=== PATIENT | female | born 1965 | race Caucasian/White ===

== ENCOUNTER 2023-02-18 20:46 | Inpatient (IN) | payer BC ==
[2023-02-18 21:06] LABS: Glucose,Whole Blood 136 mg/dL (70-110)
[2023-02-18] MEDS ORDERED: ASPIRIN 81 MG PO STA (21:26)
[2023-02-18] MEDS ORDERED: NITROGLYCERIN OINT 1 INCH/GM PACKET TOPICAL STA (21:26)
--- NOTE | 2023-02-18 21:37 | ED ---
General Adult HPI - General Chief complaint: Altered Mental Status Stated complaint: AMS,Refusing Medications Time Seen by Provider: 02/18/23 21:16 Source: patient, EMS Mode of arrival: EMS Limitations: no limitations - History of Present Illness Initial comments: This patient is a 57-year-old woman who presents to have evaluation for weeks of generalized weakness, confusion and multiple falls. History is from both the patient and . The actually gives most of the history, as the patient prefers to make jokes about her condition. The states that the patient generally refuses to see doctors because she does not trust them. She does have long-standing history of hypertension. Over the past few weeks he notes that as the day goes on she gets progressively weaker, she gets confused, and she tends to have multiple falls in the evenings. Patient denies injury or pain. The patient's only complaint at the history and physical is that she needs to urinate. -: week(s) Consistency: intermittent Improves with: none Worsens with: movement Associated Symptoms: confusion, weakness, other (Multiple falls) Treatments Prior to Arrival: none - Related Data Home Medications Medication Instructions Recorded Confirmed No Known Home Medications 02/18/23 02/18/23 Allergies Allergy/AdvReac Type Severity Reaction Status Date / Time shellfish derived [Shrimp] Allergy Rash/Hives Verified 02/18/23 21:49 Review of Systems ROS Statement: Those systems with pertinent positive or pertinent negative responses have been documented in the HPI. ROS Other: All systems not noted in ROS Statement are negative. Constitutional: Reports: weakness. Denies: fever, chills Eyes: Denies: vision change Respiratory: Denies: cough, dyspnea Cardiovascular: Reports: edema. Denies: chest pain, palpitations, syncope Gastrointestinal: Denies: abdominal pain, vomiting, diarrhea, constipation, melena, hematochezia Genitourinary: Denies: dysuria, frequency, hematuria Musculoskeletal: Denies: back pain Skin: Denies: rash Neurological: Reports: confusion. Denies: headache, weakness Past Medical History Past Medical History: Diabetes Mellitus, Myocardial Infarction ([place]), Thyroid Disorder History of Any Multi-Drug Resistant Organisms: None Reported Smoking Status: Current every day smoker Past Alcohol Use History: Occasional Past Drug Use History: Marijuana - Past Family History Son(s) History Unknown: Yes Mother History Unknown: Yes Father History Unknown: Yes General Exam Limitations: no limitations General appearance: alert, in no apparent distress Head exam: Present: atraumatic, normocephalic Eye exam: Present: normal appearance. Absent: scleral icterus, conjunctival injection ENT exam: Present: normal oropharynx Neck exam: Present: normal inspection, full ROM. Absent: meningismus Respiratory exam: Present: respiratory distress (Tachypnea), rales (Bilateral bases). Absent: wheezes, rhonchi, stridor Cardiovascular Exam: Present: normal rhythm, tachycardia, systolic murmur. Absent: diastolic murmur, rubs, gallop GI/Abdominal exam: Present: soft. Absent: distended, tenderness, guarding, rebound, rigid, mass Extremities exam: Present: normal inspection, tenderness (Those 2 through 5), normal capillary refill, pedal edema, other (Patient has dusky toes #2 through 5 on the left foot with delayed capillary refill.). Absent: calf tenderness Back exam: Present: normal inspection. Absent: CVA tenderness (R), CVA tenderness (L), vertebral tenderness Neurological exam: Present: alert, CN II-XII intact. Absent: oriented X3 (The patient is disoriented to date), motor sensory deficit Skin exam: Present: warm, dry, intact, other (See above). Absent: normal color Course Vital Signs 02/18/23 02/18/23 02/18/23 20:48 21:50 22:00 Temperature 97.7 F Pulse Rate 105 H 98 92 Respiratory 22 Rate Blood Pressure 238/178 230/172 230/172 O2 Sat by Pulse 87 L 96 92 L Oximetry 02/18/23 02/18/23 02/18/23 22:10 22:11 22:20 Temperature Pulse Rate 97 104 H 106 H Respiratory 26 H 17 Rate Blood Pressure 224/159 224/159 209/168 O2 Sat by Pulse 96 89 L 98 Oximetry 02/18/23 02/18/23 02/18/23 22:40 22:50 23:10 Temperature Pulse Rate 101 H 103 H Respiratory 18 18 Rate Blood Pressure 225/179 237/169 229/178 O2 Sat by Pulse 96 92 L 94 L Oximetry 02/18/23 02/18/23 02/18/23 23:30 23:40 23:42 Temperature Pulse Rate 98 98 98 Respiratory 23 18 Rate Blood Pressure 214/153 219/163 216/158 O2 Sat by Pulse 90 L 96 96 Oximetry 02/18/23 02/19/23 02/19/23 23:50 00:00 00:10 Temperature Pulse Rate 96 97 98 Respiratory 35 H 15 15 Rate Blood Pressure 220/155 220/155 228/159 O2 Sat by Pulse 91 L 92 L 96 Oximetry 02/19/23 02/19/23 02/19/23 00:20 00:30 00:31 Temperature Pulse Rate 100 103 H 104 H Respiratory 24 11 L 18 Rate Blood Pressure 224/163 224/163 206/149 O2 Sat by Pulse 90 L 90 L 96 Oximetry 02/19/23 02/19/23 02/19/23 00:40 00:50 01:00 Temperature Pulse Rate 92 96 91 Respiratory 10 L 15 20 Rate Blood Pressure 206/149 192/154 192/154 O2 Sat by Pulse 95 91 L 93 L Oximetry 02/19/23 02/19/23 02/19/23 01:10 01:20 01:30 Temperature Pulse Rate 81 84 71 Respiratory 19 Rate Blood Pressure 225/138 233/137 233/137 O2 Sat by Pulse 92 L Oximetry 02/19/23 02/19/23 02/19/23 01:40 01:50 02:00 Temperature Pulse Rate 69 68 65 Respiratory Rate Blood Pressure 231/142 203/125 O2 Sat by Pulse 95 91 L 96 Oximetry 02/19/23 02/19/23 02/19/23 02:10 02:20 02:30 Temperature Pulse Rate 68 64 62 Respiratory 20 23 Rate Blood Pressure 204/141 199/141 199/141 O2 Sat by Pulse 94 L 93 L 97 Oximetry 02/19/23 02/19/23 02/19/23 02:40 02:51 03:00 Temperature Pulse Rate 60 61 63 Respiratory Rate Blood Pressure 211/130 207/131 O2 Sat by Pulse 97 97 94 L Oximetry 02/19/23 02/19/23 02/19/23 03:10 03:20 03:30 Temperature Pulse Rate 61 61 62 Respiratory 12 Rate Blood Pressure 216/125 205/131 205/131 O2 Sat by Pulse 96 95 97 Oximetry 02/19/23 02/19/23 02/19/23 03:40 03:50 04:00 Temperature Pulse Rate 60 61 63 Respiratory 12 Rate Blood Pressure 219/131 212/137 212/137 O2 Sat by Pulse 97 93 L 96 Oximetry 02/19/23 02/19/23 02/19/23 04:10 04:20 04:30 Temperature Pulse Rate 61 60 63 Respiratory 22 21 Rate Blood Pressure 214/128 O2 Sat by Pulse 96 97 96 Oximetry 02/19/23 02/19/23 02/19/23 04:40 04:50 05:00 Temperature Pulse Rate 58 L 60 63 Respiratory 27 H Rate Blood Pressure 219/137 215/127 215/127 O2 Sat by Pulse 98 98 96 Oximetry 02/19/23 02/19/23 02/19/23 05:10 05:20 05:30 Temperature Pulse Rate 56 L 56 L 58 L Respiratory 10 L Rate Blood Pressure 228/127 205/117 O2 Sat by Pulse 97 96 93 L Oximetry 02/19/23 02/19/23 02/19/23 05:32 05:40 05:50 Temperature Pulse Rate 49 L 60 57 L Respiratory 24 Rate Blood Pressure 196/119 196/119 227/120 O2 Sat by Pulse 95 96 Oximetry 02/19/23 02/19/23 02/19/23 06:00 06:10 06:20 Temperature Pulse Rate 60 53 L 52 L Respiratory 17 23 Rate Blood Pressure 207/118 213/110 O2 Sat by Pulse 96 97 96 Oximetry 02/19/23 02/19/23 02/19/23 06:30 06:40 07:35 Temperature Pulse Rate 54 L 51 L 60 Respiratory 23 26 H 18 Rate Blood Pressure 213/110 207/111 208/126 O2 Sat by Pulse 96 96 98 Oximetry 02/19/23 02/19/23 02/19/23 08:05 08:12 08:17 Temperature Pulse Rate 57 L 59 L 55 L Respiratory 18 16 18 Rate Blood Pressure 142/129 212/123 216/118 O2 Sat by Pulse 95 94 L 95 Oximetry 02/19/23 02/19/23 02/19/23 08:22 08:31 08:43 Temperature Pulse Rate 60 52 L 54 L Respiratory 18 18 18 Rate Blood Pressure 193/115 192/119 195/110 O2 Sat by Pulse 98 95 95 Oximetry 02/19/23 09:08 Temperature 98.0 F Pulse Rate 55 L Respiratory 18 Rate Blood Pressure 191/107 O2 Sat by Pulse 95 Oximetry EKG Findings - EKG Results: EKG: interpreted by ERMD, sinus rhythm, normal axis EKG shows: tachycardia (Rate 110) - Blocks, [place], Hypertrophy, ST Abn: Repolarization changes or abnormalities: nonspecific abnormality, ST segment, and/or T wave Medical Decision Making - Medical Decision Making This patient is a 57-year-old woman with long-standing history of medical noncompliance for hypertension, diabetes, suspect COPD given smoking history, possible underlying liver disease though not heavy drinker. The patient will be admitted to deal with multiple medical issues, including uncontrolled hypertension, altered mental status, probably multifactorial in nature, peripheral vascular occlusive disease with left foot ischemia. The studies reveal mild elevation of troponin though suspect this more due to element of congestive heart failure as EKG not definitely ischemic. The patient had chest x-ray which I interpret to show marked cardiomegaly. No infiltrate or pneumothorax. The case is discussed with admitting physician. The case is discussed with vascular surgery on-call they will see the patient will be maintained on heparin. The patient started on antihypertensives with goal to slowly decrease the blood pressure. The executive secretary social welfare is paged but had not yet called back at time of shift change Was pt. sent in by a medical professional or institution (, PA, DEVELOPMENTAL EDUCATION INSTRUCTOR, urgent care, hospital, or [facility]...) When possible be specific @ -[No] Did you speak to anyone other than the patient for history (EMS, parent, family, police, friend...)? What history was obtained from this source @ -[Most of history from the patient's Did you review nursing and triage notes (agree or disagree)? Why? @ -[I reviewed and agree with nursing and triage notes] Were old charts reviewed (outside hosp., previous admission, EMS record, old EKG, old radiological studies, urgent care reports/EKG's, [facility] records)? Report findings @ -[No old charts were reviewed] Differential Diagnosis (chest pain, altered mental status, abdominal pain women, abdominal pain men, vaginal bleeding, weakness, fever, dyspnea, syncope, headac he, dizziness, GI bleed, back pain, seizure, CVA, palpatations, mental health, musculoskeletal)? @ -[Differential Altered Mental Status: Hypoglycemia, DKA, hypercapnia, ETOH, overdose, CO poisoning, trauma, myxedema coma, HTN encephalopathy, infection, encephalitis, psychosis, intercranial hemorrhage, hepatic encephalopathy, meningitis, CVA, this is not meant to be an all-inclusive list EKG interpreted by me (3pts min.). @ -[As above] X-rays interpreted by me (1pt min.). @ -[As above CT interpreted by me (1pt min.). @ -[None done] U/S interpreted by me (1pt. min.). @ -[None done] What testing was considered but not performed or refused? (CT, X-rays, U/S, labs)? Why? @ -[None] What meds were considered but not given or refused? Why? @ -[None] Did you discuss the management of the patient with other professionals (professionals i.e. Dr., PA, DEVELOPMENTAL EDUCATION INSTRUCTOR, lab, RT, psych nurse, social insurance adviser, automotive service manager, teacher, special forces warrant officer, caser in)? Give summary @ -[As above Was smoking cessation discussed for >3mins.? @ -[No] Was critical care preformed (if so, how long)? @ -[Yes, 35 minutes Were there social determinants of health that impacted care today? How? (Homelessness, low income, unemployed, alcoholism, drug addiction, transportation, low edu. Level, literacy, decrease access to med. care, group home, rehab)? @ -[No] Was there de-escalation of care discussed even if they declined (Discuss DNR or withdrawal of care, Hospice)? DNR status @ -[No] What co-morbidities impacted this encounter? (DM, HTN, Smoking, COPD, CAD, Cancer, CVA, ARF, Chemo, Hep., AIDS, mental health diagnosis, sleep apnea, morbid obesity)? @ -[Hypertension, suspect COPD Was patient admitted / discharged? Hospital course, mention meds given and route, prescriptions, significant lab abnormalities, going to OR and other pertinent info. @ -[Patient is admitted, pending transfer to ICU, given the IV nitroglycerin for blood pressure control. Undiagnosed new problem with uncertain prognosis? @ -[No] Drug Therapy requiring intensive monitoring for toxicity (Heparin, Nitro, Insulin, Cardizem)? @ -[No] Were any procedures done? @ -[No] Diagnosis/symptom? @ -[Acute on chronic hypertension Acute encephalopathy, suspect multifactorial Elevated troponin cardiomyopathy, Suspect hypertensive Peripheral vascular occlusive disease with left foot ischemia Acute, or Chronic, or Acute on Chronic? @ -[default] Uncomplicated (without systemic symptoms) or Complicated (systemic symptoms)? @ -[Complicated Side effects of treatment? @ -[No] Exacerbation, Progression, or Severe Exacerbation? @ -[No] Poses a threat to life or bodily function? How? (Chest pain, [place], [place], pneumonia, PE, COPD, DKA, ARF, appy, cholecystitis, CVA, Diverticulitis, Homicidal, Suicidal, threat to staff... and all critical care pts) @ -[Yes, left untreated suspect the patient would have further cardiac decompensation, progressivly worse congestive heart failure and . In addition probable worsening of left foot ischemia - Lab Data Result diagrams: 03/01/23 07:57 03/02/23 06:10 Lab Results 02/18/23 02/18/23 02/18/23 Range/Units 20:57 20:57 20:57 WBC 7.1 (3.8-10.6) k/uL RBC 5.67 H (3.80-5.40) m/uL Hgb 15.6 (11.4-16.0) gm/dL Hct 48.4 H (34.0-46.0) % MCV 85.3 (80.0-100.0) fL MCH 27.6 (25.0-35.0) pg MCHC 32.3 (31.0-37.0) g/dL RDW 15.3 (11.5-15.5) % Plt Count 263 (150-450) k/uL MPV 8.5 Neutrophils % 73 % Lymphocytes % 17 % Monocytes % 7 % Eosinophils % 1 % Basophils % 1 % Neutrophils # 5.1 (1.3-7.7) k/uL Lymphocytes # 1.2 (1.0-4.8) k/uL Monocytes # 0.5 (0-1.0) k/uL Eosinophils # 0.1 (0-0.7) k/uL Basophils # 0.0 (0-0.2) k/uL PT 12.0 (9.0-12.0) sec INR 1.2 H (<1.2) APTT 23.9 (22.0-30.0) sec VBG pH (7.31-7.41) VBG pCO2 (37-51) mmHg VBG HCO3 (24-28) mmol/L Sodium 135 L (137-145) mmol/L Potassium 4.5 (3.5-5.1) mmol/L Chloride 99 (98-107) mmol/L Carbon Dioxide 26 (22-30) mmol/L Anion Gap 10 mmol/L BUN 32 H (7-17) mg/dL Creatinine 1.28 H (0.52-1.04) mg/dL Est GFR (CKD-EPI)AfAm 54 (>60 ml/min/1.73 sqM) Est GFR (CKD-EPI)NonAf 46 (>60 ml/min/1.73 sqM) Glucose 139 H (74-99) mg/dL POC Glucose (mg/dL) (70-110) mg/dL POC Glu Assistant Manager ID Plasma Lactic Acid Asael (0.7-2.0) mmol/L Calcium 9.1 (8.4-10.2) mg/dL Total Bilirubin 1.5 H (0.2-1.3) mg/dL AST 43 H (14-36) U/L ALT 41 H (4-34) U/L Alkaline Phosphatase 103 (38-126) U/L Ammonia (<30) umol/L Troponin I (0.000-0.034) ng/mL NT-Pro-B Natriuret Pep pg/mL Total Protein 6.0 L (6.3-8.2) g/dL Albumin 3.5 (3.5-5.0) g/dL Serum Alcohol <10 mg/dL 02/18/23 02/18/23 02/18/23 Range/Units 20:57 20:57 20:57 WBC (3.8-10.6) k/uL RBC (3.80-5.40) m/uL Hgb (11.4-16.0) gm/dL Hct (34.0-46.0) % MCV (80.0-100.0) fL MCH (25.0-35.0) pg MCHC (31.0-37.0) g/dL RDW (11.5-15.5) % Plt Count (150-450) k/uL MPV Neutrophils % % Lymphocytes % % Monocytes % % Eosinophils % % Basophils % % Neutrophils # (1.3-7.7) k/uL Lymphocytes # (1.0-4.8) k/uL Monocytes # (0-1.0) k/uL Eosinophils # (0-0.7) k/uL Basophils # (0-0.2) k/uL PT (9.0-12.0) sec INR (<1.2) APTT (22.0-30.0) sec VBG pH (7.31-7.41) VBG pCO2 (37-51) mmHg VBG HCO3 (24-28) mmol/L Sodium (137-145) mmol/L Potassium (3.5-5.1) mmol/L Chloride (98-107) mmol/L Carbon Dioxide (22-30) mmol/L Anion Gap mmol/L BUN (7-17) mg/dL Creatinine (0.52-1.04) mg/dL Est GFR (CKD-EPI)AfAm (>60 ml/min/1.73 sqM) Est GFR (CKD-EPI)NonAf (>60 ml/min/1.73 sqM) Glucose (74-99) mg/dL POC Glucose (mg/dL) (70-110) mg/dL POC Glu Assistant Manager ID Plasma Lactic Acid Asael 1.3 (0.7-2.0) mmol/L Calcium (8.4-10.2) mg/dL Total Bilirubin (0.2-1.3) mg/dL AST (14-36) U/L ALT (4-34) U/L Alkaline Phosphatase (38-126) U/L Ammonia 19 (<30) umol/L Troponin I 0.067 H* (0.000-0.034) ng/mL NT-Pro-B Natriuret Pep pg/mL Total Protein (6.3-8.2) g/dL Albumin (3.5-5.0) g/dL Serum Alcohol mg/dL 02/18/23 02/18/23 02/18/23 Range/Units 20:57 21:05 21:51 WBC (3.8-10.6) k/uL RBC (3.80-5.40) m/uL Hgb (11.4-16.0) gm/dL Hct (34.0-46.0) % MCV (80.0-100.0) fL MCH (25.0-35.0) pg MCHC (31.0-37.0) g/dL RDW (11.5-15.5) % Plt Count (150-450) k/uL MPV Neutrophils % % Lymphocytes % % Monocytes % % Eosinophils % % Basophils % % Neutrophils # (1.3-7.7) k/uL Lymphocytes # (1.0-4.8) k/uL Monocytes # (0-1.0) k/uL Eosinophils # (0-0.7) k/uL Basophils # (0-0.2) k/uL PT (9.0-12.0) sec INR (<1.2) APTT (22.0-30.0) sec VBG pH 7.42 H (7.31-7.41) VBG pCO2 44 (37-51) mmHg VBG HCO3 28 (24-28) mmol/L Sodium (137-145) mmol/L Potassium (3.5-5.1) mmol/L Chloride (98-107) mmol/L Carbon Dioxide (22-30) mmol/L Anion Gap mmol/L BUN (7-17) mg/dL Creatinine (0.52-1.04) mg/dL Est GFR (CKD-EPI)AfAm (>60 ml/min/1.73 sqM) Est GFR (CKD-EPI)NonAf (>60 ml/min/1.73 sqM) Glucose (74-99) mg/dL POC Glucose (mg/dL) 136 H (70-110) mg/dL POC Glu Assistant Manager ID Kasandra Shah Plasma Lactic Acid Asael (0.7-2.0) mmol/L Calcium (8.4-10.2) mg/dL Total Bilirubin (0.2-1.3) mg/dL AST (14-36) U/L ALT (4-34) U/L Alkaline Phosphatase (38-126) U/L Ammonia (<30) umol/L Troponin I (0.000-0.034) ng/mL NT-Pro-B Natriuret Pep [id number] pg/mL Total Protein (6.3-8.2) g/dL Albumin (3.5-5.0) g/dL Serum Alcohol mg/dL Disposition Clinical Impression: Hypertension, CHF (congestive heart failure), Peripheral vascular disease Disposition: ADMITTED IP TO THIS HOSP Condition: Poor Is patient prescribed a controlled substance at d/c from ED?: No
[2023-02-18 21:53] LABS: Basophils % (A) 1 %; Eosinophils # (A) 0.1 k/uL (0-0.7); Eosinophils % (A) 1 %; HCT 48.4 % (34.0-46.0); HGB 15.6 gm/dL (11.4-16.0); Lymphocytes # (A) 1.2 k/uL (1.0-4.8); Lymphocytes % (A) 17 %; MCH 27.6 pg (25.0-35.0); MCHC 32.3 g/dL (31.0-37.0); MCV 85.3 fL (80.0-100.0); Mean Platelet Volume 8.5; Monocytes # (A) 0.5 k/uL (0-1.0); Monocytes % (A) 7 %; Neutrophils # (A) 5.1 k/uL (1.3-7.7); Neutrophils % (A) 73 %; Platelet Count 263 k/uL (150-450); RBC 5.67 m/uL (3.80-5.40); RDW 15.3 % (11.5-15.5); WBC 7.1 k/uL (3.8-10.6)
[2023-02-18 22:05] LABS: VBG PH 7.42 (7.31-7.41)
[2023-02-18 22:07] LABS: INR 1.2 (<1.2); Partial Thromboplastin Time 23.9 sec (22.0-30.0)
--- NOTE | 2023-02-18 22:07 | XR ---
EXAMINATION TYPE: XR chest 1V portable DATE OF EXAM: 02/18/2023 9:59 PM COMPARISON: None TECHNIQUE: XR chest 1V portable Portable AP radiograph of the chest. CLINICAL INDICATION:Female, 57 years old with history of altered mental status; FINDINGS: Lungs/Pleura: There is no evidence of pleural effusion or pneumothorax. Linear atelectasis and/or sca rring within the left midlung. Pulmonary vascularity: Unremarkable. Heart/mediastinum: Cardiomediastinal silhouette is enlarged. Musculoskeletal: No acute osseous pathology. IMPRESSION: Cardiomegaly with linear atelectasis and/or scarring in the left midlung.
[2023-02-18 22:08] LABS: ALT 41 U/L (4-34); AST 43 U/L (14-36); African American GFR (CKD) 54 (>60 ml/min/1.73 sqM); Albumin 3.5 g/dL (3.5-5.0); Alcohol <10 mg/dL; Alkaline Phosphatase 103 U/L (38-126); Anion Gap 10 mmol/L; Blood Urea Nitrogen 32 mg/dL (7-17); Calcium 9.1 mg/dL (8.4-10.2); Carbon Dioxide 26 mmol/L (22-30); Chloride 99 mmol/L (98-107); Glucose 139 mg/dL (74-99); Non-African American GFR(CKD) 46 (>60 ml/min/1.73 sqM); Potassium 4.5 mmol/L (3.5-5.1); Sodium 135 mmol/L (137-145); Total Bilirubin 1.5 mg/dL (0.2-1.3)
[2023-02-18] MEDS ORDERED: FUROSEMIDE 10 MG/ML 2 ML VIAL IV STA (23:30)
[2023-02-19] MEDS ORDERED: HEPARIN SODIUM 1,000 UN/ML (10ML VL) IV PRN (00:02)
[2023-02-19] MEDS ORDERED: HEPARIN SODIUM 1,000 UN/ML (10ML VL) IV ONE (00:02)
[2023-02-19] MEDS ORDERED: lisinopriL 10 MG TAB PO STA (00:03)
[2023-02-19] MEDS ORDERED: METOPROLOL TARTRATE 50 MG TAB PO STA ×2 (00:04→03:19)
[2023-02-19] MEDS: HEPARIN SOD,PORK IN 0.45% NACL 25,000 UNIT in 0.45% NACL 1 250ML.BAG IV SCH (00:27)
[2023-02-19] MEDS: FUROSEMIDE 10 MG/ML 4 ML VIAL IV SCH ×2 (00:35→22:05)
[2023-02-19 01:13] LABS: Amorphous Sediment,Urine Occasional /hpf; Appearance,Urine Clear (Clear); Bilirubin,Urine Negative (Negative); Blood,Urine Negative (Negative); Color,Urine Yellow; Glucose,Urine (UA) Negative (Negative); Hyaline Casts,Urine 5 /lpf (0-2); Ketones,Urine Negative (Negative); Leukocyte Esterase,Urine Negative (Negative); Mucus,Urine Rare /hpf; Nitrite,Urine Negative (Negative); Protein,Urine 3+ (Negative); RBC,Urine 2 /hpf (0-5); Specific Gravity,Urine 1.016 (1.001-1.035); Squamous Epithelial Cell,Urine 5 /hpf (0-4); WBC,Urine 2 /hpf (0-5)
[2023-02-19 01:14] LABS: Amphetamine Screen,Urine Not Detected (NotDetected); Barbiturate Screen,Urine Not Detected (NotDetected); Benzodiazepines Screen,Urine Not Detected (NotDetected); Cocaine Screen,Urine Not Detected (NotDetected); Methadone Screen, Urine Not Detected (NotDetected); Opiate Screen,Urine Not Detected (NotDetected); Oxycodone Screen, Urine Not Detected (NotDetected); Phencyclidine Screen,Urine Not Detected (NotDetected); Tricyclic Antidepressant,Urine Not Detected (NotDetected); Urn Cannabinoid Scrn Not Detected (NotDetected)
[2023-02-19] MEDS ORDERED: lisinopriL 20 MG TAB PO STA (03:19)
[2023-02-19] MEDS ORDERED: hydrALAZINE HCL 20 MG/ML 1 ML VIAL IVP STA (04:35)
[2023-02-19 05:55] LABS: T4, Free (Free Thyroxine) 0.84 ng/dL (0.78-2.19)
[2023-02-19] MEDS ORDERED: NITROGLYCERIN OINT 1 INCH/GM PACKET TOPICAL SCH (06:00)
[2023-02-19] MEDS: amLODIPine 10 MG TAB PO STA ×2 (07:29→07:35)
[2023-02-19] MEDS: hydrALAZINE HCL 50 MG TAB PO SCH ×2 (07:29→07:34)
[2023-02-19] MEDS: NITROGLYCERIN-D5W PMX 50 MG in DEXTROSE/WATER 1 250ML.BAG IV SCH (07:55)
[2023-02-19] MEDS ORDERED: LORazepam 2 MG/ML INJ IV STA ×2 (08:00→08:59)
[2023-02-19] MEDS ORDERED: METOPROLOL TARTRATE 25 MG TAB PO SCH (09:00)
[2023-02-19] MEDS ORDERED: lisinopriL 10 MG TAB PO SCH (09:00)
[2023-02-19 09:59] LABS: Glucose,Whole Blood 109 mg/dL (70-110)
--- NOTE | 2023-02-19 10:18 | P.GSCN ---
History of Present Illness Consult date: 02/19/23 Reason for Consult: Left toe ischemia Requesting physician: Yuan Flowers History of present illness: This is a 57-year-old female who was brought into the emergency department yesterday by her for reportedly altered mental status changes, weakness and frequent falls. HPI is obtained from chart and nurse as patient was recently given Ativan and difficult to wake. Nursing reports that stated he had found his on the floor covered in feces. She had been having multiple falls over the last several weeks. She has a past medical history of hypertension, diabetes mellitus and hypothyroid however is noncompliant does not take any medications and does not follow with any positions. She reportedly is a daily smoker and also uses marijuana on a regular basis. Patient was noted to be hypertensive with blood pressures in the 200s over 100s on admission. She had a chest x-ray that showed cardiomegaly. Patient was getting echocardiogram this morning currently pending results. She was noted to have some discoloration/ischemia of her left toes and vascular surgery was consulted. Patient currently on a nitro drip for blood pressure as well as heparin drip. Urine drug screen negative, serum alcohol less than 10. Labs WBC 7.1 hemoglobin 15.6 platelet count 263,019 or 1.2 sodium 135 potassium 4.5 BUN 32 creatinine 1.28 glucose 139 total bilirubin 1.5 AST 43 ALT 41 alkaline phosphatase 103 troponin 0.075 TSH 38.8 Review of Systems ROS unobtainable: due to mental status Past Medical History Past Medical History: Diabetes Mellitus, Myocardial Infarction ([place]), Thyroid Disorder History of Any Multi-Drug Resistant Organisms: None Reported Smoking Status: Current every day smoker Past Alcohol Use History: Occasional Past Drug Use History: Marijuana Medications and Allergies Home Medications Medication Instructions Recorded Confirmed Type No Known Home Medications 02/18/23 02/18/23 History Allergies Allergy/AdvReac Type Severity Reaction Status Date / Time shellfish derived [Shrimp] Allergy Rash/Hives Verified 02/18/23 21:49 Surgical - Exam Vital Signs Temp Pulse Resp BP Pulse Ox 97.7 F 105 H 22 238/178 87 L 02/18/23 20:48 02/18/23 20:48 02/18/23 20:48 02/18/23 20:48 02/18/23 20:48 General appearance: The patient is asleep, appears in no acute distress. HET: Head is normocephalic and atraumatic. Neck: Supple. Heart: Regular. Lungs: Equal expansion, normal respiratory effort. Abdomen: Soft, nontender, nondistended. Extremities: Palpable bilateral radial pulses. Bilateral lower extremity pedal edema. Palpable bilateral femoral pulses. Palpable right DP pulse. Difficult to palpate left DP pulse. Good capillary refill bilaterally. Left great toe and third toe with purple discoloration. Patient does not appear in pain with toe compression. Neurological: Patient recently medicated with Ativan. Very drowsy not easily arousable. Results - Labs 02/18/23 20:57 02/18/23 20:57 Abnormal Lab Results - Last 24 Hours (Table) 02/18/23 02/18/23 02/18/23 Range/Units 20:57 20:57 20:57 RBC 5.67 H (3.80-5.40) m/uL Hct 48.4 H (34.0-46.0) % INR 1.2 H (<1.2) APTT (22.0-30.0) sec VBG pH (7.31-7.41) Sodium 135 L (137-145) mmol/L BUN 32 H (7-17) mg/dL Creatinine 1.28 H (0.52-1.04) mg/dL Glucose 139 H (74-99) mg/dL POC Glucose (mg/dL) (70-110) mg/dL Total Bilirubin 1.5 H (0.2-1.3) mg/dL AST 43 H (14-36) U/L ALT 41 H (4-34) U/L Troponin I (0.000-0.034) ng/mL Total Protein 6.0 L (6.3-8.2) g/dL TSH (0.465-4.680) mIU/L Urine Protein (Negative) Ur Squamous Epith Cells (0-4) /hpf Amorphous Sediment (None) /hpf Hyaline Casts (0-2) /lpf Urine Mucus (None) /hpf 02/18/23 02/18/23 02/18/23 Range/Units 20:57 21:05 21:51 RBC (3.80-5.40) m/uL Hct (34.0-46.0) % INR (<1.2) APTT (22.0-30.0) sec VBG pH 7.42 H (7.31-7.41) Sodium (137-145) mmol/L BUN (7-17) mg/dL Creatinine (0.52-1.04) mg/dL Glucose (74-99) mg/dL POC Glucose (mg/dL) 136 H (70-110) mg/dL Total Bilirubin (0.2-1.3) mg/dL AST (14-36) U/L ALT (4-34) U/L Troponin I 0.067 H* (0.000-0.034) ng/mL Total Protein (6.3-8.2) g/dL TSH (0.465-4.680) mIU/L Urine Protein (Negative) Ur Squamous Epith Cells (0-4) /hpf Amorphous Sediment (None) /hpf Hyaline Casts (0-2) /lpf Urine Mucus (None) /hpf 02/19/23 02/19/23 02/19/23 Range/Units 00:26 00:32 03:40 RBC (3.80-5.40) m/uL Hct (34.0-46.0) % INR (<1.2) APTT (22.0-30.0) sec VBG pH (7.31-7.41) Sodium (137-145) mmol/L BUN (7-17) mg/dL Creatinine (0.52-1.04) mg/dL Glucose (74-99) mg/dL POC Glucose (mg/dL) (70-110) mg/dL Total Bilirubin (0.2-1.3) mg/dL AST (14-36) U/L ALT (4-34) U/L Troponin I 0.074 H* 0.075 H* (0.000-0.034) ng/mL Total Protein (6.3-8.2) g/dL TSH (0.465-4.680) mIU/L Urine Protein 3+ H (Negative) Ur Squamous Epith Cells 5 H (0-4) /hpf Amorphous Sediment Occasional H (None) /hpf Hyaline Casts 5 H (0-2) /lpf Urine Mucus Rare H (None) /hpf 02/19/23 02/19/23 Range/Units 03:40 06:15 RBC (3.80-5.40) m/uL Hct (34.0-46.0) % INR (<1.2) APTT 63.3 H (22.0-30.0) sec VBG pH (7.31-7.41) Sodium (137-145) mmol/L BUN (7-17) mg/dL Creatinine (0.52-1.04) mg/dL Glucose (74-99) mg/dL POC Glucose (mg/dL) (70-110) mg/dL Total Bilirubin (0.2-1.3) mg/dL AST (14-36) U/L ALT (4-34) U/L Troponin I (0.000-0.034) ng/mL Total Protein (6.3-8.2) g/dL TSH 38.800 H (0.465-4.680) mIU/L Urine Protein (Negative) Ur Squamous Epith Cells (0-4) /hpf Amorphous Sediment (None) /hpf Hyaline Casts (0-2) /lpf Urine Mucus (None) /hpf Diabetes panel 02/18/23 Range/Units 20:57 Sodium 135 L (137-145) mmol/L Potassium 4.5 (3.5-5.1) mmol/L Chloride 99 (98-107) mmol/L Carbon Dioxide 26 (22-30) mmol/L BUN 32 H (7-17) mg/dL Creatinine 1.28 H (0.52-1.04) mg/dL Glucose 139 H (74-99) mg/dL Calcium 9.1 (8.4-10.2) mg/dL AST 43 H (14-36) U/L ALT 41 H (4-34) U/L Alkaline Phosphatase 103 (38-126) U/L Total Protein 6.0 L (6.3-8.2) g/dL Albumin 3.5 (3.5-5.0) g/dL Thyroid panel 02/19/23 Range/Units 03:40 TSH 38.800 H (0.465-4.680) mIU/L Calcium panel 02/18/23 Range/Units 20:57 Calcium 9.1 (8.4-10.2) mg/dL Albumin 3.5 (3.5-5.0) g/dL Pituitary panel 02/18/23 02/19/23 Range/Units 20:57 03:40 Sodium 135 L (137-145) mmol/L Potassium 4.5 (3.5-5.1) mmol/L Chloride 99 (98-107) mmol/L Carbon Dioxide 26 (22-30) mmol/L BUN 32 H (7-17) mg/dL Creatinine 1.28 H (0.52-1.04) mg/dL Glucose 139 H (74-99) mg/dL Calcium 9.1 (8.4-10.2) mg/dL TSH 38.800 H (0.465-4.680) mIU/L Adrenal panel 02/18/23 Range/Units 20:57 Sodium 135 L (137-145) mmol/L Potassium 4.5 (3.5-5.1) mmol/L Chloride 99 (98-107) mmol/L Carbon Dioxide 26 (22-30) mmol/L BUN 32 H (7-17) mg/dL Creatinine 1.28 H (0.52-1.04) mg/dL Glucose 139 H (74-99) mg/dL Calcium 9.1 (8.4-10.2) mg/dL Total Bilirubin 1.5 H (0.2-1.3) mg/dL AST 43 H (14-36) U/L ALT 41 H (4-34) U/L Alkaline Phosphatase 103 (38-126) U/L Total Protein 6.0 L (6.3-8.2) g/dL Albumin 3.5 (3.5-5.0) g/dL Assessment and Plan Assessment: 1. Altered mental status changes 2. Weakness with multiple falls 3. Left great toe and third toe ischemic changes 4. Hypertension, uncontrolled, noncompliant with medications 5. Hypothyroid, noncompliant with medications 6. Cardiomegaly 7. Diabetes mellitus, noncompliant with medications 8. Elevated troponins Plan: 1. Continue supportive care 2. Arterial duplex of the bilateral lower extremities ordered 3. 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 Continue with recommendations from cardiology 5. Further recommendations forthcoming from vascular surgery Thank you for this consultation, we will continue to follow. The impression and plan of care has been dictated as directed. I performed a history and examination of this patient, discussed the same with the dictator. I agree with the dictator's note ,documented as a scribe. Any additional findings or plans will be noted.
--- NOTE | 2023-02-19 10:36 | CA ---
Transthoracic Echo Report Name: Afia Chamberlain Age: 57 Gender: F : 1965 Exam Date: 02/19/2023 07:58 Exam Location: [facility] Ht (in): 61 Wt (lb): 160 Ordering Physician: Yuan Flowers MD Attending/Referring Phys: Charge Operator Kiko Garza Procedure CPT: Indications: Heart failure Cardiac Hx: Technical Quality: Technically difficult study pt management Contrast 1: Total Dose (mL): Contrast 2: Total Dose (mL): MEASUREMENTS (Male / Female) Normal Values 2D ECHO LV Diastolic Diameter PLAX 5.6 cm 4.2 - 5.9 / 3.9 - 5.3 cm LV Systolic Diameter PLAX 4.6 cm IVS Diastolic Thickness 1.5 cm 0.6 - 1.0 / 0.6 - 0.9 cm LVPW Diastolic Thickness 1.8 cm 0.6 - 1.0 / 0.6 - 0.9 cm LV Relative Wall Thickness 0.6 RV Internal Dim ED PLAX 2.6 cm LVOT Diameter 1.8 cm Aortic Root Diameter 3.4 cm LA Systolic Diameter LX 3.1 cm 3.0 - 4.0 / 2.7 - 3.8 cm LV Diastolic Volume MOD BP 87.5 cm??? 67 - 155 / 56 - 104 cm??? LV Systolic Volume MOD BP 45.4 cm??? 22 - 58 / 19 - 49 cm??? LV Ejection Fraction MOD BP 48.2 % >= 55 % LV Diastolic Volume MOD 4C 92.8 cm??? LV Systolic Volume MOD 4C 44.7 cm??? LV Ejection Fraction MOD 4C 51.8 % LV Diastolic Length 4C 7.7 cm LV Systolic Length 4C 6.7 cm LV Diastolic Volume MOD 2C 70.0 cm??? LV Systolic Volume MOD 2C 36.6 cm??? LV Ejection Fraction MOD 2C 47.7 % LV Diastolic Length 2C 6.5 cm LV Systolic Length 2C 5.3 cm LA Volume 72.4 cm??? 18 - 58 / 22 - 52 cm??? Ascending Aorta Diameter 3.2 cm DOPPLER AV Peak Velocity 135.8 cm/s AV Peak Gradient 7.4 mmHg AI Peak Velocity 526.2 cm/s AI Peak Gradient 110.7 mmHg AI Pressure Half Time 972.5 ms LVOT Peak Velocity 121.6 cm/s LVOT Peak Gradient 5.9 mmHg AV Area Cont Eq pk 2.3 cm??? MV Peak Velocity 80.9 cm/s MV Peak Gradient 2.6 mmHg MV Mean Velocity 36.7 cm/s MV Mean Gradient 0.7 mmHg MV Velocity Time Integral 33.5 cm Mitral E Point Velocity 60.2 cm/s Mitral A Point Velocity 74.2 cm/s Mitral E to A Ratio 0.8 MV Deceleration Time 245.4 ms TR Peak Velocity 183.6 cm/s TR Peak Gradient 13.5 mmHg Right Ventricular Systolic Press 18.5 mmHg PV Peak Velocity 100.8 cm/s PV Peak Gradient 4.1 mmHg FINDINGS Left Ventricle Left ventricular ejection fraction is estimated at 30-35 %. Moderate to severe LVH. Right Ventricle Normal right ventricular size. Right Atrium Mild right atrial dilatation. Left Atrium LA Volume index= 42ml/m2 Mitral Valve Structurally normal mitral valve. Mild MR. Aortic Valve Grossly normal valve structure. Mild AI. Tricuspid Valve Structurally normal tricuspid valve. Trace TR. Pulmonic Valve Pulmonic valve not well visualized. Moderate PI. Pericardium Small pericardial effusion. Aorta Normal size aortic root and proximal ascending aorta. CONCLUSIONS Severe concentric left ventricular hypertrophy with severe LV dysfunction with an ejection fraction of 30-35% Mild cardiomegaly appears thickened consider an infiltrative disease Mild mitral and iritic regurgitation Previewed by: Dr. Perez Foote MD (Electronically Signed) Final Date: 19 February 2023 10:36
--- NOTE | 2023-02-19 10:57 | P.CRDCN ---
History of Present Illness Consult date: 02/19/23 History of present illness: History of Present Illness: The patient is a 57-year-old female who was admitted to the hospital with symptoms of confusion, multiple falls, weakness. The history is obtained from the records. The patient is not answering question quite somnolent after receiving Ativan. According to the records the patient has not been taking her medications are home. She has a history of hypertension, diabetes and hyperlipidemia full detail of her prior history or medication is unclear. She was noted to be severely hypertensive, elevated NT proBNP and TSH on presentation. She was in sinus mechanism on presentation. She had peripheral edema and discoloration of the toes on the left lower extremity. According to the notes she's a daily smoker and she uses marijuana. I am unable to obtain any other history. Her echocardiogram performed this morning showed a severely impaired left ventricle systolic function Medications: This medication not available, according to the records regurgitation was not compliant with her medications. Review of Systems: Could not be obtained Physical Examination: 57-year-old female, somnolent, opening her eyes at times but not answering questions ,Blood pressure 191/107, Heart rate 55 Head: Normocephalic. Eyes: Sclerae nonicteric. Neck: Good carotid upstroke, no bruit, no jugular venous distention. Lungs: Clear to auscultation. Heart: Regular rate and rhythm, S1-S2, no S3, no rub. Systolic ejection murmur. Abdomen: Soft nontender, positive bowel sounds no organomegaly. Extremities: +2 edema more on the right side, discoloration of the toe on the left side with decreased pulse. Labs: Hemoglobin 15.6, potassium 4.5, BUN 32, creatinine 1.28. Total bilirubin 1.5. AST 43, ALT 41. NT proBNP 60,200, troponin 0.074, 0.067. TSH 38.8. Chest x- ray showed cardiomegaly EKG: Sinus tachycardia rate of 110 with LVH, biatrial enlargement and nonspecific ST- T wave changes, cannot exclude ischemia Impression: 1. Uncontrolled hypertension 2. Change in mental status 3. And hypothyroidism, noncompliant with medication 4. Troponin elevation, representing type 2 myocardial injury 5. Elevated NT proBNP with severe cardiomyopathy of unknown duration or etiology. It could be hypertensive or related to hypothyroidism 6. Peripheral vascular disease and discoloration of the left foot 7. Abnormal renal function of unknown duration 8. History of chronic tobacco and marijuana use Plan: 1. Obtain a computed tomography scan of the head to rule out bleed 2. Obtain blood gases 3. Add clonidine and IV hydralazine 4. Follow her renal functions 5. Treat hypothyroidism per primary care 6. Continue IV heparin and IV nitroglycerin for now 7. Depending on her progress further recommendations will be made, prognosis is guarded 8. Thank you for this consult we will follow with you Past Medical History Past Medical History: Diabetes Mellitus, Myocardial Infarction ([place]), Thyroid Disorder History of Any Multi-Drug Resistant Organisms: None Reported Smoking Status: Current every day smoker Past Alcohol Use History: Occasional Past Drug Use History: Marijuana Medications and Allergies Home Medications Medication Instructions Recorded Confirmed Type No Known Home Medications 02/18/23 02/18/23 History Allergies Allergy/AdvReac Type Severity Reaction Status Date / Time shellfish derived [Shrimp] Allergy Rash/Hives Verified 02/18/23 21:49 Physical Exam Vitals: Vital Signs Temp Pulse Resp BP Pulse Ox 02/19/23 09:08 98.0 F 55 L 18 191/107 95 02/19/23 08:43 54 L 18 195/110 95 02/19/23 08:31 52 L 18 192/119 95 02/19/23 08:22 60 18 193/115 98 02/19/23 08:17 55 L 18 216/118 95 02/19/23 08:12 59 L 16 212/123 94 L 02/19/23 08:05 57 L 18 142/129 95 02/19/23 07:35 60 18 208/126 98 02/19/23 06:40 51 L 26 H 207/111 96 02/19/23 06:30 54 L 23 213/110 96 02/19/23 06:20 52 L 23 213/110 96 02/19/23 06:10 53 L 17 207/118 97 02/19/23 06:00 60 96 02/19/23 05:50 57 L 24 227/120 96 02/19/23 05:40 60 196/119 95 02/19/23 05:32 49 L 196/119 02/19/23 05:30 58 L 93 L 02/19/23 05:20 56 L 10 L 205/117 96 02/19/23 05:10 56 L 228/127 97 02/19/23 05:00 63 215/127 96 02/19/23 04:50 60 27 H 215/127 98 02/19/23 04:40 58 L 219/137 98 02/19/23 04:30 63 21 96 02/19/23 04:20 60 214/128 97 02/19/23 04:10 61 22 96 02/19/23 04:00 63 212/137 96 02/19/23 03:50 61 212/137 93 L 02/19/23 03:40 60 12 219/131 97 02 03:30 62 12 205/131 97 02/19/23 03:20 61 205/131 95 02 03:10 61 216/125 96 02/19/23 03:00 63 94 L 02/19/23 02:51 61 207/131 97 02/19/23 02:40 60 211/130 97 02/19/23 02:30 62 23 199/141 97 02/19/23 02:20 64 199/141 93 L 02/19/23 02:10 68 20 204/141 94 L 02/19/23 02:00 65 96 02/19/23 01:50 68 203/125 91 L 02/19/23 01:40 69 231/142 95 02/19/23 01:30 71 233/137 92 L 02/19/23 01:20 84 233/137 02/19/23 01:10 81 19 225/138 02/19/23 01:00 91 20 192/154 93 L 02/19/23 00:50 96 15 192/154 91 L 02/19/23 00:40 92 10 L 206/149 95 02/19/23 00:31 104 H 18 206/149 96 02/19/23 00:30 103 H 11 L 224/163 90 L 02/19/23 00:20 100 24 224/163 90 L 02/19/23 00:10 98 15 228/159 96 02/19/23 00:00 97 15 220/155 92 L 02/18/23 23:50 96 35 H 220/155 91 L 02/18/23 23:42 98 18 216/158 96 02/18/23 23:40 98 23 219/163 96 02/18/23 23:30 98 214/153 90 L 02/18/23 23:10 229/178 94 L 02/18/23 22:50 103 H 18 237/169 92 L 02/18/23 22:40 101 H 18 225/179 96 02/18/23 22:20 106 H 17 209/168 98 02/18/23 22:11 104 H 26 H 224/159 89 L 02/18/23 22:10 97 224/159 96 02/18/23 22:00 92 230/172 92 L 02/18/23 21:50 98 230/172 96 02/18/23 20:48 97.7 F 105 H 22 238/178 87 L Intake and Output 02/18/23 02/19/23 02/19/23 22:59 06:59 14:59 Intake Total 23.30 Output Total 2150 Balance -2126.70 Intake: Intake, IV Titration 23.30 Amount Nitroglycerin-D5w Pmx 50 23.30 mg In Dextrose/Water 1 250ml.bag @ 20 MCG/MIN 6 mls/hr IV .Q24H [facility] Rx#: [id number] Output: Urine 2150 Other: Weight 72.575 kg 72.575 kg Results 02/18/23 20:57 02/18/23 20:57 Cardiac Enzymes 02/18/23 02/18/23 02/19/23 Range/Units 20:57 20:57 00:26 AST 43 H (14-36) U/L Troponin I 0.067 H* 0.074 H* (0.000-0.034) ng/mL 02/19/23 Range/Units 03:40 AST (14-36) U/L Troponin I 0.075 H* (0.000-0.034) ng/mL Coagulation 02/18/23 02/19/23 Range/Units 20:57 06:15 PT 12.0 (9.0-12.0) sec APTT 23.9 63.3 H (22.0-30.0) sec CBC 02/18/23 Range/Units 20:57 WBC 7.1 (3.8-10.6) k/uL RBC 5.67 H (3.80-5.40) m/uL Hgb 15.6 (11.4-16.0) gm/dL Hct 48.4 H (34.0-46.0) % Plt Count 263 (150-450) k/uL Comprehensive Metabolic Panel 02/18/23 Range/Units 20:57 Sodium 135 L (137-145) mmol/L Potassium 4.5 (3.5-5.1) mmol/L Chloride 99 (98-107) mmol/L Carbon Dioxide 26 (22-30) mmol/L BUN 32 H (7-17) mg/dL Creatinine 1.28 H (0.52-1.04) mg/dL Glucose 139 H (74-99) mg/dL Calcium 9.1 (8.4-10.2) mg/dL AST 43 H (14-36) U/L ALT 41 H (4-34) U/L Alkaline Phosphatase 103 (38-126) U/L Total Protein 6.0 L (6.3-8.2) g/dL Albumin 3.5 (3.5-5.0) g/dL Current Medications Generic Name Dose Route Start Last Admin Trade Name Freq PRN Reason Stop Dose Admin Aspirin 325 mg 02/20/23 09:00 Aspirin 325 Mg Tab PO DAILY PJ Clonidine HCl 1 patch 02/19/23 11:00 Clonidine 0.2 Mg/24hr Patch TRANSDERM Q7D PJ Furosemide 40 mg 02/19/23 00:15 02/19/23 00:35 Furosemide 10 Mg/Ml 4 Ml Vial IV Not Given Q12H PJ Heparin Sodium (Porcine) 0 unit 02/19/23 00:02 Heparin Sodium 1,000 Un/Ml (10ml Vl) IV PER PROTOCOL PRN Low PTT Protocol Hydralazine HCl 10 mg 02/19/23 10:44 Hydralazine Hcl 20 Mg/Ml 1 Ml Vial IVP Q4HR PRN Blood Pressure - High Heparin Sodium/Sodium Chloride 250 mls @ 8.709 mls/hr 02/19/23 00:15 02/19/23 00:27 25,000 unit/ Sodium Chloride IV 12 units/kg/hr .Q24H PJ 8.709 mls/hr Administration Protocol 12 UNITS/KG/HR Nitroglycerin/Dextrose 50 mg/ 250 mls @ 6 mls/hr 02/19/23 08:30 02/19/23 09:14 IV Solution IV 90 mcg/min .Q24H PJ 27 mls/hr Titration Protocol 20 MCG/MIN Sodium Chloride 10 ml 02/19/23 09:00 02/19/23 08:16 Sodium Chloride 0.9% Flush 10 Ml Syringe IV Not Given BID PJ Intake and Output 02/18/23 02/19/23 02/19/23 22:59 06:59 14:59 Intake Total 23.30 Output Total 2150 Balance -2126.70 Intake: Intake, IV Titration 23.30 Amount Nitroglycerin-D5w Pmx 50 23.30 mg In Dextrose/Water 1 250ml.bag @ 20 MCG/MIN 6 mls/hr IV .Q24H [facility] Rx#: [id number] Output: Urine 2150 Other: Weight 72.575 kg 72.575 kg Patient Weight 02/20/23 06:59 Weight 72.575 kg 02/18/23 20:57 02/18/23 20:57
--- NOTE | 2023-02-19 10:58 | P.CNPUL ---
History of Present Illness Consult date: 02/19/23 Chief complaint: Acute hypertensive emergency History of present illness: 57-year-old female patient, was rolled into the intensive care unit, lethargic, weak and will confused, under the effect of Ativan that was given to her in the emergency and the patient's received a total of 2 mg of IV Ativan. Meanwhile, the patient was having weakness, confusion and multiple falls and the ended up bringing her to the hospital. I do not believe that she has seen any physicians. Upon arrival, the patient's was noted to have an elevated blood pressure. She was confused. Her EKG showed sinus rhythm with some nonspecific ST segment changes. Chest x-ray showed cardiomegaly with mild pulmonary vessel congestion. BUN was 32 with a creatinine of 1.2 and a white cell count of 7.1. The serum alcohol was negative. Her rest of the blood work showed normal electrolytes, BUN of 32 with a creatinine of 1.2. ProBNP level was 60,000, TSH was 38, free T4 was 0.8. Urine drug screen was negative. UA was negative. The cecum was 7.0 with a hemoglobin of 15.6. Echocardiogram was done this morning and it showed an ejection fraction of 30-35% with moderate to severe LVH, no significant valvular abnormalities and there was moderate to severe left ventricular hypertrophy. Note that patient's initial blood pressure at the time of her emergency department evaluation was as high as 228/159. For now, the patient is on a nitroglycerin drip running at 100 mcg/m. She is on IV heparin. She was given clonidine patch. She was also given hydralazine 10 mg IV every 4 hours. On a separate note, the patient was noted to have some bluish disc oloration of her great toe and the left foot. The patient has Doppler signals bilaterally. The patient also has adequate femoral and popliteal pulses. While in the emergency, the patient was given Ativan. I saw her in the intensive care unit. She is gradually waking up and active and affect is wearing off. No signs of any significant respiratory compromise. She is currently on oxygen at 2 L with a pulse ox of 91%. Review of Systems ROS unobtainable: due to mental status Past Medical History Past Medical History: Diabetes Mellitus, Myocardial Infarction ([place]), Thyroid Disorder History of Any Multi-Drug Resistant Organisms: None Reported Smoking Status: Current every day smoker Past Alcohol Use History: Occasional Past Drug Use History: Marijuana Medications and Allergies Home Medications Medication Instructions Recorded Confirmed Type No Known Home Medications 02/18/23 02/18/23 History Allergies Allergy/AdvReac Type Severity Reaction Status Date / Time shellfish derived [Shrimp] Allergy Rash/Hives Verified 02/18/23 21:49 Physical Exam Vitals: Vital Signs Temp Pulse Resp BP Pulse Ox 02/19/23 09:08 98.0 F 55 L 18 191/107 95 02/19/23 08:43 54 L 18 195/110 95 02/19/23 08:31 52 L 18 192/119 95 02/19/23 08:22 60 18 193/115 98 02/19/23 08:17 55 L 18 216/118 95 02/19/23 08:12 59 L 16 212/123 94 L 02/19/23 08:05 57 L 18 142/129 95 02/19/23 07:35 60 18 208/126 98 02/19/23 06:40 51 L 26 H 207/111 96 02/19/23 06:30 54 L 23 213/110 96 02/19/23 06:20 52 L 23 213/110 96 02/19/23 06:10 53 L 17 207/118 97 02/19/23 06:00 60 96 02/19/23 05:50 57 L 24 227/120 96 02/19/23 05:40 60 196/119 95 02/19/23 05:32 49 L 196/119 02/19/23 05:30 58 L 93 L 02/19/23 05:20 56 L 10 L 205/117 96 02/19/23 05:10 56 L 228/127 97 02/19/23 05:00 63 215/127 96 02/19/23 04:50 60 27 H 215/127 98 02/19/23 04:40 58 L 219/137 98 02/19/23 04:30 63 21 96 02/19/23 04:20 60 214/128 97 02/19/23 04:10 61 22 96 02/19/23 04:00 63 212/137 96 02/19/23 03:50 61 212/137 93 L 02/19/23 03:40 60 12 219/131 97 02/19/23 03:30 62 12 205/131 97 02/19/23 03:20 61 205/131 95 02/19/23 03:10 61 216/125 96 02/19/23 03:00 63 94 L 02/19/23 02:51 61 207/131 97 02/19/23 02:40 60 211/130 97 02/19/23 02:30 62 23 199/141 97 02/19/23 02:20 64 199/141 93 L 02/19/23 02:10 68 20 204/141 94 L 02/19/23 02:00 65 96 02/19/23 01:50 68 203/125 91 L 02/19/23 01:40 69 231/142 95 02/19/23 01:30 71 233/137 92 L 02/19/23 01:20 84 233/137 02/19/23 01:10 81 19 225/138 02/19/23 01:00 91 20 192/154 93 L 02/19/23 00:50 96 15 192/154 91 L 02/19/23 00:40 92 10 L 206/149 95 02/19/23 00:31 104 H 18 206/149 96 02/19/23 00:30 103 H 11 L 224/163 90 L 02/19/23 00:20 100 24 224/163 90 L 02/19/23 00:10 98 15 228/159 96 02/19/23 00:00 97 15 220/155 92 L 02/18/23 23:50 96 35 H 220/155 91 L 02/18/23 23:42 98 18 216/158 96 02/18/23 23:40 98 23 219/163 96 02/18/23 23:30 98 214/153 90 L 02/18/23 23:10 229/178 94 L 02/18/23 22:50 103 H 18 237/169 92 L 02/18/23 22:40 101 H 18 225/179 96 02/18/23 22:20 106 H 17 209/168 98 02/18/23 22:11 104 H 26 H 224/159 89 L 02/18/23 22:10 97 224/159 96 02/18/23 22:00 92 230/172 92 L 02/18/23 21:50 98 230/172 96 02/18/23 20:48 97.7 F 105 H 22 238/178 87 L Intake and Output 02/18/23 02/19/23 02/19/23 22:59 06:59 14:59 Intake Total 23.30 Output Total 2150 Balance -2126.70 Intake: Intake, IV Titration 23.30 Amount Nitroglycerin-D5w Pmx 50 23.30 mg In Dextrose/Water 1 250ml.bag @ 20 MCG/MIN 6 mls/hr IV .Q[facility]H [facility] Rx#: [id number] Output: Urine 2150 Other: Weight 72.575 kg 72.575 kg The patient is lethargic yet arousable. She withdraws to painful stimulation in all 4 extremities. Pupils are equal and reactive to light. Very poor hygienic condition. Very poor oral hygiene. Head exam was generally normal. There was no scleral icterus or corneal arcus. Mucous membranes were moist. Neck was supple and without jugular venous distension, thyromegaly, or carotid bruits. Carotids were easily palpable bilaterally. There was no adenopathy. Mucous membranes are dry and there is mucosal sloughing under tongue and buccal mucosa. Lungs although the medicine the patient has some limited bibasilar crackles Cardiac exam revealed the PMI to be normally situated and sized. The rhythm was regular and no extrasystoles were noted during several minutes of auscultation. The first and second heart sounds were normal and physiologic splitting of the second heart sound was noted. There were no murmurs, rubs, clicks, or gallops. Abdominal exam revealed normal bowel sounds. The abdomen was soft, non-tender, and without masses, organomegaly, or appreciable enlargement of the abdominal aorta. Extremities reveal weak pulses distally in the feet bilaterally and the device Doppler signal. There is bluish discoloration of the great toe on the left foot. The extremities are not cold there is poor capillary refill. Results - Laboratory Findings CBC and BMP: 02/18/23 20:57 02/18/23 20:57 PT/INR, D-dimer PT 12.0 sec (9.0-12.0) 02/18/23 20:57 INR 1.2 (<1.2) H 02/18/23 20:57 Abnormal lab findings: Abnormal Labs 02/18/23 02/18/23 02/18/23 20:57 20:57 20:57 RBC 5.67 H Hct 48.4 H INR 1.2 H APTT VBG pH Sodium 135 L BUN 32 H Creatinine 1.28 H Glucose 139 H POC Glucose (mg/dL) Total Bilirubin 1.5 H AST 43 H ALT 41 H Troponin I Total Protein 6.0 L TSH Urine Protein Ur Squamous Epith Cells Amorphous Sediment Hyaline Casts Urine Mucus 02/18/23 02/18/23 02/18/23 20:57 21:05 21:51 RBC Hct INR APTT VBG pH 7.42 H Sodium BUN Creatinine Glucose POC Glucose (mg/dL) 136 H Total Bilirubin AST ALT Troponin I 0.067 H* Total Protein TSH Urine Protein Ur Squamous Epith Cells Amorphous Sediment Hyaline Casts Urine Mucus 02/19/23 02/19/23 02/19/23 00:26 00:32 03:40 RBC Hct INR APTT VBG pH Sodium BUN Creatinine Glucose POC Glucose (mg/dL) Total Bilirubin AST ALT Troponin I 0.074 H* 0.075 H* Total Protein TSH Urine Protein 3+ H Ur Squamous Epith Cells 5 H Amorphous Sediment Occasional H Hyaline Casts 5 H Urine Mucus Rare H 02/19/23 02/19/23 03:40 06:15 RBC Hct INR APTT 63.3 H VBG pH Sodium BUN Creatinine Glucose POC Glucose (mg/dL) Total Bilirubin AST ALT Troponin I Total Protein TSH 38.800 H Urine Protein Ur Squamous Epith Cells Amorphous Sediment Hyaline Casts Urine Mucus - Diagnostic Findings Chest x-ray: image reviewed Assessment and Plan Plan: Acute hypertensive emergency and the blood pressure continues to be quite elevated despite being on a nitroglycerin drip. Patient was also given a clonidine patch and IV hydralazine. Acute decompensated heart failure with systolic ejection fraction of around 30- 35% and the patient also has severe concentric LVH consistent with poorly controlled blood pressure and hypertensive heart disease. Acute encephalopathy, could be related to poor blood pressure control. Underlying CVA cannot be completely excluded. A CAT scan of the brain has not been done, noted the patient was also given Ativan in the emergency department. History of hypothyroidism Peripheral vascular disease Plan Titrate oxygen flow to maintain saturation above 90% Start the patient on cleviprex drip for better blood pressure control IV fluids are currently at KVO until be kept at KVO echocardiogram was noted Continue IV heparin for now per cardiology recommendation EKG an echocardiogram was noted Keep the clonidine patch May need to gradually wean her off the nitroglycerin drip once the BP is under better control CAT scan of the brain was BP is under better control Neurologic consultation Obtain a blood gas No sedatives for now We'll continue to follow
[2023-02-19] MEDS ORDERED: cloNIDine 0.2 MG/24HR PATCH TRANSDERM SCH (11:00)
[2023-02-19 11:04] LABS: ABG Base Excess 9.3 mmol/L; ABG HCO3 34 mmol/L (21-25); ABG Oxygen Saturation 97.1 % (94-97); ABG PCO2 53 mmHg (35-45); ABG PH 7.42 (7.35-7.45); ABG PO2 84 mmHg (83-108); ABG TCO2 36 mmol/L (19-24); Allen Test Performed? Yes
[2023-02-19] MEDS: CLEVIDIPINE BUTYRATE 25 MG in EMPTY BAG 1 BAG IV SCH ×2 (11:05→22:04)
[2023-02-19 11:23] LABS: Basophils % (A) 1 %; Eosinophils # (A) 0.1 k/uL (0-0.7); Eosinophils % (A) 2 %; HCT 51.2 % (34.0-46.0); HGB 16.1 gm/dL (11.4-16.0); Hypochromasia Slight; Lymphocytes # (A) 0.9 k/uL (1.0-4.8); Lymphocytes % (A) 16 %; MCHC 31.4 g/dL (31.0-37.0); MCV 85.7 fL (80.0-100.0); Mean Platelet Volume 8.9; Monocytes # (A) 0.3 k/uL (0-1.0); Monocytes % (A) 5 %; Neutrophils # (A) 4.1 k/uL (1.3-7.7); Neutrophils % (A) 75 %; Platelet Count 225 k/uL (150-450); RBC 5.97 m/uL (3.80-5.40); RDW 15.4 % (11.5-15.5); WBC 5.5 k/uL (3.8-10.6)
[2023-02-19] MEDS: SODIUM CHLORIDE 0.9% 1,000 ML IV SCH (11:28)
[2023-02-19 11:53] LABS: Albumin 3.3 g/dL (3.5-5.0); Calcium 8.8 mg/dL (8.4-10.2); Magnesium 1.9 mg/dL (1.6-2.3); Potassium 3.2 mmol/L (3.5-5.1); Total Bilirubin 1.3 mg/dL (0.2-1.3); Total Protein 5.8 g/dL (6.3-8.2)
[2023-02-19] MEDS ORDERED: Potassium Replacement Protocol 1 EACH MISC MISCELLANE PRN (12:24)
--- NOTE | 2023-02-19 13:01 | US ---
EXAMINATION TYPE: US venous doppler duplex LE LT DATE OF EXAM: 02/19/2023 12:46 PM Exam done portable in ICU COMPARISON: NONE CLINICAL INDICATION: Female, 57 years old with history of r/o dvt; Left foot swelling SIDE PERFORMED: Left TECHNIQUE: The lower extremity deep venous system is examined utilizing real time linear array sonog james with graded compression, doppler sonography and color-flow sonography. VESSELS IMAGED: Common Femoral Vein Deep Femoral Vein Greater Saphenous Vein * Femoral Vein Popliteal Vein Small Saphenous Vein * Proximal Calf Veins (* superficial vessels) Left Leg: Appears negative for DVT Grayscale, color doppler, spectral doppler imaging performed of the deep veins of the left lower extr emity. There is normal flow, compressibility, vascular waveforms. IMPRESSION: No US evidence for acute DVT in the left lower extremity.
--- NOTE | 2023-02-19 13:34 | P.CNNES ---
History of Present Illness Consult date: 02/19/23 Requesting physician: Terri Valdez Reason for Consult: altered mental status History of Present Illness: This is a 57-year-old woman with underlying hypertension, tobacco use, alcohol use and is not complying got taken medication and does not seek any and physician care who presented emergency department because of generalized weakness, confusion and multiple falls. History was obtained from the patient's was at bedside. According to patient he states that the patient has been confused for the past at least 2-3 weeks. She's been falling for at least 2-3 month to 6 months. He stated that about the 5 month ago she had an episode of the right facial weakness that lasted 5 minutes but did not seek any medical attention. Patient has underlying history of hypertension. Patient stated that she has of underlying chronic hypertension but does not take blood pressure medications since could not tolerate them. She smokes cigarettes is seems she smokes half a pack and recently has cut down to 3 cigarettes a daily. She also drinks about 2-3 drinks of alcohol daily and has been cutting down recently according to the that. She does not follow up with a physician. She does not have any diagnosis of stroke TIA or seizure. denies that the patient has any focal weakness recently. He feels that she has generalized weakness. Denies any fevers recently. According to the patient nurse, in the morning today she was drowsy but she was awakened blind the she was able to state her name correctly. Followed very few minimal commands to the nurse. Some of the workup during his hospital visit consisted of: On initial presentation patient's systolic blood pressure has been in the 230s and diastolic has been in the 170s. Currently blood pressure is 130s to 140s and diastolic in the 80s to 90s. MCVs a 85. Sodium is 135, glucose is 139, creatinine is 1.28 the, BUN is 32, AST 43 ALT of 41. Ammonia is 19. TSH is 38.8, free T4 is 0.84 and the free T3 is 2.4. Urine drug screen is not detected. Serum alcohol was less than 10. Review of Systems Review of system is limited but the pertinent positive and negative per HPI. Past Medical History Past Medical History: Diabetes Mellitus, Myocardial Infarction ([place]), Thyroid Disorder History of Any Multi-Drug Resistant Organisms: None Reported Smoking Status: Current every day smoker Past Alcohol Use History: Occasional Past Drug Use History: Marijuana - Past Family History Son(s) History Unknown: Yes Mother History Unknown: Yes Father History Unknown: Yes Medications and Allergies Home Medications Medication Instructions Recorded Confirmed Type No Known Home Medications 02/18/23 02/18/23 History Allergies Allergy/AdvReac Type Severity Reaction Status Date / Time shellfish derived [Shrimp] Allergy Rash/Hives Verified 02/18/23 21:49 Physical Examination - Vital Signs Vital Signs: Vital Signs Temp Pulse Pulse Resp BP BP Pulse Ox 02/19/23 13:15 50 L 17 145/90 96 02/19/23 13:00 53 L 18 138/82 94 L 02/19/23 12:45 54 L 20 134/84 94 L 02/19/23 12:30 54 L 23 151/92 96 02/19/23 12:15 53 L 25 H 134/90 96 02/19/23 12:00 98.3 F 55 L 17 138/87 94 L 02/19/23 11:45 55 L 21 167/103 93 L 02/19/23 11:30 57 L 19 164/103 90 L 02/19/23 11:19 59 L 22 155/91 92 L 02/19/23 11:01 91 L 02/19/23 11:00 59 L 200/104 02/19/23 10:00 192/120 02/19/23 09:45 97.7 F 60 16 211/128 92 L 02/19/23 09:08 98.0 F 55 L 18 191/107 95 02/19/23 08:43 54 L 18 195/110 95 02/19/23 08:31 52 L 18 192/119 95 02/19/23 08:22 60 18 193/115 98 02/19/23 08:17 55 L 18 216/118 95 02/19/23 08:12 59 L 16 212/123 94 L 02/19/23 08:05 57 L 18 142/129 95 02/19/23 07:35 60 18 208/126 98 02/19/23 06:40 51 L 26 H 207/111 96 02/19/23 06:30 54 L 23 213/110 96 02/19/23 06:20 52 L 23 213/110 96 02/19/23 06:10 53 L 17 207/118 97 02/19/23 06:00 60 96 02/19/23 05:50 57 L 24 227/120 96 02/19/23 05:40 60 196/119 95 02/19/23 05:32 49 L 196/119 02/19/23 05:30 58 L 93 L 02/19/23 05:20 56 L 10 L 205/117 96 02/19/23 05:10 56 L 228/127 97 02/19/23 05:00 63 215/127 96 02/19/23 04:50 60 27 H 215/127 98 02/19/23 04:40 58 L 219/137 98 02/19/23 04:30 63 21 96 02/19/23 04:20 60 214/128 97 02/19/23 04:10 61 22 96 02/19/23 04:00 63 212/137 96 02/19/23 03:50 61 212/137 93 L 02/19/23 03:40 60 12 219/131 97 02/19/23 03:30 62 12 205/131 97 02/19/23 03:20 61 205/131 95 02/19/23 03:10 61 216/125 96 02/19/23 03:00 63 94 L 02/19/23 02:51 61 207/131 97 02/19/23 02:40 60 211/130 97 02/19/23 02:30 62 23 199/141 97 02/19/23 02:20 64 199/141 93 L 02/19/23 02:10 68 20 204/141 94 L 02/19/23 02:00 65 96 02/19/23 01:50 68 203/125 91 L 02/19/23 01:40 69 231/142 95 02/19/23 01:30 71 233/137 92 L 02/19/23 01:20 84 233/137 02/19/23 01:10 81 19 225/138 02/19/23 01:00 91 20 192/154 93 L 02/19/23 00:50 96 15 192/154 91 L 02/19/23 00:40 92 10 L 206/149 95 02/19/23 00:31 104 H 18 206/149 96 02/19/23 00:30 103 H 11 L 224/163 90 L 02/19/23 00:20 100 24 224/163 90 L 02/19/23 00:10 98 15 228/159 96 02/19/23 00:00 97 15 220/155 92 L 02/18/23 23:50 96 35 H 220/155 91 L 02/18/23 23:42 98 18 216/158 96 02/18/23 23:40 98 23 219/163 96 02/18/23 23:30 98 214/153 90 L 02/18/23 23:10 229/178 94 L 02/18/23 22:50 103 H 18 237/169 92 L 02/18/23 22:40 101 H 18 225/179 96 02/18/23 22:20 106 H 17 209/168 98 02/18/23 22:11 104 H 26 H 224/159 89 L 02/18/23 22:10 97 224/159 96 02/18/23 22:00 92 230/172 92 L 02/18/23 21:50 98 230/172 96 02/18/23 20:48 97.7 F 105 H 22 238/178 87 L Intake and Output 02/18/23 02/19/23 02/19/23 22:59 06:59 14:59 Intake Total 138.075 Output Total 2710 Balance -2571.925 Intake: IV 40 Invasive Line 2 20 Sodium Chloride 0.9% 1, 20 000 ml @ 20 mls/hr IV . Q24H [facility] Rx#:[id number] Intake, IV Titration 98.075 Amount Nitroglycerin-D5w Pmx 50 98.075 mg In Dextrose/Water 1 250ml.bag @ 20 MCG/MIN 6 mls/hr IV .Q24H [facility] Rx#: [id number] Output: Urine 2710 Other: Voiding Method Indwelling Catheter Weight 72.575 kg 72.575 kg GENERAL: The patient is lying in bed and does not appear in acute distress. CHEST:NO edema in extremities. LUNG: Not labored breathing. EXTREMITIES: purlpish/blackish discoloration of left large toe. NEUROLOGICAL: Very limited. Received 2mg Ativan in ED. Higher mental function: Is comatose. GCS 8(E2, V1, M5). No verbalizing or following commands. Cranial nerves: Would minimally open eyes to painful stimuli. Primary gaze is midline. Pupils are 2mm and reactive to light. No facial weakness. Motor: The strength is localizing to painful stimuli throughout. Decrease tone throughout. Normal bulk. Cerebellum: Unable to assess. Sensation: Localizing to painful stimuli throughout. Reflexes (right/left): Patellar is 3+ bilaterally. Otherwise 2+ throughout. Plantars is upgoing over the left and mute on right. Results - Laboratory Findings CBC and BMP: 02/19/23 10:57 02/19/23 10:57 Abnormal Lab Findings: Abnormal Labs 02/18/23 02/18/23 02/18/23 20:57 20:57 20:57 RBC 5.67 H Hgb Hct 48.4 H Lymphocytes # INR 1.2 H APTT D-Dimer ABG pCO2 ABG HCO3 ABG Total CO2 ABG O2 Saturation VBG pH Sodium 135 L Potassium Carbon Dioxide BUN 32 H Creatinine 1.28 H Glucose 139 H POC Glucose (mg/dL) Total Bilirubin 1.5 H AST 43 H ALT 41 H Troponin I Total Protein 6.0 L Albumin TSH Free T3 pg/mL Urine Protein Ur Squamous Epith Cells Amorphous Sediment Hyaline Casts Urine Mucus 02/18/23 02/18/23 02/18/23 20:57 21:05 21:51 RBC Hgb Hct Lymphocytes # INR APTT D-Dimer ABG pCO2 ABG HCO3 ABG Total CO2 ABG O2 Saturation VBG pH 7.42 H Sodium Potassium Carbon Dioxide BUN Creatinine Glucose POC Glucose (mg/dL) 136 H Total Bilirubin AST ALT Troponin I 0.067 H* Total Protein Albumin TSH Free T3 pg/mL Urine Protein Ur Squamous Epith Cells Amorphous Sediment Hyaline Casts Urine Mucus 02/19/23 02/19/23 02/19/23 00:26 00:32 03:40 RBC Hgb Hct Lymphocytes # INR APTT D-Dimer ABG pCO2 ABG HCO3 ABG Total CO2 ABG O2 Saturation VBG pH Sodium Potassium Carbon Dioxide BUN Creatinine Glucose POC Glucose (mg/dL) Total Bilirubin AST ALT Troponin I 0.074 H* 0.075 H* Total Protein Albumin TSH Free T3 pg/mL Urine Protein 3+ H Ur Squamous Epith Cells 5 H Amorphous Sediment Occasional H Hyaline Casts 5 H Urine Mucus Rare H 02/19/23 02/19/23 02/19/23 03:40 06:15 10:57 RBC Hgb Hct Lymphocytes # INR APTT 63.3 H D-Dimer 1.56 H ABG pCO2 ABG HCO3 ABG Total CO2 ABG O2 Saturation VBG pH Sodium Potassium Carbon Dioxide BUN Creatinine Glucose POC Glucose (mg/dL) Total Bilirubin AST ALT Troponin I Total Protein Albumin TSH 38.800 H Free T3 pg/mL Urine Protein Ur Squamous Epith Cells Amorphous Sediment Hyaline Casts Urine Mucus 02/19/23 02/19/23 02/19/23 10:57 10:57 11:01 RBC 5.97 H Hgb 16.1 H Hct 51.2 H Lymphocytes # 0.9 L INR APTT D-Dimer ABG pCO2 53 H ABG HCO3 34 H ABG Total CO2 36 H ABG O2 Saturation 97.1 H VBG pH Sodium Potassium 3.2 L Carbon Dioxide 34 H BUN 29 H Creatinine 1.25 H Glucose 109 H POC Glucose (mg/dL) Total Bilirubin AST ALT 39 H Troponin I Total Protein 5.8 L Albumin 3.3 L TSH Free T3 pg/mL Urine Protein Ur Squamous Epith Cells Amorphous Sediment Hyaline Casts Urine Mucus 02/19/23 12:05 RBC Hgb Hct Lymphocytes # INR APTT D-Dimer ABG pCO2 ABG HCO3 ABG Total CO2 ABG O2 Saturation VBG pH Sodium Potassium Carbon Dioxide BUN Creatinine Glucose POC Glucose (mg/dL) Total Bilirubin AST ALT Troponin I Total Protein Albumin TSH Free T3 pg/mL 2.4 L Urine Protein Ur Squamous Epith Cells Amorphous Sediment Hyaline Casts Urine Mucus Assessment and Plan Assessment: This is a 57-year-old woman with history of hypertension and is not compliant taking medication who presented because of generalized weakness, confusion, falls for the past weeks to months. Altered mental status seems due to multifactorial: But predominantly hypertensive encephalopathy with component due to abnormal thyroid and some component of metabolic and medication (2mg Ativan in ED ) Acute hypertensive emergency (presented with blood pressure 230's/170's--currently is 130-140's/80's to 90's) she was on nitroglycerin, she received clonidine patch as well as IV hydralazine. Currently on Is on Clvprx 1mg/hr. Generalized weakness Falls Possible TIA about 4-5 months ago (had transient right facial weakness per ). Systolic heart failure with ejection fraction of 30-35% Elevated troponin Hypothyroidism Peripheral vascular disease Chronic history of hypertension and noncompliant with medication Tobacco use Alcohol use Noncompliance with medication and does not follow up with physician Plan: CT of the head is ordered STAT and is pending. If CT of the head is negative w e'll proceed with MRI of the brain. Ordered an EEG to rule out any underlying seizure performed discharges Ordered vitamin B-12, folate, hemoglobin A1c. Every 3 hour neurochecks Started on thiamine 100mg IV daily and after 3 days switch to PO. Please avoid any sedation if possible to have a better neurological evaluation. Vascular surgery team is consulted for left extremity suspected ischemia Cardiology is consulted We'll defer the rest of the medical management to the primary and ICU team The plan was discussed with the patient's who is at bedside and her nurse. Thank you for the consultation Dr. Avila will start neurology service tomorrow A.M. Time with Patient: Greater than 30
[2023-02-19] MEDS ORDERED: MAGNESIUM SULFATE-D5W PMX 1 GM in DEXTROSE/WATER 1 100ML.BAG IVPB ONE (14:08)
--- NOTE | 2023-02-19 14:31 | P.HPIM ---
History of Present Illness H&P Date: 02/19/23 This is a 57-year-old female history significant for diabetes mellitus, hypertension, myocardial infarction, thyroid disorder, current smoker. Patient presented to the hospital for altered mental status and was found on the floor by her he was unable to lift her up. Patient was brought in by EMS. Patient is found to have generalized weakness confusion and has been having multiple falls at home with progressive weakness over the last 5 months, patient is a poor historian and currently alert x 0 and obtunded at the time of examination. at the bedside provides the medical history, patient is a daily smoker and occasional alcohol use. Over the last 5 months has been having frequent falls and has been increasingly confused Has not been to a doctor and not taking recommending medications. Additionally he felt patient may have suffered a stroke a few months ago and had noticed a facial droop around that time. Patient in the ER was awake and alert. Blood pressure on admission was in the 220s systolic and difficult to treat with multiple antihypertensive agents given. Patient was also given IV ativan. Chest x-ray on admission shows cardiomegaly with linear atelectasis and/or scarring the left midlung. EKG shows sinus tachycardia with a heart rate of 110 on admission. She has no elevated white blood cell count it is normal at 7.1, sodium of 135, BUN/cr 32 and 1.28, Lacis acid is normal 1.3. She does have troponin elevation of 0.067, 0.074, 0.075.. ProBNP is elevated at 16,200, TSH is also 38.800, free T4 0.84. Urinalysis is negative for infection, urine drug toxicology is negative. Patient is admitted to the hospital for new onset CHF and originially admitted to the stepdown unit. Patient was upgraded to the intensive care unit and placed on nitro gtt and had also become unresponsive only arousing to sternal rub. Patient does not appear to have feeling in the left foot there is mottling and purple discoloration of the great toe and 3/4 toes likely due to ischemia and vascular services has been consulted as well as neurology, cardiology and pulmonary warp picker. Recommend a brain CT when patient is more stable and also ABGs will be done. An echocardiogram reveals EF of 30-35%, mild MR. Unable to complete a review of systems at this time patient is obtunded PHYSICAL EXAMINATION: GENERAL: The patient is alert and oriented x0-1, Lethargic and obtunded. Pale. Well developed, well nourished. HEENT: Pupils are round and equally reacting to light. EOMI. No scleral icterus. No conjunctival pallor. Normocephalic, atraumatic. No pharyngeal erythema. No thyromegaly. CARDIOVASCULAR: S1 and S2 present. No murmurs, rubs, or gallops. PULMONARY: Chest is clear to auscultation, no wheezing or crackles. ABDOMEN: Soft, nontender, nondistended, normoactive bowel sounds. No palpable organomegaly. MUSCULOSKELETAL: No joint swelling or deformity. EXTREMITIES: No cyanosis, clubbing, or pedal edema. NEUROLOGICAL: Unable to complete full exam. Diffuse weakness. SKIN: No rashes. There is Assessment and plan Altered mental status secondary to acute metabolic encephalopathy rule out acute stroke Progressive weakness and frequent falls at home Hypertension with urgency on admission currently on nitrogylcerin gtt Elevated troponin level Acute kidney injury vs CKD, Ischemic change to the left foot. Acute congestive heart failure, systolic dysfunction Cardiomyopathy possibly from the hypertension vs hypothyroidism Elevated D-Dimer venous doppler negative on the let, pending VQ scan. Hypothyroidism non compliant Diabetes Mellitus type 2 uncontrolled Hypokalemia History of myocardial infarction unknown details Chronic and ongoing nicotine use Medical noncompliance Marijuana use GI prophylaxis DVT prophylaxis; on IV heparin Plan Continue monitoring the patient in the intensive care unit Continue IV lasix strict intake and output monitoring Brain CT CO contrast ordered, neurology consultation Cardiology following Obtain ABGs Arterial ultrasound ordered for the ischemic left foot EEG ordered Follow up AM labs The impression and plan of care has been dictated by Fany Ren, Nurse Practitioner as directed. Dr. Prasanna MD I have performed a history and physical examination and medical decision making of this patient, discussed the same with the dictator, and agree with the dictators assessment and plan as written, documented as a scribe. Based on total visit time, I have performed more than 50% of this visit. Past Medical History Past Medical History: Diabetes Mellitus, Myocardial Infarction ([place]), Thyroid Disorder History of Any Multi-Drug Resistant Organisms: None Reported Smoking Status: Current every day smoker Past Alcohol Use History: Occasional Past Drug Use History: Marijuana Medications and Allergies Home Medications Medication Instructions Recorded Confirmed Type No Known Home Medications 02/18/23 02/18/23 History Allergies Allergy/AdvReac Type Severity Reaction Status Date / Time shellfish derived [Shrimp] Allergy Rash/Hives Verified 02/18/23 21:49 Physical Exam Vitals: Vital Signs Temp Pulse Resp BP Pulse Ox 02/19/23 08:43 54 L 18 195/110 95 02/19/23 08:31 52 L 18 192/119 95 02/19/23 08:22 60 18 193/115 98 02/19/23 08:17 55 L 18 216/118 95 02/19/23 08:12 59 L 16 212/123 94 L 02/19/23 08:05 57 L 18 142/129 95 02/19/23 07:35 60 18 208/126 98 02/19/23 06:40 51 L 26 H 207/111 96 02/19/23 06:30 54 L 23 213/110 96 02/19/23 06:20 52 L 23 213/110 96 02/19/23 06:10 53 L 17 207/118 97 02/19/23 06:00 60 96 02/19/23 05:50 57 L 24 227/120 96 02/19/23 05:40 60 196/119 95 02/19/23 05:32 49 L 196/119 02/19/23 05:30 58 L 93 L 02/19/23 05:20 56 L 10 L 205/117 96 02/19/23 05:10 56 L 228/127 97 02/19/23 05:00 63 215/127 96 02/19/23 04:50 60 27 H 215/127 98 02/19/23 04:40 58 L 219/137 98 02/19/23 04:30 63 21 96 02/19/23 04:20 60 214/128 97 02/19/23 04:10 61 22 96 02/19/23 04:00 63 212/137 96 02/19/23 03:50 61 212/137 93 L 02/19/23 03:40 60 12 219/131 97 02/19/23 03:30 62 12 205/131 97 02/19/23 03:20 61 205/131 95 02/19/23 03:10 61 216/125 96 02/19/23 03:00 63 94 L 02/19/23 02:51 61 207/131 97 02/19/23 02:40 60 211/130 97 02/19/23 02:30 62 23 199/141 97 02/19/23 02:20 64 199/141 93 L 02/19/23 02:10 68 20 204/141 94 L 02/19/23 02:00 65 96 02/19/23 01:50 68 203/125 91 L 02/19/23 01:40 69 231/142 95 02/19/23 01:30 71 233/137 92 L 02/19/23 01:20 84 233/137 02/19/23 01:10 81 19 225/138 02/19/23 01:00 91 20 192/154 93 L 02/19/23 00:50 96 15 192/154 91 L 02/19/23 00:40 92 10 L 206/149 95 02/19/23 00:31 104 H 18 206/149 96 02/19/23 00:30 103 H 11 L 224/163 90 L 02/19/23 00:20 100 24 224/163 90 L 02/19/23 00:10 98 15 228/159 96 02/19/23 00:00 97 15 220/155 92 L 02/18/23 23:50 96 35 H 220/155 91 L 02/18/23 23:42 98 18 216/158 96 02/18/23 23:40 98 23 219/163 96 02/18/23 23:30 98 214/153 90 L 02/18/23 23:10 229/178 94 L 02/18/23 22:50 103 H 18 237/169 92 L 02/18/23 22:40 101 H 18 225/179 96 02/18/23 22:20 106 H 17 209/168 98 02/18/23 22:11 104 H 26 H 224/159 89 L 02/18/23 22:10 97 224/159 96 02/18/23 22:00 92 230/172 92 L 02/18/23 21:50 98 230/172 96 02/18/23 20:48 97.7 F 105 H 22 238/178 87 L Intake and Output 02/18/23 02/19/23 02/19/23 22:59 06:59 14:59 Intake Total 10.90 Output Total 2150 Balance -2139.10 Intake: Intake, IV Titration 10.90 Amount Nitroglycerin-D5w Pmx 50 10.90 mg In Dextrose/Water 1 250ml.bag @ 20 MCG/MIN 6 mls/hr IV .Q24H [facility] Rx#: [id number] Output: Urine 2150 Other: Weight 72.575 kg Results CBC & Chem 7: 02/19/23 10:57 02/19/23 10:57 Labs: Abnormal Lab Results - Last 24 Hours (Table) 02/18/23 02/18/23 02/18/23 Range/Units 20:57 20:57 20:57 RBC 5.67 H (3.80-5.40) m/uL Hct 48.4 H (34.0-46.0) % INR 1.2 H (<1.2) APTT (22.0-30.0) sec VBG pH (7.31-7.41) Sodium 135 L (137-145) mmol/L BUN 32 H (7-17) mg/dL Creatinine 1.28 H (0.52-1.04) mg/dL Glucose 139 H (74-99) mg/dL POC Glucose (mg/dL) (70-110) mg/dL Total Bilirubin 1.5 H (0.2-1.3) mg/dL AST 43 H (14-36) U/L ALT 41 H (4-34) U/L Troponin I (0.000-0.034) ng/mL Total Protein 6.0 L (6.3-8.2) g/dL TSH (0.465-4.680) mIU/L Urine Protein (Negative) Ur Squamous Epith Cells (0-4) /hpf Amorphous Sediment (None) /hpf Hyaline Casts (0-2) /lpf Urine Mucus (None) /hpf 02/18/23 02/18/23 02/18/23 Range/Units 20:57 21:05 21:51 RBC (3.80-5.40) m/uL Hct (34.0-46.0) % INR (<1.2) APTT (22.0-30.0) sec VBG pH 7.42 H (7.31-7.41) Sodium (137-145) mmol/L BUN (7-17) mg/dL Creatinine (0.52-1.04) mg/dL Glucose (74-99) mg/dL POC Glucose (mg/dL) 136 H (70-110) mg/dL Total Bilirubin (0.2-1.3) mg/dL AST (14-36) U/L ALT (4-34) U/L Troponin I 0.067 H* (0.000-0.034) ng/mL Total Protein (6.3-8.2) g/dL TSH (0.465-4.680) mIU/L Urine Protein (Negative) Ur Squamous Epith Cells (0-4) /hpf Amorphous Sediment (None) /hpf Hyaline Casts (0-2) /lpf Urine Mucus (None) /hpf 02/19/23 02/19/23 02/19/23 Range/Units 00:26 00:32 03:40 RBC (3.80-5.40) m/uL Hct (34.0-46.0) % INR (<1.2) APTT (22.0-30.0) sec VBG pH (7.31-7.41) Sodium (137-145) mmol/L BUN (7-17) mg/dL Creatinine (0.52-1.04) mg/dL Glucose (74-99) mg/dL POC Glucose (mg/dL) (70-110) mg/dL Total Bilirubin (0.2-1.3) mg/dL AST (14-36) U/L ALT (4-34) U/L Troponin I 0.074 H* 0.075 H* (0.000-0.034) ng/mL Total Protein (6.3-8.2) g/dL TSH (0.465-4.680) mIU/L Urine Protein 3+ H (Negative) Ur Squamous Epith Cells 5 H (0-4) /hpf Amorphous Sediment Occasional H (None) /hpf Hyaline Casts 5 H (0-2) /lpf Urine Mucus Rare H (None) /hpf 02/19/23 02/19/23 Range/Units 03:40 06:15 RBC (3.80-5.40) m/uL Hct (34.0-46.0) % INR (<1.2) APTT 63.3 H (22.0-30.0) sec VBG pH (7.31-7.41) Sodium (137-145) mmol/L BUN (7-17) mg/dL Creatinine (0.52-1.04) mg/dL Glucose (74-99) mg/dL POC Glucose (mg/dL) (70-110) mg/dL Total Bilirubin (0.2-1.3) mg/dL AST (14-36) U/L ALT (4-34) U/L Troponin I (0.000-0.034) ng/mL Total Protein (6.3-8.2) g/dL TSH 38.800 H (0.465-4.680) mIU/L Urine Protein (Negative) Ur Squamous Epith Cells (0-4) /hpf Amorphous Sediment (None) /hpf Hyaline Casts (0-2) /lpf Urine Mucus (None) /hpf Assessment and Plan Time with Patient: Greater than 30
--- NOTE | 2023-02-19 16:52 | CT ---
EXAMINATION TYPE: CT brain wo con CT DLP: 1095.4 mGycm, Automated exposure control for dose reduction was used. DATE OF EXAM: 02/19/2023 4:46 PM COMPARISON: None. CLINICAL INDICATION:Female, 57 years old with history of altered mental status, AMS TECHNIQUE: Brain: Multiple axial CT images of the brain were obtained without IV contrast. Coronal and sagittal reformats reviewed. FINDINGS: Brain: Extra-axial spaces: No abnormal extra-axial fluid collections. Ventricular system: Within normal limits Cerebral parenchyma: No acute intraparenchymal hemorrhage or mass effect. The ricks-white junction is well differentiated. Scattered hypoattenuating areas are seen within the white matter. Remote lacun ar injuries involving the bilateral upper radiata. Cerebellum: Unremarkable. Mass effect: No evidence of midline shift. Intracranial vasculature: Atherosclerotic calcifications of the intracranial vessels. Soft tissues: Normal. Calvarium/osseous structures: No depressed skull fracture. Paranasal sinuses and mastoid air cells: Clear Visualized orbits: Orbital contents are intact. IMPRESSION: 1. No acute intracranial process. 2. Remote lacunar injuries along with nonspecific white matter changes likely secondary to chronic mi croangiopathy.
[2023-02-19] MEDS: POTASSIUM CHLORIDE 10 MEQ in WATER FOR INJECTION 1 100ML.BAG IVPB SCH ×4 (17:03→22:06)
[2023-02-19 18:20] LABS: Glucose,Whole Blood 106 mg/dL (70-110)
[2023-02-19] MEDS: THIAMINE 100 MG/ML 2 ML VIAL IVP SCH (19:03)
--- NOTE | 2023-02-19 20:10 | EEG ---
ELECTROENCEPHALOGRAM REPORT CLINICAL HISTORY: This is a 57-year-old woman with altered mental status. The video EEG is obtained to evaluate for seizure epileptiform activity. RELEVANT MEDICATION: Ativan 2 mg once. EEG TYPE: A 21-channel EEG is performed with video using 10/20 electrode placement system. DESCRIPTION: Background consists of [id number] voltage of delta activity consisting of 2 to 3 hertz nonrhythmic delta intermixed with 7.5 to 8.5 hertz activity. There is no physiological stage 2 sleep architecture. There is no focal slowing. Interictal and ictal is none. ACTIVATION PROCEDURE: Photic stimulation and hyperventilation are not performed. CLINICAL INTERPRETATION: This is an abnormal routine EEG. The background slowing is suggestive of moderate encephalopathy. Otherwise, there is no focal slowing, epileptiform discharges, or seizure on the EEG. Encephalopathy likely due to toxic metabolic derangement as well as medication effect. Clinical correlation is recommended. JENNIFER / MALOU: [id number] / MTDD
--- NOTE | 2023-02-19 22:01 | XR ---
EXAMINATION TYPE: XR chest 1V portable DATE OF EXAM: 02/19/2023 9:52 PM COMPARISON: Chest radiographs from 02/18/2023 TECHNIQUE: XR chest 1V portable Portable AP radiograph of the chest. CLINICAL INDICATION:Female, 57 years old with history of [employer] O2 Demands; FINDINGS: Lungs/Pleura: There is no evidence of pleural effusion, focal consolidation, or pneumothorax. Pulmonary vascularity: Unremarkable. Heart/mediastinum: Cardiomediastinal silhouette is enlarged and stable. Musculoskeletal: No acute osseous pathology. IMPRESSION: Cardiomegaly without evidence for acute process.
[2023-02-20 00:10] LABS: Glucose,Whole Blood 92 mg/dL (70-110)
[2023-02-20] MEDS: POTASSIUM CHLORIDE 10 MEQ in WATER FOR INJECTION 1 100ML.BAG IVPB SCH ×4 (01:48→08:05)
[2023-02-20] MEDS: FUROSEMIDE 10 MG/ML 4 ML VIAL IV SCH ×3 (05:26→22:47)
[2023-02-20] MEDS: HEPARIN SOD,PORK IN 0.45% NACL 25,000 UNIT in 0.45% NACL 1 250ML.BAG IV SCH ×2 (05:35→18:31)
[2023-02-20 05:43] LABS: HCT 53.2 % (34.0-46.0); HGB 17.1 gm/dL (11.4-16.0); Hypochromasia Slight; MCH 27.4 pg (25.0-35.0); MCHC 32.2 g/dL (31.0-37.0); MCV 84.9 fL (80.0-100.0); Mean Platelet Volume 8.4; Platelet Count 230 k/uL (150-450); RBC 6.26 m/uL (3.80-5.40); RDW 15.4 % (11.5-15.5); WBC 8.3 k/uL (3.8-10.6)
[2023-02-20 05:52] LABS: Calcium 8.9 mg/dL (8.4-10.2); Potassium 3.7 mmol/L (3.5-5.1)
[2023-02-20 06:00] LABS: Glucose,Whole Blood 112 mg/dL (70-110)
[2023-02-20] MEDS: hydrALAZINE HCL 20 MG/ML 1 ML VIAL IVP PRN ×2 (06:38→22:43)
[2023-02-20] MEDS: PANTOPRAZOLE 40 MG/10 ML VIAL IVP SCH (08:23)
[2023-02-20] MEDS: THIAMINE 100 MG/ML 2 ML VIAL IVP SCH (08:24)
[2023-02-20] MEDS: NICOTINE 14MG/24HR PATCH TRANSDERM SCH (08:31)
[2023-02-20] MEDS: NITROGLYCERIN-D5W PMX 50 MG in DEXTROSE/WATER 1 250ML.BAG IV SCH (08:41)
[2023-02-20] MEDS ORDERED: ASPIRIN 325 MG TAB PO SCH (09:00)
[2023-02-20] MEDS ORDERED: HEPARIN SODIUM 1,000 UN/ML (10ML VL) IV PRN (09:09)
--- NOTE | 2023-02-20 09:11 | P.PN ---
Subjective Progress Note Date: 02/20/23 57-year-old female patient, was rolled into the intensive care unit, lethargic, weak and will confused, under the effect of Ativan that was given to her in the emergency and the patient's received a total of 2 mg of IV Ativan. Meanwhile, the patient was having weakness, confusion and multiple falls and the ended up bringing her to the hospital. I do not believe that she has seen any physicians. Upon arrival, the patient's was noted to have an elevated blood pressure. She was confused. Her EKG showed sinus rhythm with some nonspecific ST segment changes. Chest x-ray showed cardiomegaly with mild pulmonary vessel congestion. BUN was 32 with a creatinine of 1.2 and a white cell count of 7.1. The serum alcohol was negative. Her rest of the blood work showed normal electrolytes, BUN of 32 with a creatinine of 1.2. ProBNP level was 60,000, TSH was 38, free T4 was 0.8. Urine drug screen was negative. UA was negative. The cecum was 7.0 with a hemoglobin of 15.6. Echocardiogram was done this morning and it showed an ejection fraction of 30-35% with moderate to severe LVH, no significant valvular abnormalities and there was moderate to severe left ventricular hypertrophy. Note that patient's initial blood pressure at the time of her emergency department evaluation was as high as 228/159. For now, the patient is on a nitroglycerin drip running at 100 mcg/m. She is on IV heparin. She was given clonidine patch. She was also given hydralazine 10 mg IV every 4 hours. On a separate note, the patient was noted to have some bluish discoloration of her great toe and the left foot. The patient has Doppler signals bilaterally. The patient also has adequate femoral and popliteal pulses. While in the emergency, the patient was given Ativan. I saw her in the intensive care unit. She is gradually waking up and active and affect is wearing off. No signs of any significant respiratory compromise. She is currently on oxygen at 2 L with a pulse ox of 91%. On today's evaluation of 02/20/2023, patient is more awake compared to yesterday. She is arousable and she is communicating. She is aware of her name. She is not aware of her location. No focal neurological deficits. CAT scan of the brain was completed yesterday showed lacunar infarcts probably related to her chronic uncontrolled blood pressure. Patient is currently on 4 L of action by nasal cannula. Chest x-ray shows a small left-sided pleural effusion. Echocardiogram was completed yesterday and it showed severe LVH along with impaired on the function with an ejection fraction of 30-35% and the patient remains in normal sinus rhythm. Pulse ox 98% on [address] by nasal cannula. Her blood pressure was managed by Drip and currently the drip is off. The patient is taken IV Lasix 40 mg every 12 hours. The patient was taken off the nitroglycerin drip. She is receiving hydralazine 10 mg IV every 8 hours. I'm not sure if she is awake enough to start oral medications. This will be decided at the later stage I the patient is more alert and awake. She remains on IV heparin which will be discontinued today. In terms of her labs, the WBC count of 8.3 with a hemoglobin of 17. The BUN is 24 with a creatinine of 1.1 and his sodium levels of 138. GFR is at 54. The medication list was noted. Neurologic consultation was obtained. Vascular Doppler of the lower oximetry was done and the Doppler venous was negative. The patient does have chronic ischemic changes to her left foot, no open wounds or ulceration. Dopplers signals are present in her feet bilaterally. Objective - Vital Signs Vital signs: Vital Signs Temp 97.7 F 02/20/23 08:00 Pulse 76 02/20/23 08:30 Resp 17 02/20/23 08:30 BP 140/85 02/20/23 08:30 Pulse Ox 98 02/20/23 08:30 FiO2 Intake & Output 02/19/23 02/20/23 02/20/23 18:59 06:59 18:59 Intake Total 208.860 1250.667 120 Output Total 3080 2640 350 Balance -2781.925 -1588.333 -230 Weight 72.575 kg 63.3 kg Intake: IV 200 340 120 Invasive Line 2 20 Potassium Chloride 10 meq 100 100 In Water For Injection 1 100ml.bag @ 100 mls/hr IVPB Q1H [facility] Rx#: [id number] Sodium Chloride 0.9% 1, 180 240 20 000 ml @ 20 mls/hr IV . Q24H [facility] Rx#:[id number] Intake, IV Titration 98.075 711.667 Amount Clevidipine Butyrate 25 61.667 mg In Empty Bag 1 bag @ 1 MG/HR 2 mls/hr IV .Q24H [facility] Rx#:[id number] Heparin Sod,Pork in 0.45% 250 NaCl 25,000 unit In 0.45 % NaCl 1 250ml.bag @ 12 UNITS/KG/HR 8.709 mls/hr IV .Q24H [facility] Rx#: [id number] Nitroglycerin-D5w Pmx 50 98.075 mg In Dextrose/Water 1 250ml.bag @ 20 MCG/MIN 6 mls/hr IV .Q24H [facility] Rx#: [id number] Potassium Chloride 10 meq 400 In Water For Injection 1 100ml.bag @ 100 mls/hr IVPB Q1HR [facility] Rx#: [id number] Output: Urine 3080 2640 350 Other: Voiding Method Indwelling Catheter Indwelling Catheter Indwelling Catheter - Exam The patient is lethargic yet arousable., Mentation is still altered although slightly improved compared to yesterday. No agitation. She withdraws to painful stimulation in all 4 extremities. Pupils are equal and reactive to light. Very poor hygienic condition. Very poor oral hygiene. Head exam was generally normal. There was no scleral icterus or corneal arcus. Mucous membranes were moist. Neck was supple and without jugular venous distension, thyromegaly, or carotid bruits. Carotids were easily palpable bilaterally. There was no adenopathy. Mucous membranes are dry and there is mucosal sloughing under tongue and buccal mucosa. Lungs although the medicine the patient has some limited bibasilar crackles Cardiac exam revealed the PMI to be normally situated and sized. The rhythm was regular and no extrasystoles were noted during several minutes of auscultation. The first and second heart sounds were normal and physiologic splitting of the second heart sound was noted. There were no murmurs, rubs, clicks, or gallops. Abdominal exam revealed normal bowel sounds. The abdomen was soft, non-tender, and without masses, organomegaly, or appreciable enlargement of the abdominal aorta. Extremities reveal weak pulses distally in the feet bilaterally and the device Doppler signal. There is bluish discoloration of the great toe on the left foot. Ischemic she is also seen in the rest of the toes in the left foot. The extremities are not cold there is poor capillary refill. There is evidence of chronic vascular insufficiency. - Labs CBC & Chem 7: 02/20/23 05:14 02/20/23 05:14 Labs: Abnormal Lab Results - Last 24 Hours (Table) 02/19/23 02/19/23 02/19/23 Range/Units 10:57 10:57 10:57 RBC 5.97 H (3.80-5.40) m/uL Hgb 16.1 H (11.4-16.0) gm/dL Hct 51.2 H (34.0-46.0) % Lymphocytes # 0.9 L (1.0-4.8) k/uL APTT (22.0-30.0) sec D-Dimer 1.56 H (<0.60) mg/L FEU ABG pCO2 (35-45) mmHg ABG HCO3 (21-25) mmol/L ABG Total CO2 (19-24) mmol/L ABG O2 Saturation (94-97) % Potassium 3.2 L (3.5-5.1) mmol/L Chloride (98-107) mmol/L Carbon Dioxide 34 H (22-30) mmol/L BUN 29 H (7-17) mg/dL Creatinine 1.25 H (0.52-1.04) mg/dL Glucose 109 H (74-99) mg/dL POC Glucose (mg/dL) (70-110) mg/dL Hemoglobin A1c (0.0-6.0) % ALT 39 H (4-34) U/L Total Protein 5.8 L (6.3-8.2) g/dL Albumin 3.3 L (3.5-5.0) g/dL Free T3 pg/mL (2.8-5.3) pg/ml 02/19/23 02/19/23 02/19/23 Range/Units 11:01 12:05 12:05 RBC (3.80-5.40) m/uL Hgb (11.4-16.0) gm/dL Hct (34.0-46.0) % Lymphocytes # (1.0-4.8) k/uL APTT (22.0-30.0) sec D-Dimer (<0.60) mg/L FEU ABG pCO2 53 H (35-45) mmHg ABG HCO3 34 H (21-25) mmol/L ABG Total CO2 36 H (19-24) mmol/L ABG O2 Saturation 97.1 H (94-97) % Potassium (3.5-5.1) mmol/L Chloride (98-107) mmol/L Carbon Dioxide (22-30) mmol/L BUN (7-17) mg/dL Creatinine (0.52-1.04) mg/dL Glucose (74-99) mg/dL POC Glucose (mg/dL) (70-110) mg/dL Hemoglobin A1c 6.6 H (0.0-6.0) % ALT (4-34) U/L Total Protein (6.3-8.2) g/dL Albumin (3.5-5.0) g/dL Free T3 pg/mL 2.4 L (2.8-5.3) pg/ml 02/20/23 02/20/23 02/20/23 Range/Units 05:14 05:14 05:14 RBC 6.26 H (3.80-5.40) m/uL Hgb 17.1 H (11.4-16.0) gm/dL Hct 53.2 H (34.0-46.0) % Lymphocytes # (1.0-4.8) k/uL APTT 45.0 H (22.0-30.0) sec D-Dimer (<0.60) mg/L FEU ABG pCO2 (35-45) mmHg ABG HCO3 (21-25) mmol/L ABG Total CO2 (19-24) mmol/L ABG O2 Saturation (94-97) % Potassium (3.5-5.1) mmol/L Chloride 95 L (98-107) mmol/L Carbon Dioxide 37 H (22-30) mmol/L BUN 24 H (7-17) mg/dL Creatinine 1.12 H (0.52-1.04) mg/dL Glucose (74-99) mg/dL POC Glucose (mg/dL) (70-110) mg/dL Hemoglobin A1c (0.0-6.0) % ALT (4-34) U/L Total Protein (6.3-8.2) g/dL Albumin (3.5-5.0) g/dL Free T3 pg/mL (2.8-5.3) pg/ml 02/20/23 Range/Units 05:58 RBC (3.80-5.40) m/uL Hgb (11.4-16.0) gm/dL Hct (34.0-46.0) % Lymphocytes # (1.0-4.8) k/uL APTT (22.0-30.0) sec D-Dimer (<0.60) mg/L FEU ABG pCO2 (35-45) mmHg ABG HCO3 (21-25) mmol/L ABG Total CO2 (19-24) mmol/L ABG O2 Saturation (94-97) % Potassium (3.5-5.1) mmol/L Chloride (98-107) mmol/L Carbon Dioxide (22-30) mmol/L BUN (7-17) mg/dL Creatinine (0.52-1.04) mg/dL Glucose (74-99) mg/dL POC Glucose (mg/dL) 112 H (70-110) mg/dL Hemoglobin A1c (0.0-6.0) % ALT (4-34) U/L Total Protein (6.3-8.2) g/dL Albumin (3.5-5.0) g/dL Free T3 pg/mL (2.8-5.3) pg/ml Assessment and Plan Plan: Acute hypertensive emergency and the blood pressure is under better control and the patient is off Cleviprex. We'll start her on a combination of beta blockers and Suresh inhibitors once the patient is much more awake and she is able to swallow medication. Awaiting a bedside swallow. If she is able to pass that, we'll start the patient on Corag and lisinopril We'll keep the Catapres patch for now. Acute decompensated heart failure with systolic ejection fraction of around 30- 35% and the patient also has severe concentric LVH consistent with poorly contro lled blood pressure and hypertensive heart disease. Acute encephalopathy, could be related to poor blood pressure control. Underlying CVA cannot be completely excluded. A CAT scan of the brain has not been done, noted the patient was also given Ativan in the emergency department. More awake compared to yesterday Bilateral lacunar infarct related to poorly controlled blood pressure Encephalopathy, consider hypertensive encephalopathy. Neurology is on the case. History of hypothyroidism Peripheral vascular disease, chronic ischemic changes to her left lower extremity, no indication for an acute vascular ischemia and the findings seem to be more chronic. Plan Titrate oxygen flow to maintain saturation above 90%, currently on 4 L Discontinue cleviprex drip and will start oral medications the patient is more awake Bedside swallow evaluation Keep the IV heparin for another 24 hours IV fluids are currently at KVO until be kept at KVO echocardiogram was noted Continue IV heparin for now per cardiology recommendation EKG an echocardiogram was noted Keep the clonidine patch CAT scan of the brain was BP is under better control Neurologic consultation is appreciated No sedatives for now We'll continue to follow
[2023-02-20] MEDS: CLEVIDIPINE BUTYRATE 25 MG in EMPTY BAG 1 BAG IV SCH ×2 (09:31→11:55)
--- NOTE | 2023-02-20 09:39 | P.PN ---
Subjective Progress Note Date: 02/20/23 PROGRESS NOTE The patient is a 57-year-old female who was admitted to the hospital with symptoms of confusion, multiple falls, weakness. The history is obtained from the records. The patient is not answering question quite somnolent after receiving Ativan. According to the records the patient has not been taking her medications are home. She has a history of hypertension, diabetes and hyperlipidemia full detail of her prior history or medication is unclear. She was noted to be severely hypertensive, elevated NT proBNP and TSH on presentation. She was in sinus mechanism on presentation. She had peripheral edema and discoloration of the toes on the left lower extremity. According to the notes she's a daily smoker and she uses marijuana. I am unable to obtain any other history. Her echocardiogram performed this morning showed a severely impaired left ventricle systolic function February 20: The patient remains confused, answering questions inappropriately. Her blood pressure has been elevated off Clevidipine. She is not taking by mouth medication because of a question of the swallowing. She continues to be in sinus mechanism. She has a good urinary output on IV Lasix. She continues to be on IV heparin. Her EKG showed T-wave inversion in the anterolateral lateral leads. Her brain CT showed lacunar infarct but no acute bleeding. Duplex scan of the lower extremities showed no evidence of DVT. She continues to have discoloration of the left foot toes. Medications: IV hydralazine, Lasix 40 mg IV every 12 hours, clonidine patch, IV heparin, PHYSICAL EXAMINATION: Blood pressure 168/98 heart rate 60 LUNGS: Clear to auscultation HEART: Regular rate and rhythm, S1, S2. No S3. systolic ejection murmur ABDOMEN: Soft, nontender, no organomegaly EXTREMETIES: No edema, discoloration of the toes on the left LAB: Hemoglobin 17.1, BUN 24, creatinine 1.1 IMPRESSION: 1. Uncontrolled hypertension 2. Encephalopathy could be related to hypertension, workup in progress 3. Abnormal EKG rule out ischemia 4. Abnormal renal functions, improving 5. Probable peripheral vascular disease 6. Lacunar infarct 7. Severe cardiomyopathy of unknown etiology or duration probable hypertensive rule out ischemic PLAN: 1. Swallow evaluation and if able to take by mouth start beta mohsen and LUCIAN inhibitor 2. If not able to take by mouth resume IV Cleviprex 3. Follow renal functions 4. Depending on her progress further recommendations will be made 5. Continue IV heparin for another 24 hours Objective - Vital Signs Vital signs: Vital Signs Temp 97.7 F 02/20/23 08:00 Pulse 76 02/20/23 08:30 Resp 17 02/20/23 08:30 BP 140/85 02/20/23 08:30 Pulse Ox 97 02/20/23 09:27 FiO2 Intake & Output 02/19/23 02/20/23 02/20/23 18:59 06:59 18:59 Intake Total 889.207 5036.667 140 Output Total 3080 2640 600 Balance -2781.925 -1588.333 -460 Weight 72.575 kg 63.3 kg Intake: IV 200 340 140 Invasive Line 2 20 Potassium Chloride 10 meq 100 100 In Water For Injection 1 100ml.bag @ 100 mls/hr IVPB Q1H [facility] Rx#: [id number] Sodium Chloride 0.9% 1, 180 240 40 000 ml @ 20 mls/hr IV . Q24H [facility] Rx#:[id number] Intake, IV Titration 98.075 711.667 Amount Clevidipine Butyrate 25 61.667 mg In Empty Bag 1 bag @ 1 MG/HR 2 mls/hr IV .Q24H [facility] Rx#:[id number] Heparin Sod,Pork in 0.45% 250 NaCl 25,000 unit In 0.45 % NaCl 1 250ml.bag @ 12 UNITS/KG/HR 8.709 mls/hr IV .Q24H [facility] Rx#: [id number] Nitroglycerin-D5w Pmx 50 98.075 mg In Dextrose/Water 1 250ml.bag @ 20 MCG/MIN 6 mls/hr IV .Q24H [facility] Rx#: [id number] Potassium Chloride 10 meq 400 In Water For Injection 1 100ml.bag @ 100 mls/hr IVPB Q1HR [facility] Rx#: [id number] Output: Urine 3080 2640 600 Other: Voiding Method Indwelling Catheter Indwelling Catheter Indwelling Catheter - Labs CBC & Chem 7: 02/20/23 05:14 02/20/23 05:14 Labs: Abnormal Lab Results - Last 24 Hours (Table) 02/19/23 02/19/23 02/19/23 Range/Units 10:57 10:57 10:57 RBC 5.97 H (3.80-5.40) m/uL Hgb 16.1 H (11.4-16.0) gm/dL Hct 51.2 H (34.0-46.0) % Lymphocytes # 0.9 L (1.0-4.8) k/uL APTT (22.0-30.0) sec D-Dimer 1.56 H (<0.60) mg/L FEU ABG pCO2 (35-45) mmHg ABG HCO3 (21-25) mmol/L ABG Total CO2 (19-24) mmol/L ABG O2 Saturation (94-97) % Potassium 3.2 L (3.5-5.1) mmol/L Chloride (98-107) mmol/L Carbon Dioxide 34 H (22-30) mmol/L BUN 29 H (7-17) mg/dL Creatinine 1.25 H (0.52-1.04) mg/dL Glucose 109 H (74-99) mg/dL POC Glucose (mg/dL) (70-110) mg/dL Hemoglobin A1c (0.0-6.0) % ALT 39 H (4-34) U/L Total Protein 5.8 L (6.3-8.2) g/dL Albumin 3.3 L (3.5-5.0) g/dL Free T3 pg/mL (2.8-5.3) pg/ml 02/19/23 02/19/23 02/19/23 Range/Units 11:01 12:05 12:05 RBC (3.80-5.40) m/uL Hgb (11.4-16.0) gm/dL Hct (34.0-46.0) % Lymphocytes # (1.0-4.8) k/uL APTT (22.0-30.0) sec D-Dimer (<0.60) mg/L FEU ABG pCO2 53 H (35-45) mmHg ABG HCO3 34 H (21-25) mmol/L ABG Total CO2 36 H (19-24) mmol/L ABG O2 Saturation 97.1 H (94-97) % Potassium (3.5-5.1) mmol/L Chloride (98-107) mmol/L Carbon Dioxide (22-30) mmol/L BUN (7-17) mg/dL Creatinine (0.52-1.04) mg/dL Glucose (74-99) mg/dL POC Glucose (mg/dL) (70-110) mg/dL Hemoglobin A1c 6.6 H (0.0-6.0) % ALT (4-34) U/L Total Protein (6.3-8.2) g/dL Albumin (3.5-5.0) g/dL Free T3 pg/mL 2.4 L (2.8-5.3) pg/ml 02/20/23 02/20/23 02/20/23 Range/Units 05:14 05:14 05:14 RBC 6.26 H (3.80-5.40) m/uL Hgb 17.1 H (11.4-16.0) gm/dL Hct 53.2 H (34.0-46.0) % Lymphocytes # (1.0-4.8) k/uL APTT 45.0 H (22.0-30.0) sec D-Dimer (<0.60) mg/L FEU ABG pCO2 (35-45) mmHg ABG HCO3 (21-25) mmol/L ABG Total CO2 (19-24) mmol/L ABG O2 Saturation (94-97) % Potassium (3.5-5.1) mmol/L Chloride 95 L (98-107) mmol/L Carbon Dioxide 37 H (22-30) mmol/L BUN 24 H (7-17) mg/dL Creatinine 1.12 H (0.52-1.04) mg/dL Glucose (74-99) mg/dL POC Glucose (mg/dL) (70-110) mg/dL Hemoglobin A1c (0.0-6.0) % ALT (4-34) U/L Total Protein (6.3-8.2) g/dL Albumin (3.5-5.0) g/dL Free T3 pg/mL (2.8-5.3) pg/ml 02/20/23 Range/Units 05:58 RBC (3.80-5.40) m/uL Hgb (11.4-16.0) gm/dL Hct (34.0-46.0) % Lymphocytes # (1.0-4.8) k/uL APTT (22.0-30.0) sec D-Dimer (<0.60) mg/L FEU ABG pCO2 (35-45) mmHg ABG HCO3 (21-25) mmol/L ABG Total CO2 (19-24) mmol/L ABG O2 Saturation (94-97) % Potassium (3.5-5.1) mmol/L Chloride (98-107) mmol/L Carbon Dioxide (22-30) mmol/L BUN (7-17) mg/dL Creatinine (0.52-1.04) mg/dL Glucose (74-99) mg/dL POC Glucose (mg/dL) 112 H (70-110) mg/dL Hemoglobin A1c (0.0-6.0) % ALT (4-34) U/L Total Protein (6.3-8.2) g/dL Albumin (3.5-5.0) g/dL Free T3 pg/mL (2.8-5.3) pg/ml
--- NOTE | 2023-02-20 11:02 | P.PN ---
Subjective Progress Note Date: 02/20/23 The patient is a 57-year-old female who is seen in neurologic follow-up on February 20, 2023, via teleneurology. The chart has been reviewed. There are no family members present at the bedside. The patient's nurse does report that the patient continues to be on a medication for elevated blood pressure and continues to be on heparin drip. CT scan of the brain was negative for acute hemorrhage and infarct. Vitamin B12 level is 644. Folate level is 10. The patient does report having a mild headache today. She is confused. Objective - Vital Signs Vital signs: Vital Signs Temp 97.7 F 02/20/23 08:00 Pulse 66 02/20/23 09:30 Resp 21 02/20/23 09:30 BP 168/98 02/20/23 09:30 Pulse Ox 97 02/20/23 09:30 FiO2 Intake & Output 02/19/23 02/20/23 02/20/23 18:59 06:59 18:59 Intake Total 977.001 7341.667 140.633 Output Total 3080 2640 600 Balance -2781.925 -1588.333 -459.367 Weight 72.575 kg 63.3 kg Intake: IV 200 340 140 Invasive Line 2 20 Potassium Chloride 10 meq 100 100 In Water For Injection 1 100ml.bag @ 100 mls/hr IVPB Q1H [facility] Rx#: [id number] Sodium Chloride 0.9% 1, 180 240 40 000 ml @ 20 mls/hr IV . Q24H [facility] Rx#:[id number] Intake, IV Titration 98.075 711.667 0.633 Amount Clevidipine Butyrate 25 61.667 mg In Empty Bag 1 bag @ 1 MG/HR 2 mls/hr IV .Q24H [facility] Rx#:[id number] Clevidipine Butyrate 25 0.633 mg In Empty Bag 1 bag @ 1 MG/HR 2 mls/hr IV .Q24H [facility] Rx#:[id number] Heparin Sod,Pork in 0.45% 250 NaCl 25,000 unit In 0.45 % NaCl 1 250ml.bag @ 12 UNITS/KG/HR 8.709 mls/hr IV .Q24H [facility] Rx#: [id number] Nitroglycerin-D5w Pmx 50 98.075 mg In Dextrose/Water 1 250ml.bag @ 20 MCG/MIN 6 mls/hr IV .Q24H [facility] Rx#: [id number] Potassium Chloride 10 meq 400 In Water For Injection 1 100ml.bag @ 100 mls/hr IVPB Q1HR [facility] Rx#: [id number] Output: Urine 3080 2640 600 Other: Voiding Method Indwelling Catheter Indwelling Catheter Indwelling Catheter - Exam Gen.: The patient is reclining in the bed. She is well-nourished and in no acute distress. HEENT: Head is atraumatic, normocephalic. Fundus not visualized. There is no scleral icterus. Mucous membranes are dry. Extremities: There is there is edema of the bilateral lower extremities left greater than right. In addition there is ecchymosis of the left lower extremity. There is edema of the bilateral upper extremities, left greater than right. Neurological examination Mental status: The patient is awake and alert. She is oriented to her name and location and month and day of . There is perseveration of speech. Her speech is dysarthric. The patient is able to follow simple commands. Cranial nerves: 2-12 grossly intact Motor: The patient is moving all 4 extremities Coordination: The patient is able to perform finger to nose testing bilaterally. - Labs CBC & Chem 7: 02/20/23 05:14 02/20/23 05:14 Labs: Abnormal Lab Results - Last 24 Hours (Table) 02/19/23 02/19/23 02/19/23 Range/Units 10:57 10:57 10:57 RBC 5.97 H (3.80-5.40) m/uL Hgb 16.1 H (11.4-16.0) gm/dL Hct 51.2 H (34.0-46.0) % Lymphocytes # 0.9 L (1.0-4.8) k/uL APTT (22.0-30.0) sec D-Dimer 1.56 H (<0.60) mg/L FEU ABG pCO2 (35-45) mmHg ABG HCO3 (21-25) mmol/L ABG Total CO2 (19-24) mmol/L ABG O2 Saturation (94-97) % Potassium 3.2 L (3.5-5.1) mmol/L Chloride (98-107) mmol/L Carbon Dioxide 34 H (22-30) mmol/L BUN 29 H (7-17) mg/dL Creatinine 1.25 H (0.52-1.04) mg/dL Glucose 109 H (74-99) mg/dL POC Glucose (mg/dL) (70-110) mg/dL Hemoglobin A1c (0.0-6.0) % ALT 39 H (4-34) U/L Total Protein 5.8 L (6.3-8.2) g/dL Albumin 3.3 L (3.5-5.0) g/dL Free T3 pg/mL (2.8-5.3) pg/ml 02/19/23 02/19/23 02/19/23 Range/Units 11:01 12:05 12:05 RBC (3.80-5.40) m/uL Hgb (11.4-16.0) gm/dL Hct (34.0-46.0) % Lymphocytes # (1.0-4.8) k/uL APTT (22.0-30.0) sec D-Dimer (<0.60) mg/L FEU ABG pCO2 53 H (35-45) mmHg ABG HCO3 34 H (21-25) mmol/L ABG Total CO2 36 H (19-24) mmol/L ABG O2 Saturation 97.1 H (94-97) % Potassium (3.5-5.1) mmol/L Chloride (98-107) mmol/L Carbon Dioxide (22-30) mmol/L BUN (7-17) mg/dL Creatinine (0.52-1.04) mg/dL Glucose (74-99) mg/dL POC Glucose (mg/dL) (70-110) mg/dL Hemoglobin A1c 6.6 H (0.0-6.0) % ALT (4-34) U/L Total Protein (6.3-8.2) g/dL Albumin (3.5-5.0) g/dL Free T3 pg/mL 2.4 L (2.8-5.3) pg/ml 02/20/23 02/20/23 02/20/23 Range/Units 05:14 05:14 05:14 RBC 6.26 H (3.80-5.40) m/uL Hgb 17.1 H (11.4-16.0) gm/dL Hct 53.2 H (34.0-46.0) % Lymphocytes # (1.0-4.8) k/uL APTT 45.0 H (22.0-30.0) sec D-Dimer (<0.60) mg/L FEU ABG pCO2 (35-45) mmHg ABG HCO3 (21-25) mmol/L ABG Total CO2 (19-24) mmol/L ABG O2 Saturation (94-97) % Potassium (3.5-5.1) mmol/L Chloride 95 L (98-107) mmol/L Carbon Dioxide 37 H (22-30) mmol/L BUN 24 H (7-17) mg/dL Creatinine 1.12 H (0.52-1.04) mg/dL Glucose (74-99) mg/dL POC Glucose (mg/dL) (70-110) mg/dL Hemoglobin A1c (0.0-6.0) % ALT (4-34) U/L Total Protein (6.3-8.2) g/dL Albumin (3.5-5.0) g/dL Free T3 pg/mL (2.8-5.3) pg/ml 02/20/23 Range/Units 05:58 RBC (3.80-5.40) m/uL Hgb (11.4-16.0) gm/dL Hct (34.0-46.0) % Lymphocytes # (1.0-4.8) k/uL APTT (22.0-30.0) sec D-Dimer (<0.60) mg/L FEU ABG pCO2 (35-45) mmHg ABG HCO3 (21-25) mmol/L ABG Total CO2 (19-24) mmol/L ABG O2 Saturation (94-97) % Potassium (3.5-5.1) mmol/L Chloride (98-107) mmol/L Carbon Dioxide (22-30) mmol/L BUN (7-17) mg/dL Creatinine (0.52-1.04) mg/dL Glucose (74-99) mg/dL POC Glucose (mg/dL) 112 H (70-110) mg/dL Hemoglobin A1c (0.0-6.0) % ALT (4-34) U/L Total Protein (6.3-8.2) g/dL Albumin (3.5-5.0) g/dL Free T3 pg/mL (2.8-5.3) pg/ml Microbiology - Last 24 Hours (Table) 02/18/23 20:57 Blood Culture - Preliminary Blood 02/18/23 21:05 Blood Culture - Preliminary Blood Assessment and Plan Assessment: This is a 57-year-old woman with history of hypertension and is not compliant taking medication who presented because of generalized weakness, confusion, falls for the past weeks to months. Altered mental status seems due to multifactorial: But predominantly hypertensive encephalopathy with component due to abnormal thyroid and some component of metabolic and medication (2mg Ativan in ED ) Acute hypertensive emergency (presented with blood pressure 230's/170's--currently is 130-140's/80's to 90's) she was on nitroglycerin, she received clonidine patch as well as IV hydralazine. Currently on Is on Clvprx 1mg/hr.. -The patient remains confused today. MRI is pending at this time Generalized weakness Falls Possible TIA about 4-5 months ago (had transient right facial weakness per ). Systolic heart failure with ejection fraction of 30-35% Elevated troponin Hypothyroidism Peripheral vascular disease Chronic history of hypertension and noncompliant with medication Tobacco use Alcohol use Noncompliance with medication and does not follow up with physician Plan: MRI of brain is pending Every 3 hour neurochecks Started on thiamine 100mg IV daily and after 3 days switch to PO. Please avoid any sedation if possible to have a better neurological evaluation. Vascular surgery team is consulted for left extremity suspected ischemia Cardiology is consulted We'll defer the rest of the medical management to the primary and ICU team Time with Patient: Less than 30 (Spent 25 minutes caring for this patient today including, obtaining a history, examining the patient, reviewing chart documentation, labs, imaging and creating this note)
[2023-02-20 11:20] LABS: Albumin 3.5 g/dL (3.5-5.0); Potassium 3.8 mmol/L (3.5-5.1); Total Bilirubin 1.5 mg/dL (0.2-1.3)
--- NOTE | 2023-02-20 12:09 | P.GSCN ---
History of Present Illness Consult date: 02/20/23 Reason for Consult: Ischemia of the left foot. History of present illness: Patient is a 57-year-old female who presented to the hospital was found be suffering from severe hypertension and concern for encephalopathy. She recently was noted to have the beginnings of what appears to be ischemic changes of her left foot. She denied any previous similar symptoms. Patient is approximately [id number] tobacco use history and continued to smoke up until the time of her admission. She denied any previous similar symptoms nor any trauma to the left foot. Past Medical History Past Medical History: Diabetes Mellitus, Myocardial Infarction (VT), Thyroid Disorder Last Myocardial Infarction Date:: unknown History of Any Multi-Drug Resistant Organisms: None Reported Past Surgical History: No Surgical Hx Reported Past Anesthesia/Blood Transfusion Reactions: No Reported Reaction Smoking Status: Current every day smoker Past Alcohol Use History: Occasional Past Drug Use History: Marijuana - Past Family History Son(s) History Unknown: Yes Mother History Unknown: Yes Father History Unknown: Yes Medications and Allergies Home Medications Medication Instructions Recorded Confirmed Type No Known Home Medications 02/18/23 02/18/23 History Allergies Allergy/AdvReac Type Severity Reaction Status Date / Time shellfish derived [Shrimp] Allergy Rash/Hives Verified 02/18/23 21:49 Surgical - Exam Osteopathic Statement: *. No significant issues noted on an osteopathic structural exam other than those noted in the History and Physical/Consult. Vital Signs Temp Pulse Resp BP Pulse Ox 97.7 F 105 H 22 238/178 87 L 02/18/23 20:48 02/18/23 20:48 02/18/23 20:48 02/18/23 20:48 02/18/23 20:48 Patient Seen Date: 02/20/23 Patient Seen Time: 11:35 Patient was laying in bed, awake alert cooperative in no apparent distress. Neck: Soft, no carotid bruit noted. No cervical adenopathy noted. Heart: Regular in rate and rhythm. Lungs: Clear to auscultation bilaterally. Abdomen: Soft and otherwise benign. No palpable masses nor organomegaly noted. Examination lower extremities demonstrates femoral pulses are intact, popliteal, DP and PT pulses are absent. No significant leg edema. The right foot is unremarkable while the left foot is demonstrating signs of ischemia. I review the arterial Doppler study. This demonstrates an NIC of 0.59 on the left and 0.72 on the right. Patient has a normal creatinine and I will proceed with obtaining CTA of the abdominal, pelvic and lower extremity vessels. Results - Labs 02/20/23 05:14 02/20/23 10:38 Abnormal Lab Results - Last 24 Hours (Table) 02/19/23 02/19/23 02/20/23 Range/Units 12:05 12:05 05:14 RBC (3.80-5.40) m/uL Hgb (11.4-16.0) gm/dL Hct (34.0-46.0) % APTT 45.0 H (22.0-30.0) sec Chloride (98-107) mmol/L Carbon Dioxide (22-30) mmol/L BUN (7-17) mg/dL Creatinine (0.52-1.04) mg/dL POC Glucose (mg/dL) (70-110) mg/dL Hemoglobin A1c 6.6 H (0.0-6.0) % Total Bilirubin (0.2-1.3) mg/dL ALT (4-34) U/L Total Protein (6.3-8.2) g/dL Free T3 pg/mL 2.4 L (2.8-5.3) pg/ml 02/20/23 02/20/23 02/20/23 Range/Units 05:14 05:14 05:58 RBC 6.26 H (3.80-5.40) m/uL Hgb 17.1 H (11.4-16.0) gm/dL Hct 53.2 H (34.0-46.0) % APTT (22.0-30.0) sec Chloride 95 L (98-107) mmol/L Carbon Dioxide 37 H (22-30) mmol/L BUN 24 H (7-17) mg/dL Creatinine 1.12 H (0.52-1.04) mg/dL POC Glucose (mg/dL) 112 H (70-110) mg/dL Hemoglobin A1c (0.0-6.0) % Total Bilirubin (0.2-1.3) mg/dL ALT (4-34) U/L Total Protein (6.3-8.2) g/dL Free T3 pg/mL (2.8-5.3) pg/ml 02/20/23 Range/Units 10:38 RBC (3.80-5.40) m/uL Hgb (11.4-16.0) gm/dL Hct (34.0-46.0) % APTT (22.0-30.0) sec Chloride 94 L (98-107) mmol/L Carbon Dioxide 37 H (22-30) mmol/L BUN 23 H (7-17) mg/dL Creatinine (0.52-1.04) mg/dL POC Glucose (mg/dL) (70-110) mg/dL Hemoglobin A1c (0.0-6.0) % Total Bilirubin 1.5 H (0.2-1.3) mg/dL ALT 36 H (4-34) U/L Total Protein 6.0 L (6.3-8.2) g/dL Free T3 pg/mL (2.8-5.3) pg/ml Microbiology - Last 24 Hours (Table) 02/18/23 20:57 Blood Culture - Preliminary Blood 02/18/23 21:05 Blood Culture - Preliminary Blood Diabetes panel 02/19/23 02/20/23 02/20/23 Range/Units 12:05 00:21 05:14 Sodium 138 (137-145) mmol/L Potassium 3.6 3.7 (3.5-5.1) mmol/L Chloride 95 L (98-107) mmol/L Carbon Dioxide 37 H (22-30) mmol/L BUN 24 H (7-17) mg/dL Creatinine 1.12 H (0.52-1.04) mg/dL Glucose 93 (74-99) mg/dL Hemoglobin A1c 6.6 H (0.0-6.0) % Calcium 8.9 (8.4-10.2) mg/dL AST (14-36) U/L ALT (4-34) U/L Alkaline Phosphatase (38-126) U/L Total Protein (6.3-8.2) g/dL Albumin (3.5-5.0) g/dL 02/20/23 Range/Units 10:38 Sodium 138 (137-145) mmol/L Potassium 3.8 (3.5-5.1) mmol/L Chloride 94 L (98-107) mmol/L Carbon Dioxide 37 H (22-30) mmol/L BUN 23 H (7-17) mg/dL Creatinine 1.00 (0.52-1.04) mg/dL Glucose 92 (74-99) mg/dL Hemoglobin A1c (0.0-6.0) % Calcium 9.0 (8.4-10.2) mg/dL AST 27 (14-36) U/L ALT 36 H (4-34) U/L Alkaline Phosphatase 111 (38-126) U/L Total Protein 6.0 L (6.3-8.2) g/dL Albumin 3.5 (3.5-5.0) g/dL Calcium panel 02/20/23 02/20/23 Range/Units 05:14 10:38 Calcium 8.9 9.0 (8.4-10.2) mg/dL Albumin 3.5 (3.5-5.0) g/dL Pituitary panel 02/20/23 02/20/23 02/20/23 Range/Units 00:21 05:14 10:38 Sodium 138 138 (137-145) mmol/L Potassium 3.6 3.7 3.8 (3.5-5.1) mmol/L Chloride 95 L 94 L (98-107) mmol/L Carbon Dioxide 37 H 37 H (22-30) mmol/L BUN 24 H 23 H (7-17) mg/dL Creatinine 1.12 H 1.00 (0.52-1.04) mg/dL Glucose 93 92 (74-99) mg/dL Calcium 8.9 9.0 (8.4-10.2) mg/dL Adrenal panel 02/20/23 02/20/23 02/20/23 Range/Units 00:21 05:14 10:38 Sodium 138 138 (137-145) mmol/L Potassium 3.6 3.7 3.8 (3.5-5.1) mmol/L Chloride 95 L 94 L (98-107) mmol/L Carbon Dioxide 37 H 37 H (22-30) mmol/L BUN 24 H 23 H (7-17) mg/dL Creatinine 1.12 H 1.00 (0.52-1.04) mg/dL Glucose 93 92 (74-99) mg/dL Calcium 8.9 9.0 (8.4-10.2) mg/dL Total Bilirubin 1.5 H (0.2-1.3) mg/dL AST 27 (14-36) U/L ALT 36 H (4-34) U/L Alkaline Phosphatase 111 (38-126) U/L Total Protein 6.0 L (6.3-8.2) g/dL Albumin 3.5 (3.5-5.0) g/dL - Imaging Additional studies: Arterial Doppler study reviewed. 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 2: Multiple medical problems including resistant accelerated hypertension. 3: Tobacco abuse. Plan: We will obtain CTA of the abdominal, pelvic and lower extremity vessels. This will help guide further therapy. We'll follow with you. Time with Patient: Greater than 30
[2023-02-20 12:12] LABS: Glucose,Whole Blood 87 mg/dL (70-110)
[2023-02-20] MEDS ORDERED: ACETAMINOPHEN IV (For NPO) 1,000 MG in EMPTY BAG 1 BAG IVPB PRN (13:44)
--- NOTE | 2023-02-20 14:23 | CT ---
EXAMINATION TYPE: CT angio abd aorta w/Runoff DATE OF EXAM: 02/20/2023 COMPARISON: HISTORY: Left foot ischemia CT DLP: 1550.5 mGycm CONTRAST: CTA thoracic and abdominal aorta with 3-D reconstruction is performed and without and with IV Contras t, patient injected with 100 mL of Isovue 370. Contrast CTA of the abdominal aorta with runoff of the lower extremity arterial system was performed from the lung bases through the ankles and feet. 3-D reconstruction imaging obtained at a separate wo rkstation. ABDOMINAL AORTA: Aneurysmal dilatation proximal abdominal aorta measuring 3 cm. Atheromatous change n oted throughout the remainder of the abdominal aorta without additional aneurysms seen. Patent renal arteries as well as SMA and celiac axis. Iliac vessels: Common iliac arteries demonstrate moderate plaque formation bilaterally with estimated diameter reduction of 50% right common iliac artery. Less than 50% stenosis left common iliac artery . The external iliac arteries and internal iliac arteries are patent bilaterally. Femoral arteries: There is long segment occlusion mid right superficial femoral artery with reconstit ution at the distal superficial femoral artery. Proximal superficial femoral artery on the right and profunda femoris are patent. Additional long segment occlusion mid left superficial femoral artery wi th reconstitution distal left superficial femoral artery. Proximal SFA, profunda femoris and distal S FA on the left are patent. Popliteal arteries: Popliteal arteries are patent bilaterally with only mild plaque formation noted. Below the knee arteries: Trifurcation is patent bilaterally. Peroneal, anterior and posterior tibial arteries demonstrate moderate calcific disease bilaterally with multifocal stenosis bilateral anterio r tibial arteries left slightly greater than right. Limited runoff of the ankles and feet given timin g of the contrast bolus. LIVER/GB- No significant abnormality is seen. PANCREAS- No significant abnormality is seen. SPLEEN- No significant abnormality is seen. ADRENALS- No significant abnormality is seen. KIDNEYS/BLADDER- No significant abnormality is seen. BOWEL- No Significant abnormality GENITAL ORGANS: No gross abnormality seen. LYMPH NODES- No greater than 1cm abdominal or pelvic lymph nodes are appreciated. OSSEOUS STRUCTURES- No significant abnormality is seen. OTHER- No significant abnormality is seen. IMPRESSION- 1. Long segment occlusion bilateral mid superficial femoral arteries with reconstitution at the dista l SFA bilaterally. 2. Multifocal calcific disease and estimated 70% stenosis anterior tibial arteries bilaterally. 3. Proximal abdominal aortic aneurysm.
[2023-02-20 18:30] LABS: Glucose,Whole Blood 90 mg/dL (70-110)
[2023-02-20] MEDS ORDERED: HEPARIN SODIUM,PORCINE/PF 5,000 UNIT/0.5 ML SYRINGE SQ SCH (21:00)
[2023-02-20] MEDS ORDERED: LORazepam 2 MG/ML INJ IV PRN (22:29)
[2023-02-20] MEDS: SODIUM CHLORIDE 0.9% 1,000 ML IV SCH (22:32)
--- NOTE | 2023-02-20 22:50 | P.PN ---
Subjective Progress Note Date: 02/20/23 This is a 57-year-old female history significant for diabetes mellitus, hypertension, myocardial infarction, thyroid disorder, current smoker. Patient presented to the hospital for altered mental status and was found on the floor by her he was unable to lift her up. Patient was brought in by EMS. Patient is found to have generalized weakness confusion and has been having multiple falls at home with progressive weakness over the last 5 months, patient is a poor historian and currently alert x 0 and obtunded at the time of examination. at the bedside provides the medical history, patient is a daily smoker and occasional alcohol use. Over the last 5 months has been having frequent falls and has been increasingly confused Has not been to a doctor and not taking recommending medications. Additionally he felt patient may have suffered a stroke a few months ago and had noticed a facial droop around that time. Patient in the ER was awake and alert. Blood pressure on admission was in the 220s systolic and difficult to treat with multiple antihypertensive agents given. Patient was also given IV ativan. Chest x-ray on admission shows cardiomegaly with linear atelectasis and/or scarring the left midlung. EKG shows sinus tachycardia with a heart rate of 110 on admission. She has no elevated white blood cell count it is normal at 7.1, sodium of 135, BUN/cr 32 and 1.28, Lacis acid is normal 1.3. She does have troponin elevation of 0.067, 0.074, 0.075.. ProBNP is elevated at 16,200, TSH is also 38.800, free T4 0.84. Urinalysis is negative for infection, urine drug toxicology is negative. Patient is admitted to the hospital for new onset CHF and originially admitted to the stepdown unit. Patient was upgraded to the intensive care unit and placed on nitro gtt and had also become unresponsive only arousing to sternal rub. 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 Recommend a brain CT when patient is more stable and also ABGs will be done. An echocardiogram reveals EF of 30-35%, mild MR. 02/20/2023 Patient continues to be monitored closely in the intensive care unit. Currently alert x 2 more awake than yesterday, does have some slurred speech today. Brain CT shows no acute intracranial process with remote lacunar injuries along with nonspecific white matter changes likely secondary to chronic microangiography. EEG is negative. Neurology following and recommending brain MRI. Chest xray today is negative. Continues on IV lasix 40 mg every 12 hours with urine output of over 5L in the last 24 hours. Continues on IV cleviprex/clonidine patch and blood pressure running in the 150s systolic. Labs reveal sodium of 138, potassium 3.8, BUN 23, creatinine of 1.0. Review of Systems Constitutional: Denied any fatigue denied any fever. Cardio vascular: denied any chest pain, palpitations Gastrointestinal: denied any nausea, vomiting, diarrhea Pulmonary: Denied any shortness of breath cough Neurologic denied any new focal deficits All inpatient medications were reviewed and appropriate changes in these medications as dictated in the interval history and assessment and plan. PHYSICAL EXAMINATION: GENERAL: The patient is alert and oriented x2, More awake, slurred speech. Pale. Well developed, well nourished. HEENT: Pupils are round and equally reacting to light. EOMI. No scleral icterus. No conjunctival pallor. Normocephalic, atraumatic. No pharyngeal erythema. No thyromegaly. CARDIOVASCULAR: S1 and S2 present. No murmurs, rubs, or gallops. PULMONARY: Chest is clear to auscultation, no wheezing or crackles. ABDOMEN: Soft, nontender, nondistended, normoactive bowel sounds. No palpable organomegaly. MUSCULOSKELETAL: No joint swelling or deformity. EXTREMITIES: No cyanosis, clubbing, or pedal edema. NEUROLOGICAL: Unable to complete full exam. Diffuse weakness. SKIN: No rashes. There is discoloration to toes on the left foot extending to the left foot pad, progressing. Assessment and plan Altered mental status secondary to acute metabolic encephalopathy rule out acute stroke Progressive weakness and frequent falls at home Hypertension with urgency on admission Elevated troponin level Acute kidney injury vs CKD, Ischemic change to the left foot. Acute congestive heart failure, systolic dysfunction Cardiomyopathy possibly from the hypertension vs hypothyroidism Elevated D-Dimer Hypothyroidism Diabetes Mellitus type 2 uncontrolled History of myocardial infarction unknown details Chronic and ongoing nicotine use Medical noncompliance Marijuana use GI prophylaxis DVT prophylaxis; on IV heparin Do Not Resuscitate/Do Not Intubate Plan Continue monitoring the patient in the intensive care unit Continue IV lasix strict intake and output monitoring Neurology following and recommending brain MRI patient noted to have some slurred speech today and speech therapy consultation is pending. Cardiology following Arterial ultrasound completed and vascular surgery recommending CTA with run off for further evaluation Follow up AM labs The impression and plan of care has been dictated by Fany Ren Nurse Practitioner as directed. Dr. Prasanna MD I have performed a history and physical examination and medical decision making of this patient, discussed the same with the dictator, and agree with the dictators assessment and plan as written, documented as a scribe. Based on total visit time, I have performed more than 50% of this visit. Objective - Vital Signs Vital signs: Vital Signs Temp 97.6 F 02/20/23 04:00 Pulse 73 02/20/23 07:00 Resp 15 02/20/23 07:00 BP 134/84 02/20/23 07:00 Pulse Ox 97 02/20/23 07:00 FiO2 Intake & Output 02/19/23 02/20/23 02/20/23 18:59 06:59 18:59 Intake Total 236.655 5877.667 Output Total 3080 2640 Balance -2781.925 -1588.333 Weight 72.575 kg 63.3 kg Intake: IV 200 340 Invasive Line 2 20 Potassium Chloride 10 meq 100 In Water For Injection 1 100ml.bag @ 100 mls/hr IVPB Q1H [facility] Rx#: [id number] Sodium Chloride 0.9% 1, 180 240 000 ml @ 20 mls/hr IV . Q24H [facility] Rx#:[id number] Intake, IV Titration 98.075 711.667 Amount Clevidipine Butyrate 25 61.667 mg In Empty Bag 1 bag @ 1 MG/HR 2 mls/hr IV .Q24H [facility] Rx#:[id number] Heparin Sod,Pork in 0.45% 250 NaCl 25,000 unit In 0.45 % NaCl 1 250ml.bag @ 12 UNITS/KG/HR 8.709 mls/hr IV .Q24H [facility] Rx#: [id number] Nitroglycerin-D5w Pmx 50 98.075 mg In Dextrose/Water 1 250ml.bag @ 20 MCG/MIN 6 mls/hr IV .Q24H [facility] Rx#: [id number] Potassium Chloride 10 meq 400 In Water For Injection 1 100ml.bag @ 100 mls/hr IVPB Q1HR [facility] Rx#: [id number] Output: Urine 3080 2640 Other: Voiding Method Indwelling Catheter Indwelling Catheter - Labs CBC & Chem 7: 02/20/23 05:14 02/20/23 10:38 Labs: Abnormal Lab Results - Last 24 Hours (Table) 02/19/23 02/19/23 02/19/23 Range/Units 10:57 10:57 10:57 RBC 5.97 H (3.80-5.40) m/uL Hgb 16.1 H (11.4-16.0) gm/dL Hct 51.2 H (34.0-46.0) % Lymphocytes # 0.9 L (1.0-4.8) k/uL APTT (22.0-30.0) sec D-Dimer 1.56 H (<0.60) mg/L FEU ABG pCO2 (35-45) mmHg ABG HCO3 (21-25) mmol/L ABG Total CO2 (19-24) mmol/L ABG O2 Saturation (94-97) % Potassium 3.2 L (3.5-5.1) mmol/L Chloride (98-107) mmol/L Carbon Dioxide 34 H (22-30) mmol/L BUN 29 H (7-17) mg/dL Creatinine 1.25 H (0.52-1.04) mg/dL Glucose 109 H (74-99) mg/dL POC Glucose (mg/dL) (70-110) mg/dL Hemoglobin A1c (0.0-6.0) % ALT 39 H (4-34) U/L Total Protein 5.8 L (6.3-8.2) g/dL Albumin 3.3 L (3.5-5.0) g/dL Free T3 pg/mL (2.8-5.3) pg/ml 02/19/23 02/19/23 02/19/23 Range/Units 11:01 12:05 12:05 RBC (3.80-5.40) m/uL Hgb (11.4-16.0) gm/dL Hct (34.0-46.0) % Lymphocytes # (1.0-4.8) k/uL APTT (22.0-30.0) sec D-Dimer (<0.60) mg/L FEU ABG pCO2 53 H (35-45) mmHg ABG HCO3 34 H (21-25) mmol/L ABG Total CO2 36 H (19-24) mmol/L ABG O2 Saturation 97.1 H (94-97) % Potassium (3.5-5.1) mmol/L Chloride (98-107) mmol/L Carbon Dioxide (22-30) mmol/L BUN (7-17) mg/dL Creatinine (0.52-1.04) mg/dL Glucose (74-99) mg/dL POC Glucose (mg/dL) (70-110) mg/dL Hemoglobin A1c 6.6 H (0.0-6.0) % ALT (4-34) U/L Total Protein (6.3-8.2) g/dL Albumin (3.5-5.0) g/dL Free T3 pg/mL 2.4 L (2.8-5.3) pg/ml 02/20/23 02/20/23 02/20/23 Range/Units 05:14 05:14 05:14 RBC 6.26 H (3.80-5.40) m/uL Hgb 17.1 H (11.4-16.0) gm/dL Hct 53.2 H (34.0-46.0) % Lymphocytes # (1.0-4.8) k/uL APTT 45.0 H (22.0-30.0) sec D-Dimer (<0.60) mg/L FEU ABG pCO2 (35-45) mmHg ABG HCO3 (21-25) mmol/L ABG Total CO2 (19-24) mmol/L ABG O2 Saturation (94-97) % Potassium (3.5-5.1) mmol/L Chloride 95 L (98-107) mmol/L Carbon Dioxide 37 H (22-30) mmol/L BUN 24 H (7-17) mg/dL Creatinine 1.12 H (0.52-1.04) mg/dL Glucose (74-99) mg/dL POC Glucose (mg/dL) (70-110) mg/dL Hemoglobin A1c (0.0-6.0) % ALT (4-34) U/L Total Protein (6.3-8.2) g/dL Albumin (3.5-5.0) g/dL Free T3 pg/mL (2.8-5.3) pg/ml 02/20/23 Range/Units 05:58 RBC (3.80-5.40) m/uL Hgb (11.4-16.0) gm/dL Hct (34.0-46.0) % Lymphocytes # (1.0-4.8) k/uL APTT (22.0-30.0) sec D-Dimer (<0.60) mg/L FEU ABG pCO2 (35-45) mmHg ABG HCO3 (21-25) mmol/L ABG Total CO2 (19-24) mmol/L ABG O2 Saturation (94-97) % Potassium (3.5-5.1) mmol/L Chloride (98-107) mmol/L Carbon Dioxide (22-30) mmol/L BUN (7-17) mg/dL Creatinine (0.52-1.04) mg/dL Glucose (74-99) mg/dL POC Glucose (mg/dL) 112 H (70-110) mg/dL Hemoglobin A1c (0.0-6.0) % ALT (4-34) U/L Total Protein (6.3-8.2) g/dL Albumin (3.5-5.0) g/dL Free T3 pg/mL (2.8-5.3) pg/ml Assessment and Plan Time with Patient: Less than 30
[2023-02-20 23:51] LABS: Glucose,Whole Blood 96 mg/dL (70-110)
[2023-02-21 00:34] LABS: Glucose,Whole Blood 105 mg/dL (70-110)
[2023-02-21] MEDS: CLEVIDIPINE BUTYRATE 25 MG in EMPTY BAG 1 BAG IV SCH ×2 (03:57→11:41)
[2023-02-21 04:38] LABS: INR 1.2 (<1.2); Partial Thromboplastin Time 75.8 sec (22.0-30.0); Prothrombin Time 12.1 sec (9.0-12.0)
[2023-02-21 06:04] LABS: Glucose,Whole Blood 86 mg/dL (70-110)
[2023-02-21 08:17] LABS: HCT 52.2 % (34.0-46.0); HGB 16.5 gm/dL (11.4-16.0); MCH 27.1 pg (25.0-35.0); MCHC 31.6 g/dL (31.0-37.0); MCV 85.8 fL (80.0-100.0); Mean Platelet Volume 7.7; Platelet Count 259 k/uL (150-450); RBC 6.08 m/uL (3.80-5.40); RDW 15.3 % (11.5-15.5); WBC 7.8 k/uL (3.8-10.6)
[2023-02-21] MEDS ORDERED: ASPIRIN 300 MG SUPP RECTAL SCH (09:00)
[2023-02-21 09:18] LABS: Calcium 8.8 mg/dL (8.4-10.2); Potassium 3.1 mmol/L (3.5-5.1)
--- NOTE | 2023-02-21 09:27 | P.PN ---
Subjective Progress Note Date: 02/21/23 PROGRESS NOTE The patient is a 57-year-old female who was admitted to the hospital with symptoms of confusion, multiple falls, weakness. The history is obtained from the records. The patient is not answering question quite somnolent after receiving Ativan. According to the records the patient has not been taking her medications are home. She has a history of hypertension, diabetes and hyperlipidemia full detail of her prior history or medication is unclear. She was noted to be severely hypertensive, elevated NT proBNP and TSH on presentation. She was in sinus mechanism on presentation. She had peripheral edema and discoloration of the toes on the left lower extremity. According to the notes she's a daily smoker and she uses marijuana. I am unable to obtain any other history. Her echocardiogram performed this morning showed a severely impaired left ventricle systolic function February 20: The patient remains confused, answering questions inappropriately. Her blood pressure has been elevated off Clevidipine. She is not taking by mouth medication because of a question of the swallowing. She continues to be in sinus mechanism. She has a good urinary output on IV Lasix. She continues to be on IV heparin. Her EKG showed T-wave inversion in the anterolateral lateral leads. Her brain CT showed lacunar infarct but no acute bleeding. Duplex scan of the lower extremities showed no evidence of DVT. She continues to have discoloration of the left foot toes. February 21 : The patient remains confused, opening eyes to verbal stimulation. She failed her swallow evaluation and continues to be nothing by mouth, receiving IV medication. Her blood pressure has been relatively stable. There is no evidence of malignant arrhythmia. Her urine output is stable. She underwent a CT angiogram of the abdomen and chest and was found to have an abdominal aortic aneurysm and severe PAD, bilaterally. Her free T3 was low. Medications: IV hydralazine, Lasix 40 mg IV every 12 hours, clonidine patch, IV heparin, thiamine PHYSICAL EXAMINATION: Blood pressure 141/70 heart rate 89, confused LUNGS: Clear to auscultation HEART: Regular rate and rhythm, S1, S2. No S3. systolic ejection murmur ABDOMEN: Soft, nontender, no organomegaly EXTREMETIES: No edema, discoloration of the toes on the left with decreased pulses LAB: Hemoglobin 16.5 IMPRESSION: 1. Uncontrolled hypertension, on IV medication, failed swallow evaluation 2. Encephalopathy could be related to hypertension, workup in progress 3. Abnormal EKG rule out ischemia 4. Abnormal renal functions, improving 5. Probable peripheral vascular disease 6. Lacunar infarct 7. Severe cardiomyopathy of unknown etiology or duration probable hypertensive rule out ischemic PLAN: 1. Stop IV heparin 2. Start IV beta mohsen 3. Follow renal functions 4. Continue to evaluate neurological status 5. Reevaluate swallowing ability to see if oral medication can be started Objective - Vital Signs Vital signs: Vital Signs Temp 97.6 F 02/21/23 08:00 Pulse 89 02/21/23 08:00 Resp 25 H 02/21/23 08:00 BP 141/77 02/21/23 08:00 Pulse Ox 94 L 02/21/23 08:00 FiO2 Intake & Output 02/20/23 02/21/23 02/21/23 18:59 06:59 18:59 Intake Total 440.599 270.367 20 Output Total 2945 1960 30 Balance -2504.401 -1689.633 -10 Weight 56.7 kg Intake: IV 420 260 20 ACETAMINOPHEN IV (For NPO 100 ) 1,000 mg In Empty Bag 1 bag @ 400 mls/hr IVPB Q6HR [facility]N Rx#:[id number] Potassium Chloride 10 meq 100 In Water For Injection 1 100ml.bag @ 100 mls/hr IVPB Q1H [facility] Rx#: [id number] Sodium Chloride 0.9% 1, 220 260 20 000 ml @ 20 mls/hr IV . Q24H [facility] Rx#:[id number] Intake, IV Titration 20.599 10.367 Amount Clevidipine Butyrate 25 20.599 10.367 mg In Empty Bag 1 bag @ 1 MG/HR 2 mls/hr IV .Q24H [facility] Rx#:[id number] Output: Urine 2945 1960 30 Other: Voiding Method Indwelling Catheter Indwelling Catheter - Labs CBC & Chem 7: 02/21/23 08:04 02/20/23 10:38 Labs: Abnormal Lab Results - Last 24 Hours (Table) 02/20/23 02/21/23 02/21/23 Range/Units 10:38 04:06 08:04 RBC 6.08 H (3.80-5.40) m/uL Hgb 16.5 H (11.4-16.0) gm/dL Hct 52.2 H (34.0-46.0) % PT 12.1 H (9.0-12.0) sec INR 1.2 H (<1.2) APTT 75.8 H (22.0-30.0) sec Chloride 94 L (98-107) mmol/L Carbon Dioxide 37 H (22-30) mmol/L BUN 23 H (7-17) mg/dL Total Bilirubin 1.5 H (0.2-1.3) mg/dL ALT 36 H (4-34) U/L Total Protein 6.0 L (6.3-8.2) g/dL Microbiology - Last 24 Hours (Table) 02/18/23 20:57 Blood Culture - Preliminary Blood 02/18/23 21:05 Blood Culture - Preliminary Blood
[2023-02-21] MEDS ORDERED: METOPROLOL TARTRATE 5 MG/5 ML VIAL IVP SCH (09:30)
--- NOTE | 2023-02-21 09:34 | P.PN ---
Subjective Progress Note Date: 02/21/23 57-year-old female patient, was rolled into the intensive care unit, lethargic, weak and will confused, under the effect of Ativan that was given to her in the emergency and the patient's received a total of 2 mg of IV Ativan. Meanwhile, the patient was having weakness, confusion and multiple falls and the ended up bringing her to the hospital. I do not believe that she has seen any physicians. Upon arrival, the patient's was noted to have an elevated blood pressure. She was confused. Her EKG showed sinus rhythm with some nonspecific ST segment changes. Chest x-ray showed cardiomegaly with mild pulmonary vessel congestion. BUN was 32 with a creatinine of 1.2 and a white cell count of 7.1. The serum alcohol was negative. Her rest of the blood work showed normal electrolytes, BUN of 32 with a creatinine of 1.2. ProBNP level was 60,000, TSH was 38, free T4 was 0.8. Urine drug screen was negative. UA was negative. The cecum was 7.0 with a hemoglobin of 15.6. Echocardiogram was done this morning and it showed an ejection fraction of 30-35% with moderate to severe LVH, no significant valvular abnormalities and there was moderate to severe left ventricular hypertrophy. Note that patient's initial blood pressure at the time of her emergency department evaluation was as high as 228/159. For now, the patient is on a nitroglycerin drip running at 100 mcg/m. She is on IV heparin. She was given clonidine patch. She was also given hydralazine 10 mg IV every 4 hours. On a separate note, the patient was noted to have some bluish discoloration of her great toe and the left foot. The patient has Doppler signals bilaterally. The patient also has adequate femoral and popliteal pulses. While in the emergency, the patient was given Ativan. I saw her in the intensive care unit. She is gradually waking up and active and affect is wearing off. No signs of any significant respiratory compromise. She is currently on oxygen at 2 L with a pulse ox of 91%. On today's evaluation of 02/20/2023, patient is more awake compared to yesterday. She is arousable and she is communicating. She is aware of her name. She is not aware of her location. No focal neurological deficits. CAT scan of the brain was completed yesterday showed lacunar infarcts probably related to her chronic uncontrolled blood pressure. Patient is currently on 4 L of action by nasal cannula. Chest x-ray shows a small left-sided pleural effusion. Echocardiogram was completed yesterday and it showed severe LVH along with impaired on the function with an ejection fraction of 30-35% and the patient remains in normal sinus rhythm. Pulse ox 98% on [address] by nasal cannula. Her blood pressure was managed by Drip and currently the drip is off. The patient is taken IV Lasix 40 mg every 12 hours. The patient was taken off the nitroglycerin drip. She is receiving hydralazine 10 mg IV every 8 hours. I'm not sure if she is awake enough to start oral medications. This will be decided at the later stage I the patient is more alert and awake. She remains on IV heparin which will be discontinued today. In terms of her labs, the WBC count of 8.3 with a hemoglobin of 17. The BUN is 24 with a creatinine of 1.1 and his sodium levels of 138. GFR is at 54. The medication list was noted. Neurologic consultation was obtained. Vascular Doppler of the lower oximetry was done and the Doppler venous was negative. The patient does have chronic ischemic changes to her left foot, no open wounds or ulceration. Dopplers signals are present in her feet bilaterally. On 02/21/2023, the patient remains encephalopathic and confused. She failed her swallow evaluation and the patient was not transitioned to oral medications. He remains on Catapres at 2 mg an hour and her blood pressure is under adequate control at this point in time. The patient also is on a clonidine patch. She is on oxygen at 2 L/m nasal cannula. King cath is in place. The patient remains on IV heparin. Ischemic changes in lower extremity have improved and the patient seems to be better perfused her left lower extremity on today's evaluation. Cardiac rhythm is sinus. She remains on he was the patient is still swallow evaluation. No fever. No other significant events overnight. The patient is a sitter at the bedside. In terms of her blood work, the patient has a white cell count of 7 with a hemoglobin of 16 and a platelet count of 259. PTT is therapeutic at 75 with a normal PT and INR. Electrolytes are still pending for now. The blood cultures have been negative. CT angiography of the thoracic and abdominal wart that was completed. 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 There is also proximal abdominal aortic aneurysm measuring 3 CMN. There is less than 50% stenosis of the common iliac arteries. External iliac arteries and the internal iliac arteries are essentially patent for now. Objective - Vital Signs Vital signs: Vital Signs Temp 97.6 F 02/21/23 08:00 Pulse 89 02/21/23 08:00 Resp 25 H 02/21/23 08:00 BP 141/77 02/21/23 08:00 Pulse Ox 94 L 02/21/23 08:00 FiO2 Intake & Output 02/20/23 02/21/23 02/21/23 18:59 06:59 18:59 Intake Total 440.599 270.367 20 Output Total 2945 1960 30 Balance -2504.401 -1689.633 -10 Weight 56.7 kg Intake: IV 420 260 20 ACETAMINOPHEN IV (For NPO 100 ) 1,000 mg In Empty Bag 1 bag @ 400 mls/hr IVPB Q6HR PRN Rx#:[id number] Potassium Chloride 10 meq 100 In Water For Injection 1 100ml.bag @ 100 mls/hr IVPB Q1H [facility] Rx#: [id number] Sodium Chloride 0.9% 1, 220 260 20 000 ml @ 20 mls/hr IV . Q24H [facility] Rx#:[id number] Intake, IV Titration 20.599 10.367 Amount Clevidipine Butyrate 25 20.599 10.367 mg In Empty Bag 1 bag @ 1 MG/HR 2 mls/hr IV .Q24H [facility] Rx#:[id number] Output: Urine 2945 1960 30 Other: Voiding Method Indwelling Catheter Indwelling Catheter - Exam The patient is lethargic yet arousable., Mentation is still altered although slightly improved compared to yesterday. No agitation. She withdraws to painful stimulation in all 4 extremities. Pupils are equal and reactive to light. Very poor hygienic condition. Very poor oral hygiene. She is currently on 2 L of oxygen by nasal cannula. Head exam was generally normal. There was no scleral icterus or corneal arcus. Mucous membranes were moist. Neck was supple and without jugular venous distension, thyromegaly, or carotid bruits. Carotids were easily palpable bilaterally. There was no adenopathy. Mucous membranes are dry and there is mucosal sloughing under tongue and buccal mucosa. Lungs although the medicine the patient has some limited bibasilar crackles Cardiac exam revealed the PMI to be normally situated and sized. The rhythm was regular and no extrasystoles were noted during several minutes of auscultation. The first and second heart sounds were normal and physiologic splitting of the second heart sound was noted. There were no murmurs, rubs, clicks, or gallops. Abdominal exam revealed normal bowel sounds. The abdomen was soft, non-tender, and without masses, organomegaly, or appreciable enlargement of the abdominal aorta. Extremities reveal weak pulses distally in the feet bilaterally and the device Doppler signal. There is bluish discoloration of the great toe on the left foot. Ischemic she is also seen in the rest of the toes in the left foot. The extremities are not cold there is poor capillary refill. There is evidence of chronic vascular insufficiency. - Labs CBC & Chem 7: 02/21/23 08:04 02/20/23 10:38 Labs: Abnormal Lab Results - Last 24 Hours (Table) 02/20/23 02/21/23 02/21/23 Range/Units 10:38 04:06 08:04 RBC 6.08 H (3.80-5.40) m/uL Hgb 16.5 H (11.4-16.0) gm/dL Hct 52.2 H (34.0-46.0) % PT 12.1 H (9.0-12.0) sec INR 1.2 H (<1.2) APTT 75.8 H (22.0-30.0) sec Chloride 94 L (98-107) mmol/L Carbon Dioxide 37 H (22-30) mmol/L BUN 23 H (7-17) mg/dL Total Bilirubin 1.5 H (0.2-1.3) mg/dL ALT 36 H (4-34) U/L Total Protein 6.0 L (6.3-8.2) g/dL Microbiology - Last 24 Hours (Table) 02/18/23 20:57 Blood Culture - Preliminary Blood 02/18/23 21:05 Blood Culture - Preliminary Blood Assessment and Plan Plan: Acute hypertensive emergency and the blood pressure is under better control and the patient is is on Cleviprex and clonidine patch and Cleviprex is running at 2 mg an hour. Her blood pressures under adequate control. Unable to take any oral medications for now. She is also being diuresed with IV Lasix 40 mg every 12 hours. Her BP is under adequate control for now. Acute decompensated heart failure with systolic ejection fraction of around 30- 35% and the patient also has severe concentric LVH consistent with poorly controlled blood pressure and hypertensive heart disease. Acute encephalopathy, could be related to poor blood pressure control. Underlying CVA cannot be completely excluded. A CAT scan of the brain has not been done, noted the patient was also given Ativan in the emergency department. EEG showing moderate degree of encephalopathy. No focal neurological deficits. Bilateral lacunar infarct related to poorly controlled blood pressure Encephalopathy, consider hypertensive encephalopathy. Neurology is on the case. History of hypothyroidism Peripheral vascular disease, chronic ischemic changes to her left lower ex tremity, no indication for an acute vascular ischemia and the findings seem to be more chronic. Please refer to the CTA of the thoracic and a abdominal aorta. The patient has multifocal calcification and 70% stenosis of the anterior tibial arteries and disease involving the superficial femoral arteries. Plan Titrate oxygen flow to maintain saturation above 90%, currently on 2 L Continue the Cleviprex and the clonidine. The patient has failed the swallow evaluation Bedside swallow evaluation to be repeated within the next 24 hours. The patient will be kept nothing by mouth for now Stop the IV heparin and start the patient on Lovenox 40 mg subcu for DVT prophylaxis Drop the Lasix to 20 mg IV every 24 hours Very important to repeat electrolytes and renal function today IV fluids are currently at KVO until be kept at KVO echocardiogram was noted EKG /echocardiogram was noted Keep the clonidine patch Neurologic consultation is appreciated No sedatives for now We'll continue to follow
[2023-02-21] MEDS ORDERED: LEVOTHYROXINE IVP 100 MCG/5 ML VIAL IV SCH (10:00)
[2023-02-21] MEDS: THIAMINE 100 MG/ML 2 ML VIAL IVP SCH (10:30)
[2023-02-21] MEDS: PANTOPRAZOLE 40 MG/10 ML VIAL IVP SCH (10:31)
[2023-02-21] MEDS: FUROSEMIDE 10 MG/ML 2 ML VIAL IV SCH ×2 (10:35→22:55)
[2023-02-21] MEDS: NICOTINE 14MG/24HR PATCH TRANSDERM SCH (10:37)
[2023-02-21] MEDS: POTASSIUM CHLORIDE 10 MEQ in WATER FOR INJECTION 1 100ML.BAG IVPB SCH ×4 (10:38→15:08)
[2023-02-21] MEDS: ENOXAPARIN 40 MG/0.4 ML SYRINGE SQ SCH (10:54)
[2023-02-21 11:31] LABS: Glucose,Whole Blood 93 mg/dL (70-110)
[2023-02-21] MEDS: SODIUM CHLORIDE 0.9% 1,000 ML IV SCH (12:35)
--- NOTE | 2023-02-21 13:24 | P.PN ---
Subjective Progress Note Date: 02/21/23 patient seen and examined in the ICU. Still confused. Denies any pain to the left lower extremity or foot. Per nursing foot ischemia without change from yesterday. Objective - Vital Signs Vital signs: Vital Signs Temp 98.3 F 02/21/23 12:30 Pulse 73 02/21/23 13:00 Resp 20 02/21/23 13:00 BP 143/87 02/21/23 13:00 Pulse Ox 94 L 02/21/23 12:30 FiO2 Intake & Output 02/20/23 02/21/23 02/21/23 18:59 06:59 18:59 Intake Total 440.599 270.367 350.933 Output Total 2945 1960 540 Balance -2504.401 -1689.633 -189.067 Weight 56.7 kg Intake: IV 420 260 320 ACETAMINOPHEN IV (For NPO 100 ) 1,000 mg In Empty Bag 1 bag @ 400 mls/hr IVPB Q6HR PRN Rx#:[id number] Potassium Chloride 10 meq 100 200 In Water For Injection 1 100ml.bag @ 100 mls/hr IVPB Q1H [facility] Rx#: [id number] Sodium Chloride 0.9% 1, 220 260 120 000 ml @ 20 mls/hr IV . Q24H [facility] Rx#:[id number] Intake, IV Titration 20.599 10.367 30.933 Amount Clevidipine Butyrate 25 20.599 10.367 30.933 mg In Empty Bag 1 bag @ 1 MG/HR 2 mls/hr IV .Q24H [facility] Rx#:[id number] Output: Urine 2945 1960 540 Other: Voiding Method Indwelling Catheter Indwelling Catheter Indwelling Catheter - Constitutional Constitutional Comment(s): Alert, confused. - EENT Eyes: Present: PERRLA - Respiratory Respiratory: bilateral: CTA - Cardiovascular Rhythm: regular - Gastrointestinal General gastrointestinal: Absent: distended - Integumentary Integumentary Comment(s): left toes and foot with purple discoloration, ischemic changes. - Additional findings Additional findings: non palpable popliteal, dp and pt pulses bilaterally slowed capillary refill bilaterally ischemic changes noted to the left foot and toes - Labs CBC & Chem 7: 02/21/23 08:04 02/21/23 08:04 Labs: Abnormal Lab Results - Last 24 Hours (Table) 02/21/23 02/21/23 02/21/23 Range/Units 04:06 08:04 08:04 RBC 6.08 H (3.80-5.40) m/uL Hgb 16.5 H (11.4-16.0) gm/dL Hct 52.2 H (34.0-46.0) % PT 12.1 H (9.0-12.0) sec INR 1.2 H (<1.2) APTT 75.8 H (22.0-30.0) sec Potassium 3.1 L (3.5-5.1) mmol/L Chloride 89 L (98-107) mmol/L Carbon Dioxide 40 H (22-30) mmol/L BUN 19 H (7-17) mg/dL Magnesium (1.6-2.3) mg/dL 02/21/23 Range/Units 08:04 RBC (3.80-5.40) m/uL Hgb (11.4-16.0) gm/dL Hct (34.0-46.0) % PT (9.0-12.0) sec INR (<1.2) APTT (22.0-30.0) sec Potassium (3.5-5.1) mmol/L Chloride (98-107) mmol/L Carbon Dioxide (22-30) mmol/L BUN (7-17) mg/dL Magnesium 1.5 L (1.6-2.3) mg/dL Microbiology - Last 24 Hours (Table) 02/18/23 20:57 Blood Culture - Preliminary Blood 02/18/23 21:05 Blood Culture - Preliminary Blood Assessment and Plan Assessment: Bilateral femoral occlusive disease Altered mental status changes Left great toe and third toe ischemic changes Hypertension, uncontrolled, noncompliant with medications Hypothyroid, noncompliant with medications Cardiomegaly Diabetes mellitus, noncompliant with medications Elevated troponins Plan: 1. Continue supportive care 2. Reviewed CTA of the lower extremity- bilateral SFA occlusions with one vessel runoff. Appears chronic. 3. May benefit from endovascular revascularization of the left SFA. 4. Wait for improvement of current medical issues prior to vascular intervention. Left foot changes are stable and no emergency required. Will continue to monitor. 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
[2023-02-21] MEDS ORDERED: MAGNESIUM SULFATE-D5W PMX 1 GM in DEXTROSE/WATER 1 100ML.BAG IVPB SCH (13:30)
--- NOTE | 2023-02-21 13:46 | P.PN ---
Subjective Progress Note Date: 02/21/23 This is a 57-year-old female history significant for diabetes mellitus, hypertension, myocardial infarction, thyroid disorder, current smoker. Patient presented to the hospital for altered mental status and was found on the floor by her he was unable to lift her up. Patient was brought in by EMS. Patient is found to have generalized weakness confusion and has been having multiple falls at home with progressive weakness over the last 5 months, patient is a poor historian and currently alert x 0 and obtunded at the time of examination. at the bedside provides the medical history, patient is a daily smoker and occasional alcohol use. Over the last 5 months has been having frequent falls and has been increasingly confused Has not been to a doctor and not taking recommending medications. Additionally he felt patient may have suffered a stroke a few months ago and had noticed a facial droop around that time. Patient in the ER was awake and alert. Blood pressure on admission was in the 220s systolic and difficult to treat with multiple antihypertensive agents given. Patient was also given IV ativan. Chest x-ray on admission shows cardiomegaly with linear atelectasis and/or scarring the left midlung. EKG shows sinus tachycardia with a heart rate of 110 on admission. She has no elevated white blood cell count it is normal at 7.1, sodium of 135, BUN/cr 32 and 1.28, Lacis acid is normal 1.3. She does have troponin elevation of 0.067, 0.074, 0.075.. ProBNP is elevated at 16,200, TSH is also 38.800, free T4 0.84. Urinalysis is negative for infection, urine drug toxicology is negative. Patient is admitted to the hospital for new onset CHF and originially admitted to the stepdown unit. Patient was upgraded to the intensive care unit and placed on nitro gtt and had also become unresponsive only arousing to sternal rub. 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 Recommend a brain CT when patient is more stable and also ABGs will be done. An echocardiogram reveals EF of 30-35%, mild MR. 02/20/2023 Patient continues to be monitored closely in the intensive care unit. Currently alert x 2 more awake than yesterday, does have some slurred speech today. Brain CT shows no acute intracranial process with remote lacunar injuries along with nonspecific white matter changes likely secondary to chronic microangiography. EEG is negative. Neurology following and recommending brain MRI. Chest xray today is negative. Continues on IV lasix 40 mg every 12 hours with urine output of over 5L in the last 24 hours. Continues on IV cleviprex/clonidine patch and blood pressure running in the 150s systolic. Labs reveal sodium of 138, potassium 3.8, BUN 23, creatinine of 1.0. 02/21/2023 Patient is evaluated today in the intensive care unit. Patient is slightly more lethargic today was given a dose of IV ativan overnight for increased agitated. Patient had failed swallow evaluation and has been placed NPO at this time. Slightly more lethargic than yesterday. Patient is being followed by neurology and recommended to undergo MRI tomorrow however patient remains on IV cleviprex for blood pressure control as well as clonidine patch and IV hydralazine. Patien t continues on IV lasix Q12 which has been decreased to 20 mg. CTA thoracic and abdominal aorta with run off reveals long segment occlusion bilateral mid superficial femoral arteries with reconstitution of the distal SFA bilaterally. There is proximal abdominal aortic aneurysm. Multifocal calcific disease estimated 7% stenosis anterior tibial arteries bilaterally. Vascular surgery following with further recommendations forthcoming. Labs today reveal white count of 7.8, hgb 16.5. Potassium 3.1 and magnesium 1.5. Heart rate controlled in the 70s, blood pressure in the 140/80s and currnently requiring 2L of oxygen. Patient does have some tenderness to the LLQ on exam. Review of Systems Constitutional: Denied any fatigue denied any fever. Cardio vascular: denied any chest pain, palpitations Gastrointestinal: denied any nausea, vomiting, diarrhea Pulmonary: Denied any shortness of breath cough Neurologic denied any new focal deficits All inpatient medications were reviewed and appropriate changes in these medications as dictated in the interval history and assessment and plan. PHYSICAL EXAMINATION: GENERAL: The patient is alert and oriented x2, More awake, slurred speech. Pale. Well developed, well nourished. HEENT: Pupils are round and equally reacting to light. EOMI. No scleral icterus. No conjunctival pallor. Normocephalic, atraumatic. No pharyngeal erythema. No thyromegaly. CARDIOVASCULAR: S1 and S2 present. No murmurs, rubs, or gallops. PULMONARY: Chest is clear to auscultation, no wheezing or crackles. ABDOMEN: Soft, nontender, nondistended, normoactive bowel sounds. No palpable organomegaly. MUSCULOSKELETAL: No joint swelling or deformity. EXTREMITIES: No cyanosis, clubbing, or pedal edema. NEUROLOGICAL: Unable to complete full exam. Diffuse weakness. SKIN: No rashes. There is discoloration to toes on the left foot extending to the left foot pad, progressing. Assessment and plan Altered mental status secondary to acute metabolic encephalopathy rule out acute stroke Progressive weakness and frequent falls at home Hypertension with urgency on admission Elevated troponin level Acute kidney injury vs CKD, Ischemic change to the left foot. Acute congestive heart failure, systolic dysfunction Cardiomyopathy possibly from the hypertension vs hypothyroidism Elevated D-Dimer Hypothyroidism Diabetes Mellitus type 2 uncontrolled History of myocardial infarction unknown details Chronic and ongoing nicotine use Medical noncompliance Marijuana use GI prophylaxis DVT prophylaxis; on IV heparin Do Not Resuscitate/Do Not Intubate Plan Continue monitoring the patient in the intensive care unit Continue IV lasix strict intake and output monitoring Neurology following and recommending brain MRI patient noted to have some slurred speech today and speech therapy consultation is pending. Cardiology following CTA with run off reviewed and pending further recommendations by vascular surgery Follow up AM labs The impression and plan of care has been dictated by Fany Ren, Nurse Practitioner as directed. Dr. Prasanna MD I have performed a history and physical examination and medical decision making of this patient, discussed the same with the dictator, and agree with the dictators assessment and plan as written, documented as a scribe. Based on total visit time, I have performed more than 50% of this visit. Objective - Vital Signs Vital signs: Vital Signs Temp 97.6 F 02/21/23 08:00 Pulse 89 02/21/23 08:00 Resp 25 H 02/21/23 08:00 BP 141/77 02/21/23 08:00 Pulse Ox 94 L 02/21/23 08:00 FiO2 Intake & Output 02/20/23 02/21/23 02/21/23 18:59 06:59 18:59 Intake Total 440.599 270.367 20 Output Total 2945 1960 30 Balance -2504.401 -1689.633 -10 Weight 56.7 kg Intake: IV 420 260 20 ACETAMINOPHEN IV (For NPO 100 ) 1,000 mg In Empty Bag 1 bag @ 400 mls/hr IVPB Q6HR [facility] Rx#:[id number] Potassium Chloride 10 meq 100 In Water For Injection 1 100ml.bag @ 100 mls/hr IVPB Q1H [facility] Rx#: [id number] Sodium Chloride 0.9% 1, 220 260 20 000 ml @ 20 mls/hr IV . Q24H [facility] Rx#:[id number] Intake, IV Titration 20.599 10.367 Amount Clevidipine Butyrate 25 20.599 10.367 mg In Empty Bag 1 bag @ 1 MG/HR 2 mls/hr IV .Q24H [facility] Rx#:[id number] Output: Urine 2945 1960 30 Other: Voiding Method Indwelling Catheter Indwelling Catheter - Labs CBC & Chem 7: 02/21/23 08:04 02/21/23 08:04 Labs: Abnormal Lab Results - Last 24 Hours (Table) 02/20/23 02/21/23 02/21/23 Range/Units 10:38 04:06 08:04 RBC 6.08 H (3.80-5.40) m/uL Hgb 16.5 H (11.4-16.0) gm/dL Hct 52.2 H (34.0-46.0) % PT 12.1 H (9.0-12.0) sec INR 1.2 H (<1.2) APTT 75.8 H (22.0-30.0) sec Chloride 94 L (98-107) mmol/L Carbon Dioxide 37 H (22-30) mmol/L BUN 23 H (7-17) mg/dL Total Bilirubin 1.5 H (0.2-1.3) mg/dL ALT 36 H (4-34) U/L Total Protein 6.0 L (6.3-8.2) g/dL Microbiology - Last 24 Hours (Table) 02/18/23 20:57 Blood Culture - Preliminary Blood 02/18/23 21:05 Blood Culture - Preliminary Blood Assessment and Plan Time with Patient: Less than 30
[2023-02-21] MEDS: MAGNESIUM SULFATE-D5W PMX 1 GM in DEXTROSE/WATER 1 100ML.BAG IVPB SCH ×2 (16:33→18:23)
[2023-02-21 17:56] LABS: Glucose,Whole Blood 111 mg/dL (70-110)
[2023-02-21] MEDS: hydrALAZINE HCL 20 MG/ML 1 ML VIAL IVP PRN ×2 (18:48→22:55)
[2023-02-21] MEDS: lisinopriL 10 MG TAB PO SCH (20:29)
[2023-02-21] MEDS: carvediloL 6.25 MG TAB PO SCH (20:36)
[2023-02-22 00:39] LABS: Glucose,Whole Blood 88 mg/dL (70-110)
[2023-02-22] MEDS: hydrALAZINE HCL 20 MG/ML 1 ML VIAL IVP PRN ×3 (04:30→22:43)
[2023-02-22 04:43] LABS: HCT 50.2 % (34.0-46.0); HGB 15.8 gm/dL (11.4-16.0); Hypochromasia Slight; MCH 27.2 pg (25.0-35.0); MCHC 31.6 g/dL (31.0-37.0); MCV 86.4 fL (80.0-100.0); Mean Platelet Volume 8.4; Platelet Count 234 k/uL (150-450); RBC 5.81 m/uL (3.80-5.40); RDW 15.3 % (11.5-15.5); WBC 6.1 k/uL (3.8-10.6)
[2023-02-22] MEDS: POTASSIUM CHLORIDE 10 MEQ in WATER FOR INJECTION 1 100ML.BAG IVPB SCH ×4 (05:47→09:27)
[2023-02-22 05:54] LABS: Glucose,Whole Blood 105 mg/dL (70-110)
[2023-02-22] MEDS: LEVOTHYROXINE 50 MCG TAB PO SCH (08:11)
[2023-02-22] MEDS: PANTOPRAZOLE 40 MG TABLET PO SCH (08:11)
[2023-02-22] MEDS: carvediloL 6.25 MG TAB PO SCH (08:11)
[2023-02-22] MEDS: lisinopriL 10 MG TAB PO SCH (08:11)
[2023-02-22] MEDS: THIAMINE 100 MG TAB PO SCH (08:12)
[2023-02-22] MEDS: NICOTINE 14MG/24HR PATCH TRANSDERM SCH (08:13)
[2023-02-22] MEDS: ENOXAPARIN 40 MG/0.4 ML SYRINGE SQ SCH (08:13)
[2023-02-22] MEDS: ASPIRIN 325 MG TAB PO SCH (08:28)
[2023-02-22] MEDS ORDERED: traMADol 50 MG TAB PO PRN (08:49)
--- NOTE | 2023-02-22 09:17 | P.PN ---
Subjective Progress Note Date: 02/22/23 Patient was seen and examined today sitting up in bed in the ICU. Speech therapy at the bedside for swallow evaluation. Patient without any acute changes through the night. Patient is more alert with improved mentation today. She denies any pain in her legs or toes. She does state her heels are hurting. She is awake, alert and states that she is in the hospital. She states that prior to coming to the hospital she reports her left foot feeling cold, however states that is improved. Objective - Vital Signs Vital signs: Vital Signs Temp 97.8 F 02/22/23 08:00 Pulse 69 02/22/23 08:00 Resp 25 H 02/22/23 08:00 BP 155/106 02/22/23 08:00 Pulse Ox 97 02/22/23 08:00 FiO2 Intake & Output 02/21/23 02/22/23 02/22/23 18:59 06:59 18:59 Intake Total 870.933 300 100 Output Total 965 875 45 Balance -94.067 -575 55 Weight 58.2 kg Intake: IV 840 300 100 Magnesium Sulfate-D5w Pmx 200 1 gm In Dextrose/Water 1 100ml.bag @ 100 mls/hr IVPB Q1H PJ Rx#: [id number] Potassium Chloride 10 meq 400 In Water For Injection 1 100ml.bag @ 100 mls/hr IVPB Q1H PJ Rx#: [id number] Potassium Chloride 10 meq 100 100 In Water For Injection 1 100ml.bag @ 100 mls/hr IVPB Q1HR PJ Rx#: [id number] Sodium Chloride 0.9% 1, 240 200 000 ml @ 20 mls/hr IV . Q24H JP Rx#:[id number] Intake, IV Titration 30.933 Amount Clevidipine Butyrate 25 30.933 mg In Empty Bag 1 bag @ 1 MG/HR 2 mls/hr IV .Q24H PJ Rx#:[id number] Output: Urine 965 875 45 Other: Voiding Method Indwelling Catheter Indwelling Catheter - Exam General appearance: The patient is alert, oriented to self and place, appears in no acute distress. HET: Head is normocephalic and atraumatic. Neck: Supple. Heart: Regular. Lungs: Equal expansion, normal respiratory effort. Abdomen: Soft, nondistended. Extremities: Left great toe, third toe and pinky toe with purple discoloration, skin changes. Nonpalpable popliteal, DP PT pulses bilaterally. Bilateral feet warm to the touch. Improved capillary refill. Sensorimotor intact. Neurological: Patient still with some mentation changes, very slow to respond and speak. She is awake, she is alert to self and place. - Labs CBC & Chem 7: 02/22/23 03:19 02/22/23 04:33 Labs: Abnormal Lab Results - Last 24 Hours (Table) 02/21/23 02/21/23 02/21/23 Range/Units 08:04 08:04 17:55 RBC (3.80-5.40) m/uL Hct (34.0-46.0) % Potassium 3.1 L (3.5-5.1) mmol/L Chloride 89 L (98-107) mmol/L Carbon Dioxide 40 H (22-30) mmol/L BUN 19 H (7-17) mg/dL POC Glucose (mg/dL) 111 H (70-110) mg/dL Magnesium 1.5 L (1.6-2.3) mg/dL 02/22/23 02/22/23 Range/Units 03:19 04:33 RBC 5.81 H (3.80-5.40) m/uL Hct 50.2 H (34.0-46.0) % Potassium 3.4 L (3.5-5.1) mmol/L Chloride (98-107) mmol/L Carbon Dioxide (22-30) mmol/L BUN (7-17) mg/dL POC Glucose (mg/dL) (70-110) mg/dL Magnesium (1.6-2.3) mg/dL Microbiology - Last 24 Hours (Table) 02/18/23 20:57 Blood Culture - Preliminary Blood 02/18/23 21:05 Blood Culture - Preliminary Blood Assessment and Plan Assessment: 1. Bilateral femoral occlusive disease 2. Altered mental status changes 3. Left great toe and third toe ischemic changes 4. Hypertension, uncontrolled, noncompliant with medications 5. Hypothyroid, noncompliant with medications 6. Cardiomegaly 7. Diabetes mellitus, noncompliant with medications 8. Elevated troponins Plan: 1. Continue supportive care 2. CTA of lower extremities reviewed with bilateral SFA occlusions with one- vessel runoff. Appears chronic 3. Patient may benefit from endovascular revascularization of the left SFA 4. Wait for improvement of current medical issues prior to vascular intervention. Left foot changes are stable and no emergency intervention required. We will continue to follow. 5. Increase activity, encourage ambulation 6. Medical management deferred to primary medical team and loan specialist Thank you for this consultation, we will continue to follow. The impression and plan of care has been dictated as directed. I performed a history and examination of this patient, discussed the same with the dictator. I agree with the dictator's note ,documented as a scribe. Any additional findings or plans will be noted.
--- NOTE | 2023-02-22 09:43 | P.PN ---
Subjective PROGRESS NOTE The patient is a 57-year-old female who was admitted to the hospital with symptoms of confusion, multiple falls, weakness. The history is obtained from the records. The patient is not answering question quite somnolent after receiving Ativan. According to the records the patient has not been taking her medications are home. She has a history of hypertension, diabetes and hyperlipidemia full detail of her prior history or medication is unclear. She was noted to be severely hypertensive, elevated NT proBNP and TSH on presenta tion. She was in sinus mechanism on presentation. She had peripheral edema and discoloration of the toes on the left lower extremity. According to the notes she's a daily smoker and she uses marijuana. I am unable to obtain any other history. Her echocardiogram performed this morning showed a severely impaired left ventricle systolic function February 20: The patient remains confused, answering questions inappropriately. Her blood pressure has been elevated off Clevidipine. She is not taking by mouth medication because of a question of the swallowing. She continues to be in sinus mechanism. She has a good urinary output on IV Lasix. She continues to be on IV heparin. Her EKG showed T-wave inversion in the anterolateral lateral leads. Her brain CT showed lacunar infarct but no acute bleeding. Duplex scan of the lower extremities showed no evidence of DVT. She continues to have di scoloration of the left foot toes. February 21 : The patient remains confused, opening eyes to verbal stimulation. She failed her swallow evaluation and continues to be nothing by mouth, receiving IV medi cation. Her blood pressure has been relatively stable. There is no evidence of malignant arrhythmia. Her urine output is stable. She underwent a CT angiogram of the abdomen and chest and was found to have an abdominal aortic aneurysm and severe PAD, bilaterally. Her free T3 was low. 02/22 Patient seen and examined. Patient stating she is hungry. He continues be confused. Left lower extremity somewhat improved color per nurse with continued discoloration with fourth and fifth digit. She admits the pain all over including her lower extremities. Blood pressures remain elevated 145/107. She is not eating much orally. PHYSICAL EXAMINATION: Vitals reviewed LUNGS: Clear to auscultation HEART: Regular rate and rhythm, S1, S2. No S3. systolic ejection murmur ABDOMEN: Soft, nontender, no organomegaly EXTREMETIES: No edema, discoloration of the toes on the left with decreased pulses LAB: Hemoglobin 16.5 IMPRESSION: 1. Uncontrolled hypertension 2. Encephalopathy could be related to hypertension, workup in progress 3. Abnormal EKG rule out ischemia 4. Abnormal renal functions, improving 5. Probable peripheral vascular disease 6. Lacunar infarct 7. Severe cardiomyopathy of unknown etiology or duration probable hypertensive rule out ischemic PLAN: Increase lisinopril from 10-20 mg twice a day and increase carvedilol to 12.5 mg twice a day. Blood pressure continues to be elevated. Remainder of PAD appears to be relatively stable. Patient will likely need ischemic workup once remainder of neurologic issues improved. Continue supportive care. Objective - Vital Signs Vital signs: Vital Signs Temp 97.8 F 02/22/23 08:00 Pulse 69 02/22/23 08:00 Resp 25 H 02/22/23 08:00 BP 155/106 02/22/23 08:00 Pulse Ox 97 02/22/23 08:00 FiO2 Intake & Output 02/21/23 02/22/23 02/22/23 18:59 06:59 18:59 Intake Total 870.933 300 340 Output Total 965 875 105 Balance -94.067 -575 235 Weight 58.2 kg Intake: IV 840 300 340 Magnesium Sulfate-D5w Pmx 200 1 gm In Dextrose/Water 1 100ml.bag @ 100 mls/hr IVPB Q1H PJ Rx#: [id number] Potassium Chloride 10 meq 400 In Water For Injection 1 100ml.bag @ 100 mls/hr IVPB Q1H PJ Rx#: [id number] Potassium Chloride 10 meq 100 300 In Water For Injection 1 100ml.bag @ 100 mls/hr IVPB Q1HR PJ Rx#: [id number] Sodium Chloride 0.9% 1, 240 200 40 000 ml @ 20 mls/hr IV . Q24H PJ Rx#:[id number] Intake, IV Titration 30.933 Amount Clevidipine Butyrate 25 30.933 mg In Empty Bag 1 bag @ 1 MG/HR 2 mls/hr IV .Q24H PJ Rx#:[id number] Output: Urine 965 875 105 Other: Voiding Method Indwelling Catheter Indwelling Catheter - Labs CBC & Chem 7: 02/22/23 03:19 02/22/23 04:33 Labs: Abnormal Lab Results - Last 24 Hours (Table) 02/21/23 02/21/23 02/22/23 Range/Units 08:04 17:55 03:19 RBC 5.81 H (3.80-5.40) m/uL Hct 50.2 H (34.0-46.0) % Potassium (3.5-5.1) mmol/L POC Glucose (mg/dL) 111 H (70-110) mg/dL Magnesium 1.5 L (1.6-2.3) mg/dL 02/22/23 Range/Units 04:33 RBC (3.80-5.40) m/uL Hct (34.0-46.0) % Potassium 3.4 L (3.5-5.1) mmol/L POC Glucose (mg/dL) (70-110) mg/dL Magnesium (1.6-2.3) mg/dL Microbiology - Last 24 Hours (Table) 02/18/23 20:57 Blood Culture - Preliminary Blood 02/18/23 21:05 Blood Culture - Preliminary Blood
[2023-02-22] MEDS ORDERED: lisinopriL 10 MG TAB PO STA (09:44)
[2023-02-22] MEDS ORDERED: carvediloL 6.25 MG TAB PO STA (09:44)
[2023-02-22] MEDS: FUROSEMIDE 10 MG/ML 2 ML VIAL IV SCH ×2 (09:47→21:05)
[2023-02-22] MEDS: ACETAMINOPHEN TAB 325 MG TAB PO PRN (09:48)
--- NOTE | 2023-02-22 12:39 | P.PN ---
Subjective Progress Note Date: 02/22/23 Principal diagnosis: Hypertensive emergency with acute metabolic encephalopathy 57-year-old female patient, was rolled into the intensive care unit, lethargic, weak and will confused, under the effect of Ativan that was given to her in the emergency and the patient's received a total of 2 mg of IV Ativan. Meanwhile, the patient was having weakness, confusion and multiple falls and the ended up bringing her to the hospital. I do not believe that she has seen any physicians. Upon arrival, the patient's was noted to have an elevated blood pressure. She was confused. Her EKG showed sinus rhythm with some nonspecific ST segment changes. Chest x-ray showed cardiomegaly with mild pulmonary vessel congestion. BUN was 32 with a creatinine of 1.2 and a white cell count of 7.1. The serum alcohol was negative. Her rest of the blood work showed normal electrolytes, BUN of 32 with a creatinine of 1.2. ProBNP level was 60,000, TSH was 38, free T4 was 0.8. Urine drug screen was negative. UA was negative. The cecum was 7.0 with a hemoglobin of 15.6. Echocardiogram was done this morning and it showed an ejection fraction of 30-35% with moderate to severe LV H, no significant valvular abnormalities and there was moderate to severe left ventricular hypertrophy. Note that patient's initial blood pressure at the time of her emergency department evaluation was as high as 228/159. For now, the patient is on a nitroglycerin drip running at 100 mcg/m. She is on IV heparin. She was given clonidine patch. She was also given hydralazine 10 mg IV every 4 hours. On a separate note, the patient was noted to have some bluish discoloration of her great toe and the left foot. The patient has Doppler signals bilaterally. The patient also has adequate femoral and popliteal pulses. While in the emergency, the patient was given Ativan. I saw her in the intensive care unit. She is gradually waking up and active and affect is wearing off. No signs of any significant respiratory compromise. She is currently on oxygen at 2 L with a pulse ox of 91%. On today's evaluation of 02/20/2023, patient is more awake compared to yesterday. She is arousable and she is communicating. She is aware of her name. She is not aware of her location. No focal neurological deficits. CAT scan of the brain was completed yesterday showed lacunar infarcts probably related to her chronic uncontrolled blood pressure. Patient is currently on 4 L of action by nasal cannula. Chest x-ray shows a small left-sided pleural effusion. Echocardiogram was completed yesterday and it showed severe LVH along with impaired on the function with an ejection fraction of 30-35% and the patient remains in normal sinus rhythm. Pulse ox 98% on [address] by nasal cannula. Her blood pressure was managed by Drip and currently the drip is off. The patient is taken IV Lasix 40 mg every 12 hours. The patient was taken off the nitroglycerin drip. She is receiving hydralazine 10 mg IV every 8 hours. I'm not sure if she is awake enough to start oral medications. This will be decided at the later stage I the patient is more alert and awake. She remains on IV heparin which will be discontinued today. In terms of her labs, the WBC count of 8.3 with a hemoglobin of 17. The BUN is 24 with a creatinine of 1.1 and his sodium levels of 138. GFR is at 54. The medication list was noted. Neurologic consultation was obtained. Vascular Doppler of the lower oximetry was done and the Doppler venous was negative. The patient does have chronic ischemic changes to her left foot, no open wounds or ulceration. Dopplers signals are present in her feet bilaterally. On 02/21/2023, the patient remains encephalopathic and confused. She failed her swallow evaluation and the patient was not transitioned to oral medications. He remains on Catapres at 2 mg an hour and her blood pressure is under adequate control at this point in time. The patient also is on a clonidine patch. She is on oxygen at 2 L/m nasal cannula. King cath is in place. The patient remains on IV heparin. Ischemic changes in lower extremity have improved and the patient seems to be better perfused her left lower extremity on today's evaluation. Cardiac rhythm is sinus. She remains on he was the patient is still swallow evaluation. No fever. No other significant events overnight. The patient is a sitter at the bedside. In terms of her blood work, the patient has a white cell count of 7 with a hemoglobin of 16 and a platelet count of 259. PTT is therapeutic at 75 with a normal PT and INR. Electrolytes are still pending for now. The blood cultures have been negative. CT angiography of the thoracic and abdominal wart that was completed. 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 There is also proximal abdominal aortic aneurysm measuring 3 CMN. There is less than 50% stenosis of the common iliac arteries. External iliac arteries and the internal iliac arteries are essentially patent for now. Reevaluated today on 02/22/23, patient remains in the ICU, patient remains confused, her mental status is quite normal. Patient is confused, not in any distress, and I found out that her mental status has been like this and worsen ing more so over the last 2 weeks. Patient is scheduled to have MRI today. She is being followed by many consultants, including neurology, vascular surgery, and cardiology. Labs today were basically unremarkable, WBC 6.1 hemoglobin is 15.8, patient did have significantly elevated TSH on admission with a low T4 of 0.84. And she was also noted to have significantly elevated BNP level. Over 60,000. However chest x-ray showed no evidence of congestive heart failure there was only evidence of cardiomegaly without acute process. Objective - Vital Signs Vital signs: Vital Signs Temp 97.6 F 02/22/23 12:00 Pulse 64 02/22/23 12:00 Resp 17 02/22/23 12:00 BP 152/91 02/22/23 12:00 Pulse Ox 99 02/22/23 12:00 FiO2 Intake & Output 02/21/23 02/22/23 02/22/23 18:59 06:59 18:59 Intake Total 870.933 300 380 Output Total 965 875 210 Balance -94.067 -575 170 Weight 58.2 kg Intake: IV 840 300 380 Magnesium Sulfate-D5w Pmx 200 1 gm In Dextrose/Water 1 100ml.bag @ 100 mls/hr IVPB Q1H PJ Rx#: [id number] Potassium Chloride 10 meq 400 In Water For Injection 1 100ml.bag @ 100 mls/hr IVPB Q1H PJ Rx#: [id number] Potassium Chloride 10 meq 100 300 In Water For Injection 1 100ml.bag @ 100 mls/hr IVPB Q1HR PJ Rx#: [id number] Sodium Chloride 0.9% 1, 240 200 80 000 ml @ 20 mls/hr IV . Q24H PJ Rx#:[id number] Intake, IV Titration 30.933 Amount Clevidipine Butyrate 25 30.933 mg In Empty Bag 1 bag @ 1 MG/HR 2 mls/hr IV .Q24H PJ Rx#:[id number] Output: Urine 965 875 210 Other: Voiding Method Indwelling Catheter Indwelling Catheter Indwelling Catheter - Exam Physical Exam: Revealed a 57-year-old female in no distress, but she seems to be very confused. And she clearly has very poor hygienic condition. Presently on 2 L nasal cannula. HEENT:[Neck is supple.] [No neck masses.] [No thyromegaly.] [No JVD.] Chest: [Clear throughout, no crackles, no rhonchi, no wheezes.] Cardiac Exam: [Normal S1 and S2, no S3 gallop, no murmur.] Abdomen: [Soft, nontender, no megaly, no rebound, no guarding, normal bowel sounds.] Extremities: [No clubbing, no edema, however there is evidence of bluish discoloration of the great toe on the left foot. And poor peripheral pulses, feet are not cold to touch Neurological Exam: Patient is definitely confused, has no idea where she is, and not answering any question properly Psychiatric: Depressed mood, flat affect, confused. Skin: Cyanosis of great toe on the left foot. No rashes. - Labs CBC & Chem 7: 02/22/23 03:19 02/22/23 04:33 Labs: Abnormal Lab Results - Last 24 Hours (Table) 02/21/23 02/22/23 02/22/23 Range/Units 17:55 03:19 04:33 RBC 5.81 H (3.80-5.40) m/uL Hct 50.2 H (34.0-46.0) % Potassium 3.4 L (3.5-5.1) mmol/L POC Glucose (mg/dL) 111 H (70-110) mg/dL Microbiology - Last 24 Hours (Table) 02/18/23 20:57 Blood Culture - Preliminary Blood 02/18/23 21:05 Blood Culture - Preliminary Blood Assessment and Plan Assessment: Impression: Acute hypertensive emergency Acute decompensated heart failure with LV dysfunction, ejection fraction of 30- 35%. Acute metabolic encephalopathy, suspect secondary to hypertensive emergency and lateral lacunar infarct noted on CT of the brain. Mental status is being addressed by neurology on the case, MRI of the brain is pending. Hypothyroidism. Peripheral vessel occlusive disease and ischemic changes of left lower extremity. Being addressed by vascular surgery on the case. Uncontrolled hypertension Severe cardiomyopathy and LV dysfunction Acute kidney injury on presentation likely secondary to hypertensive emergency. Resolved. Recommendation: Continue present supportive care measures Continue to monitor in the ICU now. MRI of the head is pending Resume cardiac meds and blood pressure medications and monitor blood pressure accordingly. Continue to monitor electrolytes and renal profile. GI and DVT prophylaxis. We will continue to follow. Along with cardiology, vascular surgery, neurology, and primary care Time with Patient: Less than 30
[2023-02-22 12:52] LABS: ALT 26 U/L (4-34); AST 27 U/L (14-36); African American GFR (CKD) 60 (>60 ml/min/1.73 sqM); Albumin 3.4 g/dL (3.5-5.0); Alkaline Phosphatase 96 U/L (38-126); Anion Gap 5 mmol/L; Blood Urea Nitrogen 22 mg/dL (7-17); Calcium 9.1 mg/dL (8.4-10.2); Carbon Dioxide 38 mmol/L (22-30); Chloride 87 mmol/L (98-107); Glucose 119 mg/dL (74-99); Non-African American GFR(CKD) 52 (>60 ml/min/1.73 sqM); Potassium 4.6 mmol/L (3.5-5.1); Sodium 130 mmol/L (137-145); Total Bilirubin 1.4 mg/dL (0.2-1.3); Total Protein 5.8 g/dL (6.3-8.2)
--- NOTE | 2023-02-22 13:50 | P.PN ---
Subjective Progress Note Date: 02/22/23 This is a 57-year-old female history significant for diabetes mellitus, hypertension, myocardial infarction, thyroid disorder, current smoker. Patient presented to the hospital for altered mental status and was found on the floor by her he was unable to lift her up. Patient was brought in by EMS. Patient is found to have generalized weakness confusion and has been having multiple falls at home with progressive weakness over the last 5 months, patient is a poor historian and currently alert x 0 and obtunded at the time of examination. at the bedside provides the medical history, patient is a daily smoker and occasional alcohol use. Over the last 5 months has been having frequent falls and has been increasingly confused Has not been to a doctor and not taking recommending medications. Additionally he felt patient may have suffered a stroke a few months ago and had noticed a facial droop around that time. Patient in the ER was awake and alert. Blood pressure on admission was in the 220s systolic and difficult to treat with multiple antihypertensive agents given. Patient was also given IV ativan. Chest x-ray on admission shows cardiomegaly with linear atelectasis and/or scarring the left midlung. EKG shows sinus tachycardia with a heart rate of 110 on admission. She has no elevated white blood cell count it is normal at 7.1, sodium of 135, BUN/cr 32 and 1.28, Lacis acid is normal 1.3. She does have troponin elevation of 0.067, 0.074, 0.075.. ProBNP is elevated at 16,200, TSH is also 38.800, free T4 0.84. Urinalysis is negative for infection, urine drug toxicology is negative. Patient is admitted to the hospital for new onset CHF and originially admitted to the stepdown unit. Patient was upgraded to the intensive care unit and placed on nitro gtt and had also become unresponsive only arousing to sternal rub. Patient does not appear to have feeling in the left foot there is mottling and purple discoloration of the great toe and 3/4 toes likely due to ischemia and vascular services has been consulted as well as neurology, cardiology and pulmonary recenterer. Recommend a brain CT when patient is more stable and also ABGs will be done. An echocardiogram reveals EF of 30-35%, mild MR. 02/20/2023 Patient continues to be monitored closely in the intensive care unit. Currently alert x 2 more awake than yesterday, does have some slurred speech today. Brain CT shows no acute intracranial process with remote lacunar injuries along with nonspecific white matter changes likely secondary to chronic microangiography. EEG is negative. Neurology following and recommending brain MRI. Chest xray today is negative. Continues on IV lasix 40 mg every 12 hours with urine output of over 5L in the last 24 hours. Continues on IV cleviprex/clonidine patch and blood pressure running in the 150s systolic. Labs reveal sodium of 138, potassium 3.8, BUN 23, creatinine of 1.0. 02/21/2023 Patient is evaluated today in the intensive care unit. Patient is slightly more lethargic today was given a dose of IV ativan overnight for increased agitated. Patient had failed swallow evaluation and has been placed NPO at this time. Slightly more lethargic than yesterday. Patient is being followed by neurology and recommended to undergo MRI tomorrow however patient remains on IV cleviprex for blood pressure control as well as clonidine patch and IV hydralazine. Patien t continues on IV lasix Q12 which has been decreased to 20 mg. CTA thoracic and abdominal aorta with run off reveals long segment occlusion bilateral mid superficial femoral arteries with reconstitution of the distal SFA bilaterally. There is proximal abdominal aortic aneurysm. Multifocal calcific disease estimated 7% stenosis anterior tibial arteries bilaterally. Vascular surgery following with further recommendations forthcoming. Labs today reveal white count of 7.8, hgb 16.5. Potassium 3.1 and magnesium 1.5. Heart rate controlled in the 70s, blood pressure in the 140/80s and currnently requiring 2L of oxygen. Patient does have some tenderness to the LLQ on exam. 02/22/2023 Patient evaluated in the intensive care unit today, more awake and alert sitting up in the chair. Diet has been advanced to pureed diet. Patient also had a bowel movement today. Diminished airway patient needs encouragement to cough and deep breath and will be given incentive spirometer. Was given IV synthroid and transitioned to oral synthroid today. Has been resumed on oral blood pressure medication including clonidine patch and taken off the cleviprex gtt and bp has improved down to 110/90 currently. Vascular surgery following recommending vascular intervention when medically stable. Patient is pending MRI and likely will be done Wednesday. Sodium has dropped to 130 today, BUN 22, creatinine 1.16, total bilirubin 1.4. Review of Systems Constitutional: Denied any fatigue denied any fever. Cardio vascular: denied any chest pain, palpitations Gastrointestinal: denied any nausea, vomiting, diarrhea Pulmonary: Denied any shortness of breath cough Neurologic denied any new focal deficits All inpatient medications were reviewed and appropriate changes in these medications as dictated in the interval history and assessment and plan. PHYSICAL EXAMINATION: GENERAL: The patient is alert and oriented x2, More awake, slurred speech. Pale. Well developed, well nourished. HEENT: Pupils are round and equally reacting to light. EOMI. No scleral icterus. No conjunctival pallor. Normocephalic, atraumatic. No pharyngeal erythema. No thyromegaly. CARDIOVASCULAR: S1 and S2 present. No murmurs, rubs, or gallops. PULMONARY: Chest is clear to auscultation, no wheezing or crackles. Diminished ABDOMEN: Soft, nontender, nondistended, normoactive bowel sounds. No palpable organomegaly. MUSCULOSKELETAL: No joint swelling or deformity. EXTREMITIES: No cyanosis, clubbing, or pedal edema. NEUROLOGICAL: Unable to complete full exam. Diffuse weakness. SKIN: No rashes. There is discoloration to toes on the left foot extending to the left foot pad, progressing. Assessment and plan Altered mental status secondary to acute metabolic encephalopathy rule out acute stroke Progressive weakness and frequent falls at home Hypertension with urgency on admission improving Elevated troponin level Acute kidney injury vs CKD, Ischemic change to the left foot. Acute congestive heart failure, systolic dysfunction Cardiomyopathy possibly from the hypertension vs hypothyroidism Hypothyroidism Elevated D-Dimer Hypothyroidism Diabetes Mellitus type 2 uncontrolled History of myocardial infarction unknown details Chronic and ongoing nicotine use Medical noncompliance Marijuana use GI prophylaxis DVT prophylaxis; on IV heparin Do Not Resuscitate/Do Not Intubate Plan Continue monitoring the patient in the intensive care unit Continue IV lasix strict intake and output monitoring increased to Q12hr. Cleviprex has been discontinued Neurology following and recommending brain MRI, MRI is not done over the weekend and likely patient won't have MRI done until Wednesday. Cardiology following Vascular surgery recommending intervention when patient is medically stable Follow up labs in AM The impression and plan of care has been dictated by Fany Ren Nurse Practitioner as directed. Dr. Prasanna MD I have performed a history and physical examination and medical decision making of this patient, discussed the same with the dictator, and agree with the dictators assessment and plan as written, documented as a scribe. Based on total visit time, I have performed more than 50% of this visit. Objective - Vital Signs Vital signs: Vital Signs Temp 97.6 F 02/22/23 12:00 Pulse 60 02/22/23 13:00 Resp 16 02/22/23 13:00 BP 110/90 02/22/23 13:00 Pulse Ox 96 02/22/23 13:00 FiO2 Intake & Output 02/21/23 02/22/23 02/22/23 18:59 06:59 18:59 Intake Total 870.933 300 380 Output Total 965 875 240 Balance -94.067 -575 140 Weight 58.2 kg Intake: IV 840 300 380 Magnesium Sulfate-D5w Pmx 200 1 gm In Dextrose/Water 1 100ml.bag @ 100 mls/hr IVPB Q1H PJ Rx#: [id number] Potassium Chloride 10 meq 400 In Water For Injection 1 100ml.bag @ 100 mls/hr IVPB Q1H PJ Rx#: [id number] Potassium Chloride 10 meq 100 300 In Water For Injection 1 100ml.bag @ 100 mls/hr IVPB Q1HR PJ Rx#: [id number] Sodium Chloride 0.9% 1, 240 200 80 000 ml @ 20 mls/hr IV . Q24H PJ Rx#:[id number] Intake, IV Titration 30.933 Amount Clevidipine Butyrate 25 30.933 mg In Empty Bag 1 bag @ 1 MG/HR 2 mls/hr IV .Q24H PJ Rx#:[id number] Output: Urine 965 875 240 Other: Voiding Method Indwelling Catheter Indwelling Catheter Indwelling Catheter - Labs CBC & Chem 7: 02/22/23 03:19 02/22/23 12:12 Labs: Abnormal Lab Results - Last 24 Hours (Table) 02/21/23 02/22/23 02/22/23 Range/Units 17:55 03:19 04:33 RBC 5.81 H (3.80-5.40) m/uL Hct 50.2 H (34.0-46.0) % Sodium (137-145) mmol/L Potassium 3.4 L (3.5-5.1) mmol/L Chloride (98-107) mmol/L Carbon Dioxide (22-30) mmol/L BUN (7-17) mg/dL Creatinine (0.52-1.04) mg/dL Glucose (74-99) mg/dL POC Glucose (mg/dL) 111 H (70-110) mg/dL Total Bilirubin (0.2-1.3) mg/dL Total Protein (6.3-8.2) g/dL Albumin (3.5-5.0) g/dL 02/22/23 Range/Units 12:12 RBC (3.80-5.40) m/uL Hct (34.0-46.0) % Sodium 130 L (137-145) mmol/L Potassium (3.5-5.1) mmol/L Chloride 87 L (98-107) mmol/L Carbon Dioxide 38 H (22-30) mmol/L BUN 22 H (7-17) mg/dL Creatinine 1.16 H (0.52-1.04) mg/dL Glucose 119 H (74-99) mg/dL POC Glucose (mg/dL) (70-110) mg/dL Total Bilirubin 1.4 H (0.2-1.3) mg/dL Total Protein 5.8 L (6.3-8.2) g/dL Albumin 3.4 L (3.5-5.0) g/dL Microbiology - Last 24 Hours (Table) 02/18/23 20:57 Blood Culture - Preliminary Blood 02/18/23 21:05 Blood Culture - Preliminary Blood Assessment and Plan Time with Patient: Less than 30
--- NOTE | 2023-02-22 15:36 | P.PN ---
Subjective Progress Note Date: 02/22/23 I am following-up seeing the patient and see her last on Wednesday. Please refer to Dr. Avila's notes for further details. Per she is improving but continues to be confused and is not back to baseline. Objective - Vital Signs Vital signs: Vital Signs Temp 97.6 F 02/22/23 12:00 Pulse 60 02/22/23 15:00 Resp 16 02/22/23 15:00 BP 147/92 02/22/23 15:00 Pulse Ox 100 02/22/23 15:00 FiO2 Intake & Output 02/21/23 02/22/23 02/22/23 18:59 06:59 18:59 Intake Total 870.933 300 480 Output Total 965 875 335 Balance -94.067 -575 145 Weight 58.2 kg Intake: IV 840 300 380 Magnesium Sulfate-D5w Pmx 200 1 gm In Dextrose/Water 1 100ml.bag @ 100 mls/hr IVPB Q1H JP Rx#: [id number] Potassium Chloride 10 meq 400 In Water For Injection 1 100ml.bag @ 100 mls/hr IVPB Q1H PJ Rx#: [id number] Potassium Chloride 10 meq 100 300 In Water For Injection 1 100ml.bag @ 100 mls/hr IVPB Q1HR PJ Rx#: [id number] Sodium Chloride 0.9% 1, 240 200 80 000 ml @ 20 mls/hr IV . Q24H PJ Rx#:[id number] Intake, IV Titration 30.933 Amount Clevidipine Butyrate 25 30.933 mg In Empty Bag 1 bag @ 1 MG/HR 2 mls/hr IV .Q24H PJ Rx#:[id number] Oral 100 Output: Urine 965 875 335 Other: Voiding Method Indwelling Catheter Indwelling Catheter Indwelling Catheter - Exam Neuro: Drowsy but is awakeable to voice. Is oriented to self. She correctly stated the month. She is able to name pen. She is very slow following commands. EOM is tracking throughout the room. No facial weakness. No dysarthria. Motor: Strength is moving uppers above gravity and lowers is lifting above gravity symmetrically. SOME OF THE WORK-UP DURING THIS VISIT: Vitamin B12: 644 Folate: 10.80 Ammonia 19 HbA1c: 6.6 TSH is 38.8, free T4 is 0.84 and the free T3 is 2.4. CT head is reported as no acute intracranial process. remote lacunar injuries along with nonspecific white matter changes likely secondary to chronic microangiopathy. - Labs CBC & Chem 7: 02/22/23 03:19 02/22/23 12:12 Labs: Abnormal Lab Results - Last 24 Hours (Table) 02/21/23 02/22/23 02/22/23 Range/Units 17:55 03:19 04:33 RBC 5.81 H (3.80-5.40) m/uL Hct 50.2 H (34.0-46.0) % Sodium (137-145) mmol/L Potassium 3.4 L (3.5-5.1) mmol/L Chloride (98-107) mmol/L Carbon Dioxide (22-30) mmol/L BUN (7-17) mg/dL Creatinine (0.52-1.04) mg/dL Glucose (74-99) mg/dL POC Glucose (mg/dL) 111 H (70-110) mg/dL Total Bilirubin (0.2-1.3) mg/dL Total Protein (6.3-8.2) g/dL Albumin (3.5-5.0) g/dL 02/22/23 Range/Units 12:12 RBC (3.80-5.40) m/uL Hct (34.0-46.0) % Sodium 130 L (137-145) mmol/L Potassium (3.5-5.1) mmol/L Chloride 87 L (98-107) mmol/L Carbon Dioxide 38 H (22-30) mmol/L BUN 22 H (7-17) mg/dL Creatinine 1.16 H (0.52-1.04) mg/dL Glucose 119 H (74-99) mg/dL POC Glucose (mg/dL) (70-110) mg/dL Total Bilirubin 1.4 H (0.2-1.3) mg/dL Total Protein 5.8 L (6.3-8.2) g/dL Albumin 3.4 L (3.5-5.0) g/dL Microbiology - Last 24 Hours (Table) 02/18/23 20:57 Blood Culture - Preliminary Blood 02/18/23 21:05 Blood Culture - Preliminary Blood Assessment and Plan Assessment: This is a 57-year-old woman with history of hypertension and is not compliant taking medication who presented because of generalized weakness, confusion, falls for the past weeks to months. Altered mental status seems due to multifactorial: But predominantly hypertensive encephalopathy with component due to abnormal thyroid and some component of metabolic . Acute hypertensive emergency (presented with blood pressure 230's/170' s--currently is 130-140's/80's to 90's) she was on nitroglycerin, she received clonidine patch as well as IV hydralazine. Currently on Is on Clvprx 1mg/hr. Generalized weakness Acute bilateral femoral occlusive disease with ischemic changes over the left toe Falls Possible TIA about 4-5 months ago (had transient right facial weakness per ). Systolic heart failure with ejection fraction of 30-35% Elevated troponin Hypothyroidism Peripheral vascular disease Chronic history of hypertension and noncompliant with medication Tobacco use Alcohol use Noncompliance with medication and does not follow up with physician Plan: Pending MRI Brain (scheduled for tomorrow). EEG is abnormal. The background slowing is suggestive of moderate encephalopathy. Otherwise no focal slowing, epileptiform discharges or seizures. Continue thiamine 100mg daily. Please avoid any sedation if possible to have a better neurological evaluation. Vascular surgery team for bilateral femoral occlusive disease. Also has leg toes ischemia. Cardiology is consulted We'll defer the rest of the medical management to the primary and ICU team The plan is discussed with patient's who is at bedside and her nurse. Time with Patient: Less than 30
[2023-02-22] MEDS: carvediloL 12.5 MG TAB PO SCH (16:49)
[2023-02-22] MEDS: SODIUM CHLORIDE 0.9% 1,000 ML IV SCH ×2 (19:12→23:32)
[2023-02-22] MEDS: lisinopriL 20 MG TAB PO SCH (21:05)
[2023-02-23] MEDS: hydrALAZINE HCL 20 MG/ML 1 ML VIAL IVP PRN ×3 (00:40→16:22)
[2023-02-23] MEDS: cloNIDine HCL 0.2 MG TAB PO SCH ×2 (02:10→11:53)
[2023-02-23 06:12] LABS: African American GFR (CKD) 54 (>60 ml/min/1.73 sqM); Anion Gap 7 mmol/L; Blood Urea Nitrogen 29 mg/dL (7-17); Calcium 8.8 mg/dL (8.4-10.2); Carbon Dioxide 36 mmol/L (22-30); Chloride 88 mmol/L (98-107); Glucose 103 mg/dL (74-99); Magnesium 1.9 mg/dL (1.6-2.3); Non-African American GFR(CKD) 47 (>60 ml/min/1.73 sqM); Potassium 3.9 mmol/L (3.5-5.1); Sodium 131 mmol/L (137-145)
[2023-02-23 06:15] LABS: Glucose,Whole Blood 107 mg/dL (70-110)
[2023-02-23 06:35] LABS: HCT 50.8 % (34.0-46.0); MCHC 31.6 g/dL (31.0-37.0); MCV 85.7 fL (80.0-100.0); Mean Platelet Volume 8.5; Platelet Count 228 k/uL (150-450); RBC 5.92 m/uL (3.80-5.40); RDW 15.3 % (11.5-15.5); WBC 6.2 k/uL (3.8-10.6)
[2023-02-23] MEDS: POTASSIUM CHLORIDE 10 MEQ in WATER FOR INJECTION 1 100ML.BAG IVPB SCH ×2 (06:58→13:05)
[2023-02-23] MEDS: ENOXAPARIN 40 MG/0.4 ML SYRINGE SQ SCH (09:40)
[2023-02-23] MEDS: FUROSEMIDE 10 MG/ML 2 ML VIAL IV SCH ×2 (09:41→21:30)
[2023-02-23] MEDS: NICOTINE 14MG/24HR PATCH TRANSDERM SCH (09:41)
--- NOTE | 2023-02-23 09:59 | P.PN ---
Subjective Progress Note Date: 02/23/23 Principal diagnosis: Altered mental status changes Patient seen and evaluated today in the ICU. Patient is lethargic, somewhat arousable with stimulation. Just had a bath currently has bare hugger on. No acute changes through the night. Blood pressures improving. Patient is scheduled undergo MRI of the brain today. Objective - Vital Signs Vital signs: Vital Signs Temp 96.1 F L 02/23/23 08:00 Pulse 58 L 02/23/23 09:00 Resp 21 02/23/23 09:00 BP 126/71 02/23/23 09:00 Pulse Ox 98 02/23/23 09:00 FiO2 Intake & Output 02/22/23 02/23/23 02/23/23 18:59 06:59 18:59 Intake Total 480 220 60 Output Total 415 705 65 Balance 65 -485 -5 Weight 57.7 kg Intake: IV 380 220 60 IV Fluid 220 60 Potassium Chloride 10 meq 300 In Water For Injection 1 100ml.bag @ 100 mls/hr IVPB Q1HR PJ Rx#: [id number] Sodium Chloride 0.9% 1, 80 000 ml @ 20 mls/hr IV . Q24H PJ Rx#:[id number] Oral 100 Output: Urine 415 705 65 Other: Voiding Method Indwelling Catheter Indwelling Catheter # Bowel Movements 1 - Exam General appearance: The patient is drowsy, sleeping. Appears in no acute distress. HET: Head is normocephalic and atraumatic. Neck: Supple. Extremities: Left great toe, third toe and pinky toe with areas of purple discoloration, surrounding skin pink. Bilateral lower extremity and feet warm to the touch. Good capillary refill. Nonpalpable popliteal, DP PT pulses bilaterally. Sensorimotor intact. Neurological: Patient is drowsy, sleeping. - Labs CBC & Chem 7: 02/23/23 05:21 02/23/23 05:21 Labs: Abnormal Lab Results - Last 24 Hours (Table) 02/22/23 02/23/23 02/23/23 Range/Units 12:12 05:21 05:21 RBC 5.92 H (3.80-5.40) m/uL Hct 50.8 H (34.0-46.0) % Sodium 130 L 131 L (137-145) mmol/L Chloride 87 L 88 L (98-107) mmol/L Carbon Dioxide 38 H 36 H (22-30) mmol/L BUN 22 H 29 H (7-17) mg/dL Creatinine 1.16 H 1.26 H (0.52-1.04) mg/dL Glucose 119 H 103 H (74-99) mg/dL Total Bilirubin 1.4 H (0.2-1.3) mg/dL Total Protein 5.8 L (6.3-8.2) g/dL Albumin 3.4 L (3.5-5.0) g/dL Microbiology - Last 24 Hours (Table) 02/18/23 20:57 Blood Culture - Preliminary Blood 02/18/23 21:05 Blood Culture - Preliminary Blood Assessment and Plan Assessment: 1. Bilateral femoral occlusive disease, chronic 2. Left great toe and third, fourth toe ischemic changes 3. Altered mental status changes 4. Hypertension, uncontrolled, noncompliant with medications 5. Hypothyroid, noncompliant with medications 6. Cardiomegaly 7. Diabetes mellitus, noncompliant with medications 8. Elevated troponins Plan: 1. Continue supportive care 2. CTA of lower extremities reviewed with bilateral SFA occlusions with one- vessel runoff. Appears chronic 3. Ischemia to toes improving, no planned on vascular surgical intervention during this hospitalization 4. Patient may benefit from endovascular revascularization of the left SFA, this can be done as an outpatient 5. Increase activity, encourage ambulation 6. Medical management deferred to primary medical team Thank you for this consultation, we will continue to follow. The impression and plan of care has been dictated as directed. I performed a history and examination of this patient, discussed the same with the dictator. I agree with the dictator's note ,documented as a scribe. Any additional findings or plans will be noted.
[2023-02-23] MEDS: carvediloL 12.5 MG TAB PO SCH ×2 (10:04→17:05)
[2023-02-23] MEDS: LEVOTHYROXINE 50 MCG TAB PO SCH (10:04)
[2023-02-23] MEDS: ASPIRIN 325 MG TAB PO SCH (10:04)
[2023-02-23] MEDS: PANTOPRAZOLE 40 MG TABLET PO SCH (10:15)
[2023-02-23] MEDS: THIAMINE 100 MG TAB PO SCH (10:16)
--- NOTE | 2023-02-23 10:19 | P.PN ---
Subjective PROGRESS NOTE The patient is a 57-year-old female who was admitted to the hospital with symptoms of confusion, multiple falls, weakness. The history is obtained from the records. The patient is not answering question quite somnolent after receiving Ativan. According to the records the patient has not been taking her medications are home. She has a history of hypertension, diabetes and hyperlipidemia full detail of her prior history or medication is unclear. She was noted to be severely hypertensive, elevated NT proBNP and TSH on presenta tion. She was in sinus mechanism on presentation. She had peripheral edema and discoloration of the toes on the left lower extremity. According to the notes she's a daily smoker and she uses marijuana. I am unable to obtain any other history. Her echocardiogram performed this morning showed a severely impaired left ventricle systolic function February 20: The patient remains confused, answering questions inappropriately. Her blood pressure has been elevated off Clevidipine. She is not taking by mouth medication because of a question of the swallowing. She continues to be in sinus mechanism. She has a good urinary output on IV Lasix. She continues to be on IV heparin. Her EKG showed T-wave inversion in the anterolateral lateral leads. Her brain CT showed lacunar infarct but no acute bleeding. Duplex scan of the lower extremities showed no evidence of DVT. She continues to have di scoloration of the left foot toes. February 21 : The patient remains confused, opening eyes to verbal stimulation. She failed her swallow evaluation and continues to be nothing by mouth, receiving IV medi cation. Her blood pressure has been relatively stable. There is no evidence of malignant arrhythmia. Her urine output is stable. She underwent a CT angiogram of the abdomen and chest and was found to have an abdominal aortic aneurysm and severe PAD, bilaterally. Her free T3 was low. 02/22 Patient seen and examined. Patient stating she is hungry. He continues be confused. Left lower extremity somewhat improved color per nurse with continued discoloration with fourth and fifth digit. She admits the pain all over including her lower extremities. Blood pressures remain elevated 145/107. She is not eating much orally. 02/23 Patient seen and examined. Patient had increased blood pressures in the systolics 170s yesterday and therefore clonidine was increased to 0.2 milligrams oral twice a day. Blood pressure did decrease down to 110s. She has been more altered this morning with more lethargy and not answering questions appropriately. 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 Therefore discussed stopping the clonidine and holding lisinopril for now for mild permissive hypertension with mental status changes. Has been receiving Lasix with good urine output. Creatinine stable at 1.2. PHYSICAL EXAMINATION: Vitals reviewed LUNGS: Clear to auscultation HEART: Regular rate and rhythm, S1, S2. No S3. systolic ejection murmur ABDOMEN: Soft, nontender, no organomegaly EXTREMETIES: No edema, discoloration of the toes on the left with decreased pulses IMPRESSION: 1. Uncontrolled hypertension 2. Encephalopathy could be related to hypertension, workup in progress 3. Abnormal EKG rule out ischemia 4. Abnormal renal functions, improving 5. Probable peripheral vascular disease 6. Lacunar infarct 7. Severe cardiomyopathy of unknown etiology or duration probable hypertensive rule out ischemic PLAN: We had increase lisinopril to 20 mg twice a day as well as increase carvedilol to 12.5 mg twice a day yesterday however blood pressures remain elevated. Clonidine was added with dramatic drop in blood pressure from 170s to 110-120 range. Patient has had mental status changes and may be related to drop in blood pressure. Therefore discussed: Lisinopril for now and mild permissive hypertension while she has mental status changes. Neurology recommendations appreciated. Otherwise discontinue clonidine and optimize heart failure regimen as able. Remainder of PAD appears to be relatively stable. Patient will likely need ischemic workup once remainder of neurologic issues improved. Continue supportive care. Objective - Vital Signs Vital signs: Vital Signs Temp 96.1 F L 02/23/23 08:00 Pulse 58 L 02/23/23 09:00 Resp 21 02/23/23 09:00 BP 126/71 02/23/23 09:00 Pulse Ox 98 02/23/23 09:00 FiO2 Intake & Output 02/22/23 02/23/23 02/23/23 18:59 06:59 18:59 Intake Total 480 220 60 Output Total 415 705 65 Balance 65 -485 -5 Weight 57.7 kg Intake: IV 380 220 60 IV Fluid 220 60 Potassium Chloride 10 meq 300 In Water For Injection 1 100ml.bag @ 100 mls/hr IVPB Q1HR PJ Rx#: [id number] Sodium Chloride 0.9% 1, 80 000 ml @ 20 mls/hr IV . Q24H PJ Rx#:[id number] Oral 100 Output: Urine 415 705 65 Other: Voiding Method Indwelling Catheter Indwelling Catheter # Bowel Movements 1 - Labs CBC & Chem 7: 02/23/23 05:21 02/23/23 05:21 Labs: Abnormal Lab Results - Last 24 Hours (Table) 02/22/23 02/23/23 02/23/23 Range/Units 12:12 05:21 05:21 RBC 5.92 H (3.80-5.40) m/uL Hct 50.8 H (34.0-46.0) % Sodium 130 L 131 L (137-145) mmol/L Chloride 87 L 88 L (98-107) mmol/L Carbon Dioxide 38 H 36 H (22-30) mmol/L BUN 22 H 29 H (7-17) mg/dL Creatinine 1.16 H 1.26 H (0.52-1.04) mg/dL Glucose 119 H 103 H (74-99) mg/dL Total Bilirubin 1.4 H (0.2-1.3) mg/dL Total Protein 5.8 L (6.3-8.2) g/dL Albumin 3.4 L (3.5-5.0) g/dL Microbiology - Last 24 Hours (Table) 02/18/23 20:57 Blood Culture - Preliminary Blood 02/18/23 21:05 Blood Culture - Preliminary Blood
[2023-02-23] MEDS: lisinopriL 20 MG TAB PO SCH ×2 (11:53→20:23)
--- NOTE | 2023-02-23 12:11 | MR ---
EXAMINATION TYPE: MR brain wo con DATE OF EXAM: 02/23/2023 COMPARISON: CT brain 02/19/2023 HISTORY: 57-year-old female confusion, altered mental status TECHNIQUE: Multiplanar, multisequence images of the brain and brainstem were acquired without IV con trast. Diffusion weighted imaging is performed. FINDINGS: Multiple punctate foci of restricted diffusion are present especially in the subcortical frontal and parietal lobes measuring up to 6 mm on the right. Also involving the centrum semiovale ovale on the r ight and coronary radiata on the left. Additional numerous foci within the bilateral thalami and left basal ganglia. Punctate focus also noted within the left paramedian vita. A couple foci involving the left splenium of the corpus callosum measuring up to 1.0 cm. These show corresponding low signal on ADC map and bright T2/FLAIR signal. There is mild generalized supratentorial volume loss and background of severe confluent increased whi te matter change. Extensive white matter change also noted in the bilateral dorsal. Median vita and extending across th e middle cerebellar peduncles. Some asymmetric mucosal space thickening along the right lateral oropharynx extending up to the nasop haryngeal and oropharyngeal junction may be positional, No midline shift or hydrocephalus. No extra-axial fluid collection seen. Midline structures demonstrate normal morphology. The craniocervical junction is normal. The visualized sinuses are clear and the globes are intact. Leftward nasal septal deviation. IMPRESSION: 1. Numerous punctate foci of acute infarcts involving the frontal and parietal cortices, deep white m atter regions on both sides, bilateral thalami, and left basal ganglia. Additional small focus in the left paramedian vita. A couple foci measuring up to 1.0 cm involving the left splenium of the corpus callosum. Given the corresponding increased T2 signal, findings suggest small infarcts greater than 6 hours in duration. Consider a central thromboembolic phenomenon. 2. Background of severe burden of chronic small vessel ischemic disease.
--- NOTE | 2023-02-23 12:29 | XR ---
EXAMINATION TYPE: XR chest 1V portable DATE OF EXAM: 02/23/2023 COMPARISON: 02/19/2023 HISTORY: NG tube placement TECHNIQUE: Single frontal view of the chest is obtained. FINDINGS: NG tube appears in good position coursing the left upper quadrant with the sidehole likely overlying the gastric fundus. There is stable left lower lobe infiltrate and small effusion. Upper lung zones are not included. No obvious evidence of heart failure. Heart size stable. Osseous structures are stable. IMPRESSION: 1. NG tube appears in good position. 2. Stable left lower lobe infiltrate and small effusion.
--- NOTE | 2023-02-23 13:01 | P.PN ---
Subjective Progress Note Date: 02/23/23 Principal diagnosis: Hypertensive emergency with acute metabolic encephalopathy 57-year-old female patient, was rolled into the intensive care unit, lethargic, weak and will confused, under the effect of Ativan that was given to her in the emergency and the patient's received a total of 2 mg of IV Ativan. Meanwhile, the patient was having weakness, confusion and multiple falls and the ended up bringing her to the hospital. I do not believe that she has seen any physicians. Upon arrival, the patient's was noted to have an elevated blood pressure. She was confused. Her EKG showed sinus rhythm with some nonspecific ST segment changes. Chest x-ray showed cardiomegaly with mild pulmonary vessel congestion. BUN was 32 with a creatinine of 1.2 and a white cell count of 7.1. The serum alcohol was negative. Her rest of the blood work showed normal electrolytes, BUN of 32 with a creatinine of 1.2. ProBNP level was 60,000, TSH was 38, free T4 was 0.8. Urine drug screen was negative. UA was negative. The cecum was 7.0 with a hemoglobin of 15.6. Echocardiogram was done this morning and it showed an ejection fraction of 30-35% with moderate to severe LV H, no significant valvular abnormalities and there was moderate to severe left ventricular hypertrophy. Note that patient's initial blood pressure at the time of her emergency department evaluation was as high as 228/159. For now, the patient is on a nitroglycerin drip running at 100 mcg/m. She is on IV heparin. She was given clonidine patch. She was also given hydralazine 10 mg IV every 4 hours. On a separate note, the patient was noted to have some bluish discoloration of her great toe and the left foot. The patient has Doppler signals bilaterally. The patient also has adequate femoral and popliteal pulses. While in the emergency, the patient was given Ativan. I saw her in the intensive care unit. She is gradually waking up and active and affect is wearing off. No signs of any significant respiratory compromise. She is currently on oxygen at 2 L with a pulse ox of 91%. On today's evaluation of 02/20/2023, patient is more awake compared to yesterday. She is arousable and she is communicating. She is aware of her name. She is not aware of her location. No focal neurological deficits. CAT scan of the brain was completed yesterday showed lacunar infarcts probably related to her chronic uncontrolled blood pressure. Patient is currently on 4 L of action by nasal cannula. Chest x-ray shows a small left-sided pleural effusion. Echocardiogram was completed yesterday and it showed severe LVH along with impaired on the function with an ejection fraction of 30-35% and the patient remains in normal sinus rhythm. Pulse ox 98% on [address] by nasal cannula. Her blood pressure was managed by Drip and currently the drip is off. The patient is taken IV Lasix 40 mg every 12 hours. The patient was taken off the nitroglycerin drip. She is receiving hydralazine 10 mg IV every 8 hours. I'm not sure if she is awake enough to start oral medications. This will be decided at the later stage I the patient is more alert and awake. She remains on IV heparin which will be discontinued today. In terms of her labs, the WBC count of 8.3 with a hemoglobin of 17. The BUN is 24 with a creatinine of 1.1 and his sodium levels of 138. GFR is at 54. The medication list was noted. Neurologic consultation was obtained. Vascular Doppler of the lower oximetry was done and the Doppler venous was negative. The patient does have chronic ischemic changes to her left foot, no open wounds or ulceration. Dopplers signals are present in her feet bilaterally. On 02/21/2023, the patient remains encephalopathic and confused. She failed her swallow evaluation and the patient was not transitioned to oral medications. He remains on Catapres at 2 mg an hour and her blood pressure is under adequate control at this point in time. The patient also is on a clonidine patch. She is on oxygen at 2 L/m nasal cannula. King cath is in place. The patient remains on IV heparin. Ischemic changes in lower extremity have improved and the patient seems to be better perfused her left lower extremity on today's evaluation. Cardiac rhythm is sinus. She remains on he was the patient is still swallow evaluation. No fever. No other significant events overnight. The patient is a sitter at the bedside. In terms of her blood work, the patient has a white cell count of 7 with a hemoglobin of 16 and a platelet count of 259. PTT is therapeutic at 75 with a normal PT and INR. Electrolytes are still pending for now. The blood cultures have been negative. CT angiography of the thoracic and abdominal wart that was completed. 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 There is also proximal abdominal aortic aneurysm measuring 3 CMN. There is less than 50% stenosis of the common iliac arteries. External iliac arteries and the internal iliac arteries are essentially patent for now. Reevaluated today on 02/22/23, patient remains in the ICU, patient remains confused, her mental status is quite normal. Patient is confused, not in any distress, and I found out that her mental status has been like this and worsen ing more so over the last 2 weeks. Patient is scheduled to have MRI today. She is being followed by many consultants, including neurology, vascular surgery, and cardiology. Labs today were basically unremarkable, WBC 6.1 hemoglobin is 15.8, patient did have significantly elevated TSH on admission with a low T4 of 0.84. And she was also noted to have significantly elevated BNP level. Over 60,000. However chest x-ray showed no evidence of congestive heart failure there was only evidence of cardiomegaly without acute process. Reevaluated today on 02/23/2023, patient is date about the same, remains encephalopathic, MRI showed numerous punctate foci of acute infarcts involving the frontal and parietal cortices. Also involving the deep white matter regions on both sides. The radiologist felt there could be a possibility of central thromboembolic phenomenon, and there is a background of severe burden of chronic small vessel ischemic disease. We will let neurology address this finding and decide whether further workup is necessary including workup for central thromboembolic phenomena. WBC count is 6.2 hemoglobin 16 in dextrose are normal renal profile is slightly abnormal with BUN of 29 creatinine 1.26, slightly worse compared to yesterday Objective - Vital Signs Vital signs: Vital Signs Temp 96.1 F L 02/23/23 08:00 Pulse 60 02/23/23 10:00 Resp 21 02/23/23 10:00 BP 122/75 02/23/23 10:00 Pulse Ox 100 02/23/23 10:00 FiO2 Intake & Output 02/22/23 02/23/23 02/23/23 18:59 06:59 18:59 Intake Total 480 220 100 Output Total 415 705 165 Balance 65 -485 -65 Weight 57.7 kg Intake: IV 380 220 100 IV Fluid 220 100 Potassium Chloride 10 meq 300 In Water For Injection 1 100ml.bag @ 100 mls/hr IVPB Q1HR PJ Rx#: [id number] Sodium Chloride 0.9% 1, 80 000 ml @ 20 mls/hr IV . Q24H PJ Rx#:[id number] Oral 100 Output: Urine 415 705 165 Other: Voiding Method Indwelling Catheter Indwelling Catheter # Bowel Movements 1 - Exam Physical Exam: Revealed a 57-year-old female in no distress, encephalopathic, not in respiratory distress. HEENT:[Neck is supple.] [No neck masses.] [No thyromegaly.] [No JVD.] Chest: [Clear throughout, no crackles, no rhonchi, no wheezes.] Cardiac Exam: [Normal S1 and S2, no S3 gallop, no murmur.] Abdomen: [Soft, nontender, no megaly, no rebound, no guarding, normal bowel sounds.] Extremities: [No clubbing, no edema, however there is evidence of bluish discoloration of the great toe on the left foot. And poor peripheral pulses, feet are not cold to touch Neurological Exam: Encephalopathic, opens eyes, nonverbal, does not follow any instructions Psychiatric: Depressed mood, flat affect, encephalopathic. Skin: Cyanosis of great toe on the left foot. No rashes. - Labs CBC & Chem 7: 02/23/23 05:21 02/23/23 05:21 Labs: Abnormal Lab Results - Last 24 Hours (Table) 02/23/23 02/23/23 Range/Units 05:21 05:21 RBC 5.92 H (3.80-5.40) m/uL Hct 50.8 H (34.0-46.0) % Sodium 131 L (137-145) mmol/L Chloride 88 L (98-107) mmol/L Carbon Dioxide 36 H (22-30) mmol/L BUN 29 H (7-17) mg/dL Creatinine 1.26 H (0.52-1.04) mg/dL Glucose 103 H (74-99) mg/dL Microbiology - Last 24 Hours (Table) 02/18/23 20:57 Blood Culture - Preliminary Blood 02/18/23 21:05 Blood Culture - Preliminary Blood Assessment and Plan Assessment: Impression: Acute hypertensive emergency Acute decompensated heart failure with LV dysfunction, ejection fraction of 30- 35%. Acute metabolic encephalopathy, although the MRI findings are more consistent with small vessel disease and possible central thromboembolic phenomenon. Hypothyroidism. Peripheral vessel occlusive disease and ischemic changes of left lower extremi ty. Being addressed by vascular surgery on the case. Uncontrolled hypertension Severe cardiomyopathy and LV dysfunction Acute kidney injury on presentation likely secondary to hypertensive emergency. Resolved. Recommendation: Continue present supportive care measures Continue to monitor in the ICU now. MRI report was reviewed and we'll discuss with neurology Resume cardiac meds and blood pressure medications and monitor blood pressure accordingly. Continue to monitor electrolytes and renal profile. GI and DVT prophylaxis. We will continue to follow. Time with Patient: Less than 30
--- NOTE | 2023-02-23 14:41 | CT ---
EXAMINATION TYPE: CT angio head neck DATE OF EXAM: 02/23/2023 COMPARISON: None HISTORY: poss stroke. neurlogical changes CT DLP: 1570 mGycm CONTRAST: Performed without and with IV Contrast, patient injected with 65 mL of Isovue 370. Combination Contrast CTA cervical carotids and [place] CTA cervical carotids with 3-D recons truction Contrast CTA of the cervical carotids was performed 3-D reconstruction imaging obtained at a separate workstation. Right carotid system: Mild plaque is seen of the right common carotid artery. There is mild plaque a lso noted at the carotid bulb and proximal ICA. 60-70% 1.2 cm stenosis suggested proximal right ICA. ECA is patent. Right vertebral artery appears unremarkable. Left carotid system: Mild plaque is seen of the left common carotid artery. There is mild plaque als o noted at the carotid bulb and proximal ICA. 70-80% stenosis proximal left ICA stenotic segment 5 m m. ECA is patent. Left vertebral artery appears unremarkable. IMPRESSION: 1. 60-70% 1.2 cm stenosis suggested proximal right ICA. 2. 70-80% stenosis proximal left ICA stenotic segment 5 mm. CTA [place] with 3-D reconstruction Contrast CTA of the [place] was performed 3-D reconstruction imaging obtained at a separate workstation. Vertebrobasilar system as well as intracranial portions of the internal carotid arteries and their ma terri tributaries are patent. I do not see evidence for sizable aneurysm or vascular malformation. Pl ease note MRI provides greater sensitivity and specificity. Visualized brain appears grossly unremar kable. IMPRESSION: 1. No significant abnormality. NASCET criteria was used in interpretation of this exam?
--- NOTE | 2023-02-23 14:42 | P.PN ---
Subjective Progress Note Date: 02/23/23 This is a 57-year-old female history significant for diabetes mellitus, hypertension, myocardial infarction, thyroid disorder, current smoker. Patient presented to the hospital for altered mental status and was found on the floor by her he was unable to lift her up. Patient was brought in by EMS. Patient is found to have generalized weakness confusion and has been having multiple falls at home with progressive weakness over the last 5 months, patient is a poor historian and currently alert x 0 and obtunded at the time of examination. at the bedside provides the medical history, patient is a daily smoker and occasional alcohol use. Over the last 5 months has been having frequent falls and has been increasingly confused Has not been to a doctor and not taking recommending medications. Additionally he felt patient may have suffered a stroke a few months ago and had noticed a facial droop around that time. Patient in the ER was awake and alert. Blood pressure on admission was in the 220s systolic and difficult to treat with multiple antihypertensive agents given. Patient was also given IV ativan. Chest x-ray on admission shows cardiomegaly with linear atelectasis and/or scarring the left midlung. EKG shows sinus tachycardia with a heart rate of 110 on admission. She has no elevated white blood cell count it is normal at 7.1, sodium of 135, BUN/cr 32 and 1.28, Lacis acid is normal 1.3. She does have troponin elevation of 0.067, 0.074, 0.075.. ProBNP is elevated at 16,200, TSH is also 38.800, free T4 0.84. Urinalysis is negative for infection, urine drug toxicology is negative. Patient is admitted to the hospital for new onset CHF and originially admitted to the stepdown unit. Patient was upgraded to the intensive care unit and placed on nitro gtt and had also become unresponsive only arousing to sternal rub. Patient does not appear to have feeling in the left foot there is mottling and purple discoloration of the great toe and 3/4 toes likely due to ischemia and vascular services has been consulted as well as neurology, cardiology and pulmonary rail washer. Recommend a brain CT when patient is more stable and also ABGs will be done. An echocardiogram reveals EF of 30-35%, mild MR. 02/20/2023 Patient continues to be monitored closely in the intensive care unit. Currently alert x 2 more awake than yesterday, does have some slurred speech today. Brain CT shows no acute intracranial process with remote lacunar injuries along with nonspecific white matter changes likely secondary to chronic microangiography. EEG is negative. Neurology following and recommending brain MRI. Chest xray today is negative. Continues on IV lasix 40 mg every 12 hours with urine output of over 5L in the last 24 hours. Continues on IV cleviprex/clonidine patch and blood pressure running in the 150s systolic. Labs reveal sodium of 138, potassium 3.8, BUN 23, creatinine of 1.0. 02/21/2023 Patient is evaluated today in the intensive care unit. Patient is slightly more lethargic today was given a dose of IV ativan overnight for increased agitated. Patient had failed swallow evaluation and has been placed NPO at this time. Slightly more lethargic than yesterday. Patient is being followed by neurology and recommended to undergo MRI tomorrow however patient remains on IV cleviprex for blood pressure control as well as clonidine patch and IV hydralazine. Pat ient continues on IV lasix Q12 which has been decreased to 20 mg. CTA thoracic and abdominal aorta with run off reveals long segment occlusion bilateral mid superficial femoral arteries with reconstitution of the distal SFA bilaterally. There is proximal abdominal aortic aneurysm. Multifocal calcific disease estimated 7% stenosis anterior tibial arteries bilaterally. Vascular surgery following with further recommendations forthcoming. Labs today reveal white count of 7.8, hgb 16.5. Potassium 3.1 and magnesium 1.5. Heart rate controlled in the 70s, blood pressure in the 140/80s and currnently requiring 2L of oxygen. Patient does have some tenderness to the LLQ on exam. 02/22/2023 Patient evaluated in the intensive care unit today, more awake and alert sitting up in the chair. Diet has been advanced to pureed diet. Patient also had a bowel movement today. Diminished airway patient needs encouragement to cough and deep breath and will be given incentive spirometer. Was given IV synthroid and transitioned to oral synthroid today. Has been resumed on oral blood pressure medication including clonidine patch and taken off the cleviprex gtt and bp has improved down to 110/90 currently. Vascular surgery following recommending vascular intervention when medically stable. Patient is pending MRI and likely will be done Wednesday. Sodium has dropped to 130 today, BUN 22, creatinine 1.16, total bilirubin 1.4. 02/23/2023 Patient is seen and evaluated and follow-up in the ICU with multiple medical consultations following. Patient was able to undergo MRI of the brain with neurology following undergoing extensive workup including cardiology and vascular surgery along with pulmonary rail washer. MRI of the brain showed numerous punctate foci of acute infarcts involving the frontal and parietal cortices, deep white matter regions on both sides, bilateral thalami, and left basal ganglia with additional small focus in the left paramedian vita. A couple foci measuring up to 1.0 cm involving the left glenohumeral of the corpus callosum and findings suggest small infarcts greater than 6 hours in duration consider a central thromboembolic phenomenon with background severe burden of small chronic vessel ischemic disease. Per nursing staff patient had a decrease in mentation and blood pressures have been uncontrolled with neurology and cardiology making adjustments. Clonidine discontinued and awaiting possible YANDEL. CTA ordered and pending. Chest x-ray today shows NG tube appearing in good position with stable left lower infiltrate and small effusion and patient is maintained on IV Lasix low dose daily. Review of Systems Constitutional: Denied any fatigue denied any fever. Cardio vascular: denied any chest pain, palpitations Gastrointestinal: denied any nausea, vomiting, diarrhea Pulmonary: Denied any shortness of breath cough Neurologic denied any new focal deficits, reports pain in her left wrist Active Medications Acetaminophen (Acetaminophen Tab 325 Mg Tab) 650 mg PO Q6HR PRN PRN Reason: Fever and/ or Pain Last Admin: 02/22/23 09:48 Dose: 650 mg Aspirin (Aspirin 325 Mg Tab) 325 mg PO DAILY [facility] Last Admin: 02/23/23 10:04 Dose: 325 mg Atorvastatin Calcium (Atorvastatin 80 Mg Tab) 80 mg PO [facility] Carvedilol (Carvedilol 12.5 Mg Tab) 12.5 mg PO BID-W/MEALS [facility] Last Admin: 02/23/23 10:04 Dose: 12.5 mg Enoxaparin Sodium (Enoxaparin 40 Mg/0.4 Ml Syringe) 40 mg SQ DAILY [facility] Last Admin: 02/23/23 09:40 Dose: 40 mg Furosemide (Furosemide 10 Mg/Ml 2 Ml Vial) 20 mg IV Q12H [facility] Last Admin: 02/23/23 09:41 Dose: 20 mg Hydralazine HCl (Hydralazine Hcl 20 Mg/Ml 1 Ml Vial) 20 mg IVP Q4HR PRN PRN Reason: Blood Pressure - High Last Admin: 02/23/23 03:41 Dose: 20 mg Sodium Chloride (Saline 0.9%) 1,000 mls @ 20 mls/hr IV .Q24H [facility] Last Admin: 02/22/23 19:12 Dose: 20 mls/hr Levothyroxine Sodium (Levothyroxine 50 Mcg Tab) 50 mcg PO DAILY@0630 [facility] Last Admin: 02/23/23 10:04 Dose: 50 mcg Lisinopril (Lisinopril 20 Mg Tab) 20 mg PO BID [facility] Last Admin: 02/23/23 11:53 Dose: Not Given Miscellaneous Information (Potassium Replacement Protocol 1 Each Misc) 1 each MISCELLANE DAILY PRN; Protocol PRN Reason: Per Protocol Nicotine (Nicotine 14mg/24hr Patch) 1 patch TRANSDERM DAILY [facility] Last Admin: 02/23/23 09:41 Dose: 1 patch Pantoprazole Sodium (Pantoprazole 40 Mg Tablet) 40 mg PO AC-[id number] [facility] Last Admin: 02/23/23 10:15 Dose: 40 mg Sodium Chloride (Sodium Chloride 0.9% Flush 10 Ml Syringe) 10 ml IV BID [facility] Last Admin: 02/23/23 09:50 Dose: 10 ml Thiamine HCl (Thiamine 100 Mg Tab) 100 mg PO DAILY [facility] Last Admin: 02/23/23 10:16 Dose: 100 mg Tramadol HCl (Tramadol 50 Mg Tab) 50 mg PO QID PRN PRN Reason: Mild to Moderate Pain (1 - 6) PHYSICAL EXAMINATION: GENERAL: The patient is alert and oriented x2, More awake, slurred and delayed speech. Pale. Well developed, well nourished. HEENT: Pupils are round and equally reacting to light. EOMI. No scleral icterus. No conjunctival pallor. Normocephalic, atraumatic. No pharyngeal erythema. No thyromegaly. CARDIOVASCULAR: S1 and S2 present. No murmurs, rubs, or gallops. PULMONARY: Chest is clear to auscultation, no wheezing or crackles. Diminished ABDOMEN: Soft, nontender, nondistended, normoactive bowel sounds. No palpable organomegaly. MUSCULOSKELETAL: No joint swelling or deformity. EXTREMITIES: No cyanosis, clubbing, or pedal edema. NEUROLOGICAL: Unable to complete full exam. Diffuse weakness. SKIN: No rashes. There is discoloration to toes on the left foot extending to the left foot pad, progressing. Assessment: Altered mental status secondary to acute metabolic encephalopathy, Acute infarct involving the frontal and parietal cortices, deep white matter reg ions on both sides, bilateral thalami, and left basal ganglia as noted on MRI of the brain, possible central thromboembolic phenomenon Progressive weakness and frequent falls at home Hypertension with urgency on admission improving Elevated troponin level Acute kidney injury vs CKD, Ischemic change to the left foot. Acute congestive heart failure, systolic dysfunction Severe Cardiomyopathy and LV dysfunction possibly from the hypertension vs hypothyroidism Hypothyroidism Elevated D-Dimer Hypothyroidism Diabetes Mellitus type 2 uncontrolled History of myocardial infarction unknown details Chronic and ongoing nicotine use Medical noncompliance Marijuana use GI prophylaxis DVT prophylaxis; SCDs Do Not Resuscitate/Do Not Intubate Plan: Continue monitoring the patient in the intensive care unit Continue IV lasix strict intake and output monitoring increased to Q12hr. Cleviprex has been discontinued Neurology following and underwent brain MRI showing multiple infarcts as noted above and neurology recommending YANDEL was CTA Recommend maximizing medical management with cardiology following along with tight blood pressure control Vascular surgery recommending intervention when patient is medically stable Follow up labs in AM Overall prognosis is extremely guarded The impression and plan of care has been dictated by Rhonda Hawkins, Nurse Practitioner as directed. Dr. Andi MD I have performed a history and examination and MDM of this patient, discussed th e same with the dictator, and agree with the dictator's assessment and plan as written ,documented as a scribe. Based on total visit time, I have performed more than 50% of the visit. Objective - Vital Signs Vital signs: Vital Signs Temp 96.3 F L 02/23/23 13:00 Pulse 55 L 02/23/23 13:00 Resp 4 L 02/23/23 13:00 BP 142/84 02/23/23 13:00 Pulse Ox 98 02/23/23 13:00 FiO2 Intake & Output 02/22/23 02/23/23 02/23/23 18:59 06:59 18:59 Intake Total 480 220 100 Output Total 415 705 165 Balance 65 -485 -65 Weight 57.7 kg Intake: IV 380 220 100 IV Fluid 220 100 Potassium Chloride 10 meq 300 In Water For Injection 1 100ml.bag @ 100 mls/hr IVPB Q1HR [facility] Rx#: [id number] Sodium Chloride 0.9% 1, 80 000 ml @ 20 mls/hr IV . Q24H [facility] Rx#:[id number] Oral 100 Output: Urine 415 705 165 Other: Voiding Method Indwelling Catheter Indwelling Catheter Indwelling Catheter # Bowel Movements 1 - Labs CBC & Chem 7: 02/23/23 05:21 02/23/23 05:21 Labs: Abnormal Lab Results - Last 24 Hours (Table) 02/23/23 02/23/23 Range/Units 05:21 05:21 RBC 5.92 H (3.80-5.40) m/uL Hct 50.8 H (34.0-46.0) % Sodium 131 L (137-145) mmol/L Chloride 88 L (98-107) mmol/L Carbon Dioxide 36 H (22-30) mmol/L BUN 29 H (7-17) mg/dL Creatinine 1.26 H (0.52-1.04) mg/dL Glucose 103 H (74-99) mg/dL Microbiology - Last 24 Hours (Table) 02/18/23 20:57 Blood Culture - Preliminary Blood 02/18/23 21:05 Blood Culture - Preliminary Blood
--- NOTE | 2023-02-23 17:46 | P.PN ---
Subjective Progress Note Date: 02/23/23 Patient is seen at bedside and is about the same. Objective - Vital Signs Vital signs: Vital Signs Temp 96.3 F L 02/23/23 13:00 Pulse 55 L 02/23/23 13:00 Resp 4 L 02/23/23 13:00 BP 142/84 02/23/23 13:00 Pulse Ox 98 02/23/23 13:00 FiO2 Intake & Output 02/22/23 02/23/23 02/23/23 18:59 06:59 18:59 Intake Total 480 220 100 Output Total 415 705 165 Balance 65 -485 -65 Weight 57.7 kg Intake: IV 380 220 100 IV Fluid 220 100 Potassium Chloride 10 meq 300 In Water For Injection 1 100ml.bag @ 100 mls/hr IVPB Q1HR [facility] Rx#: [id number] Sodium Chloride 0.9% 1, 80 000 ml @ 20 mls/hr IV . Q24H [facility] Rx#:[id number] Oral 100 Output: Urine 415 705 165 Other: Voiding Method Indwelling Catheter Indwelling Catheter Indwelling Catheter # Bowel Movements 1 - Exam HENT: Has NG tube. Neuro: Is currently sleeping No facial weakness. SOME OF THE WORK-UP DURING THIS VISIT: Vitamin B12: 644 Folate: 10.80 Ammonia 19 HbA1c: 6.6 TSH is 38.8, free T4 is 0.84 and the free T3 is 2.4. CT head is reported as no acute intracranial process. remote lacunar injuries along with nonspecific white matter changes likely secondary to chronic microangiopathy. MRI Brain is reported as numerous punctate foci of acute infarct involving the frontal and parietal disease deep white matter region of both sides, bilateral thalamus and left basal ganglia. Additional small focus in the left paramedian vita. A couple foci measuring up to 1.0 cm involving the left splenium of the corpus callosum. Given the corresponding increased T2 flare, findings suggest small infarcts is greater than 6 hours in duration. Consider central thromboembolic phenomena. Background of severe burden of chronic small vessel ischemic disease. I personally reviewed the MRI and agree with the report. EEG is abnormal. The background slowing is suggestive of moderate encephalopathy. Otherwise no focal slowing, epileptiform discharges or seizures. - Labs CBC & Chem 7: 02/23/23 05:21 02/23/23 05:21 Labs: Abnormal Lab Results - Last 24 Hours (Table) 02/23/23 02/23/23 Range/Units 05:21 05:21 RBC 5.92 H (3.80-5.40) m/uL Hct 50.8 H (34.0-46.0) % Sodium 131 L (137-145) mmol/L Chloride 88 L (98-107) mmol/L Carbon Dioxide 36 H (22-30) mmol/L BUN 29 H (7-17) mg/dL Creatinine 1.26 H (0.52-1.04) mg/dL Glucose 103 H (74-99) mg/dL Microbiology - Last 24 Hours (Table) 02/18/23 20:57 Blood Culture - Preliminary Blood 02/18/23 21:05 Blood Culture - Preliminary Blood Assessment and Plan Assessment: This is a 57-year-old woman with history of hypertension and is not compliant taking medication who presented because of generalized weakness, confusion, falls for the past weeks to months. Altered mental status seems due to multifactorial: acute bilateral hemispheric stroke, Also due to hypertensive encephalopathy with component due to abnormal thyroid and some component of metabolic. Acute ischemic bilateral hemispheric stroke: Appears embolic in nature. Rule out cardioembolic vs underlying hypercoagulable. Acute hypertensive emergency (presented with blood pressure 230's/170's--cur rently is 130-140's/80's to 90's) she was on nitroglycerin, she received clonidine patch as well as IV hydralazine. Currently on Is on Clvprx 1mg/hr. Generalized weakness Acute bilateral femoral occlusive disease with ischemic changes over the left toe Falls Possible TIA about 4-5 months ago (had transient right facial weakness per ). Systolic heart failure with ejection fraction of 30-35% Elevated troponin Hypothyroidism Peripheral vascular disease Chronic history of hypertension and noncompliant with medication Tobacco use Alcohol use Noncompliance with medication and does not follow up with physician Plan: Because of result of MRI Brain revealing bilateral hemispheric stroke. No IV tpa since unknown last normal and risk of IV tpa outweigh benefit. I ordered CTA of head and lipid panel. Recommend to pursue with YANDEL. If YANDEL is negative then recommend 30 day holter monitor to rule out any a-fib or flutter. I ordered hypercoagulable work-up. She is on ASA 325mg daily and recommend if stable to be on Plavix 75mg daily. I started her on Lipitor 80mg qhs for secondary stroke prophylaxis. Continue neuro checks On cardiac monitoring. PT, OT and HEARING AID REPAIRER are consulted. Cardiology is on board. Continue thiamine 100mg daily. Please avoid any sedation if possible to have a better neurological evaluation. Vascular surgery team for bilateral femoral occlusive disease. Also has leg toes ischemia. Will defer rest of management to primary and other specialist. For DVT prophylaxis: On Enoxaparin. The plan is discussed with patient's who is at bedside and her nurse. Time with Patient: Less than 30
[2023-02-23] MEDS: SODIUM CHLORIDE 0.9% 1,000 ML IV SCH (18:32)
[2023-02-23] MEDS: ATORVASTATIN 80 MG TAB PO SCH (20:23)
[2023-02-23 20:59] LABS: Chol/HDL Ratio 4.75 Ratio; LDL Cholesterol,Calculated 125.5 mg/dL
[2023-02-24 05:21] LABS: African American GFR (CKD) 56 (>60 ml/min/1.73 sqM); Anion Gap 8 mmol/L; Blood Urea Nitrogen 33 mg/dL (7-17); Calcium 9.1 mg/dL (8.4-10.2); Carbon Dioxide 35 mmol/L (22-30); Chloride 88 mmol/L (98-107); Glucose 100 mg/dL (74-99); Non-African American GFR(CKD) 49 (>60 ml/min/1.73 sqM); Potassium 3.9 mmol/L (3.5-5.1); Sodium 131 mmol/L (137-145)
[2023-02-24 05:36] LABS: Basophils % (A) 0 %; Eosinophils # (A) 0.2 k/uL (0-0.7); Eosinophils % (A) 2 %; HCT 51.8 % (34.0-46.0); HGB 16.6 gm/dL (11.4-16.0); Lymphocytes # (A) 0.8 k/uL (1.0-4.8); Lymphocytes % (A) 11 %; MCH 27.3 pg (25.0-35.0); MCHC 32.1 g/dL (31.0-37.0); Mean Platelet Volume 9.1; Monocytes # (A) 0.5 k/uL (0-1.0); Monocytes % (A) 6 %; Neutrophils # (A) 5.6 k/uL (1.3-7.7); Neutrophils % (A) 78 %; Platelet Count 227 k/uL (150-450); RBC 6.09 m/uL (3.80-5.40); RDW 15.4 % (11.5-15.5); WBC 7.2 k/uL (3.8-10.6)
[2023-02-24] MEDS ORDERED: POTASSIUM BICARBONATE/CIT AC 20 MEQ TABLET.EFF NG-TUBE SCH (06:00)
[2023-02-24] MEDS: carvediloL 12.5 MG TAB PO SCH ×2 (06:31→16:40)
[2023-02-24] MEDS: LEVOTHYROXINE 50 MCG TAB PO SCH (06:31)
[2023-02-24] MEDS: PANTOPRAZOLE 40 MG TABLET PO SCH (06:31)
--- NOTE | 2023-02-24 08:45 | P.PN ---
Subjective PROGRESS NOTE The patient is a 57-year-old female who was admitted to the hospital with symptoms of confusion, multiple falls, weakness. The history is obtained from the records. The patient is not answering question quite somnolent after receiving Ativan. According to the records the patient has not been taking her medications are home. She has a history of hypertension, diabetes and hyperlipidemia full detail of her prior history or medication is unclear. She was noted to be severely hypertensive, elevated NT proBNP and TSH on presenta tion. She was in sinus mechanism on presentation. She had peripheral edema and discoloration of the toes on the left lower extremity. According to the notes she's a daily smoker and she uses marijuana. I am unable to obtain any other history. Her echocardiogram performed this morning showed a severely impaired left ventricle systolic function February 20: The patient remains confused, answering questions inappropriately. Her blood pressure has been elevated off Clevidipine. She is not taking by mouth medication because of a question of the swallowing. She continues to be in sinus mechanism. She has a good urinary output on IV Lasix. She continues to be on IV heparin. Her EKG showed T-wave inversion in the anterolateral lateral leads. Her brain CT showed lacunar infarct but no acute bleeding. Duplex scan of the lower extremities showed no evidence of DVT. She continues to have di scoloration of the left foot toes. February 21 : The patient remains confused, opening eyes to verbal stimulation. She failed her swallow evaluation and continues to be nothing by mouth, receiving IV medi cation. Her blood pressure has been relatively stable. There is no evidence of malignant arrhythmia. Her urine output is stable. She underwent a CT angiogram of the abdomen and chest and was found to have an abdominal aortic aneurysm and severe PAD, bilaterally. Her free T3 was low. 02/22 Patient seen and examined. Patient stating she is hungry. He continues be confused. Left lower extremity somewhat improved color per nurse with continued discoloration with fourth and fifth digit. She admits the pain all over including her lower extremities. Blood pressures remain elevated 145/107. She is not eating much orally. 02/23 Patient seen and examined. Patient had increased blood pressures in the systolics 170s yesterday and therefore clonidine was increased to 0.2 milligrams oral twice a day. Blood pressure did decrease down to 110s. She has been more altered this morning with more lethargy and not answering questions appropriately. This does appear to be somewhat in the material cutter and may be correlated with drop in blood pressure. Therefore discussed stopping the clonidine and holding lisinopril for now for mild permissive hypertension with mental status changes. Has been receiving Lasix with good urine output. Creatinine stable at 1.2. / Seen and examined. Patient had altered mental status yesterday however mildly be improved today. MRI showed concern of thromboembolic etiology with bilateral infarcts. Carotid imaging does show bilateral disease. Patient has been in sinus rhythm. Patient is somewhat more alert today and complaining of substernal chest pain without significant shortness breath. Patient still continues and alert and oriented to self. Left lower extremity appears stable without worsened discoloration or ischemia. She has been on Lovenox drip. PHYSICAL EXAMINATION: Vitals reviewed LUNGS: Clear to auscultation HEART: Regular rate and rhythm, S1, S2. No S3. systolic ejection murmur ABDOMEN: Soft, nontender, no organomegaly EXTREMETIES: No edema, discoloration of the toes on the left with decreased pulses IMPRESSION: 1. Uncontrolled hypertension 2. Encephalopathy could be related to hypertension, workup in progress 3. Abnormal EKG rule out ischemia 4. Abnormal renal functions, improving 5. Probable peripheral vascular disease 6. Lacunar infarct 7. Severe cardiomyopathy of unknown etiology or duration probable hypertensive rule out ischemic 8. Worsened altered mental status with MRI showing bilateral infarcts concerning for thromboembolic disease 9. Chest pain 10. Bilateral carotid disease 11. PAD with bilateral SFA disease PLAN: Continue with heart failure regimen with lisinopril and carvedilol. Hold Lasix given no significant edema currently and patient nothing by mouth. Neurology recommendations appreciated and likely YANDEL today Patient confused however complaining of chest pain today and we will recheck troponins and EKG. Prognosis guarded Will eventually need ischemic workup of cardiomyopathy Objective - Vital Signs Vital signs: Vital Signs Temp 98 F 02/24/23 04:00 Pulse 54 L 02/24/23 07:00 Resp 18 02/24/23 07:00 BP 136/92 02/24/23 07:00 Pulse Ox 99 02/24/23 07:00 FiO2 Intake & Output 02/23/23 02/24/23 02/24/23 18:59 06:59 18:59 Intake Total 340 240 20 Output Total 390 625 0 Balance -50 -385 20 Weight 59.5 kg Intake: IV 240 240 20 IV Fluid 240 240 20 Intake, IV Titration 100 Amount Potassium Chloride 10 meq 100 In Water For Injection 1 100ml.bag @ 100 mls/hr IVPB Q1H [facility] Rx#: [id number] Output: Urine 390 625 0 Other: Voiding Method Indwelling Catheter Indwelling Catheter - Labs CBC & Chem 7: 02/24/23 04:38 02/24/23 04:38 Labs: Abnormal Lab Results - Last 24 Hours (Table) 02/23/23 02/23/23 02/24/23 Range/Units 13:04 14:38 04:38 RBC 6.09 H (3.80-5.40) m/uL Hgb 16.6 H (11.4-16.0) gm/dL Hct 51.8 H (34.0-46.0) % Lymphocytes # 0.8 L (1.0-4.8) k/uL Sodium (137-145) mmol/L Chloride (98-107) mmol/L Carbon Dioxide (22-30) mmol/L BUN (7-17) mg/dL Creatinine (0.52-1.04) mg/dL Glucose (74-99) mg/dL Triglycerides 225.00 H mg/dL Cholesterol 216.00 H mg/dL VLDL Cholesterol, Calc 45.00 H mg/dL Homocysteine 27.90 H UMOL/L 02/24/23 Range/Units 04:38 RBC (3.80-5.40) m/uL Hgb (11.4-16.0) gm/dL Hct (34.0-46.0) % Lymphocytes # (1.0-4.8) k/uL Sodium 131 L (137-145) mmol/L Chloride 88 L (98-107) mmol/L Carbon Dioxide 35 H (22-30) mmol/L BUN 33 H (7-17) mg/dL Creatinine 1.23 H (0.52-1.04) mg/dL Glucose 100 H (74-99) mg/dL Triglycerides mg/dL Cholesterol mg/dL VLDL Cholesterol, Calc mg/dL Homocysteine UMOL/L Microbiology - Last 24 Hours (Table) 02/18/23 20:57 Blood Culture - Preliminary Blood 02/18/23 21:05 Blood Culture - Preliminary Blood
--- NOTE | 2023-02-24 09:34 | P.PN ---
Subjective Progress Note Date: 02/24/23 Principal diagnosis: Altered mental status changes Patient seen and evaluated today in the ICU. Patient is more awake and alert today. She is still only alert to self. However she is able to answer some questions and states that she has pain all over her body. She dozes in and out of sleep. Yesterday patient underwent MRI of the brain which reported numerous punctate foci of acute infarcts involving the frontal and parietal cortical cysts, deep white matter regions on both sides, bilateral thalami and left basal ganglia. Additional small focus in the left paramedian vita. Couple foci measuring up to 1 cm involving the left splenium of the corpus colostrum. Giving increased T2 signal findings suggest small infarcts greater than 6 hours in duration. Consider central thromboembolic phenomenon. Background of severe burden of chronic small vessel ischemic disease. Neurology which he is following patient also ordered a CT angiogram head and neck with findings of 60- 70% stenosis of the right ICA and 7080% stenosis of the left ICA. Patient is scheduled today to undergo YANDEL. Cardiology continues to follow. Blood pressures have improved some. Left foot/toes ischemia stable. Objective - Vital Signs Vital signs: Vital Signs Temp 98 F 02/24/23 04:00 Pulse 54 L 02/24/23 07:00 Resp 18 02/24/23 07:00 BP 136/92 02/24/23 07:00 Pulse Ox 99 02/24/23 07:00 FiO2 Intake & Output 02/23/23 02/24/23 02/24/23 18:59 06:59 18:59 Intake Total 340 240 20 Output Total 390 625 0 Balance -50 -385 20 Weight 59.5 kg Intake: IV 240 240 20 IV Fluid 240 240 20 Intake, IV Titration 100 Amount Potassium Chloride 10 meq 100 In Water For Injection 1 100ml.bag @ 100 mls/hr IVPB Q1H [facility] Rx#: [id number] Output: Urine 390 625 0 Other: Voiding Method Indwelling Catheter Indwelling Catheter - Exam General appearance: The patient is drowsy, sleeping. Appears in no acute distress. HET: Head is normocephalic and atraumatic. Neck: Supple. Extremities: Left great toe, third toe and pinky toe with areas of purple discoloration, surrounding skin pink. Bilateral lower extremity and feet warm to the touch. Good capillary refill. Nonpalpable popliteal, DP PT pulses bilaterally. Sensorimotor intact. Neurological: Patient is drowsy, sleeping. - Labs CBC & Chem 7: 02/24/23 04:38 02/24/23 04:38 Labs: Abnormal Lab Results - Last 24 Hours (Table) 02/23/23 02/23/23 02/24/23 Range/Units 13:04 14:38 04:38 RBC 6.09 H (3.80-5.40) m/uL Hgb 16.6 H (11.4-16.0) gm/dL Hct 51.8 H (34.0-46.0) % Lymphocytes # 0.8 L (1.0-4.8) k/uL Sodium (137-145) mmol/L Chloride (98-107) mmol/L Carbon Dioxide (22-30) mmol/L BUN (7-17) mg/dL Creatinine (0.52-1.04) mg/dL Glucose (74-99) mg/dL Triglycerides 225.00 H mg/dL Cholesterol 216.00 H mg/dL VLDL Cholesterol, Calc 45.00 H mg/dL Homocysteine 27.90 H UMOL/L 02/24/23 Range/Units 04:38 RBC (3.80-5.40) m/uL Hgb (11.4-16.0) gm/dL Hct (34.0-46.0) % Lymphocytes # (1.0-4.8) k/uL Sodium 131 L (137-145) mmol/L Chloride 88 L (98-107) mmol/L Carbon Dioxide 35 H (22-30) mmol/L BUN 33 H (7-17) mg/dL Creatinine 1.23 H (0.52-1.04) mg/dL Glucose 100 H (74-99) mg/dL Triglycerides mg/dL Cholesterol mg/dL VLDL Cholesterol, Calc mg/dL Homocysteine UMOL/L Microbiology - Last 24 Hours (Table) 02/18/23 20:57 Blood Culture - Preliminary Blood 02/18/23 21:05 Blood Culture - Preliminary Blood Assessment and Plan Assessment: 1. Bilateral femoral occlusive disease, chronic 2. Left great toe and third, fourth toe ischemic changes, stable 3. Brain MRI showing Multiple bilateral acute infarcts 4. Bilateral ICA stenosis 5. Altered mental status changes 6. Hypertension, uncontrolled, noncompliant with medications 7. Hypothyroid, noncompliant with medications 8. Cardiomegaly 9. Diabetes mellitus, noncompliant with medications 10. Elevated troponins Plan: 1. Continue supportive care 2. CTA of lower extremities reviewed with bilateral SFA occlusions with one- vessel runoff. Appears chronic 3. Ischemia to toes improving, no planned vascular surgical intervention during this hospitalization 4. Patient may benefit from endovascular revascularization of the left SFA, this can be done as an outpatient 5. Patient scheduled for YANDEL today 6. Head and neck CT angiogram images reviewed, carotid stenosis likely closer to 70% bilaterally. However unlikely cause of bilateral infarcts. Carotid duplex ordered. 7. Await further recommendations from neurology 8. Further recommendations forthcoming for bilateral ICA stenosis based on patient's clinical course 9. Medical management deferred to primary medical team Thank you for this consultation, we will continue to follow. The impression and plan of care has been dictated as directed. I performed a history and examination of this patient, discussed the same with the dictator. I agree with the dictator's note ,documented as a scribe. Any additional findings or plans will be noted.
[2023-02-24] MEDS: NICOTINE 14MG/24HR PATCH TRANSDERM SCH (10:21)
[2023-02-24] MEDS: ASPIRIN 325 MG TAB PO SCH (10:21)
[2023-02-24] MEDS: ENOXAPARIN 40 MG/0.4 ML SYRINGE SQ SCH (10:22)
[2023-02-24] MEDS: THIAMINE 100 MG TAB PO SCH (10:22)
[2023-02-24] MEDS: lisinopriL 20 MG TAB PO SCH ×2 (10:22→21:15)
[2023-02-24 10:43] LABS: Anti-Thrombin III Antigen 87 % (80 - 120); Protein S Antigen 100 % (50 - 140)
[2023-02-24] MEDS ORDERED: fentaNYL (PF) 50 MCG/ML 2 ML AMP IVP PRN (12:13)
[2023-02-24] MEDS ORDERED: MIDAZOLAM 1 MG/ML 5 ML VIAL IV PRN (12:14)
--- NOTE | 2023-02-24 12:24 | P.PN ---
Subjective Progress Note Date: 02/24/23 Patient seen at bedside and per the patient nurse the she is drowsy but is more awake a ball today and responsive. She's bending to have a transesophageal echocardiogram today Objective - Vital Signs Vital signs: Vital Signs Temp 97.8 F 02/24/23 08:00 Pulse 56 L 02/24/23 11:00 Resp 17 02/24/23 11:00 BP 149/106 02/24/23 11:00 Pulse Ox 99 02/24/23 11:00 FiO2 Intake & Output 02/23/23 02/24/23 02/24/23 18:59 06:59 18:59 Intake Total 340 240 80 Output Total 390 625 100 Balance -50 -385 -20 Weight 59.5 kg Intake: IV 240 240 80 IV Fluid 240 240 80 Intake, IV Titration 100 Amount Potassium Chloride 10 meq 100 In Water For Injection 1 100ml.bag @ 100 mls/hr IVPB Q1H [facility] Rx#: [id number] Output: Urine 390 625 100 Other: Voiding Method Indwelling Catheter Indwelling Catheter Indwelling Catheter - Exam HENT: Has NG tube. Neuro: Is mildly drowsy but is awakeable to voice. Is oriented to self. She stated she was at Urgent care. Is following few simple commands. No aphasia from limited language. No facial weakness. Has mild dysarthria. Motor: Hard to assess but is lifting bilateral upper above gravity and wiggling toes symmetrically. SOME OF THE WORK-UP DURING THIS VISIT: Vitamin B12: 644 Folate: 10.80 Ammonia 19 HbA1c: 6.6 TSH is 38.8, free T4 is 0.84 and the free T3 is 2.4. CT head is reported as no acute intracranial process. remote lacunar injuries along with nonspecific white matter changes likely secondary to chronic microangiopathy. MRI Brain is reported as numerous punctate foci of acute infarct involving the frontal and parietal disease deep white matter region of both sides, bilateral thalamus and left basal ganglia. Additional small focus in the left paramedian vita. A couple foci measuring up to 1.0 cm involving the left splenium of the corpus callosum. Given the corresponding increased T2 flare, findings suggest small infarcts is greater than 6 hours in duration. Consider central thromboembolic phenomena. Background of severe burden of chronic small vessel ischemic disease. I personally reviewed the MRI and agree with the report. EEG is abnormal. The background slowing is suggestive of moderate encephalopathy. Otherwise no focal slowing, epileptiform discharges or seizures. LASHA is negative, ESR is 2, Protein S and antithrombin II Ag is within normal limits. - Labs CBC & Chem 7: 02/24/23 04:38 02/24/23 04:38 Labs: Abnormal Lab Results - Last 24 Hours (Table) 02/23/23 02/23/23 02/24/23 Range/Units 13:04 14:38 04:38 RBC 6.09 H (3.80-5.40) m/uL Hgb 16.6 H (11.4-16.0) gm/dL Hct 51.8 H (34.0-46.0) % Lymphocytes # 0.8 L (1.0-4.8) k/uL Sodium (137-145) mmol/L Chloride (98-107) mmol/L Carbon Dioxide (22-30) mmol/L BUN (7-17) mg/dL Creatinine (0.52-1.04) mg/dL Glucose (74-99) mg/dL Troponin I (0.000-0.034) ng/mL Triglycerides 225.00 H mg/dL Cholesterol 216.00 H mg/dL VLDL Cholesterol, Calc 45.00 H mg/dL Homocysteine 27.90 H UMOL/L 02/24/23 02/24/23 Range/Units 04:38 08:48 RBC (3.80-5.40) m/uL Hgb (11.4-16.0) gm/dL Hct (34.0-46.0) % Lymphocytes # (1.0-4.8) k/uL Sodium 131 L (137-145) mmol/L Chloride 88 L (98-107) mmol/L Carbon Dioxide 35 H (22-30) mmol/L BUN 33 H (7-17) mg/dL Creatinine 1.23 H (0.52-1.04) mg/dL Glucose 100 H (74-99) mg/dL Troponin I 0.106 H* (0.000-0.034) ng/mL Triglycerides mg/dL Cholesterol mg/dL VLDL Cholesterol, Calc mg/dL Homocysteine UMOL/L Microbiology - Last 24 Hours (Table) 02/18/23 20:57 Blood Culture - Final Blood 02/18/23 21:05 Blood Culture - Final Blood Assessment and Plan Assessment: This is a 57-year-old woman with history of hypertension and is not compliant taking medication who presented because of generalized weakness, confusion, falls for the past weeks to months. Altered mental status seems due to multifactorial: acute bilateral hemispheric stroke, Also due to hypertensive encephalopathy with component due to abnormal thyroid and some component of metabolic--mild improvement in mentation Acute ischemic bilateral hemispheric stroke: Unsure exact cause. Appears embolic in nature. Rule out cardioembolic vs underlying hypercoagulable vs due to artery to artery embolic from carotid stenosis. Per CTA has right ICA stenosis 60-70% and left 70-80% Signficant Bilateral carotid stenosis right ICA stenosis 60-70% and left 70-80% per CTA Acute hypertensive emergency (presented with blood pressure 230's /170's--currently is 130-140's/80's to 90's) she was on nitroglycerin, she received clonidine patch as well as IV hydralazine--resolved Generalized weakness Acute bilateral femoral occlusive disease with ischemic changes over the left toe Falls Possible TIA about 4-5 months ago (had transient right facial weakness per ). Systolic heart failure with ejection fraction of 30-35% Elevated troponin Hypothyroidism Peripheral vascular disease Chronic history of hypertension and noncompliant with medication Tobacco use Alcohol use Noncompliance with medication and does not follow up with physician Plan: Because of result of MRI Brain revealing bilateral hemispheric stroke. No IV tpa since unknown last normal and risk of IV tpa outweigh benefit. Recommend to pursue with YANDEL and scheduled today. If YANDEL is negative then recommend 30 day holter monitor to rule out any a-fib or flutter. LASHA is negative, ESR is 2, Protein S and antithrombin II Ag is within normal limits. Pending rest of hypercoagulable work-up. I consulted hematology team for further work-up of hypercoagulable especially since has multiple issues (bilateral hemispheric strokes and bilateral femoral occlusion). She is on ASA 325mg daily and recommend if stable to be on Plavix 75mg daily. If does have positive cardiac thrombus vs a-fib/flutter or positive hypercoagulable work-up then recommend to start anticoagulation and no need for dual antiplatelets. On Lipitor 80mg qhs for secondary stroke prophylaxis. Continue neuro checks On cardiac monitoring. PT, OT and LICENSING ENGINEER are consulted. Cardiology is on board. Continue thiamine 100mg daily. Please avoid any sedation if possible to have a better neurological evaluation. Vascular surgery team for bilateral femoral occlusive disease. Also has leg toes ischemia. I discussed with them about bilateral ICA stenosis and will pursue with carotid duplex. Will defer rest of management to primary and other specialist. For DVT prophylaxis: On Enoxaparin. The plan is discussed with patient's ICU attending and vascular surgery team. Dr. Gallagher will start neurology service tomorrow A.M. Time with Patient: Less than 30
[2023-02-24 12:55] LABS: Anti-Thrombin III Activity 99 % (79-109); Protein C (Activity) 67 % (54-117)
--- NOTE | 2023-02-24 13:00 | US ---
EXAMINATION TYPE: US carotid duplex BILAT DATE OF EXAM: 02/24/2023 COMPARISON: CTA head and neck 02/23/2023 CLINICAL INDICATION: Female, 57 years old with history of acute infarcts; TECHNIQUE: Carotid duplex ultrasound examination. Indirect Doppler criteria was utilized. FINDINGS: EXAM MEASUREMENTS: RIGHT: Peak Systolic Velocity (PSV) cm/sec ----- Right CCA: 88.1 ----- Right ICA: 194 ----- Right ECA: 105 ICA/CCA ratio: 2.20 RIGHT: End Diastole cm/sec ----- Right CCA: 22.0 ----- Right ICA: 75.9 ----- Right ECA: 14.7 LEFT: Peak Systolic Velocity (PSV) cm/sec ----- Left CCA: 97.6 ----- Left ICA: 148 ----- Left ECA: 105 ICA/CCA ratio: 1.52 LEFT: End Diastole cm/sec ----- Left CCA: 16.6 ----- Left ICA: 59.0 ----- Left ECA: 11.7 VERTEBRALS (direction of flow): Right Vertebral: Antegrade Left Vertebral: Antegrade Rhythm: Normal POTATO CHIP SORTER NOTES: Moderate plaque bilateral bifurcations. Increased velocities bilateral ICA's IMPRESSION: Moderate atherosclerotic plaque in the bilateral carotid bifurcations with 50-69 % stenosis at the or igins of the bilateral internal carotid arteries. Criteria for Assigning % of Stenosis / Diameter reduction (Estimation based on the indirect measurements of the internal carotid artery velocities (ICA PSV). 1. Normal (no stenosis)=ICA PSV < 125 cm/s: ratio < 2.0: ICA EDV<40 cm/s. 2. Less than 50% stenosis=ICA PSV < 125 cm/s: ratio < 2.0: ICA EDV<40 cm/s. 3. 50 to 69% stenosis=ICA PSV of 125 to 230 cm/s: ration 2.0 ? 4.0: ICA EDV 40-100 cm/s. 4. Greater than 70% stenosis to near occlusion= ICA PSV > 230 cm/s: ratio > 4.0: ICA EDV > 100 cm/s. 5. Near occlusion= ICA PSV velocities may be low or undetectable: variable ratio and ICA EDV. 6. Total occlusion=unable to detect flow.
[2023-02-24 13:08] LABS: Prothrombin 20210A Mutation Heterozygous
--- NOTE | 2023-02-24 13:17 | P.PCN ---
Date of Procedure: 02/24/23 Description of Procedure: Indication: Evaluation of cardiac source for embolization Procedure Description: After explaining the procedure to the patient, it's risk and complications, blood pressure, heart rate and O2 saturation were monitored. The throat was sprayed with Cetacaine. Patient received 1 mg intravenous Versed, 50 mcg intravenous fentanyl. The probe was introduced into the esophagus without difficulty. Images were obtained. Following that, the probe was removed. There was no immediate complication. Findings: Left atrial size is normal, the ventricle size is normal. Severe concentric left ventricle hypertrophy was noted with speckling. The left ventricle systolic function is moderately impaired, ejection fraction 40-45%. The aortic valve, mitral valve and tricuspid valve are normal. Descending thoracic aorta revealed mild atherosclerotic changes. Contrast bubble study revealed no shunting across the intra-atrial septum. No pericardial effusion was noted. Doppler: Pulse wave and color Doppler were obtained, and revealed mild aortic with mild mitral regurgitation. There was no shunting across the intra-atrial septum. Conclusion: 1. Moderately impaired left ventricle systolic function with global hypokinesis and severe hypertrophy with speckling raising the possibility of infiltrative disease 2. No evidence of shunting across the intra-atrial septum 3. Mild aortic and mitral regurgitation 4. No pericardial effusion 5. Mild atherosclerotic changes of the descending aorta
--- NOTE | 2023-02-24 13:44 | P.PN ---
Subjective Progress Note Date: 02/24/23 Principal diagnosis: Hypertensive emergency with acute metabolic encephalopathy 57-year-old female patient, was rolled into the intensive care unit, lethargic, weak and will confused, under the effect of Ativan that was given to her in the emergency and the patient's received a total of 2 mg of IV Ativan. Meanwhile, the patient was having weakness, confusion and multiple falls and the ended up bringing her to the hospital. I do not believe that she has seen any physicians. Upon arrival, the patient's was noted to have an elevated blood pressure. She was confused. Her EKG showed sinus rhythm with some nonspecific ST segment changes. Chest x-ray showed cardiomegaly with mild pulmonary vessel congestion. BUN was 32 with a creatinine of 1.2 and a white cell count of 7.1. The serum alcohol was negative. Her rest of the blood work showed normal electrolytes, BUN of 32 with a creatinine of 1.2. ProBNP level was 60,000, TSH was 38, free T4 was 0.8. Urine drug screen was negative. UA was negative. The cecum was 7.0 with a hemoglobin of 15.6. Echocardiogram was done this morning and it showed an ejection fraction of 30-35% with moderate to severe LV H, no significant valvular abnormalities and there was moderate to severe left ventricular hypertrophy. Note that patient's initial blood pressure at the time of her emergency department evaluation was as high as 228/159. For now, the patient is on a nitroglycerin drip running at 100 mcg/m. She is on IV heparin. She was given clonidine patch. She was also given hydralazine 10 mg IV every 4 hours. On a separate note, the patient was noted to have some bluish discoloration of her great toe and the left foot. The patient has Doppler signals bilaterally. The patient also has adequate femoral and popliteal pulses. While in the emergency, the patient was given Ativan. I saw her in the intensive care unit. She is gradually waking up and active and affect is wearing off. No signs of any significant respiratory compromise. She is currently on oxygen at 2 L with a pulse ox of 91%. On today's evaluation of 02/20/2023, patient is more awake compared to yesterday. She is arousable and she is communicating. She is aware of her name. She is not aware of her location. No focal neurological deficits. CAT scan of the brain was completed yesterday showed lacunar infarcts probably related to her chronic uncontrolled blood pressure. Patient is currently on 4 L of action by nasal cannula. Chest x-ray shows a small left-sided pleural effusion. Echocardiogram was completed yesterday and it showed severe LVH along with impaired on the function with an ejection fraction of 30-35% and the patient remains in normal sinus rhythm. Pulse ox 98% on [address] by nasal cannula. Her blood pressure was managed by Drip and currently the drip is off. The patient is taken IV Lasix 40 mg every 12 hours. The patient was taken off the nitroglycerin drip. She is receiving hydralazine 10 mg IV every 8 hours. I'm not sure if she is awake enough to start oral medications. This will be decided at the later stage I the patient is more alert and awake. She remains on IV heparin which will be discontinued today. In terms of her labs, the WBC count of 8.3 with a hemoglobin of 17. The BUN is 24 with a creatinine of 1.1 and his sodium levels of 138. GFR is at 54. The medication list was noted. Neurologic consultation was obtained. Vascular Doppler of the lower oximetry was done and the Doppler venous was negative. The patient does have chronic ischemic changes to her left foot, no open wounds or ulceration. Dopplers signals are present in her feet bilaterally. On 02/21/2023, the patient remains encephalopathic and confused. She failed her swallow evaluation and the patient was not transitioned to oral medications. He remains on Catapres at 2 mg an hour and her blood pressure is under adequate control at this point in time. The patient also is on a clonidine patch. She is on oxygen at 2 L/m nasal cannula. King cath is in place. The patient remains on IV heparin. Ischemic changes in lower extremity have improved and the patient seems to be better perfused her left lower extremity on today's evaluation. Cardiac rhythm is sinus. She remains on he was the patient is still swallow evaluation. No fever. No other significant events overnight. The patient is a sitter at the bedside. In terms of her blood work, the patient has a white cell count of 7 with a hemoglobin of 16 and a platelet count of 259. PTT is therapeutic at 75 with a normal PT and INR. Electrolytes are still pending for now. The blood cultures have been negative. CT angiography of the thoracic and abdominal wart that was completed. 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 There is also proximal abdominal aortic aneurysm measuring 3 CMN. There is less than 50% stenosis of the common iliac arteries. External iliac arteries and the internal iliac arteries are essentially patent for now. Reevaluated today on 02/22/23, patient remains in the ICU, patient remains confused, her mental status is quite normal. Patient is confused, not in any distress, and I found out that her mental status has been like this and worsen ing more so over the last 2 weeks. Patient is scheduled to have MRI today. She is being followed by many consultants, including neurology, vascular surgery, and cardiology. Labs today were basically unremarkable, WBC 6.1 hemoglobin is 15.8, patient did have significantly elevated TSH on admission with a low T4 of 0.84. And she was also noted to have significantly elevated BNP level. Over 60,000. However chest x-ray showed no evidence of congestive heart failure there was only evidence of cardiomegaly without acute process. Reevaluated today on 02/23/2023, patient is date about the same, remains encephalopathic, MRI showed numerous punctate foci of acute infarcts involving the frontal and parietal cortices. Also involving the deep white matter regions on both sides. The radiologist felt there could be a possibility of central thromboembolic phenomenon, and there is a background of severe burden of chronic small vessel ischemic disease. We will let neurology address this finding and decide whether further workup is necessary including workup for central thromboembolic phenomena. WBC count is 6.2 hemoglobin 16 in dextrose are normal renal profile is slightly abnormal with BUN of 29 creatinine 1.26, slightly worse compared to yesterday Reevaluated today on 02/24/2023, patient remains in the ICU, she is less encephalopathic today, she is opening her eyes, following simple instructions like wiggling toes, sticking out tongue, squeezing hands, definitely improved mentally compared to the last couple of days. The neurologist is recommending workup for possible thromboembolic phenomenon/central, and YANDEL was performed today, showed impaired LV function and global hypokinesis, and severe hypertrophy with speckling raising the possibility of infiltrative disease. There was no evidence of shunting. There was evidence of mild aortic and mild mitral regurgitation. Carotid Doppler showed moderate atherosclerotic plaque in bilateral carotid arteries with 50-69% stenosis. Objective - Vital Signs Vital signs: Vital Signs Temp 97.8 F 02/24/23 12:00 Pulse 57 L 02/24/23 13:00 Resp 12 02/24/23 13:00 BP 164/92 02/24/23 13:00 Pulse Ox 97 02/24/23 13:00 FiO2 Intake & Output 02/23/23 02/24/23 02/24/23 18:59 06:59 18:59 Intake Total 340 240 80 Output Total 390 625 100 Balance -50 -385 -20 Weight 59.5 kg Intake: IV 240 240 80 IV Fluid 240 240 80 Intake, IV Titration 100 Amount Potassium Chloride 10 meq 100 In Water For Injection 1 100ml.bag @ 100 mls/hr IVPB Q1H [facility] Rx#: [id number] Output: Urine 390 625 100 Other: Voiding Method Indwelling Catheter Indwelling Catheter Indwelling Catheter - Exam Physical Exam: Revealed a 57-year-old female in no distress, seems to be less encephalopathic today, HEENT:[Neck is supple.] [No neck masses.] [No thyromegaly.] [No JVD.] Chest: [Clear throughout, no crackles, no rhonchi, no wheezes.] Cardiac Exam: [Normal S1 and S2, no S3 gallop, no murmur.] Abdomen: [Soft, nontender, no megaly, no rebound, no guarding, normal bowel sounds.] Extremities: [No clubbing, no edema, however there is evidence of bluish discoloration of the great toe on the left foot. And poor peripheral pulses, feet are not cold to touch Neurological Exam: Opens eyes, follows simple instructions, Psychiatric: Depressed mood, flat affect, encephalopathy is improving. Extremities, there is evidence of cyanosis of great toe on the left foot. No rashes. - Labs CBC & Chem 7: 02/24/23 04:38 02/24/23 04:38 Labs: Abnormal Lab Results - Last 24 Hours (Table) 02/23/23 02/23/23 02/23/23 Range/Units 13:04 13:04 13:04 RBC (3.80-5.40) m/uL Hgb (11.4-16.0) gm/dL Hct (34.0-46.0) % Lymphocytes # (1.0-4.8) k/uL Factor V Leiden Mutat Heterozygous A Sodium (137-145) mmol/L Chloride (98-107) mmol/L Carbon Dioxide (22-30) mmol/L BUN (7-17) mg/dL Creatinine (0.52-1.04) mg/dL Glucose (74-99) mg/dL Troponin I (0.000-0.034) ng/mL Triglycerides mg/dL Cholesterol mg/dL VLDL Cholesterol, Calc mg/dL Homocysteine 27.90 H UMOL/L Prothrombin [id number] Mut Heterozygous A 02/23/23 02/24/23 02/24/23 Range/Units 14:38 04:38 04:38 RBC 6.09 H (3.80-5.40) m/uL Hgb 16.6 H (11.4-16.0) gm/dL Hct 51.8 H (34.0-46.0) % Lymphocytes # 0.8 L (1.0-4.8) k/uL Factor V Leiden Mutat Sodium 131 L (137-145) mmol/L Chloride 88 L (98-107) mmol/L Carbon Dioxide 35 H (22-30) mmol/L BUN 33 H (7-17) mg/dL Creatinine 1.23 H (0.52-1.04) mg/dL Glucose 100 H (74-99) mg/dL Troponin I (0.000-0.034) ng/mL Triglycerides 225.00 H mg/dL Cholesterol 216.00 H mg/dL VLDL Cholesterol, Calc 45.00 H mg/dL Homocysteine UMOL/L Prothrombin [id number] Mut 02/24/23 02/24/23 Range/Units 08:48 11:50 RBC (3.80-5.40) m/uL Hgb (11.4-16.0) gm/dL Hct (34.0-46.0) % Lymphocytes # (1.0-4.8) k/uL Factor V Leiden Mutat Sodium (137-145) mmol/L Chloride (98-107) mmol/L Carbon Dioxide (22-30) mmol/L BUN (7-17) mg/dL Creatinine (0.52-1.04) mg/dL Glucose (74-99) mg/dL Troponin I 0.106 H* 0.106 H* (0.000-0.034) ng/mL Triglycerides mg/dL Cholesterol mg/dL VLDL Cholesterol, Calc mg/dL Homocysteine UMOL/L Prothrombin [id number] Mut Microbiology - Last 24 Hours (Table) 02/18/23 20:57 Blood Culture - Final Blood 02/18/23 21:05 Blood Culture - Final Blood Assessment and Plan Assessment: Impression: Acute hypertensive emergency Acute decompensated heart failure with LV dysfunction, ejection fraction of 30- 35%. Acute metabolic encephalopathy, although the MRI findings are more consistent with small vessel disease and possible central thromboembolic phenomenon. Hypothyroidism. Peripheral vessel occlusive disease and ischemic changes of left lower extremity. Being addressed by vascular surgery on the case. Uncontrolled hypertension Severe cardiomyopathy and LV dysfunction Acute kidney injury on presentation likely secondary to hypertensive emergency. Resolved. Recommendation: Continue present supportive care measures Continue to monitor in the ICU now. Discussed condition with neurology today, there is definitely slight improvement in her mental status. Resume cardiac meds and blood pressure medications and monitor blood pressure accordingly. Continue to monitor electrolytes and renal profile. GI and DVT prophylaxis. We will continue to follow. Time with Patient: Less than 30
--- NOTE | 2023-02-24 13:50 | XR ---
EXAMINATION TYPE: XR abdomen 1V DATE OF EXAM: 02/24/2023 COMPARISON: NONE HISTORY: Tube placement TECHNIQUE: One view abdominal series FINDINGS: The osseous structures are intact. The bowel gas pattern is nonspecific. A tip of an NG tube is seen extending to the level of gastric fundus. There is left lower lobe consolidation and small effusion. A prominent bowel loops in the mid abdomen could be on the basis of an ileus or obstruction. Vascula r calcifications in the pelvis. Aortic calcification seen. Degenerative changes lower lumbar spine. S uspect bone island overlying the left acetabulum. IMPRESSION: 1. Nonspecific abdomen. I correlate for ileus or partial obstruction. 2. Left lower lobe consolidation and small effusion. 3. NG tube is seen with the tip at the level of the gastric fundus. Side-port is at the level of the GE junction. Recommend advancement by approximately 3 cm.
[2023-02-24 14:00] LABS: APTT 52 Sec(s) (<43); APTT 1:1 Mix 42 Sec(s) (<43); Dilute Russell Viper Venom 35 Sec(s) (<44)
[2023-02-24] MEDS: SODIUM CHLORIDE 0.9% 1,000 ML IV SCH (16:40)
[2023-02-24] MEDS: hydrALAZINE HCL 20 MG/ML 1 ML VIAL IVP PRN ×2 (17:28→23:05)
--- NOTE | 2023-02-24 21:10 | P.PN ---
Subjective Progress Note Date: 02/24/23 This is a 57-year-old female history significant for diabetes mellitus, hypertension, myocardial infarction, thyroid disorder, current smoker. Patient presented to the hospital for altered mental status and was found on the floor by her he was unable to lift her up. Patient was brought in by EMS. Patient is found to have generalized weakness confusion and has been having multiple falls at home with progressive weakness over the last 5 months, patient is a poor historian and currently alert x 0 and obtunded at the time of examination. at the bedside provides the medical history, patient is a daily smoker and occasional alcohol use. Over the last 5 months has been having frequent falls and has been increasingly confused Has not been to a doctor and not taking recommending medications. Additionally he felt patient may have suffered a stroke a few months ago and had noticed a facial droop around that time. Patient in the ER was awake and alert. Blood pressure on admission was in the 220s systolic and difficult to treat with multiple antihypertensive agents given. Patient was also given IV ativan. Chest x-ray on admission shows cardiomegaly with linear atelectasis and/or scarring the left midlung. EKG shows sinus tachycardia with a heart rate of 110 on admission. She has no elevated white blood cell count it is normal at 7.1, sodium of 135, BUN/cr 32 and 1.28, Lacis acid is normal 1.3. She does have troponin elevation of 0.067, 0.074, 0.075.. ProBNP is elevated at 16,200, TSH is also 38.800, free T4 0.84. Urinalysis is negative for infection, urine drug toxicology is negative. Patient is admitted to the hospital for new onset CHF and originially admitted to the stepdown unit. Patient was upgraded to the intensive care unit and placed on nitro gtt and had also become unresponsive only arousing to sternal rub. Patient does not appear to have feeling in the left foot there is mottling and purple discoloration of the great toe and 3/4 toes likely due to ischemia and vascular services has been consulted as well as neurology, cardiology and pulmonary drum barker operator. Recommend a brain CT when patient is more stable and also ABGs will be done. An echocardiogram reveals EF of 30-35%, mild MR. 02/20/2023 Patient continues to be monitored closely in the intensive care unit. Currently alert x 2 more awake than yesterday, does have some slurred speech today. Brain CT shows no acute intracranial process with remote lacunar injuries along with nonspecific white matter changes likely secondary to chronic microangiography. EEG is negative. Neurology following and recommending brain MRI. Chest xray today is negative. Continues on IV lasix 40 mg every 12 hours with urine output of over 5L in the last 24 hours. Continues on IV cleviprex/clonidine patch and blood pressure running in the 150s systolic. Labs reveal sodium of 138, potassium 3.8, BUN 23, creatinine of 1.0. 02/21/2023 Patient is evaluated today in the intensive care unit. Patient is slightly more lethargic today was given a dose of IV ativan overnight for increased agitated. Patient had failed swallow evaluation and has been placed NPO at this time. Slightly more lethargic than yesterday. Patient is being followed by neurology and recommended to undergo MRI tomorrow however patient remains on IV cleviprex for blood pressure control as well as clonidine patch and IV hydralazine. Pat ient continues on IV lasix Q12 which has been decreased to 20 mg. CTA thoracic and abdominal aorta with run off reveals long segment occlusion bilateral mid superficial femoral arteries with reconstitution of the distal SFA bilaterally. There is proximal abdominal aortic aneurysm. Multifocal calcific disease estimated 7% stenosis anterior tibial arteries bilaterally. Vascular surgery following with further recommendations forthcoming. Labs today reveal white count of 7.8, hgb 16.5. Potassium 3.1 and magnesium 1.5. Heart rate controlled in the 70s, blood pressure in the 140/80s and currnently requiring 2L of oxygen. Patient does have some tenderness to the LLQ on exam. 02/22/2023 Patient evaluated in the intensive care unit today, more awake and alert sitting up in the chair. Diet has been advanced to pureed diet. Patient also had a bowel movement today. Diminished airway patient needs encouragement to cough and deep breath and will be given incentive spirometer. Was given IV synthroid and transitioned to oral synthroid today. Has been resumed on oral blood pressure medication including clonidine patch and taken off the cleviprex gtt and bp has improved down to 110/90 currently. Vascular surgery following recommending vascular intervention when medically stable. Patient is pending MRI and likely will be done Wednesday. Sodium has dropped to 130 today, BUN 22, creatinine 1.16, total bilirubin 1.4. 02/23/2023 Patient is seen and evaluated and follow-up in the ICU with multiple medical consultations following. Patient was able to undergo MRI of the brain with neurology following undergoing extensive workup including cardiology and vascular surgery along with pulmonary drum barker operator. MRI of the brain showed numerous punctate foci of acute infarcts involving the frontal and parietal cortices, deep white matter regions on both sides, bilateral thalami, and left basal ganglia with additional small focus in the left paramedian vita. A couple foci measuring up to 1.0 cm involving the left glenohumeral of the corpus callosum and findings suggest small infarcts greater than 6 hours in duration consider a central thromboembolic phenomenon with background severe burden of small chronic vessel ischemic disease. Per nursing staff patient had a decrease in mentation and blood pressures have been uncontrolled with neurology and cardiology making adjustments. Clonidine discontinued and awaiting possible YANDEL. CTA ordered and pending. Chest x-ray today shows NG tube appearing in good position with stable left lower infiltrate and small effusion and patient is maintained on IV Lasix low dose daily. 02/24/2023 Patient is seen in follow-up this morning continues to be in the ICU with multiple medical consultations following. Neurology recommending YANDEL with card iology following inpatient is reporting some chest pain and currently awaiting troponins and repeat EKG. Possible YANDEL today. Patient's mentation is somewhat improved today although extremely delayed. Patient continues to ask for her on exam. Patient is afebrile and continues with NG tube an abdominal x- ray is ordered and pending. Patient with multiple strokes noted and significant noncompliance with seeking any type of medical attention for many years and left lower limb ischemia, prognosis is extremely poor and guarded. Patient's CODE STATUS is no code and need to discuss further about overall prognosis and treatment plan moving forward as patient will need ECF and unsure if she is going to be agreeable to this. Case management/social work following. Review of Systems Constitutional: Denied any fatigue denied any fever. Cardio vascular: Reports chest pain, no palpitations Gastrointestinal: denied any nausea, vomiting, diarrhea Pulmonary: Denied any shortness of breath cough Neurologic denied any new focal deficits Active Medications Acetaminophen (Acetaminophen Tab 325 Mg Tab) 650 mg PO Q6HR PRN PRN Reason: Fever and/ or Pain Last Admin: 02/22/23 09:48 Dose: 650 mg Aspirin (Aspirin 325 Mg Tab) 325 mg PO DAILY ON LICENSE OF [facility] Last Admin: 02/24/23 10:21 Dose: 325 mg Atorvastatin Calcium (Atorvastatin 80 Mg Tab) 80 mg PO HS ON LICENSE OF [facility] Last Admin: 02/23/23 20:23 Dose: 80 mg Carvedilol (Carvedilol 12.5 Mg Tab) 12.5 mg PO BID-W/MEALS ON LICENSE OF [facility] Last Admin: 02/24/23 16:40 Dose: 12.5 mg Enoxaparin Sodium (Enoxaparin 40 Mg/0.4 Ml Syringe) 40 mg SQ DAILY ON LICENSE OF [facility] Last Admin: 02/24/23 10:22 Dose: 40 mg Hydralazine HCl (Hydralazine Hcl 20 Mg/Ml 1 Ml Vial) 20 mg IVP Q4HR PRN PRN Reason: Blood Pressure - High Last Admin: 02/24/23 17:28 Dose: 20 mg Sodium Chloride (Saline 0.9%) 1,000 mls @ 100 mls/hr IV .Q10H ON LICENSE OF [facility] Last Admin: 02/24/23 16:40 Dose: 100 mls/hr Levothyroxine Sodium (Levothyroxine 50 Mcg Tab) 50 mcg PO DAILY@0630 ON LICENSE OF [facility] Last Admin: 02/24/23 06:31 Dose: 50 mcg Lisinopril (Lisinopril 20 Mg Tab) 20 mg PO BID ON LICENSE OF [facility] Last Admin: 02/24/23 10:22 Dose: 20 mg Miscellaneous Information (Potassium Replacement Protocol 1 Each Misc) 1 each MISCELLANE DAILY PRN; Protocol PRN Reason: Per Protocol Nicotine (Nicotine 14mg/24hr Patch) 1 patch TRANSDERM DAILY ON LICENSE OF [facility] Last Admin: 02/24/23 10:21 Dose: 1 patch Pantoprazole Sodium (Pantoprazole 40 Mg Tablet) 40 mg PO AC-BRKFST ON LICENSE OF [facility] Last Admin: 02/24/23 06:31 Dose: 40 mg Sodium Chloride (Sodium Chloride 0.9% Flush 10 Ml Syringe) 10 ml IV BID ON LICENSE OF [facility] Last Admin: 02/24/23 10:22 Dose: 10 ml Thiamine HCl (Thiamine 100 Mg Tab) 100 mg PO DAILY ON LICENSE OF [facility] Last Admin: 02/24/23 10:22 Dose: 100 mg Tramadol HCl (Tramadol 50 Mg Tab) 50 mg PO QID PRN PRN Reason: Mild to Moderate Pain (1 - 6) PHYSICAL EXAMINATION: GENERAL: The patient is alert and oriented x2, More awake, slurred and delayed speech. Pale. Well developed, well nourished. HEENT: Pupils are round and equally reacting to light. EOMI. No scleral icterus. No conjunctival pallor. Normocephalic, atraumatic. No pharyngeal erythema. No thyromegaly. CARDIOVASCULAR: S1 and S2 muffled PULMONARY: Chest is clear to auscultation, no wheezing or crackles. Diminished ABDOMEN: Soft, nontender, nondistended, normoactive bowel sounds. No palpable organomegaly. MUSCULOSKELETAL: No joint swelling or deformity. EXTREMITIES: No cyanosis, clubbing, or pedal edema. Left lower extremity with discoloration NEUROLOGICAL: Unable to complete full exam. Diffuse weakness. SKIN: No rashes. There is discoloration to toes on the left foot extending to the left foot pad, progressing. Assessment: Altered mental status secondary to acute metabolic encephalopathy, Acute infarct involving the frontal and parietal cortices, deep white matter regions on both sides, bilateral thalami, and left basal ganglia as noted on MRI of the brain, possible central thromboembolic phenomenon Progressive weakness and frequent falls at home Hypertension with urgency on admission improving Elevated troponin level Acute kidney injury vs CKD, Ischemic change to the left foot. Acute congestive heart failure, systolic dysfunction Severe Cardiomyopathy and LV dysfunction possibly from the hypertension vs hypothyroidism Hypothyroidism Elevated D-Dimer Hypothyroidism Diabetes Mellitus type 2 uncontrolled History of myocardial infarction unknown details Chronic and ongoing nicotine use Medical noncompliance Marijuana use GI prophylaxis DVT prophylaxis; SCDs Do Not Resuscitate/Do Not Intubate Plan: Continue monitoring the patient in the intensive care unit Plan is for YANDEL with cardiology today and awaiting results IV lasix discontinued as patient does not appear to be in heart failure strict intake and output monitoring increased to Q12hr. Cleviprex has been discontinued and mentation minimally improved today Neurology following and underwent brain MRI showing multiple infarcts as noted above Recommend maximizing medical management with cardiology following along with tight blood pressure control Vascular surgery recommending intervention when patient is medically stable for left lower extremity ischemia NG tube for medications and abdominal x-ray shows ileus versus obstruction and will discuss further with consultations and family about treatment plan moving forward Recommend PT/OT therapy evaluation as patient will need rehab although patient is reluctant and wants to go home with Need to address treatment plan with family as well as overall prognosis. Follow up labs in AM Overall prognosis is extremely guarded The impression and plan of care has been dictated by Rhonda Hawkins, Nurse Practitioner as directed. Dr. Andi MD I have performed a history and examination and MDM of this patient, discussed the same with the dictator, and agree with the dictator's assessment and plan as written ,documented as a scribe. Based on total visit time, I have performed more than 50% of the visit. Objective - Vital Signs Vital signs: Vital Signs Temp 98 F 02/24/23 04:00 Pulse 54 L 02/24/23 07:00 Resp 18 02/24/23 07:00 BP 136/92 02/24/23 07:00 Pulse Ox 99 02/24/23 07:00 FiO2 Intake & Output 02/23/23 02/24/23 02/24/23 18:59 06:59 18:59 Intake Total 340 240 20 Output Total 390 625 0 Balance -50 -385 20 Weight 59.5 kg Intake: IV 240 240 20 IV Fluid 240 240 20 Intake, IV Titration 100 Amount Potassium Chloride 10 meq 100 In Water For Injection 1 100ml.bag @ 100 mls/hr IVPB Q1H ON LICENSE OF [facility] Rx#: [id number] Output: Urine 390 625 0 Other: Voiding Method Indwelling Catheter Indwelling Catheter - Labs CBC & Chem 7: 02/24/23 04:38 02/24/23 04:38 Labs: Abnormal Lab Results - Last 24 Hours (Table) 02/23/23 02/23/23 02/24/23 Range/Units 13:04 14:38 04:38 RBC 6.09 H (3.80-5.40) m/uL Hgb 16.6 H (11.4-16.0) gm/dL Hct 51.8 H (34.0-46.0) % Lymphocytes # 0.8 L (1.0-4.8) k/uL Sodium (137-145) mmol/L Chloride (98-107) mmol/L Carbon Dioxide (22-30) mmol/L BUN (7-17) mg/dL Creatinine (0.52-1.04) mg/dL Glucose (74-99) mg/dL Triglycerides 225.00 H mg/dL Cholesterol 216.00 H mg/dL VLDL Cholesterol, Calc 45.00 H mg/dL Homocysteine 27.90 H UMOL/L 02/24/23 Range/Units 04:38 RBC (3.80-5.40) m/uL Hgb (11.4-16.0) gm/dL Hct (34.0-46.0) % Lymphocytes # (1.0-4.8) k/uL Sodium 131 L (137-145) mmol/L Chloride 88 L (98-107) mmol/L Carbon Dioxide 35 H (22-30) mmol/L BUN 33 H (7-17) mg/dL Creatinine 1.23 H (0.52-1.04) mg/dL Glucose 100 H (74-99) mg/dL Triglycerides mg/dL Cholesterol mg/dL VLDL Cholesterol, Calc mg/dL Homocysteine UMOL/L Microbiology - Last 24 Hours (Table) 02/18/23 20:57 Blood Culture - Preliminary Blood 02/18/23 21:05 Blood Culture - Preliminary Blood
[2023-02-24] MEDS: ATORVASTATIN 80 MG TAB PO SCH (21:15)
[2023-02-25 04:44] LABS: Basophils % (A) 0 %; Eosinophils # (A) 0.2 k/uL (0-0.7); Eosinophils % (A) 3 %; HGB 15.4 gm/dL (11.4-16.0); Lymphocytes # (A) 0.7 k/uL (1.0-4.8); Lymphocytes % (A) 10 %; MCHC 31.5 g/dL (31.0-37.0); MCV 85.6 fL (80.0-100.0); Monocytes # (A) 0.5 k/uL (0-1.0); Monocytes % (A) 6 %; Neutrophils # (A) 5.7 k/uL (1.3-7.7); Neutrophils % (A) 79 %; Platelet Count 223 k/uL (150-450); RBC 5.72 m/uL (3.80-5.40); RDW 15.6 % (11.5-15.5); WBC 7.2 k/uL (3.8-10.6)
[2023-02-25 04:59] LABS: African American GFR (CKD) 62 (>60 ml/min/1.73 sqM); Anion Gap 6 mmol/L; Blood Urea Nitrogen 32 mg/dL (7-17); Calcium 8.7 mg/dL (8.4-10.2); Carbon Dioxide 35 mmol/L (22-30); Chloride 92 mmol/L (98-107); Glucose 84 mg/dL (74-99); Non-African American GFR(CKD) 54 (>60 ml/min/1.73 sqM); Potassium 3.7 mmol/L (3.5-5.1); Sodium 133 mmol/L (137-145)
[2023-02-25] MEDS: POTASSIUM CHLORIDE 10 MEQ in WATER FOR INJECTION 1 100ML.BAG IVPB SCH ×2 (05:20→08:13)
[2023-02-25] MEDS: SODIUM CHLORIDE 0.9% 1,000 ML IV SCH ×2 (05:24→10:44)
[2023-02-25] MEDS: hydrALAZINE HCL 20 MG/ML 1 ML VIAL IVP PRN ×4 (07:04→20:09)
[2023-02-25] MEDS: LEVOTHYROXINE 50 MCG TAB PO SCH (07:59)
[2023-02-25] MEDS: PANTOPRAZOLE 40 MG TABLET PO SCH (07:59)
[2023-02-25] MEDS: carvediloL 12.5 MG TAB PO SCH ×2 (07:59→16:41)
[2023-02-25] MEDS: ASPIRIN 325 MG TAB PO SCH (08:13)
[2023-02-25] MEDS: lisinopriL 20 MG TAB PO SCH ×2 (08:13→20:09)
[2023-02-25] MEDS: THIAMINE 100 MG TAB PO SCH (08:13)
[2023-02-25] MEDS: NICOTINE 14MG/24HR PATCH TRANSDERM SCH (08:13)
[2023-02-25] MEDS: ENOXAPARIN 40 MG/0.4 ML SYRINGE SQ SCH (08:13)
[2023-02-25 08:18] LABS: Glucose,Whole Blood 91 mg/dL (70-110)
--- NOTE | 2023-02-25 08:19 | XR ---
EXAMINATION TYPE: XR chest 1V portable DATE OF EXAM: 02/25/2023 COMPARISON: 02/23/2023 HISTORY: Altered breathing TECHNIQUE: Single frontal view of the chest is obtained. FINDINGS: Exam limited by lack of inclusion of the lung apices. NG tube appears in good position cou rsing the left upper quadrant with the sidehole likely overlying the gastric fundus. There is stable left lower lobe infiltrate and small effusion. Upper lung zones are not included. No obvious evidence of heart failure. Heart size stable. Osseous structures are stable. IMPRESSION: Stable left lower lobe infiltrate and pleural effusion.
[2023-02-25] MEDS ORDERED: SPIRONOLACTONE 25 MG TAB PO SCH (10:15)
--- NOTE | 2023-02-25 10:16 | P.PN ---
Subjective PROGRESS NOTE The patient is a 57-year-old female who was admitted to the hospital with symptoms of confusion, multiple falls, weakness. The history is obtained from the records. The patient is not answering question quite somnolent after receiving Ativan. According to the records the patient has not been taking her medications are home. She has a history of hypertension, diabetes and hyperlipidemia full detail of her prior history or medication is unclear. She was noted to be severely hypertensive, elevated NT proBNP and TSH on presenta tion. She was in sinus mechanism on presentation. She had peripheral edema and discoloration of the toes on the left lower extremity. According to the notes she's a daily smoker and she uses marijuana. I am unable to obtain any other history. Her echocardiogram performed this morning showed a severely impaired left ventricle systolic function February 20: The patient remains confused, answering questions inappropriately. Her blood pressure has been elevated off Clevidipine. She is not taking by mouth medication because of a question of the swallowing. She continues to be in sinus mechanism. She has a good urinary output on IV Lasix. She continues to be on IV heparin. Her EKG showed T-wave inversion in the anterolateral lateral leads. Her brain CT showed lacunar infarct but no acute bleeding. Duplex scan of the lower extremities showed no evidence of DVT. She continues to have di scoloration of the left foot toes. February 21 : The patient remains confused, opening eyes to verbal stimulation. She failed her swallow evaluation and continues to be nothing by mouth, receiving IV medi cation. Her blood pressure has been relatively stable. There is no evidence of malignant arrhythmia. Her urine output is stable. She underwent a CT angiogram of the abdomen and chest and was found to have an abdominal aortic aneurysm and severe PAD, bilaterally. Her free T3 was low. 02/22 Patient seen and examined. Patient stating she is hungry. He continues be confused. Left lower extremity somewhat improved color per nurse with continued discoloration with fourth and fifth digit. She admits the pain all over including her lower extremities. Blood pressures remain elevated 145/107. She is not eating much orally. 02/23 Patient seen and examined. Patient had increased blood pressures in the systolics 170s yesterday and therefore clonidine was increased to 0.2 milligrams oral twice a day. Blood pressure did decrease down to 110s. She has been more altered this morning with more lethargy and not answering questions appropriately. This does appear to be somewhat in the lyric writer and may be correlated with drop in blood pressure. Therefore discussed stopping the clonidine and holding lisinopril for now for mild permissive hypertension with mental status changes. Has been receiving Lasix with good urine output. Creatinine stable at 1.2. 02/24 Seen and examined. Patient had altered mental status yesterday however mildly be improved today. MRI showed concern of thromboembolic etiology with bilateral infarcts. Carotid imaging does show bilateral disease. Patient has been in sinus rhythm. Patient is somewhat more alert today and complaining of substernal chest pain without significant shortness breath. Patient still continues and alert and oriented to self. Left lower extremity appears stable without worsened discoloration or ischemia. She has been on Lovenox drip. 02/25 Patient seen and examined. Patient underwent YANDEL yesterday showing speckled appearance of myocardium possibly consistent with amyloidosis. No significant PFO. Factor V Leiden was abnormal however discussed with hematology and should not be causing arterial clots. Has been maintained on aspirin. Troponins minimally elevated 0.1 and patient yesterday was complaining of some chest pain. Currently today denies any chest pain. Blood pressures were elevated in the 150-180 range. We will optimize heart failure regimen and add Aldactone. Creatinine has been fairly stable at 1.1. PHYSICAL EXAMINATION: Vitals reviewed LUNGS: Clear to auscultation HEART: Regular rate and rhythm, S1, S2. No S3. systolic ejection murmur ABDOMEN: Soft, nontender, no organomegaly EXTREMETIES: No edema, discoloration of the toes on the left with decreased pulses IMPRESSION: 1. Hypertension 2. Encephalopathy could be related to hypertension, workup in progress 3. Abnormal EKG rule out ischemia 4. Abnormal renal functions, improving 5. Probable peripheral vascular disease 6. Lacunar infarct 7. Severe cardiomyopathy of unknown etiology or duration probable hypertensive rule out ischemic 8. Worsened altered mental status with MRI showing bilateral infarcts concerning for thromboembolic disease 9. Chest pain 10. Bilateral carotid disease 11. PAD with bilateral SFA disease 12. Speckled appearance of myocardium possibly can be consistent with PLAN: Continue to hold diuretics given no significant edema and nothing by mouth. YANDEL did not show any significant source of stroke, does show some speckled appearance can be seen with amyloidosis Patient is having chest pain intermittently and still minimally elevated troponins and cardiomyopathy. Eventually will need cath however unclear if patient will be compliant with procedure. Continue to evaluate neuro process. Add Aldactone for HF regimen. Prognosis guarded. Objective - Vital Signs Vital signs: Vital Signs Temp 98.0 F 02/25/23 08:00 Pulse 60 02/25/23 10:00 Resp 27 H 02/25/23 10:00 BP 153/89 02/25/23 10:00 Pulse Ox 100 02/25/23 10:00 FiO2 Intake & Output 02/24/23 02/25/23 02/25/23 18:59 06:59 18:59 Intake Total 440 1200 100 Output Total 335 305 30 Balance 105 895 70 Weight 59.5 kg 62.3 kg Intake: IV 440 1100 100 IV Fluid 440 1100 100 Tube Feeding 100 Output: Urine 335 305 30 Other: Voiding Method Indwelling Catheter Indwelling Catheter Indwelling Catheter - Labs CBC & Chem 7: 02/25/23 04:14 02/25/23 04:14 Labs: Abnormal Lab Results - Last 24 Hours (Table) 02/23/23 02/23/23 02/23/23 Range/Units 13:04 13:04 13:04 RBC (3.80-5.40) m/uL Hct (34.0-46.0) % RDW (11.5-15.5) % Lymphocytes # (1.0-4.8) k/uL Lupus Anticoag aPTT 52 H (<43) Sec(s) Factor V Leiden Mutat Heterozygous A Sodium (137-145) mmol/L Chloride (98-107) mmol/L Carbon Dioxide (22-30) mmol/L BUN (7-17) mg/dL Creatinine (0.52-1.04) mg/dL Troponin I (0.000-0.034) ng/mL Prothrombin [id number] Mut Heterozygous A 02/24/23 02/25/23 02/25/23 Range/Units 11:50 04:14 04:14 RBC 5.72 H (3.80-5.40) m/uL Hct 49.0 H (34.0-46.0) % RDW 15.6 H (11.5-15.5) % Lymphocytes # 0.7 L (1.0-4.8) k/uL Lupus Anticoag aPTT (<43) Sec(s) Factor V Leiden Mutat Sodium 133 L (137-145) mmol/L Chloride 92 L (98-107) mmol/L Carbon Dioxide 35 H (22-30) mmol/L BUN 32 H (7-17) mg/dL Creatinine 1.13 H (0.52-1.04) mg/dL Troponin I 0.106 H* (0.000-0.034) ng/mL Prothrombin [id number] Mut Microbiology - Last 24 Hours (Table) 02/18/23 20:57 Blood Culture - Final Blood 02/18/23 21:05 Blood Culture - Final Blood
--- NOTE | 2023-02-25 10:24 | P.PN ---
Subjective Progress Note Date: 02/25/23 Principal diagnosis: Altered mental status changes Patient seen and evaluated today in the ICU. A sitter remains at the bedside. Patient is sleepy today. Not waking up when asked questions. No acute changes through the night. Yesterday patient underwent YANDEL that reported moderately impaired left ventricle systolic function with global hypokinesis and and severe hypertrophy with speckling raising possibility of infiltrative disease. No evidence of shunting across the intra-atrial septum. Mild aortic and mitral regurgitation. No pericardial effusion. Mild arthrosclerotic changes of the descending aorta. Neurology has started hypercoagulable workup and has consult ed hematology with concerns regarding central thromboembolic phenomena. Objective - Vital Signs Vital signs: Vital Signs Temp 97 F L 02/24/23 20:00 Pulse 64 02/25/23 07:00 Resp 19 02/25/23 07:00 BP 166/89 02/25/23 07:00 Pulse Ox 96 02/25/23 08:41 FiO2 Intake & Output 02/24/23 02/25/23 02/25/23 18:59 06:59 18:59 Intake Total 440 1200 100 Output Total 335 305 30 Balance 105 895 70 Weight 59.5 kg 62.3 kg Intake: IV 440 1100 100 IV Fluid 440 1100 100 Tube Feeding 100 Output: Urine 335 305 30 Other: Voiding Method Indwelling Catheter Indwelling Catheter - Exam General appearance: The patient is drowsy, sleeping. Appears in no acute distress. HET: Head is normocephalic and atraumatic. Neck: Supple. Extremities: Left great toe, third toe and pinky toe with areas of purple discoloration, surrounding skin pink. Bilateral lower extremity and feet warm to the touch. Good capillary refill. Nonpalpable popliteal, DP PT pulses bilaterally. Sensorimotor intact. Neurological: Patient is drowsy, sleeping. - Labs CBC & Chem 7: 02/25/23 04:14 02/25/23 04:14 Labs: Abnormal Lab Results - Last 24 Hours (Table) 02/23/23 02/23/23 02/23/23 Range/Units 13:04 13:04 13:04 RBC (3.80-5.40) m/uL Hct (34.0-46.0) % RDW (11.5-15.5) % Lymphocytes # (1.0-4.8) k/uL Lupus Anticoag aPTT 52 H (<43) Sec(s) Factor V Leiden Mutat Heterozygous A Sodium (137-145) mmol/L Chloride (98-107) mmol/L Carbon Dioxide (22-30) mmol/L BUN (7-17) mg/dL Creatinine (0.52-1.04) mg/dL Troponin I (0.000-0.034) ng/mL Prothrombin [id number] Mut Heterozygous A 02/24/23 02/24/23 02/25/23 Range/Units 08:48 11:50 04:14 RBC 5.72 H (3.80-5.40) m/uL Hct 49.0 H (34.0-46.0) % RDW 15.6 H (11.5-15.5) % Lymphocytes # 0.7 L (1.0-4.8) k/uL Lupus Anticoag aPTT (<43) Sec(s) Factor V Leiden Mutat Sodium (137-145) mmol/L Chloride (98-107) mmol/L Carbon Dioxide (22-30) mmol/L BUN (7-17) mg/dL Creatinine (0.52-1.04) mg/dL Troponin I 0.106 H* 0.106 H* (0.000-0.034) ng/mL Prothrombin [id number] Mut 02/25/23 Range/Units 04:14 RBC (3.80-5.40) m/uL Hct (34.0-46.0) % RDW (11.5-15.5) % Lymphocytes # (1.0-4.8) k/uL Lupus Anticoag aPTT (<43) Sec(s) Factor V Leiden Mutat Sodium 133 L (137-145) mmol/L Chloride 92 L (98-107) mmol/L Carbon Dioxide 35 H (22-30) mmol/L BUN 32 H (7-17) mg/dL Creatinine 1.13 H (0.52-1.04) mg/dL Troponin I (0.000-0.034) ng/mL Prothrombin [id number] Mut Microbiology - Last 24 Hours (Table) 02/18/23 20:57 Blood Culture - Final Blood 02/18/23 21:05 Blood Culture - Final Blood Assessment and Plan Assessment: 1. Bilateral femoral occlusive disease, chronic 2. Left great toe and third, fourth toe ischemic changes, stable 3. Brain MRI showing Multiple bilateral acute infarcts 4. Bilateral ICA stenosis 5. Altered mental status changes 6. Hypertension, uncontrolled, noncompliant with medications 7. Hypothyroid, noncompliant with medications 8. Cardiomegaly 9. Diabetes mellitus, noncompliant with medications 10. Elevated troponins Plan: 1. Continue supportive care 2. CTA of lower extremities reviewed with bilateral SFA occlusions with one- vessel runoff. Appears chronic 3. Ischemia to toes improving, no planned vascular surgical intervention during this hospitalization 4. Patient may benefit from endovascular revascularization of the left SFA, this can be done as an outpatient 5. Head and neck CT angiogram images reviewed, carotid stenosis likely closer to 70% bilaterally. 6. No plans on surgical intervention for carotid stenosis, unlikely cause of bilateral infarcts. 7. Hematology on consult for hypercoagulable workup and recommendations 8. Await further recommendations from neurology 9. Continue aspirin and statin, await recommendations for dual antiplatelet versus antiplatelet and anticoagulation 10. Medical management deferred to primary medical team Thank you for this consultation, we will continue to follow. The impression and plan of care has been dictated as directed. Dr. Sunshine I performed a history and examination of this patient, discussed the same with the dictator. I agree with the dictator's note ,documented as a scribe. Any additional findings or plans will be noted.
--- NOTE | 2023-02-25 12:17 | P.PN ---
Subjective Progress Note Date: 02/25/23 Principal diagnosis: Hypertensive emergency with acute metabolic encephalopathy 57-year-old female patient, was rolled into the intensive care unit, lethargic, weak and will confused, under the effect of Ativan that was given to her in the emergency and the patient's received a total of 2 mg of IV Ativan. Meanwhile, the patient was having weakness, confusion and multiple falls and the ended up bringing her to the hospital. I do not believe that she has seen any physicians. Upon arrival, the patient's was noted to have an elevated blood pressure. She was confused. Her EKG showed sinus rhythm with some nonspecific ST segment changes. Chest x-ray showed cardiomegaly with mild pulmonary vessel congestion. BUN was 32 with a creatinine of 1.2 and a white cell count of 7.1. The serum alcohol was negative. Her rest of the blood work showed normal electrolytes, BUN of 32 with a creatinine of 1.2. ProBNP level was 60,000, TSH was 38, free T4 was 0.8. Urine drug screen was negative. UA was negative. The cecum was 7.0 with a hemoglobin of 15.6. Echocardiogram was done this morning and it showed an ejection fraction of 30-35% with moderate to severe LV H, no significant valvular abnormalities and there was moderate to severe left ventricular hypertrophy. Note that patient's initial blood pressure at the time of her emergency department evaluation was as high as 228/159. For now, the patient is on a nitroglycerin drip running at 100 mcg/m. She is on IV heparin. She was given clonidine patch. She was also given hydralazine 10 mg IV every 4 hours. On a separate note, the patient was noted to have some bluish discoloration of her great toe and the left foot. The patient has Doppler signals bilaterally. The patient also has adequate femoral and popliteal pulses. While in the emergency, the patient was given Ativan. I saw her in the intensive care unit. She is gradually waking up and active and affect is wearing off. No signs of any significant respiratory compromise. She is currently on oxygen at 2 L with a pulse ox of 91%. On today's evaluation of 02/20/2023, patient is more awake compared to yesterday. She is arousable and she is communicating. She is aware of her name. She is not aware of her location. No focal neurological deficits. CAT scan of the brain was completed yesterday showed lacunar infarcts probably related to her chronic uncontrolled blood pressure. Patient is currently on 4 L of action by nasal cannula. Chest x-ray shows a small left-sided pleural effusion. Echocardiogram was completed yesterday and it showed severe LVH along with impaired on the function with an ejection fraction of 30-35% and the patient remains in normal sinus rhythm. Pulse ox 98% on [address] by nasal cannula. Her blood pressure was managed by Drip and currently the drip is off. The patient is taken IV Lasix 40 mg every 12 hours. The patient was taken off the nitroglycerin drip. She is receiving hydralazine 10 mg IV every 8 hours. I'm not sure if she is awake enough to start oral medications. This will be decided at the later stage I the patient is more alert and awake. She remains on IV heparin which will be discontinued today. In terms of her labs, the WBC count of 8.3 with a hemoglobin of 17. The BUN is 24 with a creatinine of 1.1 and his sodium levels of 138. GFR is at 54. The medication list was noted. Neurologic consultation was obtained. Vascular Doppler of the lower oximetry was done and the Doppler venous was negative. The patient does have chronic ischemic changes to her left foot, no open wounds or ulceration. Dopplers signals are present in her feet bilaterally. On 02/21/2023, the patient remains encephalopathic and confused. She failed her swallow evaluation and the patient was not transitioned to oral medications. He remains on Catapres at 2 mg an hour and her blood pressure is under adequate control at this point in time. The patient also is on a clonidine patch. She is on oxygen at 2 L/m nasal cannula. King cath is in place. The patient remains on IV heparin. Ischemic changes in lower extremity have improved and the patient seems to be better perfused her left lower extremity on today's evaluation. Cardiac rhythm is sinus. She remains on he was the patient is still swallow evaluation. No fever. No other significant events overnight. The patient is a sitter at the bedside. In terms of her blood work, the patient has a white cell count of 7 with a hemoglobin of 16 and a platelet count of 259. PTT is therapeutic at 75 with a normal PT and INR. Electrolytes are still pending for now. The blood cultures have been negative. CT angiography of the thoracic and abdominal wart that was completed. 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 There is also proximal abdominal aortic aneurysm measuring 3 CMN. There is less than 50% stenosis of the common iliac arteries. External iliac arteries and the internal iliac arteries are essentially patent for now. Reevaluated today on 02/22/23, patient remains in the ICU, patient remains confused, her mental status is quite normal. Patient is confused, not in any distress, and I found out that her mental status has been like this and worsen ing more so over the last 2 weeks. Patient is scheduled to have MRI today. She is being followed by many consultants, including neurology, vascular surgery, and cardiology. Labs today were basically unremarkable, WBC 6.1 hemoglobin is 15.8, patient did have significantly elevated TSH on admission with a low T4 of 0.84. And she was also noted to have significantly elevated BNP level. Over 60,000. However chest x-ray showed no evidence of congestive heart failure there was only evidence of cardiomegaly without acute process. Reevaluated today on 02/23/2023, patient is date about the same, remains encephalopathic, MRI showed numerous punctate foci of acute infarcts involving the frontal and parietal cortices. Also involving the deep white matter regions on both sides. The radiologist felt there could be a possibility of central thromboembolic phenomenon, and there is a background of severe burden of chronic small vessel ischemic disease. We will let neurology address this finding and decide whether further workup is necessary including workup for central thromboembolic phenomena. WBC count is 6.2 hemoglobin 16 in dextrose are normal renal profile is slightly abnormal with BUN of 29 creatinine 1.26, slightly worse compared to yesterday Reevaluated today on 02/24/2023, patient remains in the ICU, she is less encephalopathic today, she is opening her eyes, following simple instructions like wiggling toes, sticking out tongue, squeezing hands, definitely improved mentally compared to the last couple of days. The neurologist is recommending workup for possible thromboembolic phenomenon/central, and YANDEL was performed today, showed impaired LV function and global hypokinesis, and severe hypertrophy with speckling raising the possibility of infiltrative disease. There was no evidence of shunting. There was evidence of mild aortic and mild mitral regurgitation. Carotid Doppler showed moderate atherosclerotic plaque in bilateral carotid arteries with 50-69% stenosis. Reevaluated today on 02/25/2023, remains about the same. Patient remains encephalopathic, may open eyes at times, otherwise no other responses. Today she seems to be a bit more encephalopathic compared to yesterday. Her echocardiogram yesterday/YANDEL questioned the possibility of amyloidosis. CBC today is unremarkable, lites are basically normal, creatinine is 1.13 a chest x- ray is showing more left lower lobe atelectasis possibly small pleural effusion, we'll recommend ultrasound, and if the effusion isn't large enough to consider thoracentesis that will be done Objective - Vital Signs Vital signs: Vital Signs Temp 98.0 F 02/25/23 08:00 Pulse 60 02/25/23 10:00 Resp 27 H 02/25/23 10:00 BP 153/89 02/25/23 10:00 Pulse Ox 100 02/25/23 10:00 FiO2 Intake & Output 02/24/23 02/25/23 02/25/23 18:59 06:59 18:59 Intake Total 440 1200 700 Output Total 335 305 110 Balance 105 895 590 Weight 59.5 kg 62.3 kg 62.3 kg Intake: IV 440 1100 500 IV Fluid 440 1100 500 Intake, IV Titration 200 Amount Potassium Chloride 10 meq 200 In Water For Injection 1 100ml.bag @ 100 mls/hr IVPB Q1H [facility] Rx#: [id number] Tube Feeding 100 Output: Urine 335 305 110 Other: Voiding Method Indwelling Catheter Indwelling Catheter Indwelling Catheter - Exam Physical Exam: Revealed a 57-year-old female in no distress, remains encephalopathic and neurological status is basically about the same. HEENT:[Neck is supple.] [No neck masses.] [No thyromegaly.] [No JVD.] Chest: [Clear throughout, no crackles, no rhonchi, no wheezes.] Slightly diminished breath sounds at the left base. Cardiac Exam: [Normal S1 and S2, no S3 gallop, no murmur.] Abdomen: [Soft, nontender, no megaly, no rebound, no guarding, normal bowel sounds.] Extremities: [No clubbing, no edema, however there is evidence of bluish discoloration of the great toe on the left foot. And poor peripheral pulses, feet are not cold to touch Neurological Exam: Opens eyes, does not follow any instructions today. psychiatric: flat affect Extremities, there is evidence of cyanosis of great toe on the left foot. No ra shes. - Labs CBC & Chem 7: 02/25/23 04:14 02/25/23 11:20 Labs: Abnormal Lab Results - Last 24 Hours (Table) 02/23/23 02/23/23 02/23/23 Range/Units 13:04 13:04 13:04 RBC (3.80-5.40) m/uL Hct (34.0-46.0) % RDW (11.5-15.5) % Lymphocytes # (1.0-4.8) k/uL Lupus Anticoag aPTT 52 H (<43) Sec(s) Factor V Leiden Mutat Heterozygous A Sodium (137-145) mmol/L Chloride (98-107) mmol/L Carbon Dioxide (22-30) mmol/L BUN (7-17) mg/dL Creatinine (0.52-1.04) mg/dL Troponin I (0.000-0.034) ng/mL Prothrombin [id number] Mut Heterozygous A 02/24/23 02/25/23 02/25/23 Range/Units 11:50 04:14 04:14 RBC 5.72 H (3.80-5.40) m/uL Hct 49.0 H (34.0-46.0) % RDW 15.6 H (11.5-15.5) % Lymphocytes # 0.7 L (1.0-4.8) k/uL Lupus Anticoag aPTT (<43) Sec(s) Factor V Leiden Mutat Sodium 133 L (137-145) mmol/L Chloride 92 L (98-107) mmol/L Carbon Dioxide 35 H (22-30) mmol/L BUN 32 H (7-17) mg/dL Creatinine 1.13 H (0.52-1.04) mg/dL Troponin I 0.106 H* (0.000-0.034) ng/mL Prothrombin [id number] Mut Microbiology - Last 24 Hours (Table) 02/18/23 20:57 Blood Culture - Final Blood 02/18/23 21:05 Blood Culture - Final Blood Assessment and Plan Assessment: Impression: Acute hypertensive emergency Acute decompensated heart failure with LV dysfunction, ejection fraction of 30- 35%. Acute metabolic encephalopathy, although the MRI findings are more consistent with small vessel disease and possible central thromboembolic phenomenon. Hypothyroidism. Peripheral vessel occlusive disease and ischemic changes of left lower extremity. Severe cardiomyopathy and LV dysfunction Acute kidney injury on presentation likely secondary to hypertensive emergency. Resolved. Recommendation: Continue to monitor in the ICU for now. Her metabolic encephalopathy seems to be relatively unchanged. Continue present supportive care measures We'll continue to follow the patient with all the different consultants on the case. Resume cardiac meds and blood pressure medications and monitor blood pressure accordingly. Continue to monitor electrolytes and renal profile. GI and DVT prophylaxis. Prognosis at this point is considered very guarded. Time with Patient: Less than 30
[2023-02-25] MEDS: IOPAMIDOL CONTRAST (ORAL USE) VIAL PO PRN ×2 (14:12→15:12)
[2023-02-25] MEDS ORDERED: SPIRONOLACTONE 25 MG TAB PO STA (14:23)
[2023-02-25] MEDS ORDERED: carvediloL 12.5 MG TAB PO STA (14:24)
--- NOTE | 2023-02-25 14:56 | P.CONS ---
History of Present Illness - Reason for Consult Consult date: 02/25/23 bilateral hemispheric stroke, maximus femoral occlusion. ? hypercoag state Requesting physician: Stanley Thompson - Chief Complaint Left foot ischemia - History of Present Illness Mrs. suzi carlson is seen in the ICU, she answers questions with yes or no answers, she follows instructions. We have been asked to see her because of presenting with bilateral stroke and ischemia left foot. She has a past medical history significant for DM type II, HTN, MN, thyroid dysfunction, not medicated for any of her medical conditions. She is a current smoker, occasional EtOH. Patient was found at home on the floor by her , he was unable to communicate with her. In the chart does report patient has been falling for several months. There is documentation that patient may have suffered a stroke a few months ago when facial droop was noted by the at that time but, she was never evaluated. When asked patient stated no to history of clots, was not taking aspirin. She is noted to be significantly hypertensive on admission. Chest x- ray showing linear atelectasis and scarring, EKG sinus tachycardia. Slightly elevated BUN and creatinine 32/1.28, elevated troponins, BNP 16,200, echo shows LVEF 30-35%, no PFO. She has been assessed by Cardiology, Neurology and Arch Cushion Skiving Machine Operator. MRI of the brain 02/23/23 showed numerous punctate foci of acute infarcts involving frontal and parietal lobes, deep white matter regions on both sides, bilateral thalami and left basal ganglia, additional small focus in the left paramedian vita, couple of foci measuring up to 1 cm involving left splenium of the corpus callosum. Severe burden of chronic small vessel ischemic disease reported as well. We are consulted for concerns of possible hypercoagulable state. Review of Systems Focused review of systems is negative, patient is not able to elaborate on any o f our questions, she does, however provide yes and no answers Past Medical History Past Medical History: Diabetes Mellitus, Myocardial Infarction (MN), Thyroid Disorder Last Myocardial Infarction Date:: unknown History of Any Multi-Drug Resistant Organisms: None Reported Past Surgical History: No Surgical Hx Reported Past Anesthesia/Blood Transfusion Reactions: No Reported Reaction Smoking Status: Current every day smoker Past Alcohol Use History: Occasional Past Drug Use History: Marijuana - Past Family History Son(s) History Unknown: Yes Mother History Unknown: Yes Father History Unknown: Yes Medications and Allergies Home Medications Medication Instructions Recorded Confirmed Type No Known Home Medications 02/18/23 02/18/23 History Allergies Allergy/AdvReac Type Severity Reaction Status Date / Time shellfish derived [Shrimp] Allergy Rash/Hives Verified 02/18/23 21:49 Physical Exam Vitals: Vital Signs Temp Pulse Resp BP Pulse Ox 02/25/23 13:00 60 16 215/110 97 02/25/23 12:00 98.1 F 59 L 20 186/96 95 02/25/23 11:00 58 L 18 175/101 98 02/25/23 10:00 60 27 H 153/89 100 02/25/23 09:00 60 19 151/94 99 02/25/23 08:41 96 02/25/23 08:00 98.0 F 60 23 168/107 98 02/25/23 07:00 64 19 166/89 99 02/25/23 06:00 62 9 L 158/102 97 02/25/23 05:00 62 21 166/87 97 02/25/23 04:00 61 15 161/81 99 02/25/23 03:00 64 16 166/86 95 02/25/23 02:30 66 12 159/87 91 L 02/25/23 02:00 66 15 149/85 95 02/25/23 01:30 66 16 143/85 96 02/25/23 01:00 68 10 L 144/83 91 L 02/25/23 00:30 64 5 L 154/85 92 L 02/25/23 00:03 61 0 L 171/79 90 L 02/25/23 00:00 62 6 L 161/80 93 L 02/24/23 23:00 66 18 169/102 92 L 02/24/23 22:00 65 8 L 164/93 94 L 02/24/23 21:00 65 7 L 149/97 93 L 02/24/23 20:00 97 F L 62 25 H 159/89 90 L 02/24/23 19:00 62 24 143/86 92 L 02/24/23 18:00 60 12 165/100 95 02/24/23 17:00 59 L 20 183/114 90 L 02/24/23 16:00 98.0 F 57 L 15 175/103 91 L 02/24/23 15:00 56 L 16 158/88 100 Intake and Output 02/24/23 02/25/23 02/25/23 22:59 06:59 14:59 Intake Total 074 687 7208 Output Total 175 245 185 Balance 545 555 815 Intake: IV 620 800 800 IV Fluid 620 800 800 Intake, IV Titration 200 Amount Potassium Chloride 10 meq 200 In Water For Injection 1 100ml.bag @ 100 mls/hr IVPB Q1H [facility] Rx#: [id number] Tube Feeding 100 Output: Urine 175 245 185 Other: Voiding Method Indwelling Catheter Indwelling Catheter Indwelling Catheter Weight 62.3 kg 62.3 kg - Constitutional Looks significantly older than chronological age General appearance: average body habitus, cooperative, no acute distress - EENT Eyes: anicteric sclerae, EOMI, poor dentition ENT: hearing grossly normal, pharyngeal erythema, thrush - Neck Neck: no lymphadenopathy - Respiratory Respiratory: bilateral: CTA - Cardiovascular Rhythm: regular Heart sounds: normal: S1, S2 Abnormal Heart Sounds: no systolic murmur, no diastolic murmur, no rub, no S3 Gallop, no S4 Gallop, no click, no other leg Peripheral Edema: bilateral: None - Gastrointestinal General gastrointestinal: no absent bowel sounds, no decreased bowel sounds, no distended, no hepatomegaly, no hyperactive bowel sounds, normal bowel sounds, no organomegaly, no rigid, no scaphoid, soft, no splenomegaly, no tenderness, no umbilical hernia, no ventral hernia - Integumentary Integumentary: normal - Neurologic Neurologic: focal deficits - Musculoskeletal Musculoskeletal: generalized weakness - Psychiatric Unable to adequately assess but, patient is calm during assessment Results CBC & Chem 7: 02/25/23 04:14 02/25/23 11:20 Labs: Abnormal Lab Results - Last 24 Hours (Table) 02/25/23 02/25/23 Range/Units 04:14 04:14 RBC 5.72 H (3.80-5.40) m/uL Hct 49.0 H (34.0-46.0) % RDW 15.6 H (11.5-15.5) % Lymphocytes # 0.7 L (1.0-4.8) k/uL Sodium 133 L (137-145) mmol/L Chloride 92 L (98-107) mmol/L Carbon Dioxide 35 H (22-30) mmol/L BUN 32 H (7-17) mg/dL Creatinine 1.13 H (0.52-1.04) mg/dL Comments: Carotid Doppler reports moderate atherosclerotic plaque in the bilateral carotid bifurcations with 50-69% stenosis at the origins of the internal carotid arteries Chest x-ray stable left lower lobe infiltrate Abdominal x-ray nonspecific, correlate for ileus or partial obstruction, patient does have an NG tube in place and report is recommending advancement Chest x-ray: report reviewed Abdominal x-ray: report reviewed Assessment and Plan (1) CVA (cerebral vascular accident) Current Visit: Yes Status: Acute Priority: High Code(s): I63.9 - CEREBRAL INFARCTION, UNSPECIFIED SNOMED Code(s): 944583252 (2) Peripheral vascular disease Current Visit: Yes Status: Acute Priority: High Code(s): I73.9 - PERIPHERAL VASCULAR DISEASE, UNSPECIFIED SNOMED Code(s): 525865216 Plan: CVA -Patient has been assessed and is being treated by Neurology. She is doing much better since admission -Patient has significant cardiovascular risk factors including uncontrolled hypertension, diabetes mellitus type 2 and smoking. LVEF 30-35%. -Some of the hypercoagulable workup has been ordered. The results that have returned positive are genetic. These genetic tests are typically more associated with venous thromboses. There is no PFO on workup. Patient does have significant cardiovascular risk factors for stroke including uncontrolled hypertension, diabetes mellitus type 2 and smoking. LVEF is 30-35%. Financial Investigator discussed that there was no thrombus seen in ECHO examination. -Hematology and Cardiology agree, at this time, antiplatelet therapy, along with aggressive treatment and mgmt of patient's comorbidities, is reasonable treatment. -Antiphospholipid antibody testing will be ordered. If any APL antibody is positive then, would recommend anticoagulation therapy with Coumadin. -We will follow-up on testing results and give final recommendations. Doctor attests: I performed a history and physical examination of this patient, developed impression and plan of care. Discussed with dictator. I agree with dictators note, documented as a scribe.
--- NOTE | 2023-02-25 15:48 | P.PN ---
Subjective Progress Note Date: 02/25/23 This is a 57-year-old female history significant for diabetes mellitus, hypertension, myocardial infarction, thyroid disorder, current smoker. Patient presented to the hospital for altered mental status and was found on the floor by her he was unable to lift her up. Patient was brought in by EMS. Patient is found to have generalized weakness confusion and has been having multiple falls at home with progressive weakness over the last 5 months, patient is a poor historian and currently alert x 0 and obtunded at the time of examination. at the bedside provides the medical history, patient is a daily smoker and occasional alcohol use. Over the last 5 months has been having frequent falls and has been increasingly confused Has not been to a doctor and not taking recommending medications. Additionally he felt patient may have suffered a stroke a few months ago and had noticed a facial droop around that time. Patient in the ER was awake and alert. Blood pressure on admission was in the 220s systolic and difficult to treat with multiple antihypertensive agents given. Patient was also given IV ativan. Chest x-ray on admission shows cardiomegaly with linear atelectasis and/or scarring the left midlung. EKG shows sinus tachycardia with a heart rate of 110 on admission. She has no elevated white blood cell count it is normal at 7.1, sodium of 135, BUN/cr 32 and 1.28, Lacis acid is normal 1.3. She does have troponin elevation of 0.067, 0.074, 0.075.. ProBNP is elevated at 16,200, TSH is also 38.800, free T4 0.84. Urinalysis is negative for infection, urine drug toxicology is negative. Patient is admitted to the hospital for new onset CHF and originially admitted to the stepdown unit. Patient was upgraded to the intensive care unit and placed on nitro gtt and had also become unresponsive only arousing to sternal rub. Patient does not appear to have feeling in the left foot there is mottling and purple discoloration of the great toe and 3/4 toes likely due to ischemia and vascular services has been consulted as well as neurology, cardiology and pulmonary logging crew supervisor. Recommend a brain CT when patient is more stable and also ABGs will be done. An echocardiogram reveals EF of 30-35%, mild MR. 02/20/2023 Patient continues to be monitored closely in the intensive care unit. Currently alert x 2 more awake than yesterday, does have some slurred speech today. Brain CT shows no acute intracranial process with remote lacunar injuries along with nonspecific white matter changes likely secondary to chronic microangiography. EEG is negative. Neurology following and recommending brain MRI. Chest xray today is negative. Continues on IV lasix 40 mg every 12 hours with urine output of over 5L in the last 24 hours. Continues on IV cleviprex/clonidine patch and blood pressure running in the 150s systolic. Labs reveal sodium of 138, potassium 3.8, BUN 23, creatinine of 1.0. 02/21/2023 Patient is evaluated today in the intensive care unit. Patient is slightly more lethargic today was given a dose of IV ativan overnight for increased agitated. Patient had failed swallow evaluation and has been placed NPO at this time. Slightly more lethargic than yesterday. Patient is being followed by neurology and recommended to undergo MRI tomorrow however patient remains on IV cleviprex for blood pressure control as well as clonidine patch and IV hydralazine. Pat ient continues on IV lasix Q12 which has been decreased to 20 mg. CTA thoracic and abdominal aorta with run off reveals long segment occlusion bilateral mid superficial femoral arteries with reconstitution of the distal SFA bilaterally. There is proximal abdominal aortic aneurysm. Multifocal calcific disease estimated 7% stenosis anterior tibial arteries bilaterally. Vascular surgery following with further recommendations forthcoming. Labs today reveal white count of 7.8, hgb 16.5. Potassium 3.1 and magnesium 1.5. Heart rate controlled in the 70s, blood pressure in the 140/80s and currnently requiring 2L of oxygen. Patient does have some tenderness to the LLQ on exam. 02/22/2023 Patient evaluated in the intensive care unit today, more awake and alert sitting up in the chair. Diet has been advanced to pureed diet. Patient also had a bowel movement today. Diminished airway patient needs encouragement to cough and deep breath and will be given incentive spirometer. Was given IV synthroid and transitioned to oral synthroid today. Has been resumed on oral blood pressure medication including clonidine patch and taken off the cleviprex gtt and bp has improved down to 110/90 currently. Vascular surgery following recommending vascular intervention when medically stable. Patient is pending MRI and likely will be done Wednesday. Sodium has dropped to 130 today, BUN 22, creatinine 1.16, total bilirubin 1.4. 02/23/2023 Patient is seen and evaluated and follow-up in the ICU with multiple medical consultations following. Patient was able to undergo MRI of the brain with neurology following undergoing extensive workup including cardiology and vascular surgery along with pulmonary logging crew supervisor. MRI of the brain showed numerous punctate foci of acute infarcts involving the frontal and parietal cortices, deep white matter regions on both sides, bilateral thalami, and left basal ganglia with additional small focus in the left paramedian vita. A couple foci measuring up to 1.0 cm involving the left glenohumeral of the corpus callosum and findings suggest small infarcts greater than 6 hours in duration consider a central thromboembolic phenomenon with background severe burden of small chronic vessel ischemic disease. Per nursing staff patient had a decrease in mentation and blood pressures have been uncontrolled with neurology and cardiology making adjustments. Clonidine discontinued and awaiting possible YANDEL. CTA ordered and pending. Chest x-ray today shows NG tube appearing in good position with stable left lower infiltrate and small effusion and patient is maintained on IV Lasix low dose daily. 02/24/2023 Patient is seen in follow-up this morning continues to be in the ICU with multiple medical consultations following. Neurology recommending YANDEL with card iology following inpatient is reporting some chest pain and currently awaiting troponins and repeat EKG. Possible YANDEL today. Patient's mentation is somewhat improved today although extremely delayed. Patient continues to ask for her on exam. Patient is afebrile and continues with NG tube an abdominal x- ray is ordered and pending. Patient with multiple strokes noted and significant noncompliance with seeking any type of medical attention for many years and left lower limb ischemia, prognosis is extremely poor and guarded. Patient's CODE STATUS is no code and need to discuss further about overall prognosis and treatment plan moving forward as patient will need ECF and unsure if she is going to be agreeable to this. Case management/social work following. 02/25/2023 Patient is seen and evaluated in follow-up this morning lethargic although arousable. Patient condition continues to be extremely guarded and overall poor at this time with multiple medical consultations following. Patient underwent YANDEL yesterday with concerns for possible amyloidosis. Patient noted have factor V deficiency and hematology was consulted for input and recommendations. Patient is maintained on aspirin and will continue for now. Patient has been taken off diuretics and placed on gentle IV hydration and patient continues to be nothing by mouth with an NG tube. Abdominal x-ray suggestive of ileus versus obstruction and will consult general surgery. Discussed briefly with and will discuss further at length about overall prognosis, treatment plan, and options moving forward. Vascular surgery has evaluated the patient with no plans for surgical intervention at this time and patient does have noted left lower extremity ischemia with discoloration which is slightly improved. Patient is afebrile with no reported chest pain or shortness of breath. Patient continues to be nothing by mouth with an NG tube. Review of Systems Constitutional: Reports atigue denied any fever. Cardio vascular: Denies hest pain, no palpitations Gastrointestinal: denied any nausea, vomiting, diarrhea Pulmonary: Denied any shortness of breath cough Neurologic denied any new focal deficits PHYSICAL EXAMINATION: GENERAL: The patient is alert and oriented x2, slurred and delayed speech. More lethargic today. Ill-appearing, elderly appearing Pale. HEENT: Pupils are round and equally reacting to light. EOMI. No scleral icterus. No conjunctival pallor. Normocephalic, atraumatic. No pharyngeal erythema. No thyromegaly. CARDIOVASCULAR: S1 and S2 muffled PULMONARY: Diminished breath sounds bilaterally with no wheezing or crackles. ABDOMEN: Soft, nontender, nondistended, normoactive bowel sounds. No palpable organomegaly. MUSCULOSKELETAL: No joint swelling or deformity. EXTREMITIES: No cyanosis, clubbing, or pedal edema. Left lower extremity with discoloration NEUROLOGICAL: Unable to complete full exam. Diffuse weakness. SKIN: No rashes. There is discoloration to toes on the left foot extending to the left foot pad, progressing. Assessment: Altered mental status secondary to acute metabolic encephalopathy Acute infarct involving the frontal and parietal cortices, deep white matter regions on both sides, bilateral thalami, and left basal ganglia as noted on MRI of the brain, possible central thromboembolic phenomenon Progressive weakness and frequent falls at home Hypertension with urgency on admission Elevated troponin level Acute kidney injury vs CKD, Ischemic change to the left foot. Acute congestive heart failure, systolic dysfunction Severe Cardiomyopathy and LV dysfunction possibly from the hypertension vs hypothyroidism Possible amyloidosis Hypothyroidism Elevated D-Dimer Hypothyroidism Diabetes Mellitus type 2 uncontrolled History of factor V leiden deficiency History of myocardial infarction unknown details Chronic and ongoing nicotine use Medical noncompliance Marijuana use GI prophylaxis DVT prophylaxis; SCDs Do Not Resuscitate/Do Not Intubate Plan: Continue monitoring the patient in the intensive care unit with multiple medical consultations following. General surgery consulted as there was findings of possible ileus is versus obstruction on abdominal x-ray and there has been no bowel movement. Patient is nothing by mouth as well underwent YANDEL with cardiology yesterday showing moderately impaired left ventricular systolic function and global hypokinesis with severe hypertrophy w ith speckling raising the possibility of infiltrative disease and amyloidosis, no evidence of shunting across the interatrial septum with mild aortic and mitral regurgitation with no pericardial effusion and mild atherosclerotic changes of the descending aorta Patient is on gentle IV hydration as patient is nothing by mouth and recommend follow-up labs Cleviprex has been discontinued and mentation is about the same waxing and waning Neurology following and underwent brain MRI showing multiple infarcts as noted above Recommend maximizing medical management with cardiology following along with tight blood pressure control Vascular surgery recommending intervention when patient is medically stable for left lower extremity ischemia in the outpatient setting Recommend PT/OT therapy evaluation once more stableas patient will need rehab although patient is reluctant and wants to go home with Need to address treatment plan with family as well as overall prognosis. family meeting to occur tomorrow to discuss overall prognosis and treatment plans moving forward Follow up labs in AM Overall prognosis is extremely guarded The impression and plan of care has been dictated by Rhonda Hawkins, Nurse Practitioner as directed. Dr. Andi MD I have performed a history and examination and MDM of this patient, discussed the same with the dictator, and agree with the dictator's assessment and plan as written ,documented as a scribe. Based on total visit time, I have performed more than 50% of the visit. Objective - Vital Signs Vital signs: Vital Signs Temp 98.0 F 02/25/23 08:00 Pulse 60 02/25/23 10:00 Resp 27 H 02/25/23 10:00 BP 153/89 02/25/23 10:00 Pulse Ox 100 02/25/23 10:00 FiO2 Intake & Output 02/24/23 02/25/23 02/25/23 18:59 06:59 18:59 Intake Total 440 1200 700 Output Total 335 305 110 Balance 105 895 590 Weight 59.5 kg 62.3 kg 62.3 kg Intake: IV 440 1100 500 IV Fluid 440 1100 500 Intake, IV Titration 200 Amount Potassium Chloride 10 meq 200 In Water For Injection 1 100ml.bag @ 100 mls/hr IVPB [facility] Rx#: [id number] Tube Feeding 100 Output: Urine 335 305 110 Other: Voiding Method Indwelling Catheter Indwelling Catheter Indwelling Catheter - Labs CBC & Chem 7: 02/25/23 04:14 02/25/23 11:20 Labs: Abnormal Lab Results - Last 24 Hours (Table) 02/23/23 02/23/23 02/23/23 Range/Units 13:04 13:04 13:04 RBC (3.80-5.40) m/uL Hct (34.0-46.0) % RDW (11.5-15.5) % Lymphocytes # (1.0-4.8) k/uL Lupus Anticoag aPTT 52 H (<43) Sec(s) Factor V Leiden Mutat Heterozygous A Sodium (137-145) mmol/L Chloride (98-107) mmol/L Carbon Dioxide (22-30) mmol/L BUN (7-17) mg/dL Creatinine (0.52-1.04) mg/dL Troponin I (0.000-0.034) ng/mL Prothrombin [id number] Mut Heterozygous A 02/24/23 02/25/23 02/25/23 Range/Units 11:50 04:14 04:14 RBC 5.72 H (3.80-5.40) m/uL Hct 49.0 H (34.0-46.0) % RDW 15.6 H (11.5-15.5) % Lymphocytes # 0.7 L (1.0-4.8) k/uL Lupus Anticoag aPTT (<43) Sec(s) Factor V Leiden Mutat Sodium 133 L (137-145) mmol/L Chloride 92 L (98-107) mmol/L Carbon Dioxide 35 H (22-30) mmol/L BUN 32 H (7-17) mg/dL Creatinine 1.13 H (0.52-1.04) mg/dL Troponin I 0.106 H* (0.000-0.034) ng/mL Prothrombin [id number] Mut Microbiology - Last 24 Hours (Table) 02/18/23 20:57 Blood Culture - Final Blood 02/18/23 21:05 Blood Culture - Final Blood
[2023-02-25 15:53] LABS: Protein, Total 4.9 d/dL (6.2-8.2)
--- NOTE | 2023-02-25 16:08 | CT ---
EXAMINATION TYPE: CT abdomen pelvis w con CT DLP: 971.4 mGycm, Automated exposure control for dose reduction was used. DATE OF EXAM: 02/25/2023 3:55 PM COMPARISON: CTA angiogram abdomen aorta with runoff 02/20/2023 CLINICAL INDICATION:Female, 57 years old with history of ileus vs bowel obstruction; TECHNIQUE: Standard CT of the abdomen and pelvis following the administration of 80 cc of Isovue 30 0 IV contrast material and oral contrast. Coronal and sagittal reformats were performed. FINDINGS: LOWER CHEST: Moderate cardiomegaly. Right lower lobe subsegmental atelectasis. Trace left pleural eff usion with associated atelectasis. ABDOMEN LIVER: Stable hepatic cysts with largest in the right hepatic lobe measuring up to 3.5 cm. GALLBLADDER AND BILE DUCTS: Hyperdense material layering within the gallbladder which may be related to gallstones versus vicarious excretion of contrast. PANCREAS: Unremarkable. SPLEEN: Unremarkable. ADRENAL GLANDS: Nonspecific thickening of the bilateral adrenal glands likely related to hyperplasia. KIDNEYS AND URETERS: No evidence of hydronephrosis or renal calculus. The kidneys enhance symmetrical ly. Stable bilateral renal cysts. PELVIS BLADDER: Decompressed with King catheter in place. Nondependent foci of gas within the ureter but li pam from catheter placement. REPRODUCTIVE: Heterogenous appearance likely related to fibroid changes involving the uterus. ABDOMEN & PELVIS STOMACH AND BOWEL: NG tube terminates within the proximal stomach. Sidehole is just at the GE junctio n. No evidence of bowel obstruction. Enteric contrast reaches the descending colon. Gas is identified within the rectum. PERITONEUM: No evidence of pneumoperitoneum or free fluid. VASCULATURE: Stable aneurysmal dilatation of the aorta measuring up to 3 cm. Moderate atherosclerotic calcification and noncalcified plaque involving the abdominal aorta. Redemonstration of bilateral steele perficial femoral artery occlusions. MUSCULOSKELETAL: No acute osseous abnormalities. Mild degenerative disc disease at L5-S1. LYMPH NODES: No evidence for lymphadenopathy. SOFT TISSUE/ABDOMINAL WALL: Few foci of gas identified within the anterior abdominal wall likely rela delmi to medication injection. Tiny fat filled umbilical hernia. IMPRESSION: 1. Nonobstructive bowel gas pattern with mild gaseous distention of the distal colon and rectum. 2. Stable aneurysm dilatation of the proximal aorta with similar occlusion of the bilateral superfici al femoral arteries. 3. NG tube terminates in the proximal stomach with sidehole at the GE junction. Recommend advancement of 3 cm. 4. Fibroid changes of the uterus. 5. Cholelithiasis and/or vicarious excretion of contrast. 6. Moderate cardiomegaly with trace left pleural effusion.
[2023-02-25] MEDS: MAG HYDROX/AL HYDROX/SIMETH 30 ML, diphenhydrAMINE ELIXIR 75 MG, LIDOCAINE VISCOUS 2% 3... PO SCH ×6 (16:41→22:51)
--- NOTE | 2023-02-25 16:55 | US ---
EXAMINATION TYPE: US chest DATE OF EXAM: 02/25/2023 COMPARISON: 02/25/2023 CLINICAL INDICATION: Female, 57 years old with history of LLL effusion; TECHNIQUE: Targeted ultrasound of the posterior lower right lung EXAM MEASUREMENTS: No significant right pleural effusion. The left side was not imaged. IMPRESSIONS: No right pleural effusion
[2023-02-25 19:01] LABS: Hepatitis A Antibody IgM Nonreactive; Hepatitis B Core IgM Nonreactive; Hepatitis B Surface Antigen Nonreactive; Hepatitis C IgG Antibody Nonreactive
[2023-02-25] MEDS: ATORVASTATIN 80 MG TAB PO SCH (20:09)
[2023-02-25] MEDS: PANTOPRAZOLE 40 MG/10 ML VIAL IVP SCH (20:11)
[2023-02-25 21:43] LABS: Anti-DNA, DS unit <1.0 IU/mL; DNA Double-Stranded Negative (Negative)
--- NOTE | 2023-02-25 22:26 | P.PN ---
Subjective Progress Note Date: 02/25/23 Patient initially seen by Dr. Stanley Thompson. Please refer to his note for details. Patient is a 57-year-old female with bilateral hemispheric strokes. She has bilateral significant carotid stenosis, > 70% stenosis on CTA but seems carotid 50-69%. Bilateral femoral occlusion. The performed 02/24/2023 revealed hypokinesis with severe hypertrophy LV. No PFO. Hypercoagulable workup pending. Patient is on aspirin 325 mg daily. Vascular surgery on board. Patient was not taking any antiplatelet medication at home. Patient was sleeping when I arrived. However she did wake up and was cooperating with examination is per examination section. Patient admits to smoking 2 packs per day for 30 years, drinks couple beers per day. SOME OF THE WORK-UP DURING THIS VISIT: Vitamin B12: 644 Folate: 10.80 Ammonia 19 HbA1c: 6.6 TSH is 38.8, free T4 is 0.84 and the free T3 is 2.4. CT head is reported as no acute intracranial process. remote lacunar injuries along with nonspecific white matter changes likely secondary to chronic microangiopathy. MRI Brain is reported as numerous punctate foci of acute infarct involving the frontal and parietal disease deep white matter region of both sides, bilateral thalamus and left basal ganglia. Additional small focus in the left paramedian vita. A couple foci measuring up to 1.0 cm involving the left splenium of the corpus callosum. Given the corresponding increased T2 flare, findings suggest small infarcts is greater than 6 hours in duration. Consider central thromboembolic phenomena. Background of severe burden of chronic small vessel ischemic disease. I personally reviewed the MRI and agree with the findings with evidence of multiple areas of acute to subacute ischemia involving bilateral hemispheric region including splenium of the left corpus callosum.. EEG is abnormal. The background slowing is suggestive of moderate encephalopathy. Otherwise no focal slowing, epileptiform discharges or seizures. LASHA is negative, ESR is 2, Protein S and antithrombin II Ag is within normal limits. Objective - Vital Signs Vital signs: Vital Signs Temp 97.6 F 02/25/23 20:00 Pulse 54 L 02/25/23 21:00 Resp 21 02/25/23 21:00 BP 172/89 02/25/23 21:00 Pulse Ox 96 02/25/23 21:00 FiO2 Intake & Output 02/25/23 02/25/23 02/26/23 06:59 18:59 06:59 Intake Total 1200 1325 150 Output Total 305 370 80 Balance 895 955 70 Weight 62.3 kg 62.3 kg Intake: IV 1100 1125 150 IV Fluid 1100 1125 150 Intake, IV Titration 200 Amount Potassium Chloride 10 meq 200 In Water For Injection 1 100ml.bag @ 100 mls/hr IVPB Q[facility]H [facility] Rx#: [id number] Tube Feeding 100 Output: Urine 305 370 80 Other: Voiding Method Indwelling Catheter Indwelling Catheter # Bowel Movements 1 - Exam Patient is slightly groggy, slightly encephalopathic. Patient does wake up and follows commands. Her speech is mildly dysarthric, but no aphasia. Patient can name and repeat very well. Patient knows it is February and states the year is 2002 and that she is in [facility] in [place]. On cranial nerve examination, pupils are equal, round and reacting to light, visual dunbar are full on confrontation, face is symmetric and tongue protrudes the midline. Patient has right pronator drift about 25-30, with left pronation but no drift. Patient's muscle strength is normal in the upper limbs. The strength is 3+4- bilaterally at the hip flexion, ankle dorsiflexion are normal bilaterally. Deep tendon reflexes are 2+ in the upper limbs, 1+ at the knees. Sensory to touch is equal. No ataxia for [id number] testing in the upper limbs. - Labs CBC & Chem 7: 02/25/23 04:14 02/25/23 11:20 Labs: Abnormal Lab Results - Last 24 Hours (Table) 02/25/23 02/25/23 02/25/23 Range/Units 04:14 04:14 11:20 RBC 5.72 H (3.80-5.40) m/uL Hct 49.0 H (34.0-46.0) % RDW 15.6 H (11.5-15.5) % Lymphocytes # 0.7 L (1.0-4.8) k/uL Sodium 133 L (137-145) mmol/L Chloride 92 L (98-107) mmol/L Carbon Dioxide 35 H (22-30) mmol/L BUN 32 H (7-17) mg/dL Creatinine 1.13 H (0.52-1.04) mg/dL Total Protein (PEP) 4.9 L (6.2-8.2) d/dL Assessment and Plan Assessment: This is a 57-year-old woman with history of hypertension and is not compliant taking medication who presented because of generalized weakness, confusion, falls for the past weeks to months. Altered mental status seems due to multifactorial: acute bilateral hemispheric stroke, Also due to hypertensive encephalopathy with component due to abnormal thyroid and some component of metabolic--significant improvement in mentation Acute ischemic bilateral hemispheric stroke: Unsure exact cause. Appears embolic in nature. Rule out cardioembolic vs underlying hypercoagulable vs due to artery to artery embolic from carotid stenosis. Per CTA has right ICA stenosis 60-70% and left 70-80% Hypercoagulable state with positive/heterozygous for prothrombin gene as well as factor V Leiden mutation. 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 Systolic heart failure with ejection fraction of 30-35% Elevated troponin Hypothyroidism Peripheral vascular disease Chronic history of hypertension and noncompliant with medication Tobacco use Alcohol use Noncompliance with medication and does not follow up with physician Plan: Because of result of MRI Brain revealing bilateral hemispheric stroke. No IV tpa since unknown last normal and risk of IV tpa outweigh benefit. Recommend patient to be placed on dual antiplatelet medication because of the extent of vasculopathy noted on the CTA of head and neck as well as peripheral vasculature. YANDEL performed 02/24/2023 revealed moderately impaired left ventricular systolic function with global hypokinesis and severe hypertrophy with [place] raising the possibility of infiltrative disease. No evidence of shunting across the intra-atrial septum. Mild aortic and mitral regurgitation. Mild atherosclerotic changes of the descending aorta. Suggest 30 day event monitor to rule out paroxysmal atrial fibrillation. LASHA is negative, ESR is 2, Protein S and antithrombin II Ag is within normal limits. DsDNA negative. Factor V Leiden heterozygous, which is associated with activated protein C resistance and increased risk for venous thromboembolic is him. It hurts have 3 10/28/1940 increased risk for VTE. Lupus anticoagulant negative. Prothrombin gene mutation also heterozygous for [id number] mutation. Patient's homocysteine is highly elevated 27.9. Hematology to address hypercoagulable state. B12 is 644, folate 10.8 both normal. TSH is elevated 38.8. IM to address. She is on ASA 325mg daily and recommend if stable to be on Plavix 75mg daily. If does have positive cardiac thrombus vs a-fib/flutter or positive hypercoagulable work-up then recommend to start anticoagulation and no need for dual antiplatelets. On Lipitor 80mg qhs for secondary stroke prophylaxis. Continue neuro checks On cardiac monitoring. PT, OT and [employer] are consulted. Cardiology is on board. Continue thiamine 100mg daily. Please avoid any sedation if possible to have a better neurological evaluation. Vascular surgery team for bilateral femoral occlusive disease. Also has leg toes ischemia. Will defer rest of management to primary and other specialist. For DVT prophylaxis: On Enoxaparin.
[2023-02-26] MEDS: hydrALAZINE HCL 20 MG/ML 1 ML VIAL IVP PRN ×2 (00:08→03:47)
[2023-02-26 00:40] LABS: Glucose,Whole Blood 81 mg/dL (70-110)
[2023-02-26 01:28] LABS: Von Willebrand Factor Antigen 171 % (52-214)
[2023-02-26] MEDS: SODIUM CHLORIDE 0.9% 1,000 ML IV SCH (02:31)
[2023-02-26 03:40] LABS: Cardiolipin Ab IgG Interp Negative (Negative); Cardiolipin Ab IgM Interp Negative (Negative); Cardiolipin IgA Antibody <2.0 U/mL
[2023-02-26 04:44] LABS: Basophils % (A) 0 %; Eosinophils # (A) 0.2 k/uL (0-0.7); Eosinophils % (A) 2 %; HCT 47.2 % (34.0-46.0); HGB 14.9 gm/dL (11.4-16.0); Lymphocytes # (A) 0.6 k/uL (1.0-4.8); Lymphocytes % (A) 7 %; MCHC 31.6 g/dL (31.0-37.0); MCV 85.2 fL (80.0-100.0); Mean Platelet Volume 9.2; Monocytes # (A) 0.4 k/uL (0-1.0); Monocytes % (A) 5 %; Neutrophils # (A) 6.5 k/uL (1.3-7.7); Neutrophils % (A) 83 %; Platelet Count 201 k/uL (150-450); RBC 5.54 m/uL (3.80-5.40); RDW 15.5 % (11.5-15.5); WBC 7.8 k/uL (3.8-10.6)
[2023-02-26 04:50] LABS: African American GFR (CKD) 72 (>60 ml/min/1.73 sqM); Anion Gap 5 mmol/L; Blood Urea Nitrogen 25 mg/dL (7-17); Calcium 8.4 mg/dL (8.4-10.2); Carbon Dioxide 29 mmol/L (22-30); Chloride 97 mmol/L (98-107); Glucose 75 mg/dL (74-99); Non-African American GFR(CKD) 63 (>60 ml/min/1.73 sqM); Potassium 3.9 mmol/L (3.5-5.1); Sodium 131 mmol/L (137-145)
[2023-02-26] MEDS ORDERED: POTASSIUM BICARBONATE/CIT AC 20 MEQ TABLET.EFF NG-TUBE SCH (06:00)
[2023-02-26] MEDS: LEVOTHYROXINE 50 MCG TAB PO SCH (06:10)
[2023-02-26] MEDS: carvediloL 12.5 MG TAB PO SCH ×2 (06:10→16:12)
[2023-02-26 06:16] LABS: Glucose,Whole Blood 73 mg/dL (70-110)
--- NOTE | 2023-02-26 06:44 | P.GSCN ---
History of Present Illness Consult date: 02/25/23 Reason for Consult: Nausea, abdominal pain possible ileus History of present illness: Is a 57-year-old female with multiple medical issues. Patient states she had some complaints of nausea and abdominal distention and mild pain. Patient stat es the symptoms are resolved. She is currently resting in bed currently. She had a abdominal x-ray which was suggestive of ileus. Past Medical History Past Medical History: Diabetes Mellitus, Myocardial Infarction (LA), Thyroid Disorder Last Myocardial Infarction Date:: unknown History of Any Multi-Drug Resistant Organisms: None Reported Past Surgical History: No Surgical Hx Reported Past Anesthesia/Blood Transfusion Reactions: No Reported Reaction Smoking Status: Current every day smoker Past Alcohol Use History: Occasional Past Drug Use History: Marijuana - Past Family History Son(s) History Unknown: Yes Mother History Unknown: Yes Father History Unknown: Yes Medications and Allergies Home Medications Medication Instructions Recorded Confirmed Type No Known Home Medications 02/18/23 02/18/23 History Allergies Allergy/AdvReac Type Severity Reaction Status Date / Time shellfish derived [Shrimp] Allergy Rash/Hives Verified 02/18/23 21:49 Surgical - Exam Vital Signs Temp Pulse Resp BP Pulse Ox 97.7 F 105 H 22 238/178 87 L 02/18/23 20:48 02/18/23 20:48 02/18/23 20:48 02/18/23 20:48 02/18/23 20:48 - General no distress, chronically ill - Eyes PERRL - ENT normal pinna - Neck no masses - Respiratory normal expansion - Cardiovascular Rhythm: regular - Abdomen Minimal distention Abdomen: soft, non tender Results - Labs 02/26/23 04:16 02/26/23 04:16 Abnormal Lab Results - Last 24 Hours (Table) 02/25/23 02/26/23 02/26/23 Range/Units 11:20 04:16 04:16 RBC 5.54 H (3.80-5.40) m/uL Hct 47.2 H (34.0-46.0) % Lymphocytes # 0.6 L (1.0-4.8) k/uL Sodium 131 L (137-145) mmol/L Chloride 97 L (98-107) mmol/L BUN 25 H (7-17) mg/dL Total Protein (PEP) 4.9 L (6.2-8.2) d/dL Diabetes panel 02/25/23 02/26/23 Range/Units 11:20 04:16 Sodium 131 L (137-145) mmol/L Potassium 3.9 3.9 (3.5-5.1) mmol/L Chloride 97 L (98-107) mmol/L Carbon Dioxide 29 (22-30) mmol/L BUN 25 H (7-17) mg/dL Creatinine 1.00 (0.52-1.04) mg/dL Glucose 75 (74-99) mg/dL Calcium 8.4 (8.4-10.2) mg/dL Calcium panel 02/26/23 Range/Units 04:16 Calcium 8.4 (8.4-10.2) mg/dL Pituitary panel 02/25/23 02/26/23 Range/Units 11:20 04:16 Sodium 131 L (137-145) mmol/L Potassium 3.9 3.9 (3.5-5.1) mmol/L Chloride 97 L (98-107) mmol/L Carbon Dioxide 29 (22-30) mmol/L BUN 25 H (7-17) mg/dL Creatinine 1.00 (0.52-1.04) mg/dL Glucose 75 (74-99) mg/dL Calcium 8.4 (8.4-10.2) mg/dL Adrenal panel 02/25/23 02/26/23 Range/Units 11:20 04:16 Sodium 131 L (137-145) mmol/L Potassium 3.9 3.9 (3.5-5.1) mmol/L Chloride 97 L (98-107) mmol/L Carbon Dioxide 29 (22-30) mmol/L BUN 25 H (7-17) mg/dL Creatinine 1.00 (0.52-1.04) mg/dL Glucose 75 (74-99) mg/dL Calcium 8.4 (8.4-10.2) mg/dL - Imaging CT scan - abdomen: report reviewed (Computed tomography scan of the abdomen is reviewed. There is no evidence of ileus or bowel obstruction. There is evidence of cholelithiasis.) Assessment and Plan Assessment: Resolved abdominal pain and nausea. Patient does not have evidence of an ileus. Patient may start diet. Her gallstones appeared to be asymptomatic.
--- NOTE | 2023-02-26 08:19 | XR ---
EXAMINATION TYPE: XR chest 1V portable DATE OF EXAM: 02/26/2023 Comparison: 02/25/2023 Clinical History: 57-year-old female shortness of breath Findings: NG tube satisfactory. Heart mildly enlarged. Prominent retrocardiac opacity and some volume loss pers ists. The volume loss show some improvement from prior exam. Impression: Similar mild cardiomegaly and extensive left basilar and retrocardiac opacity though with slight impr ovement in volume loss at the left base.
[2023-02-26] MEDS: CLOPIDOGREL 75 MG TAB PO SCH ×2 (08:43→09:03)
[2023-02-26] MEDS: THIAMINE 100 MG TAB PO SCH (08:45)
[2023-02-26] MEDS: PANTOPRAZOLE 40 MG/10 ML VIAL IVP SCH ×2 (08:45→21:16)
[2023-02-26] MEDS: NICOTINE 14MG/24HR PATCH TRANSDERM SCH (08:45)
[2023-02-26] MEDS: ENOXAPARIN 40 MG/0.4 ML SYRINGE SQ SCH (08:45)
[2023-02-26] MEDS: lisinopriL 20 MG TAB PO SCH ×2 (08:45→21:17)
[2023-02-26] MEDS: ASPIRIN 325 MG TAB PO SCH (08:45)
[2023-02-26] MEDS: SPIRONOLACTONE 25 MG TAB PO SCH (08:46)
[2023-02-26] MEDS: MAG HYDROX/AL HYDROX/SIMETH 30 ML, diphenhydrAMINE ELIXIR 75 MG, LIDOCAINE VISCOUS 2% 3... PO SCH ×9 (09:03→21:16)
--- NOTE | 2023-02-26 09:04 | P.PN ---
Progress Note - Text Progress Note Date: 02/26/23 Patient's resting comfortably in her bed. She has no abdominal pain. On exam vital signs are stable. Abdomen soft. Patient will have her nasogastric tube removed. She'll start on full liquid diet.
[2023-02-26] MEDS ORDERED: cloNIDine 0.2 MG/24HR PATCH TRANSDERM SCH (10:30)
[2023-02-26] MEDS ORDERED: hydrALAZINE HCL 25 MG TAB PO SCH (10:30)
--- NOTE | 2023-02-26 10:36 | P.PN ---
Subjective Progress Note Date: 02/26/23 Principal diagnosis: Altered mental status changes Shunt seen in the ICU. No acute changes through the night. Sitter remains at bedside. Apparently yesterday she was more alert and oriented throughout the day and had been complaining of abdominal pain. She had a CT of the abdomen and pelvis report a nonobstructive bowel gas pattern with mild distention of distal colon and rectum. Stable aneurysm dilation of proximal aorta with similar occlusion of bilateral SFAs. NG tube in place recommend advancement 3 cm, fibroid changes in uterus, cholelithiasis and moderate cardiomegaly with trace left pleural effusion. She passed her swallow study yesterday. Gen. surgery is following patient for ileus and has recommended NG tube be discontinued and patient started on full liquid diet. She is currently drowsy and opens her eyes to her name however other than that not very cooperative with exam. Objective - Vital Signs Vital signs: Vital Signs Temp 98.5 F 02/26/23 08:00 Pulse 58 L 02/26/23 10:00 Resp 11 L 02/26/23 10:00 BP 186/96 02/26/23 10:00 Pulse Ox 97 02/26/23 10:00 FiO2 Intake & Output 02/25/23 02/26/23 02/26/23 18:59 06:59 18:59 Intake Total 1325 900 150 Output Total 370 805 100 Balance 955 95 50 Weight 62.3 kg 67 kg Intake: IV 1125 900 150 IV Fluid 1125 900 150 Intake, IV Titration 200 Amount Potassium Chloride 10 meq 200 In Water For Injection 1 100ml.bag @ 100 mls/hr IVPB Q1H [facility] Rx#: [id number] Output: Urine 370 805 100 Other: Voiding Method Indwelling Catheter Indwelling Catheter # Bowel Movements 1 - Labs CBC & Chem 7: 02/26/23 04:16 02/26/23 04:16 Labs: Abnormal Lab Results - Last 24 Hours (Table) 02/25/23 02/26/23 02/26/23 Range/Units 11:20 04:16 04:16 RBC 5.54 H (3.80-5.40) m/uL Hct 47.2 H (34.0-46.0) % Lymphocytes # 0.6 L (1.0-4.8) k/uL Sodium 131 L (137-145) mmol/L Chloride 97 L (98-107) mmol/L BUN 25 H (7-17) mg/dL Total Protein (PEP) 4.9 L (6.2-8.2) d/dL Assessment and Plan Assessment: 1. Bilateral femoral occlusive disease, chronic 2. Left great toe and third, fourth toe ischemic changes, stable 3. Brain MRI showing Multiple bilateral acute infarcts 4. Bilateral ICA stenosis 5. Altered mental status changes 6. Hypertension, uncontrolled, noncompliant with medications 7. Hypothyroid, noncompliant with medications 8. Cardiomegaly 9. Diabetes mellitus, noncompliant with medications 10. Elevated troponins 11. 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 Continue supportive care 2. CTA of lower extremities reviewed with bilateral SFA occlusions with one- vessel runoff. Appears chronic 3. Ischemia to toes improving, no planned vascular surgical intervention during this hospitalization 4. Patient may benefit from endovascular revascularization of the left SFA, this can be done as an outpatient 5. Head and neck CT angiogram images reviewed, carotid stenosis likely closer to 70% bilaterally. 6. No plans on surgical intervention for carotid stenosis, unlikely cause of bilateral infarcts. 7. Hematology on consult for hypercoagulable workup and recommendations 8. Continue with recommendations from neurology 9. Continue aspirin 81 mg daily, statin, Plavix 75 mg daily added per neurology 10. Medical management deferred to primary medical team Thank you for this consultation. The impression and plan of care has been dictated as directed. Dr. King I performed a history and examination of this patient, discussed the same with the dictator. I agree with the dictator's note ,documented as a scribe. Any additional findings or plans will be noted.
[2023-02-26] MEDS: amLODIPine 5 MG TAB PO SCH ×2 (11:05→21:17)
[2023-02-26] MEDS ORDERED: hydrALAZINE HCL 50 MG TAB PO SCH ×2 (11:30→22:00)
--- NOTE | 2023-02-26 11:33 | P.PN ---
Subjective PROGRESS NOTE The patient is a 57-year-old female who was admitted to the hospital with symptoms of confusion, multiple falls, weakness. The history is obtained from the records. The patient is not answering question quite somnolent after receiving Ativan. According to the records the patient has not been taking her medications are home. She has a history of hypertension, diabetes and hyperlipidemia full detail of her prior history or medication is unclear. She was noted to be severely hypertensive, elevated NT proBNP and TSH on presenta tion. She was in sinus mechanism on presentation. She had peripheral edema and discoloration of the toes on the left lower extremity. According to the notes she's a daily smoker and she uses marijuana. I am unable to obtain any other history. Her echocardiogram performed this morning showed a severely impaired left ventricle systolic function February 20: The patient remains confused, answering questions inappropriately. Her blood pressure has been elevated off Clevidipine. She is not taking by mouth medication because of a question of the swallowing. She continues to be in sinus mechanism. She has a good urinary output on IV Lasix. She continues to be on IV heparin. Her EKG showed T-wave inversion in the anterolateral lateral leads. Her brain CT showed lacunar infarct but no acute bleeding. Duplex scan of the lower extremities showed no evidence of DVT. She continues to have di scoloration of the left foot toes. February 21 : The patient remains confused, opening eyes to verbal stimulation. She failed her swallow evaluation and continues to be nothing by mouth, receiving IV medi cation. Her blood pressure has been relatively stable. There is no evidence of malignant arrhythmia. Her urine output is stable. She underwent a CT angiogram of the abdomen and chest and was found to have an abdominal aortic aneurysm and severe PAD, bilaterally. Her free T3 was low. 02/22 Patient seen and examined. Patient stating she is hungry. He continues be confused. Left lower extremity somewhat improved color per nurse with continued discoloration with fourth and fifth digit. She admits the pain all over including her lower extremities. Blood pressures remain elevated 145/107. She is not eating much orally. 02/23 Patient seen and examined. Patient had increased blood pressures in the systolics 170s yesterday and therefore clonidine was increased to 0.2 milligrams oral twice a day. Blood pressure did decrease down to 110s. She has been more altered this morning with more lethargy and not answering questions appropriately. 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 Therefore discussed stopping the clonidine and holding lisinopril for now for mild permissive hypertension with mental status changes. Has been receiving Lasix with good urine output. Creatinine stable at 1.2. 02/24 Seen and examined. Patient had altered mental status yesterday however mildly be improved today. MRI showed concern of thromboembolic etiology with bilateral infarcts. Carotid imaging does show bilateral disease. Patient has been in sinus rhythm. Patient is somewhat more alert today and complaining of substernal chest pain without significant shortness breath. Patient still continues and alert and oriented to self. Left lower extremity appears stable without worsened discoloration or ischemia. She has been on Lovenox drip. 02/25 Patient seen and examined. Patient underwent YANDEL yesterday showing speckled appearance of myocardium possibly consistent with amyloidosis. No significant PFO. Factor V Leiden was abnormal however discussed with hematology and should not be causing arterial clots. Has been maintained on aspirin. Troponins minimally elevated 0.1 and patient yesterday was complaining of some chest pain. Currently today denies any chest pain. Blood pressures were elevated in the 150-180 range. We will optimize heart failure regimen and add Aldactone. Creatinine has been fairly stable at 1.1. 02/26 Patient seen and examined. Patient somewhat more alert today. Surgery was consultative for ileus and NG tube hopefully to be discontinued today. Patient undergoing barium swallow today. She still gets intermittent chest pain. Blood pressures remained elevated and therefore amlodipine 5 mg twice a day was added as well as hydralazine added as well as clonidine patch was added. PHYSICAL EXAMINATION: Vitals reviewed LUNGS: Clear to auscultation HEART: Regular rate and rhythm, S1, S2. No S3. systolic ejection murmur ABDOMEN: Soft, nontender, no organomegaly EXTREMETIES: No edema, discoloration of the toes on the left with decreased pulses IMPRESSION: 1. Hypertension 2. Encephalopathy could be related to hypertension, workup in progress 3. Abnormal EKG rule out ischemia 4. Abnormal renal functions, improving 5. Probable peripheral vascular disease 6. Lacunar infarct 7. Severe cardiomyopathy of unknown etiology or duration probable hypertensive rule out ischemic 8. Worsened altered mental status with MRI showing bilateral infarcts concerning for thromboembolic disease 9. Chest pain 10. Bilateral carotid disease 11. PAD with bilateral SFA disease 12. Speckled appearance of myocardium possibly can be consistent with PLAN: Continue to hold diuretics given no significant edema and nothing by mouth. YANDEL did not show any significant source of stroke, does show some speckled appearance can be seen with amyloidosis Patient is having chest pain intermittently and still minimally elevated troponins and cardiomyopathy. Eventually will need cath however likely perform once patient more stable neurologically Discontinue clonidine again given severe fluctuations in blood pressures previously. Attempt to optimize heart failure regimen and increase hydralazine. Amlodipine was also added. Gradual decrease in blood pressure , 25% given significant neurologic event. Please call me with questions regarding blood pressure. Objective - Vital Signs Vital signs: Vital Signs Temp 98.5 F 02/26/23 08:00 Pulse 58 L 02/26/23 10:00 Resp 11 L 02/26/23 10:00 BP 186/96 02/26/23 10:00 Pulse Ox 97 02/26/23 10:00 FiO2 Intake & Output 02/25/23 02/26/23 02/26/23 18:59 06:59 18:59 Intake Total 1325 900 150 Output Total 370 805 100 Balance 955 95 50 Weight 62.3 kg 67 kg 67 kg Intake: IV 1125 900 150 IV Fluid 1125 900 150 Intake, IV Titration 200 Amount Potassium Chloride 10 meq 200 In Water For Injection 1 100ml.bag @ 100 mls/hr IVPB Q1H [facility] Rx#: [id number] Output: Urine 370 805 100 Other: Voiding Method Indwelling Catheter Indwelling Catheter Indwelling Catheter # Bowel Movements 1 - Labs CBC & Chem 7: 02/26/23 04:16 02/26/23 04:16 Labs: Abnormal Lab Results - Last 24 Hours (Table) 02/25/23 02/26/23 02/26/23 Range/Units 11:20 04:16 04:16 RBC 5.54 H (3.80-5.40) m/uL Hct 47.2 H (34.0-46.0) % Lymphocytes # 0.6 L (1.0-4.8) k/uL Sodium 131 L (137-145) mmol/L Chloride 97 L (98-107) mmol/L BUN 25 H (7-17) mg/dL Total Protein (PEP) 4.9 L (6.2-8.2) d/dL
[2023-02-26 11:52] LABS: Protein C Antigen 122 % (72-160)
[2023-02-26 12:54] LABS: Glucose,Whole Blood 96 mg/dL (70-110)
[2023-02-26] MEDS ORDERED: hydrALAZINE HCL 25 MG TAB PO ONE (13:00)
[2023-02-26 13:04] LABS: C-ANCA <1:20 Titer (<1:20)
--- NOTE | 2023-02-26 13:30 | FL ---
Exam Date: 02/26/2023 12:42 PM. Modified barium swallow for dysphagia. Consistencies administered: Various consistency of barium. Fluoro time: 1 minute 18 seconds No images were sent to PACS. Please see speech pathology report. DAP: 114.50 Gycm2
--- NOTE | 2023-02-26 14:01 | P.PN ---
Subjective Progress Note Date: 02/26/23 Principal diagnosis: Hypertensive emergency with acute metabolic encephalopathy 57-year-old female patient, was rolled into the intensive care unit, lethargic, weak and will confused, under the effect of Ativan that was given to her in the emergency and the patient's received a total of 2 mg of IV Ativan. Meanwhile, the patient was having weakness, confusion and multiple falls and the ended up bringing her to the hospital. I do not believe that she has seen any physicians. Upon arrival, the patient's was noted to have an elevated blood pressure. She was confused. Her EKG showed sinus rhythm with some nonspecific ST segment changes. Chest x-ray showed cardiomegaly with mild pulmonary vessel congestion. BUN was 32 with a creatinine of 1.2 and a white cell count of 7.1. The serum alcohol was negative. Her rest of the blood work showed normal electrolytes, BUN of 32 with a creatinine of 1.2. ProBNP level was 60,000, TSH was 38, free T4 was 0.8. Urine drug screen was negative. UA was negative. The cecum was 7.0 with a hemoglobin of 15.6. Echocardiogram was done this morning and it showed an ejection fraction of 30-35% with moderate to severe LV H, no significant valvular abnormalities and there was moderate to severe left ventricular hypertrophy. Note that patient's initial blood pressure at the time of her emergency department evaluation was as high as 228/159. For now, the patient is on a nitroglycerin drip running at 100 mcg/m. She is on IV heparin. She was given clonidine patch. She was also given hydralazine 10 mg IV every 4 hours. On a separate note, the patient was noted to have some bluish discoloration of her great toe and the left foot. The patient has Doppler signals bilaterally. The patient also has adequate femoral and popliteal pulses. While in the emergency, the patient was given Ativan. I saw her in the intensive care unit. She is gradually waking up and active and affect is wearing off. No signs of any significant respiratory compromise. She is currently on oxygen at 2 L with a pulse ox of 91%. On today's evaluation of 02/20/2023, patient is more awake compared to yesterday. She is arousable and she is communicating. She is aware of her name. She is not aware of her location. No focal neurological deficits. CAT scan of the brain was completed yesterday showed lacunar infarcts probably related to her chronic uncontrolled blood pressure. Patient is currently on 4 L of action by nasal cannula. Chest x-ray shows a small left-sided pleural effusion. Echocardiogram was completed yesterday and it showed severe LVH along with impaired on the function with an ejection fraction of 30-35% and the patient remains in normal sinus rhythm. Pulse ox 98% on [address] by nasal cannula. Her blood pressure was managed by Drip and currently the drip is off. The patient is taken IV Lasix 40 mg every 12 hours. The patient was taken off the nitroglycerin drip. She is receiving hydralazine 10 mg IV every 8 hours. I'm not sure if she is awake enough to start oral medications. This will be decided at the later stage I the patient is more alert and awake. She remains on IV heparin which will be discontinued today. In terms of her labs, the WBC count of 8.3 with a hemoglobin of 17. The BUN is 24 with a creatinine of 1.1 and his sodium levels of 138. GFR is at 54. The medication list was noted. Neurologic consultation was obtained. Vascular Doppler of the lower oximetry was done and the Doppler venous was negative. The patient does have chronic ischemic changes to her left foot, no open wounds or ulceration. Dopplers signals are present in her feet bilaterally. On 02/21/2023, the patient remains encephalopathic and confused. She failed her swallow evaluation and the patient was not transitioned to oral medications. He remains on Catapres at 2 mg an hour and her blood pressure is under adequate control at this point in time. The patient also is on a clonidine patch. She is on oxygen at 2 L/m nasal cannula. King cath is in place. The patient remains on IV heparin. Ischemic changes in lower extremity have improved and the patient seems to be better perfused her left lower extremity on today's evaluation. Cardiac rhythm is sinus. She remains on he was the patient is still swallow evaluation. No fever. No other significant events overnight. The patient is a sitter at the bedside. In terms of her blood work, the patient has a white cell count of 7 with a hemoglobin of 16 and a platelet count of 259. PTT is therapeutic at 75 with a normal PT and INR. Electrolytes are still pending for now. The blood cultures have been negative. CT angiography of the thoracic and abdominal wart that was completed. 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 There is also proximal abdominal aortic aneurysm measuring 3 CMN. There is less than 50% stenosis of the common iliac arteries. External iliac arteries and the internal iliac arteries are essentially patent for now. Reevaluated today on 02/22/23, patient remains in the ICU, patient remains confused, her mental status is quite normal. Patient is confused, not in any distress, and I found out that her mental status has been like this and worsen ing more so over the last 2 weeks. Patient is scheduled to have MRI today. She is being followed by many consultants, including neurology, vascular surgery, and cardiology. Labs today were basically unremarkable, WBC 6.1 hemoglobin is 15.8, patient did have significantly elevated TSH on admission with a low T4 of 0.84. And she was also noted to have significantly elevated BNP level. Over 60,000. However chest x-ray showed no evidence of congestive heart failure there was only evidence of cardiomegaly without acute process. Reevaluated today on 02/23/2023, patient is date about the same, remains encephalopathic, MRI showed numerous punctate foci of acute infarcts involving the frontal and parietal cortices. Also involving the deep white matter regions on both sides. The radiologist felt there could be a possibility of central thromboembolic phenomenon, and there is a background of severe burden of chronic small vessel ischemic disease. We will let neurology address this finding and decide whether further workup is necessary including workup for central thromboembolic phenomena. WBC count is 6.2 hemoglobin 16 in dextrose are normal renal profile is slightly abnormal with BUN of 29 creatinine 1.26, slightly worse compared to yesterday Reevaluated today on 02/24/2023, patient remains in the ICU, she is less encephalopathic today, she is opening her eyes, following simple instructions like wiggling toes, sticking out tongue, squeezing hands, definitely improved mentally compared to the last couple of days. The neurologist is recommending workup for possible thromboembolic phenomenon/central, and YANDEL was performed today, showed impaired LV function and global hypokinesis, and severe hypertrophy with speckling raising the possibility of infiltrative disease. There was no evidence of shunting. There was evidence of mild aortic and mild mitral regurgitation. Carotid Doppler showed moderate atherosclerotic plaque in bilateral carotid arteries with 50-69% stenosis. Reevaluated today on 02/25/2023, remains about the same. Patient remains encephalopathic, may open eyes at times, otherwise no other responses. Today she seems to be a bit more encephalopathic compared to yesterday. Her echocardiogram yesterday/YANDEL questioned the possibility of amyloidosis. CBC today is unremarkable, lites are basically normal, creatinine is 1.13 a chest x- ray is showing more left lower lobe atelectasis possibly small pleural effusion, we'll recommend ultrasound, and if the effusion isn't large enough to consider thoracentesis that will be done Reevaluated today on 02/27/20, patient has slight improvement encephalopathy today. At least she is waking up, verbalizing, remains confused overall. But slightly improvement today compared to the last few days. Labs were reviewed she had a relatively normal electrolytes normal renal profile sodium is a bit low at 131 ultrasound of the chest showed no evidence of pleural effusion to consider thoracentesis. She continues to have left basilar atelectasis. Slightly improved today compared to previous x-rays. Objective - Vital Signs Vital signs: Vital Signs Temp 97.5 F L 02/26/23 12:00 Pulse 56 L 02/26/23 12:00 Resp 16 02/26/23 12:00 BP 172/106 02/26/23 12:00 Pulse Ox 100 02/26/23 12:00 FiO2 Intake & Output 02/25/23 02/26/23 02/26/23 18:59 06:59 18:59 Intake Total 1325 900 450 Output Total 370 805 245 Balance 955 95 205 Weight 62.3 kg 67 kg 67 kg Intake: IV 1125 900 450 IV Fluid 1125 900 450 Intake, IV Titration 200 Amount Potassium Chloride 10 meq 200 In Water For Injection 1 100ml.bag @ 100 mls/hr IVPB Q1H [facility] Rx#: [id number] Output: Urine 370 805 245 Other: Voiding Method Indwelling Catheter Indwelling Catheter Indwelling Catheter # Bowel Movements 1 - Exam Physical Exam: Revealed a 57-year-old female in no distress, remains encephalopathic but slight improvement noted overall in her neurological status today compared to last few days. HEENT:[Neck is supple.] [No neck masses.] [No thyromegaly.] [No JVD.] Chest: [Clear throughout, no crackles, no rhonchi, no wheezes.] Slightly diminished breath sounds at the left base. Cardiac Exam: [Normal S1 and S2, no S3 gallop, no murmur.] Abdomen: [Soft, nontender, no megaly, no rebound, no guarding, normal bowel sounds.] Extremities: [No clubbing, no edema, however there is evidence of bluish discoloration of the great toe on the left foot. And poor peripheral pulses, feet are not cold to touch Neurological Exam: Opens eyes, follows very simple instructions only. psychiatric: flat affect Extremities, there is evidence of cyanosis of great toe on the left foot. No rashes. - Labs CBC & Chem 7: 02/26/23 04:16 02/26/23 04:16 Labs: Abnormal Lab Results - Last 24 Hours (Table) 02/25/23 02/26/23 02/26/23 Range/Units 11:20 04:16 04:16 RBC 5.54 H (3.80-5.40) m/uL Hct 47.2 H (34.0-46.0) % Lymphocytes # 0.6 L (1.0-4.8) k/uL Sodium 131 L (137-145) mmol/L Chloride 97 L (98-107) mmol/L BUN 25 H (7-17) mg/dL Total Protein (PEP) 4.9 L (6.2-8.2) d/dL Assessment and Plan Assessment: Impression: Acute hypertensive emergency Acute decompensated heart failure with LV dysfunction, ejection fraction of 30- 35%. Acute metabolic encephalopathy, although the MRI findings are more consistent with small vessel disease and possible central thromboembolic phenomenon. Hypothyroidism. Peripheral vessel occlusive disease and ischemic changes of left lower extremity. Severe cardiomyopathy and LV dysfunction Acute kidney injury on presentation likely secondary to hypertensive emergency. Resolved. Recommendation: Patient to have more medications for her blood pressure including adding oral hydralazine, oral amlodipine, continue Coreg, continue lisinopril, and we will likely recommend clonidine patch for Continue to monitor in the ICU for now. Trying to control her blood pressure otherwise if the patient goes to the floor she'll be sent back to the ICU with significantly elevated blood pressure Her metabolic encephalopathy is slightly improved today compared to the last few days. Continue present supportive care measures We'll continue to follow the patient with all the different consultants on the case. Continue to monitor electrolytes and renal profile. GI and DVT prophylaxis. Prognosis at this point is considered very guarded. Time with Patient: Less than 30
[2023-02-26] MEDS ORDERED: FUROSEMIDE 10 MG/ML 4 ML VIAL IV STA (14:14)
[2023-02-26] MEDS: hydrALAZINE HCL 50 MG TAB PO SCH ×2 (16:11→21:17)
[2023-02-26 16:27] LABS: Glucose,Whole Blood 94 mg/dL (70-110)
[2023-02-26] MEDS: ATORVASTATIN 80 MG TAB PO SCH (21:17)
[2023-02-27 00:27] LABS: Glucose,Whole Blood 140 mg/dL (70-110)
--- NOTE | 2023-02-27 01:03 | P.PN ---
Subjective Progress Note Date: 02/26/23 02/26/2023: Patient was seen for a follow-up. Patient is laying comfortably in the bed. Offers no complaints. Denies any headache or dizziness. 02/25/2023: Patient initially seen by Dr. Stanley Thompson. Please refer to his note for details. Patient is a 57-year-old female with bilateral hemispheric strokes. She has bilateral significant carotid stenosis, > 70% stenosis on CTA but seems carotid 50-69%. Bilateral femoral occlusion. The performed 02/24/2023 revealed hypokinesis with severe hypertrophy LV. No PFO. Hypercoagulable workup pending. Patient is on aspirin 325 mg daily. Vascular surgery on board. Patient was not taking any antiplatelet medication at home. Patient was sleeping when I arrived. However she did wake up and was cooperating with examination is per examination section. Patient admits to smoking 2 packs per day for 30 years, drinks couple beers per day. SOME OF THE WORK-UP DURING THIS VISIT: Vitamin B12: 644 Folate: 10.80 Ammonia 19 HbA1c: 6.6 TSH is 38.8, free T4 is 0.84 and the free T3 is 2.4. CT head is reported as no acute intracranial process. remote lacunar injuries along with nonspecific white matter changes likely secondary to chronic microangiopathy. MRI Brain is reported as numerous punctate foci of acute infarct involving the frontal and parietal disease deep white matter region of both sides, bilateral thalamus and left basal ganglia. Additional small focus in the left paramedian vita. A couple foci measuring up to 1.0 cm involving the left splenium of the corpus callosum. Given the corresponding increased T2 flare, findings suggest small infarcts is greater than 6 hours in duration. Consider central throm boembolic phenomena. Background of severe burden of chronic small vessel ischemic disease. I personally reviewed the MRI and agree with the findings with evidence of multiple areas of acute to subacute ischemia involving bilateral hemispheric region including splenium of the left corpus callosum.. EEG is abnormal. The background slowing is suggestive of moderate encephalopathy. Otherwise no focal slowing, epileptiform discharges or seizures. LASHA is negative, ESR is 2, Protein S and antithrombin II Ag is within normal limits. Objective - Vital Signs Vital signs: Vital Signs Temp 98.6 F 02/26/23 16:00 Pulse 58 L 02/26/23 18:30 Resp 13 02/26/23 18:30 BP 118/70 02/26/23 18:30 Pulse Ox 97 02/26/23 18:30 FiO2 Intake & Output 02/25/23 02/26/23 02/26/23 18:59 06:59 18:59 Intake Total 1325 900 575 Output Total 083 640 9741 Balance 955 95 -920 Weight 62.3 kg 67 kg 67 kg Intake: IV 1125 900 575 IV Fluid 1125 900 575 Intake, IV Titration 200 Amount Potassium Chloride 10 meq 200 In Water For Injection 1 100ml.bag @ 100 mls/hr IVPB Q1H [facility] Rx#: [id number] Output: Urine 002 051 8165 Other: Voiding Method Indwelling Catheter Indwelling Catheter Indwelling Catheter # Bowel Movements 1 - Exam Patient is slightly groggy, slightly encephalopathic, however better than yesterday. Patient does wake up and follows commands. Her speech is mildly dysarthric, but no aphasia. Patient can name and repeat very well. Patient knows it is February and states the year is 2022 and that she is in [facility] in [facility]. On cranial nerve examination, pupils are equal, round and reacting to light, visual dunbar are full on confrontation, face is symmetric and tongue protrudes the midline. Patient has right pronator drift about 25-30, with left pronation but no drift. Patient's muscle strength is normal in the upper limbs. The strength is 3+4- bilaterally at the hip flexion, ankle dorsiflexion are normal bilaterally. Deep tendon reflexes are 2+ in the upper limbs, 1+ at the knees. Sensory to touch is equal. No ataxia for [id number] testing in the upper limbs. - Labs CBC & Chem 7: 02/26/23 04:16 02/26/23 04:16 Labs: Abnormal Lab Results - Last 24 Hours (Table) 02/26/23 02/26/23 Range/Units 04:16 04:16 RBC 5.54 H (3.80-5.40) m/uL Hct 47.2 H (34.0-46.0) % Lymphocytes # 0.6 L (1.0-4.8) k/uL Sodium 131 L (137-145) mmol/L Chloride 97 L (98-107) mmol/L BUN 25 H (7-17) mg/dL Assessment and Plan Assessment: This is a 57-year-old woman with history of hypertension and is not compliant taking medication who presented because of generalized weakness, confusion, falls for the past weeks to months. Altered mental status seems due to multifactorial: acute bilateral hemispheric stroke, Also due to hypertensive encephalopathy with component due to abnormal thyroid and some component of metabolic--significant improvement in mentation Acute ischemic bilateral hemispheric stroke: Unsure exact cause. Appears embolic in nature. Rule out cardioembolic vs underlying hypercoagulable vs due to artery to artery embolic from carotid stenosis. Per CTA has right ICA stenosis 60-70% and left 70-80% Hypercoagulable state with positive/heterozygous for prothrombin gene as well as factor V Leiden mutation. Signficant Bilateral carotid stenosis right ICA stenosis 60-70% and left 70-80% per CTA Acute hypertensive emergency (presented with blood pressure 230's/170's--currently is 130-140's/80's to 90's) she was on nitroglycerin, she received clonidine patch as well as IV hydralazine--resolved Generalized weakness Acute bilateral femoral occlusive disease with ischemic changes over the left toe Falls Possible TIA about 4-5 months ago (had transient right facial weakness per ). Systolic heart failure with ejection fraction of 30-35% Elevated troponin Hypothyroidism Peripheral vascular disease Chronic history of hypertension and noncompliant with medication Tobacco use Alcohol use Noncompliance with medication and does not follow up with physician Plan: Because of result of MRI Brain revealing bilateral hemispheric stroke. No IV tpa since unknown last normal and risk of IV tpa outweigh benefit. Recommend patient to be placed on dual antiplatelet medication because of the ex tent of vasculopathy noted on the CTA of head and neck as well as peripheral vasculature. Patient to be on Plavix 75 mg and aspirin 325 mg daily. YANDEL performed 02/24/2023 revealed moderately impaired left ventricular systolic function with global hypokinesis and severe hypertrophy with speckling raising the possibility of infiltrative disease. No evidence of shunting across the intra-atrial septum. Mild aortic and mitral regurgitation. Mild atherosclerotic changes of the descending aorta. Suggest 30 day event monitor to rule out paroxysmal atrial fibrillation. LASHA is negative, ESR is 2, Protein S and antithrombin II Ag is within normal limits. DsDNA negative. Factor V Leiden heterozygous, which is associated with activated protein C resistance and increased risk for venous thromboembolic is him. It hurts have 3 10/28/1940 increased risk for VTE. Lupus anticoagulant negative. Prothrombin gene mutation also heterozygous for [id number] mutation. Patient's homocysteine is highly elevated 27.9. Hematology to address hypercoagulable state. Discussed with Dr. Sim, recommending dual antiplatelet medications, unless she is positive for antiphospholipid antibodies. Await their final recommendation, if patient a candidate for a nticoagulation. B12 is 644, folate 10.8 both normal. TSH is elevated 38.8. IM to address. She is on ASA 325mg daily and recommend if stable to be on Plavix 75mg daily. If does have positive cardiac thrombus vs a-fib/flutter or positive hypercoagulable work-up then recommend to start anticoagulation and no need for dual antiplatelets. On Lipitor 80mg qhs for secondary stroke prophylaxis. Continue neuro checks On cardiac monitoring. PT, OT and [employer] SPECIALIST are consulted. Cardiology is on board. Continue thiamine 100mg daily. Please avoid any sedation if possible to have a better neurological evaluation. Vascular surgery team for bilateral femoral occlusive disease. Also has leg to es ischemia. No intervention recommended by vascular surgery. Will defer rest of management to primary and other specialist. For DVT prophylaxis: On Enoxaparin. Dr. Stanley Thompson to follow up in the morning.
[2023-02-27 05:55] LABS: Basophils % (A) 0 %; Eosinophils # (A) 0.3 k/uL (0-0.7); Eosinophils % (A) 3 %; HCT 51.2 % (34.0-46.0); Hypochromasia Slight; Lymphocytes # (A) 0.7 k/uL (1.0-4.8); Lymphocytes % (A) 8 %; MCHC 31.2 g/dL (31.0-37.0); MCV 86.4 fL (80.0-100.0); Mean Platelet Volume 9.2; Monocytes # (A) 0.4 k/uL (0-1.0); Monocytes % (A) 4 %; Neutrophils # (A) 6.5 k/uL (1.3-7.7); Neutrophils % (A) 82 %; Platelet Count 219 k/uL (150-450); RBC 5.92 m/uL (3.80-5.40); RDW 15.5 % (11.5-15.5); WBC 7.9 k/uL (3.8-10.6)
[2023-02-27 06:03] LABS: Glucose,Whole Blood 109 mg/dL (70-110)
--- NOTE | 2023-02-27 06:22 | P.PN ---
Subjective Progress Note Date: 02/26/23 This is a 57-year-old female history significant for diabetes mellitus, hypertension, myocardial infarction, thyroid disorder, current smoker. Patient presented to the hospital for altered mental status and was found on the floor by her he was unable to lift her up. Patient was brought in by EMS. Patient is found to have generalized weakness confusion and has been having multiple falls at home with progressive weakness over the last 5 months, patient is a poor historian and currently alert x 0 and obtunded at the time of examination. at the bedside provides the medical history, patient is a daily smoker and occasional alcohol use. Over the last 5 months has been having frequent falls and has been increasingly confused Has not been to a doctor and not taking recommending medications. Additionally he felt patient may have suffered a stroke a few months ago and had noticed a facial droop around that time. Patient in the ER was awake and alert. Blood pressure on admission was in the 220s systolic and difficult to treat with multiple antihypertensive agents given. Patient was also given IV ativan. Chest x-ray on admission shows cardiomegaly with linear atelectasis and/or scarring the left midlung. EKG shows sinus tachycardia with a heart rate of 110 on admission. She has no elevated white blood cell count it is normal at 7.1, sodium of 135, BUN/cr 32 and 1.28, Lacis acid is normal 1.3. She does have troponin elevation of 0.067, 0.074, 0.075.. ProBNP is elevated at 16,200, TSH is also 38.800, free T4 0.84. Urinalysis is negative for infection, urine drug toxicology is negative. Patient is admitted to the hospital for new onset CHF and originially admitted to the stepdown unit. Patient was upgraded to the intensive care unit and placed on nitro gtt and had also become unresponsive only arousing to sternal rub. Patient does not appear to have feeling in the left foot there is mottling and purple discoloration of the great toe and 3/4 toes likely due to ischemia and vascular services has been consulted as well as neurology, cardiology and pulmonary annealing furnace tender. Recommend a brain CT when patient is more stable and also ABGs will be done. An echocardiogram reveals EF of 30-35%, mild MR. 02/20/2023 Patient continues to be monitored closely in the intensive care unit. Currently alert x 2 more awake than yesterday, does have some slurred speech today. Brain CT shows no acute intracranial process with remote lacunar injuries along with nonspecific white matter changes likely secondary to chronic microangiography. EEG is negative. Neurology following and recommending brain MRI. Chest xray today is negative. Continues on IV lasix 40 mg every 12 hours with urine output of over 5L in the last 24 hours. Continues on IV cleviprex/clonidine patch and blood pressure running in the 150s systolic. Labs reveal sodium of 138, potassium 3.8, BUN 23, creatinine of 1.0. 02/21/2023 Patient is evaluated today in the intensive care unit. Patient is slightly more lethargic today was given a dose of IV ativan overnight for increased agitated. Patient had failed swallow evaluation and has been placed NPO at this time. Slightly more lethargic than yesterday. Patient is being followed by neurology and recommended to undergo MRI tomorrow however patient remains on IV cleviprex for blood pressure control as well as clonidine patch and IV hydralazine. Pat ient continues on IV lasix Q12 which has been decreased to 20 mg. CTA thoracic and abdominal aorta with run off reveals long segment occlusion bilateral mid superficial femoral arteries with reconstitution of the distal SFA bilaterally. There is proximal abdominal aortic aneurysm. Multifocal calcific disease estimated 7% stenosis anterior tibial arteries bilaterally. Vascular surgery following with further recommendations forthcoming. Labs today reveal white count of 7.8, hgb 16.5. Potassium 3.1 and magnesium 1.5. Heart rate controlled in the 70s, blood pressure in the 140/80s and currnently requiring 2L of oxygen. Patient does have some tenderness to the LLQ on exam. 02/22/2023 Patient evaluated in the intensive care unit today, more awake and alert sitting up in the chair. Diet has been advanced to pureed diet. Patient also had a bowel movement today. Diminished airway patient needs encouragement to cough and deep breath and will be given incentive spirometer. Was given IV synthroid and transitioned to oral synthroid today. Has been resumed on oral blood pressure medication including clonidine patch and taken off the cleviprex gtt and bp has improved down to 110/90 currently. Vascular surgery following recommending vascular intervention when medically stable. Patient is pending MRI and likely will be done Wednesday. Sodium has dropped to 130 today, BUN 22, creatinine 1.16, total bilirubin 1.4. 02/23/2023 Patient is seen and evaluated and follow-up in the ICU with multiple medical consultations following. Patient was able to undergo MRI of the brain with neurology following undergoing extensive workup including cardiology and vascular surgery along with pulmonary annealing furnace tender. MRI of the brain showed numerous punctate foci of acute infarcts involving the frontal and parietal cortices, deep white matter regions on both sides, bilateral thalami, and left basal ganglia with additional small focus in the left paramedian vita. A couple foci measuring up to 1.0 cm involving the left glenohumeral of the corpus callosum and findings suggest small infarcts greater than 6 hours in duration consider a central thromboembolic phenomenon with background severe burden of small chronic vessel ischemic disease. Per nursing staff patient had a decrease in mentation and blood pressures have been uncontrolled with neurology and cardiology making adjustments. Clonidine discontinued and awaiting possible YANDEL. CTA ordered and pending. Chest x-ray today shows NG tube appearing in good position with stable left lower infiltrate and small effusion and patient is maintained on IV Lasix low dose daily. 02/24/2023 Patient is seen in follow-up this morning continues to be in the ICU with multiple medical consultations following. Neurology recommending YANDEL with card iology following inpatient is reporting some chest pain and currently awaiting troponins and repeat EKG. Possible YANDEL today. Patient's mentation is somewhat improved today although extremely delayed. Patient continues to ask for her on exam. Patient is afebrile and continues with NG tube an abdominal x- ray is ordered and pending. Patient with multiple strokes noted and significant noncompliance with seeking any type of medical attention for many years and left lower limb ischemia, prognosis is extremely poor and guarded. Patient's CODE STATUS is no code and need to discuss further about overall prognosis and treatment plan moving forward as patient will need ECF and unsure if she is going to be agreeable to this. Case management/social work following. 02/25/2023 Patient is seen and evaluated in follow-up this morning lethargic although arousable. Patient condition continues to be extremely guarded and overall poor at this time with multiple medical consultations following. Patient underwent YANDEL yesterday with concerns for possible amyloidosis. Patient noted have factor V deficiency and hematology was consulted for input and recommendations. Patient is maintained on aspirin and will continue for now. Patient has been taken off diuretics and placed on gentle IV hydration and patient continues to be nothing by mouth with an NG tube. Abdominal x-ray suggestive of ileus versus obstruction and will consult general surgery. Discussed briefly with and will discuss further at length about overall prognosis, treatment plan, and options moving forward. Vascular surgery has evaluated the patient with no plans for surgical intervention at this time and patient does have noted left lower extremity ischemia with discoloration which is slightly improved. Patient is afebrile with no reported chest pain or shortness of breath. Patient continues to be nothing by mouth with an NG tube. 02/26/2023 Patient is seen and evaluated in follow-up continues to be in the ICU with multiple medical consultations following. Patient with aspiration risk being evaluated by speech therapy recommending modified. Swallow study which is occurring today. Multiple medical consultations including neurology, pulmonary annealing furnace tender, cardiology following. Patient's blood pressure remains elevated and uncontrolled with medications being adjusted. Patient being started on Plavix and continued on aspirin. Discussion was had with cardiology patient will eventually need cardiac cath. Vascular following with no plans for surgical intervention at this time the left lower extremity ischemia. Hematology also following and undergoing workup as patient has history of factor 5 L deficiency. Patient's mentation is somewhat improved today and able to converse more and is responding appropriately to questions and commands. Reports of chest pain or palpitations. Patient denies nausea or vomiting and continues with NG tube for now. Patient is having bowel movements with no plans for surgical intervention per general surgery as there were concerns for ileus v ersus possible bowel obstruction. Recommend follow-up labs in a.m. Review of Systems Constitutional: Reports fatigue denied any fever. Cardio vascular: Denies chest pain, no palpitations Gastrointestinal: denied any nausea, vomiting, diarrhea Pulmonary: Denied any shortness of breath cough Neurologic denied any new focal deficits, reports weakness PHYSICAL EXAMINATION: GENERAL: The patient is alert and oriented x2, slurred and delayed speech. More awake today and able to converse more. Ill-appearing, elderly appearing Pale. HEENT: Pupils are round and equally reacting to light. EOMI. No scleral icterus. No conjunctival pallor. Normocephalic, atraumatic. No pharyngeal erythema. No thyromegaly. CARDIOVASCULAR: S1 and S2 muffled PULMONARY: Diminished breath sounds bilaterally with no wheezing or crackles. ABDOMEN: Soft, nontender, nondistended, normoactive bowel sounds. No palpable organomegaly. MUSCULOSKELETAL: No joint swelling or deformity. EXTREMITIES: No cyanosis, clubbing, or pedal edema. Left lower extremity with discoloration NEUROLOGICAL: Unable to complete full exam. Diffuse weakness. SKIN: No rashes. There is discoloration to toes on the left foot extending to the left foot pad, progressing. Assessment: Altered mental status secondary to acute metabolic encephalopathy Acute infarct involving the frontal and parietal cortices, deep white matter regions on both sides, bilateral thalami, and left basal ganglia as noted on MRI of the brain, possible central thromboembolic phenomenon Progressive weakness and frequent falls at home Hypertension with urgency on admission Elevated troponin level Acute kidney injury vs CKD Ischemic change to the left foot. Acute congestive heart failure, systolic dysfunction Severe Cardiomyopathy and LV dysfunction possibly from the hypertension vs hypothyroidism Possible amyloidosis Hypothyroidism Elevated D-Dimer Hypothyroidism Diabetes Mellitus type 2 uncontrolled History of factor V leiden deficiency History of myocardial infarction unknown details Chronic and ongoing nicotine use Medical noncompliance Marijuana use GI prophylaxis DVT prophylaxis; SCDs Do Not Resuscitate/Do Not Intubate Plan: Continue monitoring the patient in the intensive care unit with multiple medical consultations following. General surgery consulted as there was findings of possible ileus is versus obstruction on abdominal x-ray and no plans for surgical intervention is patient is having bowel movements and abdomen is soft. Patient continues with NG tube and awaiting. Swallow study. Patient to be initiated on diet and swallow is performed in his past Patient is nothing by mouth currently. Swallow study pending underwent YANDEL with cardiology yesterday showing moderately impaired left ventricular systolic function and global hypokinesis with severe hypertrophy with speckling raising the possibility of infiltrative disease and amyloidosis, no evidence of shunting across the interatrial septum with mild aortic and mitral regurgitation with no pericardial effusion and mild atherosclerotic changes of the descending aorta. Cardiology adjusting medications were tighter blood pressure control and will likely need a cath with blood pressures are more stable Patient is on gentle IV hydration as patient is nothing by mouth and recommend daily labs Cleviprex has been discontinued and mentation is improving with some waxing and waning Neurology following and underwent brain MRI showing multiple infarcts as noted above Recommend maximizing medical management with cardiology following along with tight blood pressure control Vascular surgery recommending intervention when patient is medically stable for left lower extremity ischemia in the outpatient setting Recommend PT/OT therapy evaluation once more stable as patient will need rehab although patient is reluctant and wants to go home with Lengthy discussion was had with Arjun along with CODE STATUS as patient is no code. reports patient has always made that very clear she does not want CPR or mechanical ventilation. Discussion was had that overall prognosis remains poor and guarded at this time with multiple complex issues ongoing and per his request will discuss later about discharge planning to rehab once more stable as he does not want to upset patient as she wants to go home. Case management/social work is following and will address rehab once cleared by consultations. Follow up labs in AM Again, Overall prognosis is extremely guarded The impression and plan of care has been dictated by Rhonda Hawkins, Nurse Practitioner as directed. Dr. Tej MD I have performed a history and examination and MDM of this patient, discussed the same with the dictator, and agree with the dictator's assessment and plan as written ,documented as a scribe. Based on total visit time, I have performed more than 50% of the visit. Objective - Vital Signs Vital signs: Vital Signs Temp 97.7 F 02/27/23 04:00 Pulse 52 L 02/27/23 05:00 Resp 20 02/27/23 05:00 BP 170/98 02/27/23 05:00 Pulse Ox 98 02/27/23 05:00 FiO2 Intake & Output 02/26/23 02/26/23 02/27/23 06:59 18:59 06:59 Intake Total 900 575 Output Total 805 1495 1505 Balance 95 -920 -1505 Weight 67 kg 67 kg 61.8 kg Intake: IV 900 575 IV Fluid 900 575 Output: Urine 805 1495 1505 Other: Voiding Method Indwelling Catheter Indwelling Catheter Indwelling Catheter # Bowel Movements 1 - Labs CBC & Chem 7: 02/27/23 05:42 02/26/23 04:16 Labs: Abnormal Lab Results - Last 24 Hours (Table) 02/27/23 02/27/23 Range/Units 00:25 05:42 RBC 5.92 H (3.80-5.40) m/uL Hct 51.2 H (34.0-46.0) % Lymphocytes # 0.7 L (1.0-4.8) k/uL POC Glucose (mg/dL) 140 H (70-110) mg/dL
[2023-02-27] MEDS: carvediloL 12.5 MG TAB PO SCH ×2 (06:33→15:43)
[2023-02-27] MEDS: LEVOTHYROXINE 50 MCG TAB PO SCH (06:33)
[2023-02-27 06:36] LABS: African American GFR (CKD) 80 (>60 ml/min/1.73 sqM); Anion Gap 4 mmol/L; Blood Urea Nitrogen 23 mg/dL (7-17); Calcium 8.3 mg/dL (8.4-10.2); Carbon Dioxide 30 mmol/L (22-30); Chloride 98 mmol/L (98-107); Glucose 104 mg/dL (74-99); Non-African American GFR(CKD) 69 (>60 ml/min/1.73 sqM); Sodium 132 mmol/L (137-145)
[2023-02-27 06:41] LABS: Potassium 3.9 mmol/L (3.5-5.1)
--- NOTE | 2023-02-27 06:56 | P.PN ---
Progress Note - Text Progress Note Date: 02/27/23 Patient will follow-up. On exam vital signs appear stable. Abdomen soft. Resolving ileus. Patient will have her diet advanced as tolerated.
[2023-02-27] MEDS: lisinopriL 20 MG TAB PO SCH ×2 (08:57→21:37)
[2023-02-27] MEDS: SPIRONOLACTONE 25 MG TAB PO SCH (08:57)
[2023-02-27] MEDS: hydrALAZINE HCL 50 MG TAB PO SCH ×3 (08:57→21:37)
[2023-02-27] MEDS: THIAMINE 100 MG TAB PO SCH (08:57)
[2023-02-27] MEDS: CLOPIDOGREL 75 MG TAB PO SCH (08:58)
[2023-02-27] MEDS: NICOTINE 14MG/24HR PATCH TRANSDERM SCH (08:58)
[2023-02-27] MEDS: amLODIPine 5 MG TAB PO SCH ×2 (08:58→21:35)
[2023-02-27] MEDS: MAG HYDROX/AL HYDROX/SIMETH 30 ML, diphenhydrAMINE ELIXIR 75 MG, LIDOCAINE VISCOUS 2% 3... PO SCH ×9 (08:58→21:37)
[2023-02-27] MEDS: ENOXAPARIN 40 MG/0.4 ML SYRINGE SQ SCH (08:58)
[2023-02-27] MEDS: ASPIRIN 325 MG TAB PO SCH (08:58)
[2023-02-27] MEDS: PANTOPRAZOLE 40 MG/10 ML VIAL IVP SCH ×2 (08:58→21:35)
--- NOTE | 2023-02-27 12:32 | P.PN ---
Subjective Progress Note Date: 02/27/23 Principal diagnosis: Hypertensive emergency with acute metabolic encephalopathy 57-year-old female patient, was rolled into the intensive care unit, lethargic, weak and will confused, under the effect of Ativan that was given to her in the emergency and the patient's received a total of 2 mg of IV Ativan. Meanwhile, the patient was having weakness, confusion and multiple falls and the ended up bringing her to the hospital. I do not believe that she has seen any physicians. Upon arrival, the patient's was noted to have an elevated blood pressure. She was confused. Her EKG showed sinus rhythm with some nonspecific ST segment changes. Chest x-ray showed cardiomegaly with mild pulmonary vessel congestion. BUN was 32 with a creatinine of 1.2 and a white cell count of 7.1. The serum alcohol was negative. Her rest of the blood work showed normal electrolytes, BUN of 32 with a creatinine of 1.2. ProBNP level was 60,000, TSH was 38, free T4 was 0.8. Urine drug screen was negative. UA was negative. The cecum was 7.0 with a hemoglobin of 15.6. Echocardiogram was done this morning and it showed an ejection fraction of 30-35% with moderate to severe LV H, no significant valvular abnormalities and there was moderate to severe left ventricular hypertrophy. Note that patient's initial blood pressure at the time of her emergency department evaluation was as high as 228/159. For now, the patient is on a nitroglycerin drip running at 100 mcg/m. She is on IV heparin. She was given clonidine patch. She was also given hydralazine 10 mg IV every 4 hours. On a separate note, the patient was noted to have some bluish discoloration of her great toe and the left foot. The patient has Doppler signals bilaterally. The patient also has adequate femoral and popliteal pulses. While in the emergency, the patient was given Ativan. I saw her in the intensive care unit. She is gradually waking up and active and affect is wearing off. No signs of any significant respiratory compromise. She is currently on oxygen at 2 L with a pulse ox of 91%. On today's evaluation of 02/20/2023, patient is more awake compared to yesterday. She is arousable and she is communicating. She is aware of her name. She is not aware of her location. No focal neurological deficits. CAT scan of the brain was completed yesterday showed lacunar infarcts probably related to her chronic uncontrolled blood pressure. Patient is currently on 4 L of action by nasal cannula. Chest x-ray shows a small left-sided pleural effusion. Echocardiogram was completed yesterday and it showed severe LVH along with impaired on the function with an ejection fraction of 30-35% and the patient remains in normal sinus rhythm. Pulse ox 98% on [address] by nasal cannula. Her blood pressure was managed by Drip and currently the drip is off. The patient is taken IV Lasix 40 mg every 12 hours. The patient was taken off the nitroglycerin drip. She is receiving hydralazine 10 mg IV every 8 hours. I'm not sure if she is awake enough to start oral medications. This will be decided at the later stage I the patient is more alert and awake. She remains on IV heparin which will be discontinued today. In terms of her labs, the WBC count of 8.3 with a hemoglobin of 17. The BUN is 24 with a creatinine of 1.1 and his sodium levels of 138. GFR is at 54. The medication list was noted. Neurologic consultation was obtained. Vascular Doppler of the lower oximetry was done and the Doppler venous was negative. The patient does have chronic ischemic changes to her left foot, no open wounds or ulceration. Dopplers signals are present in her feet bilaterally. On 02/21/2023, the patient remains encephalopathic and confused. She failed her swallow evaluation and the patient was not transitioned to oral medications. He remains on Catapres at 2 mg an hour and her blood pressure is under adequate control at this point in time. The patient also is on a clonidine patch. She is on oxygen at 2 L/m nasal cannula. King cath is in place. The patient remains on IV heparin. Ischemic changes in lower extremity have improved and the patient seems to be better perfused her left lower extremity on today's evaluation. Cardiac rhythm is sinus. She remains on he was the patient is still swallow evaluation. No fever. No other significant events overnight. The patient is a sitter at the bedside. In terms of her blood work, the patient has a white cell count of 7 with a hemoglobin of 16 and a platelet count of 259. PTT is therapeutic at 75 with a normal PT and INR. Electrolytes are still pending for now. The blood cultures have been negative. CT angiography of the thoracic and abdominal wart that was completed. 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 There is also proximal abdominal aortic aneurysm measuring 3 CMN. There is less than 50% stenosis of the common iliac arteries. External iliac arteries and the internal iliac arteries are essentially patent for now. Reevaluated today on 02/22/23, patient remains in the ICU, patient remains confused, her mental status is quite normal. Patient is confused, not in any distress, and I found out that her mental status has been like this and worsen ing more so over the last 2 weeks. Patient is scheduled to have MRI today. She is being followed by many consultants, including neurology, vascular surgery, and cardiology. Labs today were basically unremarkable, WBC 6.1 hemoglobin is 15.8, patient did have significantly elevated TSH on admission with a low T4 of 0.84. And she was also noted to have significantly elevated BNP level. Over 60,000. However chest x-ray showed no evidence of congestive heart failure there was only evidence of cardiomegaly without acute process. Reevaluated today on 02/23/2023, patient is date about the same, remains encephalopathic, MRI showed numerous punctate foci of acute infarcts involving the frontal and parietal cortices. Also involving the deep white matter regions on both sides. The radiologist felt there could be a possibility of central thromboembolic phenomenon, and there is a background of severe burden of chronic small vessel ischemic disease. We will let neurology address this finding and decide whether further workup is necessary including workup for central thromboembolic phenomena. WBC count is 6.2 hemoglobin 16 in dextrose are normal renal profile is slightly abnormal with BUN of 29 creatinine 1.26, slightly worse compared to yesterday Reevaluated today on 02/24/2023, patient remains in the ICU, she is less encephalopathic today, she is opening her eyes, following simple instructions like wiggling toes, sticking out tongue, squeezing hands, definitely improved mentally compared to the last couple of days. The neurologist is recommending workup for possible thromboembolic phenomenon/central, and YANDEL was performed today, showed impaired LV function and global hypokinesis, and severe hypertrophy with speckling raising the possibility of infiltrative disease. There was no evidence of shunting. There was evidence of mild aortic and mild mitral regurgitation. Carotid Doppler showed moderate atherosclerotic plaque in bilateral carotid arteries with 50-69% stenosis. Reevaluated today on 02/25/2023, remains about the same. Patient remains encephalopathic, may open eyes at times, otherwise no other responses. Today she seems to be a bit more encephalopathic compared to yesterday. Her echocardiogram yesterday/YANDEL questioned the possibility of amyloidosis. CBC today is unremarkable, lites are basically normal, creatinine is 1.13 a chest x- ray is showing more left lower lobe atelectasis possibly small pleural effusion, we'll recommend ultrasound, and if the effusion isn't large enough to consider thoracentesis that will be done Reevaluated today on 02/26/23, patient has slight improvement encephalopathy today. At least she is waking up, verbalizing, remains confused overall. But slightly improvement today compared to the last few days. Labs were reviewed she had a relatively normal electrolytes normal renal profile sodium is a bit low at 131 ultrasound of the chest showed no evidence of pleural effusion to consider thoracentesis. She continues to have left basilar atelectasis. Slightly improved today compared to previous x-rays. Reevaluated today on , patient remains in the ICU, mentation seems to be slightly improving, at least she is arousable, she follows very simple instructions, she knew her name but she had no idea where she was. Patient does not seem to be in any form of respiratory distress. Her encephalopathy is sli ghtly improved but not completely resolved. Workup so far has been basically nondiagnostic. Patient is being closely followed by neurology, blood pressure seems to be better controlled is 150/86 today. Her O2 saturation 100% on 2 L CBC is normal index was normal renal profile is normal Objective - Vital Signs Vital signs: Vital Signs Temp 97.9 F 02/27/23 08:00 Pulse 51 L 02/27/23 09:00 Resp 23 02/27/23 09:00 BP 150/86 02/27/23 09:00 Pulse Ox 100 02/27/23 09:00 FiO2 Intake & Output 02/26/23 02/27/23 02/27/23 18:59 06:59 18:59 Intake Total 575 Output Total 1495 1530 160 Balance -920 -1530 -160 Weight 67 kg 61.8 kg Intake: IV 575 IV Fluid 575 Output: Urine 1495 1530 160 Other: Voiding Method Indwelling Catheter Indwelling Catheter Indwelling Catheter # Bowel Movements 1 - Exam Physical Exam: Revealed a 57-year-old female in no distress, definite improvement noted in her encephalopathy but not completely resolved. HEENT:[Neck is supple.] [No neck masses.] [No thyromegaly.] [No JVD.] Chest: [Clear throughout, no crackles, no rhonchi, no wheezes.] Slightly diminished breath sounds at the left base. Cardiac Exam: [Normal S1 and S2, no S3 gallop, no murmur.] Abdomen: [Soft, nontender, no megaly, no rebound, no guarding, normal bowel sounds.] Extremities: [No clubbing, no edema, however there is evidence of bluish discoloration of the great toe on the left foot. And poor peripheral pulses, feet are not cold to touch Neurological Exam: Opens eyes, follows very simple instructions only. psychiatric: flat affect Extremities, there is evidence of cyanosis of great toe on the left foot. No rashes. - Labs CBC & Chem 7: 02/27/23 05:42 02/27/23 05:42 Labs: Abnormal Lab Results - Last 24 Hours (Table) 02/27/23 02/27/23 02/27/23 Range/Units 00:25 05:42 05:42 RBC 5.92 H (3.80-5.40) m/uL Hct 51.2 H (34.0-46.0) % Lymphocytes # 0.7 L (1.0-4.8) k/uL Sodium 132 L (137-145) mmol/L BUN 23 H (7-17) mg/dL Glucose 104 H (74-99) mg/dL POC Glucose (mg/dL) 140 H (70-110) mg/dL Calcium 8.3 L (8.4-10.2) mg/dL Assessment and Plan Assessment: Impression: Acute hypertensive emergency Acute decompensated heart failure with LV dysfunction, ejection fraction of 30- 35%. Acute metabolic encephalopathy, although the MRI findings are more consistent with small vessel disease and possible central thromboembolic phenomenon. Hypothyroidism. Peripheral vessel occlusive disease and ischemic changes of left lower extremity. Severe cardiomyopathy and LV dysfunction Acute kidney injury on presentation likely secondary to hypertensive emergency. Resolved. Recommendation: Continue present supportive care measures Consider transferring the patient out of the ICU to a regular medical floor or cardiac floor. Continue blood pressure medications and monitor blood pressure Patient may eventually need to be placed in ECF Continue to monitor electrolytes and renal profile. GI and DVT prophylaxis. Prognosis at this point is considered very guarded. Time with Patient: Less than 30
--- NOTE | 2023-02-27 12:32 | P.PN ---
Subjective Progress Note Date: 02/27/23 Patient is known to me and that she was a being the followed up by Dr. Gallagher the past 2 days for neurological care. Per nurse she is about the same. It seems she is positive for Factor V leiden mutation and Prothrombin [id number]. Objective - Vital Signs Vital signs: Vital Signs Temp 97.9 F 02/27/23 08:00 Pulse 51 L 02/27/23 09:00 Resp 23 02/27/23 09:00 BP 150/86 02/27/23 09:00 Pulse Ox 100 02/27/23 09:00 FiO2 Intake & Output 02/26/23 02/27/23 02/27/23 18:59 06:59 18:59 Intake Total 575 Output Total 1495 1530 160 Balance -920 -1530 -160 Weight 67 kg 61.8 kg Intake: IV 575 IV Fluid 575 Output: Urine 1495 1530 160 Other: Voiding Method Indwelling Catheter Indwelling Catheter Indwelling Catheter # Bowel Movements 1 - Exam Neuro: Was sleeping. She is moderately drowsy and is oriented to self. SOME OF THE WORK-UP DURING THIS VISIT: Vitamin B12: 644 Folate: 10.80 Ammonia 19 HbA1c: 6.6 TSH is 38.8, free T4 is 0.84 and the free T3 is 2.4. CT head is reported as no acute intracranial process. remote lacunar injuries along with nonspecific white matter changes likely secondary to chronic microangiopathy. MRI Brain is reported as numerous punctate foci of acute infarct involving the frontal and parietal disease deep white matter region of both sides, bilateral thalamus and left basal ganglia. Additional small focus in the left paramedian vita. A couple foci measuring up to 1.0 cm involving the left splenium of the corpus callosum. Given the corresponding increased T2 flare, findings suggest small infarcts is greater than 6 hours in duration. Consider central thromboembolic phenomena. Background of severe burden of chronic small vessel ischemic disease. I personally reviewed the MRI and agree with the report. EEG is abnormal. The background slowing is suggestive of moderate encephalop athy. Otherwise no focal slowing, epileptiform discharges or seizures. LASHA is negative, ESR is 2, Protein S and antithrombin II Ag is within normal limits. positive for Factor V leiden mutation and Prothrombin [id number]. C-LASHA/P-ANCA is negative. anti DsDNA is negative. - Labs CBC & Chem 7: 02/27/23 05:42 02/27/23 05:42 Labs: Abnormal Lab Results - Last 24 Hours (Table) 02/27/23 02/27/23 02/27/23 Range/Units 00:25 05:42 05:42 RBC 5.92 H (3.80-5.40) m/uL Hct 51.2 H (34.0-46.0) % Lymphocytes # 0.7 L (1.0-4.8) k/uL Sodium 132 L (137-145) mmol/L BUN 23 H (7-17) mg/dL Glucose 104 H (74-99) mg/dL POC Glucose (mg/dL) 140 H (70-110) mg/dL Calcium 8.3 L (8.4-10.2) mg/dL Assessment and Plan Assessment: This is a 57-year-old woman with history of hypertension and is not compliant taking medication who presented because of generalized weakness, confusion, falls for the past weeks to months. Altered mental status seems due to multifactorial: acute bilateral hemispheric stroke, Also due to hypertensive encephalopathy with component due to abnormal thyroid and some component of metabolic-improving Acute ischemic bilateral hemispheric stroke: Unsure exact etiology: hypercoagulable vs artery to artery vs cardioemboli. YANDEL is negative for PFO. Hypercoagulable state with positive/heterozygous for prothrombin gene as well as factor V Leiden mutation. Signficant Bilateral carotid stenosis right ICA stenosis 60-70% and left 70-80% per CTA Acute hypertensive emergency (presented with blood pressure 230's/170's--currently is 130-140's/80's to 90's) she was on nitroglycerin, she received clonidine patch as well as IV hydralazine--resolved Generalized weakness Acute bilateral femoral occlusive disease with ischemic changes over the left toe Falls Possible TIA about 4-5 months ago (had transient right facial weakness per ). Systolic heart failure with ejection fraction of 30-35% Elevated troponin Hypothyroidism Peripheral vascular disease Chronic history of hypertension and noncompliant with medication Tobacco use Alcohol use Noncompliance with medication and does not follow up with physician Plan: Because of result of MRI Brain revealing bilateral hemispheric stroke. No IV tpa since unknown last normal and risk of IV tpa outweigh benefit. Recommend patient to be placed on dual antiplatelet medication because of the extent of vasculopathy noted on the CTA of head and neck as well as peripheral vasculature. Patient to be on Plavix 75 mg and aspirin 325 mg daily. YANDEL performed 02/24/2023 revealed moderately impaired left ventricular systolic function with global hypokinesis and severe hypertrophy with speckling raising the possibility of infiltrative disease. No evidence of shunting across the intra-atrial septum. Mild aortic and mitral regurgitation. Mild atherosclerotic changes of the descending aorta. Suggest 30 day event monitor to rule out paroxysmal atrial fibrillation. LASHA is negative, ESR is 2, Protein S and antithrombin II Ag is within normal limits. DsDNA negative. Factor V Leiden heterozygous, which is associated with activated protein C resistance and increased risk for venous thromboembolic is him. It hurts have 3 10/28/1940 increased risk for VTE. Lupus anticoagulant negative. Prothrombin gene mutation also heterozygous for [id number] mutation. Patient's homocysteine is highly elevated 27.9. Hematology to address hypercoagulable state. Dr. Gallagher discussed with Dr. Sim, recommending dual antiplatelet medications, unless she is positive for antiphospholipid antibodies. Await their final recommendation, if patient a candidate for anticoagulation. B12 is 644, folate 10.8 both normal. TSH is elevated 38.8. IM to address. She is on ASA 325mg daily and recommend if stable to be on Plavix 75mg daily. If does have positive cardiac thrombus vs a-fib/flutter or positive hypercoagulable work-up then recommend to start anticoagulation and no need for dual antiplatelets. On Lipitor 80mg qhs for secondary stroke prophylaxis. Continue neuro checks On cardiac monitoring. PT, OT and [employer] are consulted. Cardiology is on board. Continue thiamine 100mg daily. Please avoid any sedation if possible to have a better neurological evaluation. Vascular surgery team for bilateral femoral occlusive disease. Also has leg toes ischemia. No intervention recommended by vascular surgery. Will defer rest of management to primary and other specialist. For DVT prophylaxis: On Enoxaparin. The plan is discussed with patient's and ICU team. Dr. Gallagher will start neurology service Wednesday A.M. Time with Patient: Less than 30
[2023-02-27 12:42] LABS: Glucose,Whole Blood 151 mg/dL (70-110)
--- NOTE | 2023-02-27 16:55 | P.PN ---
Subjective PROGRESS NOTE The patient is a 57-year-old female who was admitted to the hospital with symptoms of confusion, multiple falls, weakness. The history is obtained from the records. The patient is not answering question quite somnolent after receiv ing Ativan. According to the records the patient has not been taking her medications are home. She has a history of hypertension, diabetes and hyperlipidemia full detail of her prior history or medication is unclear. She was noted to be severely hypertensive, elevated NT proBNP and TSH on present ation. She was in sinus mechanism on presentation. She had peripheral edema and discoloration of the toes on the left lower extremity. According to the notes she's a daily smoker and she uses marijuana. I am unable to obtain any other history. Her echocardiogram performed this morning showed a severely impaired left ventricle systolic function February 20: The patient remains confused, answering questions inappropriately. Her blood pressure has been elevated off Clevidipine. She is not taking by mouth medication because of a question of the swallowing. She continues to be in sinus mechanism. She has a good urinary output on IV Lasix. She continues to be on IV heparin. Her EKG showed T-wave inversion in the anterolateral lateral leads. Her brain CT showed lacunar infarct but no acute bleeding. Duplex scan of the lower extremities showed no evidence of DVT. She continues to have d iscoloration of the left foot toes. February 21 : The patient remains confused, opening eyes to verbal stimulation. She failed her swallow evaluation and continues to be nothing by mouth, receiving IV med ication. Her blood pressure has been relatively stable. There is no evidence of malignant arrhythmia. Her urine output is stable. She underwent a CT angiogram of the abdomen and chest and was found to have an abdominal aortic aneurysm and severe PAD, bilaterally. Her free T3 was low. 02/22 Patient seen and examined. Patient stating she is hungry. He continues be confused. Left lower extremity somewhat improved color per nurse with continued discoloration with fourth and fifth digit. She admits the pain all over including her lower extremities. Blood pressures remain elevated 145/107. She is not eating much orally. 02/23 Patient seen and examined. Patient had increased blood pressures in the systolics 170s yesterday and therefore clonidine was increased to 0.2 milligrams oral twice a day. Blood pressure did decrease down to 110s. She has been more altered this morning with more lethargy and not answering questions appropriately. 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 Therefore discussed stopping the clonidine and holding lisinopril for now for mild permissive hypertension with mental status changes. Has been receiving Lasix with good urine output. Creatinine stable at 1.2. 02/24 Seen and examined. Patient had altered mental status yesterday however mildly be improved today. MRI showed concern of thromboembolic etiology with bilateral infarcts. Carotid imaging does show bilateral disease. Patient has been in sinus rhythm. Patient is somewhat more alert today and complaining of substernal chest pain without significant shortness breath. Patient still continues and alert and oriented to self. Left lower extremity appears stable without worsened discoloration or ischemia. She has been on Lovenox drip. 02/25 Patient seen and examined. Patient underwent YANDEL yesterday showing speckled appearance of myocardium possibly consistent with amyloidosis. No significant PFO. Factor V Leiden was abnormal however discussed with hematology and should not be causing arterial clots. Has been maintained on aspirin. Troponins minimally elevated 0.1 and patient yesterday was complaining of some chest pain. Currently today denies any chest pain. Blood pressures were elevated in the 150-180 range. We will optimize heart failure regimen and add Aldactone. Creatinine has been fairly stable at 1.1. 02/26 Patient seen and examined. Patient somewhat more alert today. Surgery was consultative for ileus and NG tube hopefully to be discontinued today. Patient undergoing barium swallow today. She still gets intermittent chest pain. Blood pressures remained elevated and therefore amlodipine 5 mg twice a day was added as well as hydralazine added as well as clonidine patch was added. 02/27 Patient seen and examined. Patient had significant drop in blood pressure down in the 120s yesterday however increased back up into the 150s to 170s. Borderline bradycardic with heart rates in the 50s and 60s. No chest pain or pressure. She is more alert today. No lightheadedness or dizziness. PHYSICAL EXAMINATION: Vitals reviewed LUNGS: Clear to auscultation HEART: Regular rate and rhythm, S1, S2. No S3. systolic ejection murmur ABDOMEN: Soft, nontender, no organomegaly EXTREMETIES: No edema, discoloration of the toes on the left with decreased pulses IMPRESSION: 1. Hypertension 2. Encephalopathy could be related to hypertension, workup in progress 3. Abnormal EKG rule out ischemia 4. Abnormal renal functions, improving 5. Probable peripheral vascular disease 6. Lacunar infarct 7. Severe cardiomyopathy of unknown etiology or duration probable hypertensive rule out ischemic 8. Worsened altered mental status with MRI showing bilateral infarcts concerning for thromboembolic disease 9. Chest pain 10. Bilateral carotid disease 11. PAD with bilateral SFA disease 12. Speckled appearance of myocardium possibly can be consistent with PLAN: YANDEL did not show any significant source of stroke, does show some speckled appearance can be seen with amyloidosis Patient is having chest pain intermittently and still minimally elevated troponins and cardiomyopathy. Eventually will need cath, likely wednesday if remains stable Attempt to optimize heart failure regimen and continue durrent regimen. Add oral Lasix for mainly BP management. Objective - Vital Signs Vital signs: Vital Signs Temp 97.9 F 02/27/23 08:00 Pulse 56 L 02/27/23 14:00 Resp 19 02/27/23 14:00 BP 168/99 02/27/23 14:00 Pulse Ox 97 02/27/23 14:00 FiO2 Intake & Output 02/26/23 02/27/23 02/27/23 18:59 06:59 18:59 Intake Total 575 Output Total 1495 1530 680 Balance -920 -1530 -680 Weight 67 kg 61.8 kg Intake: IV 575 IV Fluid 575 Output: Urine 1495 1530 680 Other: Voiding Method Indwelling Catheter Indwelling Catheter Indwelling Catheter # Bowel Movements 1 - Labs CBC & Chem 7: 02/27/23 05:42 02/27/23 05:42 Labs: Abnormal Lab Results - Last 24 Hours (Table) 02/27/23 02/27/23 02/27/23 Range/Units 00:25 05:42 05:42 RBC 5.92 H (3.80-5.40) m/uL Hct 51.2 H (34.0-46.0) % Lymphocytes # 0.7 L (1.0-4.8) k/uL Sodium 132 L (137-145) mmol/L BUN 23 H (7-17) mg/dL Glucose 104 H (74-99) mg/dL POC Glucose (mg/dL) 140 H (70-110) mg/dL Calcium 8.3 L (8.4-10.2) mg/dL 02/27/23 Range/Units 12:41 RBC (3.80-5.40) m/uL Hct (34.0-46.0) % Lymphocytes # (1.0-4.8) k/uL Sodium (137-145) mmol/L BUN (7-17) mg/dL Glucose (74-99) mg/dL POC Glucose (mg/dL) 151 H (70-110) mg/dL Calcium (8.4-10.2) mg/dL
[2023-02-27] MEDS: FUROSEMIDE 40 MG TAB PO SCH (17:39)
[2023-02-27 17:44] LABS: Glucose,Whole Blood 87 mg/dL (70-110)
[2023-02-27] MEDS: ATORVASTATIN 80 MG TAB PO SCH (21:35)
[2023-02-28 00:34] LABS: Glucose,Whole Blood 83 mg/dL (70-110)
[2023-02-28] MEDS: ACETAMINOPHEN TAB 325 MG TAB PO PRN (01:08)
[2023-02-28 05:58] LABS: Basophils % (A) 0 %; Eosinophils # (A) 0.2 k/uL (0-0.7); Eosinophils % (A) 3 %; HCT 48.6 % (34.0-46.0); HGB 15.3 gm/dL (11.4-16.0); Hypochromasia Slight; Lymphocytes # (A) 0.7 k/uL (1.0-4.8); Lymphocytes % (A) 11 %; MCH 27.1 pg (25.0-35.0); MCHC 31.4 g/dL (31.0-37.0); MCV 86.2 fL (80.0-100.0); Mean Platelet Volume 9.1; Monocytes # (A) 0.3 k/uL (0-1.0); Monocytes % (A) 6 %; Neutrophils # (A) 4.5 k/uL (1.3-7.7); Neutrophils % (A) 77 %; Platelet Count 194 k/uL (150-450); RBC 5.63 m/uL (3.80-5.40); RDW 15.5 % (11.5-15.5); WBC 5.8 k/uL (3.8-10.6)
[2023-02-28 06:07] LABS: African American GFR (CKD) 82 (>60 ml/min/1.73 sqM); Anion Gap 1 mmol/L; Blood Urea Nitrogen 18 mg/dL (7-17); Calcium 8.4 mg/dL (8.4-10.2); Carbon Dioxide 37 mmol/L (22-30); Chloride 94 mmol/L (98-107); Glucose 105 mg/dL (74-99); Non-African American GFR(CKD) 71 (>60 ml/min/1.73 sqM); Potassium 3.7 mmol/L (3.5-5.1); Sodium 132 mmol/L (137-145)
[2023-02-28 06:31] LABS: Glucose,Whole Blood 112 mg/dL (70-110)
[2023-02-28] MEDS: carvediloL 12.5 MG TAB PO SCH ×2 (06:40→16:25)
[2023-02-28] MEDS: LEVOTHYROXINE 50 MCG TAB PO SCH (06:40)
[2023-02-28] MEDS: PANTOPRAZOLE 40 MG/10 ML VIAL IVP SCH ×2 (08:34→21:11)
[2023-02-28] MEDS: THIAMINE 100 MG TAB PO SCH (08:35)
[2023-02-28] MEDS: FUROSEMIDE 40 MG TAB PO SCH (08:36)
[2023-02-28] MEDS: amLODIPine 5 MG TAB PO SCH ×2 (08:36→21:11)
[2023-02-28] MEDS: lisinopriL 20 MG TAB PO SCH ×2 (08:36→21:11)
[2023-02-28] MEDS: ASPIRIN 325 MG TAB PO SCH (08:37)
[2023-02-28] MEDS: ENOXAPARIN 40 MG/0.4 ML SYRINGE SQ SCH (08:37)
[2023-02-28] MEDS: CLOPIDOGREL 75 MG TAB PO SCH (08:37)
[2023-02-28] MEDS: hydrALAZINE HCL 50 MG TAB PO SCH ×3 (08:37→21:11)
[2023-02-28] MEDS: SPIRONOLACTONE 25 MG TAB PO SCH (08:48)
[2023-02-28] MEDS: NICOTINE 14MG/24HR PATCH TRANSDERM SCH (08:57)
[2023-02-28] MEDS: MAG HYDROX/AL HYDROX/SIMETH 30 ML, diphenhydrAMINE ELIXIR 75 MG, LIDOCAINE VISCOUS 2% 3... PO SCH ×9 (09:09→21:12)
--- NOTE | 2023-02-28 09:27 | P.PN ---
Progress Note - Text Progress Note Date: 02/28/23 The patient ME stable. She is tolerating a diet. She has no abdominal complaints. On exam vital signs appear stable. Abdomen soft nontender Resolved ileus. Patient is tolerating diet. We will sign off.
--- NOTE | 2023-02-28 10:39 | P.PN ---
Subjective Progress Note Date: 02/28/23 Principal diagnosis: Hypertensive emergency with acute metabolic encephalopathy 57-year-old female patient, was rolled into the intensive care unit, lethargic, weak and will confused, under the effect of Ativan that was given to her in the emergency and the patient's received a total of 2 mg of IV Ativan. Meanwhile, the patient was having weakness, confusion and multiple falls and the ended up bringing her to the hospital. I do not believe that she has seen any physicians. Upon arrival, the patient's was noted to have an elevated blood pressure. She was confused. Her EKG showed sinus rhythm with some nonspecific ST segment changes. Chest x-ray showed cardiomegaly with mild pulmonary vessel congestion. BUN was 32 with a creatinine of 1.2 and a white cell count of 7.1. The serum alcohol was negative. Her rest of the blood work showed normal electrolytes, BUN of 32 with a creatinine of 1.2. ProBNP level was 60,000, TSH was 38, free T4 was 0.8. Urine drug screen was negative. UA was negative. The cecum was 7.0 with a hemoglobin of 15.6. Echocardiogram was done this morning and it showed an ejection fraction of 30-35% with moderate to severe LV H, no significant valvular abnormalities and there was moderate to severe left ventricular hypertrophy. Note that patient's initial blood pressure at the time of her emergency department evaluation was as high as 228/159. For now, the patient is on a nitroglycerin drip running at 100 mcg/m. She is on IV heparin. She was given clonidine patch. She was also given hydralazine 10 mg IV every 4 hours. On a separate note, the patient was noted to have some bluish discoloration of her great toe and the left foot. The patient has Doppler signals bilaterally. The patient also has adequate femoral and popliteal pulses. While in the emergency, the patient was given Ativan. I saw her in the intensive care unit. She is gradually waking up and active and affect is wearing off. No signs of any significant respiratory compromise. She is currently on oxygen at 2 L with a pulse ox of 91%. On today's evaluation of 02/20/2023, patient is more awake compared to yesterday. She is arousable and she is communicating. She is aware of her name. She is not aware of her location. No focal neurological deficits. CAT scan of the brain was completed yesterday showed lacunar infarcts probably related to her chronic uncontrolled blood pressure. Patient is currently on 4 L of action by nasal cannula. Chest x-ray shows a small left-sided pleural effusion. Echocardiogram was completed yesterday and it showed severe LVH along with impaired on the function with an ejection fraction of 30-35% and the patient remains in normal sinus rhythm. Pulse ox 98% on [address] by nasal cannula. Her blood pressure was managed by Drip and currently the drip is off. The patient is taken IV Lasix 40 mg every 12 hours. The patient was taken off the nitroglycerin drip. She is receiving hydralazine 10 mg IV every 8 hours. I'm not sure if she is awake enough to start oral medications. This will be decided at the later stage I the patient is more alert and awake. She remains on IV heparin which will be discontinued today. In terms of her labs, the WBC count of 8.3 with a hemoglobin of 17. The BUN is 24 with a creatinine of 1.1 and his sodium levels of 138. GFR is at 54. The medication list was noted. Neurologic consultation was obtained. Vascular Doppler of the lower oximetry was done and the Doppler venous was negative. The patient does have chronic ischemic changes to her left foot, no open wounds or ulceration. Dopplers signals are present in her feet bilaterally. On 02/21/2023, the patient remains encephalopathic and confused. She failed her swallow evaluation and the patient was not transitioned to oral medications. He remains on Catapres at 2 mg an hour and her blood pressure is under adequate control at this point in time. The patient also is on a clonidine patch. She is on oxygen at 2 L/m nasal cannula. King cath is in place. The patient remains on IV heparin. Ischemic changes in lower extremity have improved and the patient seems to be better perfused her left lower extremity on today's evaluation. Cardiac rhythm is sinus. She remains on he was the patient is still swallow evaluation. No fever. No other significant events overnight. The patient is a sitter at the bedside. In terms of her blood work, the patient has a white cell count of 7 with a hemoglobin of 16 and a platelet count of 259. PTT is therapeutic at 75 with a normal PT and INR. Electrolytes are still pending for now. The blood cultures have been negative. CT angiography of the thoracic and abdominal wart that was completed. 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 There is also proximal abdominal aortic aneurysm measuring 3 CMN. There is less than 50% stenosis of the common iliac arteries. External iliac arteries and the internal iliac arteries are essentially patent for now. Reevaluated today on 02/22/23, patient remains in the ICU, patient remains confused, her mental status is quite normal. Patient is confused, not in any distress, and I found out that her mental status has been like this and worsen ing more so over the last 2 weeks. Patient is scheduled to have MRI today. She is being followed by many consultants, including neurology, vascular surgery, and cardiology. Labs today were basically unremarkable, WBC 6.1 hemoglobin is 15.8, patient did have significantly elevated TSH on admission with a low T4 of 0.84. And she was also noted to have significantly elevated BNP level. Over 60,000. However chest x-ray showed no evidence of congestive heart failure there was only evidence of cardiomegaly without acute process. Reevaluated today on 02/23/2023, patient is date about the same, remains encephalopathic, MRI showed numerous punctate foci of acute infarcts involving the frontal and parietal cortices. Also involving the deep white matter regions on both sides. The radiologist felt there could be a possibility of central thromboembolic phenomenon, and there is a background of severe burden of chronic small vessel ischemic disease. We will let neurology address this finding and decide whether further workup is necessary including workup for central thromboembolic phenomena. WBC count is 6.2 hemoglobin 16 in dextrose are normal renal profile is slightly abnormal with BUN of 29 creatinine 1.26, slightly worse compared to yesterday Reevaluated today on 02/24/2023, patient remains in the ICU, she is less encephalopathic today, she is opening her eyes, following simple instructions like wiggling toes, sticking out tongue, squeezing hands, definitely improved mentally compared to the last couple of days. The neurologist is recommending workup for possible thromboembolic phenomenon/central, and YANDEL was performed today, showed impaired LV function and global hypokinesis, and severe hypertrophy with speckling raising the possibility of infiltrative disease. There was no evidence of shunting. There was evidence of mild aortic and mild mitral regurgitation. Carotid Doppler showed moderate atherosclerotic plaque in bilateral carotid arteries with 50-69% stenosis. Reevaluated today on 02/25/2023, remains about the same. Patient remains encephalopathic, may open eyes at times, otherwise no other responses. Today she seems to be a bit more encephalopathic compared to yesterday. Her echocardiogram yesterday/YANDEL questioned the possibility of amyloidosis. CBC today is unremarkable, lites are basically normal, creatinine is 1.13 a chest x- ray is showing more left lower lobe atelectasis possibly small pleural effusion, we'll recommend ultrasound, and if the effusion isn't large enough to consider thoracentesis that will be done Reevaluated today on 02/26/23, patient has slight improvement encephalopathy today. At least she is waking up, verbalizing, remains confused overall. But slightly improvement today compared to the last few days. Labs were reviewed she had a relatively normal electrolytes normal renal profile sodium is a bit low at 131 ultrasound of the chest showed no evidence of pleural effusion to consider thoracentesis. She continues to have left basilar atelectasis. Slightly improved today compared to previous x-rays. Reevaluated today on , patient remains in the ICU, mentation seems to be slightly improving, at least she is arousable, she follows very simple instructions, she knew her name but she had no idea where she was. Patient does not seem to be in any form of respiratory distress. Her encephalopathy is sli ghtly improved but not completely resolved. Workup so far has been basically nondiagnostic. Patient is being closely followed by neurology, blood pressure seems to be better controlled is 150/86 today. Her O2 saturation 100% on 2 L CBC is normal index was normal renal profile is normal Reevaluated today on 02/28/2023, patient seems to be doing much better today, remains in the ICU, on 2 L nasal cannula, she is definitely more alert, awake, follows all simple instructions, seems to be oriented to place time and person. Dramatic improvement in her neurological status has been noted over the last 24 hours. Her sodium is 132 potassium 3.7 renal profile is normal CBC is relatively normal-appearing. Her mental status significantly improved over the last 24 hours Objective - Vital Signs Vital signs: Vital Signs Temp 97.9 F 02/28/23 08:00 Pulse 54 L 02/28/23 10:00 Resp 17 06/11/23 10:00 BP 125/76 02/28/23 10:00 Pulse Ox 100 02/28/23 10:00 FiO2 Intake & Output 02/27/23 02/28/23 02/28/23 18:59 06:59 18:59 Intake Total 235 Output Total 755 1895 95 Balance -755 -1892 140 Weight 65.2 kg Intake: Oral 235 Output: Urine 814 1895 95 Other: Voiding Method Indwelling Catheter Indwelling Catheter # Bowel Movements 1 - Exam Physical Exam: Revealed a 57-year-old female in no distress, slow but more awake, oriented to time place and person. HEENT:[Neck is supple.] [No neck masses.] [No thyromegaly.] [No JVD.] Chest: [Clear throughout, no crackles, no rhonchi, no wheezes.] Cardiac Exam: [Normal S1 and S2, no S3 gallop, no murmur.] Abdomen: [Soft, nontender, no megaly, no rebound, no guarding, normal bowel sounds.] Extremities: [No clubbing, no edema, however there is evidence of bluish discoloration of the great toe on the left foot. Neurological Exam: Awake, alert, oriented 3 but relatively slow.. psychiatric: flat affect, and slow otherwise unremarkable. - Labs CBC & Chem 7: 02/28/23 05:27 02/28/23 05:27 Labs: Abnormal Lab Results - Last 24 Hours (Table) 02/27/23 02/28/23 02/28/23 Range/Units 12:41 05:27 05:27 RBC 5.63 H (3.80-5.40) m/uL Hct 48.6 H (34.0-46.0) % Lymphocytes # 0.7 L (1.0-4.8) k/uL Sodium 132 L (137-145) mmol/L Chloride 94 L (98-107) mmol/L Carbon Dioxide 37 H (22-30) mmol/L BUN 18 H (7-17) mg/dL Glucose 105 H (74-99) mg/dL POC Glucose (mg/dL) 151 H (70-110) mg/dL 02/28/23 Range/Units 06:30 RBC (3.80-5.40) m/uL Hct (34.0-46.0) % Lymphocytes # (1.0-4.8) k/uL Sodium (137-145) mmol/L Chloride (98-107) mmol/L Carbon Dioxide (22-30) mmol/L BUN (7-17) mg/dL Glucose (74-99) mg/dL POC Glucose (mg/dL) 112 H (70-110) mg/dL Assessment and Plan Assessment: Impression: Acute hypertensive emergency, blood pressure is under control this morning. Acute decompensated heart failure with LV dysfunction, ejection fraction of 30- 35%. Acute metabolic encephalopathy, although the MRI findings are more consistent with small vessel disease and possible central thromboembolic phenomenon. Mental status has significantly improved today. Hypothyroidism. Peripheral vessel occlusive disease and ischemic changes of left lower extremity. Severe cardiomyopathy and LV dysfunction Acute kidney injury on presentation likely secondary to hypertensive emergency. Resolved. Recommendation: Transfer patient out of the ICU to med surgical floor. Continue present supportive care measures Continue blood pressure medications Patient may eventually need to be placed in ECF GI and DVT prophylaxis. Will continue to follow. Time with Patient: Less than 30
[2023-02-28] MEDS ORDERED: ASPIRIN 325 MG TAB PO STA (10:51)
[2023-02-28] MEDS ORDERED: ALPRAZolam 0.25 MG TAB PO PRN (10:51)
[2023-02-28] MEDS ORDERED: ATORVASTATIN 80 MG TAB PO STA (10:51)
[2023-02-28] MEDS ORDERED: ALPRAZolam 0.5 MG TAB PO PRN (10:51)
[2023-02-28] MEDS ORDERED: NITROGLYCERIN SL TABS 0.4 MG TAB SUBLINGUAL PRN (10:51)
--- NOTE | 2023-02-28 10:51 | P.PN ---
Subjective PROGRESS NOTE The patient is a 57-year-old female who was admitted to the hospital with symptoms of confusion, multiple falls, weakness. The history is obtained from the records. The patient is not answering question quite somnolent after receiv ing Ativan. According to the records the patient has not been taking her medications are home. She has a history of hypertension, diabetes and hyperlipidemia full detail of her prior history or medication is unclear. She was noted to be severely hypertensive, elevated NT proBNP and TSH on present ation. She was in sinus mechanism on presentation. She had peripheral edema and discoloration of the toes on the left lower extremity. According to the notes she's a daily smoker and she uses marijuana. I am unable to obtain any other history. Her echocardiogram performed this morning showed a severely impaired left ventricle systolic function February 20: The patient remains confused, answering questions inappropriately. Her blood pressure has been elevated off Clevidipine. She is not taking by mouth medication because of a question of the swallowing. She continues to be in sinus mechanism. She has a good urinary output on IV Lasix. She continues to be on IV heparin. Her EKG showed T-wave inversion in the anterolateral lateral leads. Her brain CT showed lacunar infarct but no acute bleeding. Duplex scan of the lower extremities showed no evidence of DVT. She continues to have d iscoloration of the left foot toes. February 21 : The patient remains confused, opening eyes to verbal stimulation. She failed her swallow evaluation and continues to be nothing by mouth, receiving IV med ication. Her blood pressure has been relatively stable. There is no evidence of malignant arrhythmia. Her urine output is stable. She underwent a CT angiogram of the abdomen and chest and was found to have an abdominal aortic aneurysm and severe PAD, bilaterally. Her free T3 was low. 02/22 Patient seen and examined. Patient stating she is hungry. He continues be confused. Left lower extremity somewhat improved color per nurse with continued discoloration with fourth and fifth digit. She admits the pain all over including her lower extremities. Blood pressures remain elevated 145/107. She is not eating much orally. 02/23 Patient seen and examined. Patient had increased blood pressures in the systolics 170s yesterday and therefore clonidine was increased to 0.2 milligrams oral twice a day. Blood pressure did decrease down to 110s. She has been more altered this morning with more lethargy and not answering questions appropriately. This does appear to be somewhat in the manager sap and may be correlated with drop in blood pressure. Therefore discussed stopping the clonidine and holding lisinopril for now for mild permissive hypertension with mental status changes. Has been receiving Lasix with good urine output. Creatinine stable at 1.2. 02/24 Seen and examined. Patient had altered mental status yesterday however mildly be improved today. MRI showed concern of thromboembolic etiology with bilateral infarcts. Carotid imaging does show bilateral disease. Patient has been in sinus rhythm. Patient is somewhat more alert today and complaining of substernal chest pain without significant shortness breath. Patient still continues and alert and oriented to self. Left lower extremity appears stable without worsened discoloration or ischemia. She has been on Lovenox drip. 02/25 Patient seen and examined. Patient underwent YANDEL yesterday showing speckled appearance of myocardium possibly consistent with amyloidosis. No significant PFO. Factor V Leiden was abnormal however discussed with hematology and should not be causing arterial clots. Has been maintained on aspirin. Troponins minimally elevated 0.1 and patient yesterday was complaining of some chest pain. Currently today denies any chest pain. Blood pressures were elevated in the 150-180 range. We will optimize heart failure regimen and add Aldactone. Creatinine has been fairly stable at 1.1. 02/26 Patient seen and examined. Patient somewhat more alert today. Surgery was consultative for ileus and NG tube hopefully to be discontinued today. Patient undergoing barium swallow today. She still gets intermittent chest pain. Blood pressures remained elevated and therefore amlodipine 5 mg twice a day was added as well as hydralazine added as well as clonidine patch was added. 02/27 Patient seen and examined. Patient had significant drop in blood pressure down in the 120s yesterday however increased back up into the 150s to 170s. Borderline bradycardic with heart rates in the 50s and 60s. No chest pain or pressure. She is more alert today. No lightheadedness or dizziness. 02/28 Patient seen and examined. Lasix was added yesterday more for blood pressure control with improvement in blood pressures in the 130s to 140s range. Creatinine stable at 0.9. She has been tolerating diet. Still with some confusion however predominantly improving. PHYSICAL EXAMINATION: Vitals reviewed LUNGS: Clear to auscultation HEART: Regular rate and rhythm, S1, S2. No S3. systolic ejection murmur ABDOMEN: Soft, nontender, no organomegaly EXTREMETIES: No edema, discoloration of the toes on the left with decreased pulses IMPRESSION: 1. Hypertension 2. Encephalopathy could be related to hypertension, workup in progress 3. Abnormal EKG rule out ischemia 4. Abnormal renal functions, improving 5. Probable peripheral vascular disease 6. Lacunar infarct 7. Severe cardiomyopathy of unknown etiology or duration probable hypertensive rule out ischemic 8. Worsened altered mental status with MRI showing bilateral infarcts concerning for thromboembolic disease 9. Chest pain 10. Bilateral carotid disease 11. PAD with bilateral SFA disease 12. Speckled appearance of myocardium possibly can be consistent with PLAN: YANDEL did not show any significant source of stroke, does show some speckled appearance can be seen with amyloidosis Patient is having chest pain intermittently and still minimally elevated troponins and cardiomyopathy. Attempt to optimize heart failure regimen and continue durrent regimen. Pressures better controlled and continue current regimen. NPO after midnight with likely heart catheterization 03/01 for cardiomyopathy and non-STEMI if remains stable. Objective - Vital Signs Vital signs: Vital Signs Temp 97.9 F 02/28/23 08:00 Pulse 54 L 02/28/23 10:00 Resp 17 02/28/23 10:00 BP 125/76 02/28/23 10:00 Pulse Ox 100 02/28/23 10:00 FiO2 Intake & Output 02/27/23 02/28/23 02/28/23 18:59 06:59 18:59 Intake Total 235 Output Total 755 1895 95 Balance -755 -1895 140 Weight 65.2 kg Intake: Oral 235 Output: Urine 755 1895 95 Other: Voiding Method Indwelling Catheter Indwelling Catheter # Bowel Movements 1 - Labs CBC & Chem 7: 02/28/23 05:27 02/28/23 05:27 Labs: Abnormal Lab Results - Last 24 Hours (Table) 02/27/23 02/28/23 02/28/23 Range/Units 12:41 05:27 05:27 RBC 5.63 H (3.80-5.40) m/uL Hct 48.6 H (34.0-46.0) % Lymphocytes # 0.7 L (1.0-4.8) k/uL Sodium 132 L (137-145) mmol/L Chloride 94 L (98-107) mmol/L Carbon Dioxide 37 H (22-30) mmol/L BUN 18 H (7-17) mg/dL Glucose 105 H (74-99) mg/dL POC Glucose (mg/dL) 151 H (70-110) mg/dL 02/28/23 Range/Units 06:30 RBC (3.80-5.40) m/uL Hct (34.0-46.0) % Lymphocytes # (1.0-4.8) k/uL Sodium (137-145) mmol/L Chloride (98-107) mmol/L Carbon Dioxide (22-30) mmol/L BUN (7-17) mg/dL Glucose (74-99) mg/dL POC Glucose (mg/dL) 112 H (70-110) mg/dL
[2023-02-28 11:46] LABS: Glucose,Whole Blood 152 mg/dL (70-110)
[2023-02-28] MEDS: HEPARIN SOD,PORK IN 0.45% NACL 25,000 UNIT in 0.45% NACL 1 250ML.BAG IV SCH (15:51)
[2023-02-28 16:15] LABS: Glucose,Whole Blood 117 mg/dL (70-110)
[2023-02-28 20:02] LABS: Glucose,Whole Blood 138 mg/dL (70-110)
--- NOTE | 2023-02-28 20:53 | P.PN ---
Subjective Progress Note Date: 02/27/23 This is a 57-year-old female history significant for diabetes mellitus, hypertension, myocardial infarction, thyroid disorder, current smoker. Patient presented to the hospital for altered mental status and was found on the floor by her he was unable to lift her up. Patient was brought in by EMS. Patient is found to have generalized weakness confusion and has been having multiple falls at home with progressive weakness over the last 5 months, patient is a poor historian and currently alert x 0 and obtunded at the time of examination. at the bedside provides the medical history, patient is a daily smoker and occasional alcohol use. Over the last 5 months has been having frequent falls and has been increasingly confused Has not been to a doctor and not taking recommending medications. Additionally he felt patient may have suffered a stroke a few months ago and had noticed a facial droop around that time. Patient in the ER was awake and alert. Blood pressure on admission was in the 220s systolic and difficult to treat with multiple antihypertensive agents given. Patient was also given IV ativan. Chest x-ray on admission shows cardiomegaly with linear atelectasis and/or scarring the left midlung. EKG shows sinus tachycardia with a heart rate of 110 on admission. She has no elevated white blood cell count it is normal at 7.1, sodium of 135, BUN/cr 32 and 1.28, Lacis acid is normal 1.3. She does have troponin elevation of 0.067, 0.074, 0.075.. ProBNP is elevated at 16,200, TSH is also 38.800, free T4 0.84. Urinalysis is negative for infection, urine drug toxicology is negative. Patient is admitted to the hospital for new onset CHF and originially admitted to the stepdown unit. Patient was upgraded to the intensive care unit and placed on nitro gtt and had also become unresponsive only arousing to sternal rub. Patient does not appear to have feeling in the left foot there is mottling and purple discoloration of the great toe and 3/4 toes likely due to ischemia and vascular services has been consulted as well as neurology, cardiology and pulmonary community manager. Recommend a brain CT when patient is more stable and also ABGs will be done. An echocardiogram reveals EF of 30-35%, mild MR. 02/20/2023 Patient continues to be monitored closely in the intensive care unit. Currently alert x 2 more awake than yesterday, does have some slurred speech today. Brain CT shows no acute intracranial process with remote lacunar injuries along with nonspecific white matter changes likely secondary to chronic microangiography. EEG is negative. Neurology following and recommending brain MRI. Chest xray today is negative. Continues on IV lasix 40 mg every 12 hours with urine output of over 5L in the last 24 hours. Continues on IV cleviprex/clonidine patch and b lood pressure running in the 150s systolic. Labs reveal sodium of 138, potassium 3.8, BUN 23, creatinine of 1.0. 02/21/2023 Patient is evaluated today in the intensive care unit. Patient is slightly more lethargic today was given a dose of IV ativan overnight for increased agitated. Patient had failed swallow evaluation and has been placed NPO at this time. Slightly more lethargic than yesterday. Patient is being followed by neurology and recommended to undergo MRI tomorrow however patient remains on IV cleviprex for blood pressure control as well as clonidine patch and IV hydralazine. Patie nt continues on IV lasix Q12 which has been decreased to 20 mg. CTA thoracic and abdominal aorta with run off reveals long segment occlusion bilateral mid superficial femoral arteries with reconstitution of the distal SFA bilaterally. There is proximal abdominal aortic aneurysm. Multifocal calcific disease estimated 7% stenosis anterior tibial arteries bilaterally. Vascular surgery following with further recommendations forthcoming. Labs today reveal white count of 7.8, hgb 16.5. Potassium 3.1 and magnesium 1.5. Heart rate controlled in the 70s, blood pressure in the 140/80s and currnently requiring 2L of oxygen. Patient does have some tenderness to the LLQ on exam. 02/22/2023 Patient evaluated in the intensive care unit today, more awake and alert sitting up in the chair. Diet has been advanced to pureed diet. Patient also had a bowel movement today. Diminished airway patient needs encouragement to cough and deep breath and will be given incentive spirometer. Was given IV synthroid and transitioned to oral synthroid today. Has been resumed on oral blood pressure medication including clonidine patch and taken off the cleviprex gtt and bp has improved down to 110/90 currently. Vascular surgery following recommending vascular intervention when medically stable. Patient is pending MRI and likely will be done Wednesday. Sodium has dropped to 130 today, BUN 22, creatinine 1.16, total bilirubin 1.4. 02/23/2023 Patient is seen and evaluated and follow-up in the ICU with multiple medical consultations following. Patient was able to undergo MRI of the brain with neurology following undergoing extensive workup including cardiology and vascular surgery along with pulmonary community manager. MRI of the brain showed numerous punctate foci of acute infarcts involving the frontal and parietal cortices, deep white matter regions on both sides, bilateral thalami, and left basal ganglia with additional small focus in the left paramedian vita. A couple foci measuring up to 1.0 cm involving the left glenohumeral of the corpus callosum and findings suggest small infarcts greater than 6 hours in duration consider a central thromboembolic phenomenon with background severe burden of small chronic vessel ischemic disease. Per nursing staff patient had a decrease in mentation and blood pressures have been uncontrolled with neurology and cardiology making adjustments. Clonidine discontinued and awaiting possible YANDEL. CTA ordered and pending. Chest x-ray today shows NG tube appearing in good position with stable left lower infiltrate and small effusion and patient is maintained on IV Lasix low dose daily. 02/24/2023 Patient is seen in follow-up this morning continues to be in the ICU with multiple medical consultations following. Neurology recommending YANDEL with cardiology following inpatient is reporting some chest pain and currently awaiting troponins and repeat EKG. Possible YANDEL today. Patient's mentation is somewhat improved today although extremely delayed. Patient continues to ask for her on exam. Patient is afebrile and continues with NG tube an abdominal x-ray is ordered and pending. Patient with multiple strokes noted and significant noncompliance with seeking any type of medical attention for many years and left lower limb ischemia, prognosis is extremely poor and guarded. Patient's CODE STATUS is no code and need to discuss further about overall prognosis and treatment plan moving forward as patient will need ECF and unsure if she is going to be agreeable to this. Case management/social work following. 02/25/2023 Patient is seen and evaluated in follow-up this morning lethargic although arousable. Patient condition continues to be extremely guarded and overall poor at this time with multiple medical consultations following. Patient underwent YANDEL yesterday with concerns for possible amyloidosis. Patient noted have factor V deficiency and hematology was consulted for input and recommendations. Patient is maintained on aspirin and will continue for now. Patient has been taken off diuretics and placed on gentle IV hydration and patient continues to be nothing by mouth with an NG tube. Abdominal x-ray suggestive of ileus versus obstruction and will consult general surgery. Discussed briefly with and will discuss further at length about overall prognosis, treatment plan, and options moving forward. Vascular surgery has evaluated the patient with no plans for surgical intervention at this time and patient does have noted left lower extremity ischemia with discoloration which is slightly improved. Patient is afebrile with no reported chest pain or shortness of breath. Patient continues to be nothing by mouth with an NG tube. 02/26/2023 Patient is seen and evaluated in follow-up continues to be in the ICU with multiple medical consultations following. Patient with aspiration risk being ev aluated by speech therapy recommending modified. Swallow study which is occurring today. Multiple medical consultations including neurology, pulmonary community manager, cardiology following. Patient's blood pressure remains elevated and uncontrolled with medications being adjusted. Patient being started on Plavix and continued on aspirin. Discussion was had with cardiology patient will eventually need cardiac cath. Vascular following with no plans for surgical intervention at this time the left lower extremity ischemia. Hematology also following and undergoing workup as patient has history of factor 5 L deficiency. Patient's mentation is somewhat improved today and able to converse more and is responding appropriately to questions and commands. Reports of chest pain or palpitations. Patient denies nausea or vomiting and continues with NG tube for now. Patient is having bowel movements with no plans for surgical intervention per general surgery as there were concerns for ileus versus possible bowel obstruction. Recommend follow-up labs in a.m. 02/27/2023 Patient is in the MICU. Resting in the bed. Awake alert and oriented x1-2, follows simple commands. Currently on room air. Denies any complaints of chest pain or shortness of breath. Patient has been afebrile. Tolerating oral diet slowly. No complaints of abdominal pain. No nausea or vomiting. NG tube has been discontinued. Patient had modified barium swallow for dysphagia. Patient is able to swallow without aspiration. And was started on dysphagia level 3 diet. Patient is encephalopathic but is improving. Laboratory data showed sodium 132 potassium 3.9 chloride 98 bicarb is 30 BUN 23 and creatinine 0.92 and blood sugar is 104 and calcium 8.3, WBC 7.9 hemoglobin 16.0 and platelets 219. Current medications reviewed. Review of Systems Constitutional: Reports fatigue denied any fever. Cardio vascular: Denies chest pain, no palpitations Gastrointestinal: denied any nausea, vomiting, diarrhea Pulmonary: Denied any shortness of breath cough Neurologic denied any new focal deficits, reports weakness PHYSICAL EXAMINATION: GENERAL: The patient is alert and oriented x2, slurred and delayed speech. More awake today and able to converse more. Ill-appearing, elderly appearing Pale. HEENT: Pupils are round and equally reacting to light. EOMI. No scleral icterus. No conjunctival pallor. Normocephalic, atraumatic. No pharyngeal erythema. No thyromegaly. CARDIOVASCULAR: S1 and S2 muffled PULMONARY: Diminished breath sounds bilaterally with no wheezing or crackles. ABDOMEN: Soft, nontender, nondistended, normoactive bowel sounds. No palpable organomegaly. MUSCULOSKELETAL: No joint swelling or deformity. EXTREMITIES: No cyanosis, clubbing, or pedal edema. Left lower extremity with discoloration NEUROLOGICAL: Unable to complete full exam. Diffuse weakness. SKIN: No rashes. There is discoloration to toes on the left foot extending to the left foot pad, progressing. Assessment: Altered mental status secondary to acute metabolic encephalopathy Acute infarct involving the frontal and parietal cortices, deep white matter regions on both sides, bilateral thalami, and left basal ganglia as noted on MRI of the brain, possible central thromboembolic phenomenon Progressive weakness and frequent falls at home Hypertension with urgency on admission Elevated troponin level Acute kidney injury vs CKD Ischemic change to the left foot. Acute congestive heart failure, systolic dysfunction Severe Cardiomyopathy and LV dysfunction possibly from the hypertension vs hypothyroidism Possible amyloidosis Hypothyroidism Elevated D-Dimer Hypothyroidism Diabetes Mellitus type 2 uncontrolled History of factor V leiden deficiency History of myocardial infarction unknown details Chronic and ongoing nicotine use Medical noncompliance Marijuana use GI prophylaxis DVT prophylaxis; SCDs Do Not Resuscitate/Do Not Intubate Plan: Continue monitoring the patient in the intensive care unit with multiple medical consultations following. Patient is status post barium swallow and was started on dysphagia level 3 diet. Ileus has resolved and general surgery is on board. Patient underwent YANDEL with cardiology showing moderately impaired left vent ricular systolic function and global hypokinesis with severe hypertrophy with speckling raising the possibility of infiltrative disease and amyloidosis, no evidence of shunting across the interatrial septum with mild aortic and mitral regurgitation with no pericardial effusion and mild atherosclerotic changes of the descending aorta. Cardiology adjusting medications were tighter blood pressure control and will likely need a cath with blood pressures are more stable Cleviprex has been discontinued and mentation is improving with some waxing and waning Neurology following and underwent brain MRI showing multiple infarcts as noted above Recommend maximizing medical management with cardiology following along with tight blood pressure control Vascular surgery recommending intervention when patient is medically stable for left lower extremity ischemia in the outpatient setting Recommend PT/OT therapy evaluation once more stable as patient will need rehab although patient is reluctant and wants to go home with Lengthy discussion was had with Arjun along with CODE STATUS as patient is no code. reports patient has always made that very clear she does not want CPR or mechanical ventilation. Discussion was had that overall prognosis remains poor and guarded at this time with multiple complex issues ongoing and per his request will discuss later about discharge planning to rehab once more stable as he does not want to upset patient as she wants to go home. Case management/social work is following and will address rehab once cleared by consultations. Follow up labs in AM Again, Overall prognosis is extremely guarded Objective - Vital Signs Vital signs: Vital Signs Temp 97.5 F L 02/27/23 20:00 Pulse 58 L 02/27/23 20:00 Resp 12 02/27/23 20:00 BP 130/72 02/27/23 20:00 Pulse Ox 97 02/27/23 20:00 FiO2 Intake & Output 02/27/23 02/27/23 02/28/23 06:59 18:59 06:59 Output Total 1530 755 440 Balance -1530 -551 -440 Weight 61.8 kg Output: Urine 1530 755 440 Other: Voiding Method Indwelling Catheter Indwelling Catheter # Bowel Movements 1 1 - Labs CBC & Chem 7: 02/28/23 05:27 02/28/23 05:27 Labs: Abnormal Lab Results - Last 24 Hours (Table) 02/27/23 02/27/23 02/27/23 Range/Units 00:25 05:42 05:42 RBC 5.92 H (3.80-5.40) m/uL Hct 51.2 H (34.0-46.0) % Lymphocytes # 0.7 L (1.0-4.8) k/uL Sodium 132 L (137-145) mmol/L BUN 23 H (7-17) mg/dL Glucose 104 H (74-99) mg/dL POC Glucose (mg/dL) 140 H (70-110) mg/dL Calcium 8.3 L (8.4-10.2) mg/dL 02/27/23 Range/Units 12:41 RBC (3.80-5.40) m/uL Hct (34.0-46.0) % Lymphocytes # (1.0-4.8) k/uL Sodium (137-145) mmol/L BUN (7-17) mg/dL Glucose (74-99) mg/dL POC Glucose (mg/dL) 151 H (70-110) mg/dL Calcium (8.4-10.2) mg/dL Assessment and Plan Time with Patient: Greater than 30
--- NOTE | 2023-02-28 20:56 | P.PN ---
Subjective Progress Note Date: 02/28/23 This is a 57-year-old female history significant for diabetes mellitus, hypertension, myocardial infarction, thyroid disorder, current smoker. Patient presented to the hospital for altered mental status and was found on the floor by her he was unable to lift her up. Patient was brought in by EMS. Patient is found to have generalized weakness confusion and has been having multiple falls at home with progressive weakness over the last 5 months, patient is a poor historian and currently alert x 0 and obtunded at the time of examination. at the bedside provides the medical history, patient is a daily smoker and occasional alcohol use. Over the last 5 months has been having frequent falls and has been increasingly confused Has not been to a doctor and not taking recommending medications. Additionally he felt patient may have suffered a stroke a few months ago and had noticed a facial droop around that time. Patient in the ER was awake and alert. Blood pressure on admission was in the 220s systolic and difficult to treat with multiple antihypertensive agents given. Patient was also given IV ativan. Chest x-ray on admission shows cardiomegaly with linear atelectasis and/or scarring the left midlung. EKG shows sinus tachycardia with a heart rate of 110 on admission. She has no elevated white blood cell count it is normal at 7.1, sodium of 135, BUN/cr 32 and 1.28, Lacis acid is normal 1.3. She does have troponin elevation of 0.067, 0.074, 0.075.. ProBNP is elevated at 16,200, TSH is also 38.800, free T4 0.84. Urinalysis is negative for infection, urine drug toxicology is negative. Patient is admitted to the hospital for new onset CHF and originially admitted to the stepdown unit. Patient was upgraded to the intensive care unit and placed on nitro gtt and had also become unresponsive only arousing to sternal rub. Patient does not appear to have feeling in the left foot there is mottling and purple discoloration of the great toe and 3/4 toes likely due to ischemia and vascular services has been consulted as well as neurology, cardiology and pulmonary distribution operation supervisor. Recommend a brain CT when patient is more stable and also ABGs will be done. An echocardiogram reveals EF of 30-35%, mild MR. 02/20/2023 Patient continues to be monitored closely in the intensive care unit. Currently alert x 2 more awake than yesterday, does have some slurred speech today. Brain CT shows no acute intracranial process with remote lacunar injuries along with nonspecific white matter changes likely secondary to chronic microangiography. EEG is negative. Neurology following and recommending brain MRI. Chest xray today is negative. Continues on IV lasix 40 mg every 12 hours with urine output of over 5L in the last 24 hours. Continues on IV cleviprex/clonidine patch and b lood pressure running in the 150s systolic. Labs reveal sodium of 138, potassium 3.8, BUN 23, creatinine of 1.0. 02/21/2023 Patient is evaluated today in the intensive care unit. Patient is slightly more lethargic today was given a dose of IV ativan overnight for increased agitated. Patient had failed swallow evaluation and has been placed NPO at this time. Slightly more lethargic than yesterday. Patient is being followed by neurology and recommended to undergo MRI tomorrow however patient remains on IV cleviprex for blood pressure control as well as clonidine patch and IV hydralazine. Patie nt continues on IV lasix Q12 which has been decreased to 20 mg. CTA thoracic and abdominal aorta with run off reveals long segment occlusion bilateral mid superficial femoral arteries with reconstitution of the distal SFA bilaterally. There is proximal abdominal aortic aneurysm. Multifocal calcific disease estimated 7% stenosis anterior tibial arteries bilaterally. Vascular surgery following with further recommendations forthcoming. Labs today reveal white count of 7.8, hgb 16.5. Potassium 3.1 and magnesium 1.5. Heart rate controlled in the 70s, blood pressure in the 140/80s and currnently requiring 2L of oxygen. Patient does have some tenderness to the LLQ on exam. 02/22/2023 Patient evaluated in the intensive care unit today, more awake and alert sitting up in the chair. Diet has been advanced to pureed diet. Patient also had a bowel movement today. Diminished airway patient needs encouragement to cough and deep breath and will be given incentive spirometer. Was given IV synthroid and transitioned to oral synthroid today. Has been resumed on oral blood pressure medication including clonidine patch and taken off the cleviprex gtt and bp has improved down to 110/90 currently. Vascular surgery following recommending vascular intervention when medically stable. Patient is pending MRI and likely will be done Wednesday. Sodium has dropped to 130 today, BUN 22, creatinine 1.16, total bilirubin 1.4. 02/23/2023 Patient is seen and evaluated and follow-up in the ICU with multiple medical consultations following. Patient was able to undergo MRI of the brain with neurology following undergoing extensive workup including cardiology and vascular surgery along with pulmonary distribution operation supervisor. MRI of the brain showed numerous punctate foci of acute infarcts involving the frontal and parietal cortices, deep white matter regions on both sides, bilateral thalami, and left basal ganglia with additional small focus in the left paramedian vita. A couple foci measuring up to 1.0 cm involving the left glenohumeral of the corpus callosum and findings suggest small infarcts greater than 6 hours in duration consider a central thromboembolic phenomenon with background severe burden of small chronic vessel ischemic disease. Per nursing staff patient had a decrease in mentation and blood pressures have been uncontrolled with neurology and cardiology making adjustments. Clonidine discontinued and awaiting possible YANDEL. CTA ordered and pending. Chest x-ray today shows NG tube appearing in good position with stable left lower infiltrate and small effusion and patient is maintained on IV Lasix low dose daily. 02/24/2023 Patient is seen in follow-up this morning continues to be in the ICU with multiple medical consultations following. Neurology recommending YANDEL with cardiology following inpatient is reporting some chest pain and currently awaiting troponins and repeat EKG. Possible YANDEL today. Patient's mentation is somewhat improved today although extremely delayed. Patient continues to ask for her on exam. Patient is afebrile and continues with NG tube an abdominal x-ray is ordered and pending. Patient with multiple strokes noted and significant noncompliance with seeking any type of medical attention for many years and left lower limb ischemia, prognosis is extremely poor and guarded. Patient's CODE STATUS is no code and need to discuss further about overall prognosis and treatment plan moving forward as patient will need ECF and unsure if she is going to be agreeable to this. Case management/social work following. 02/25/2023 Patient is seen and evaluated in follow-up this morning lethargic although arousable. Patient condition continues to be extremely guarded and overall poor at this time with multiple medical consultations following. Patient underwent YANDEL yesterday with concerns for possible amyloidosis. Patient noted have factor V deficiency and hematology was consulted for input and recommendations. Patient is maintained on aspirin and will continue for now. Patient has been taken off diuretics and placed on gentle IV hydration and patient continues to be nothing by mouth with an NG tube. Abdominal x-ray suggestive of ileus versus obstruction and will consult general surgery. Discussed briefly with and will discuss further at length about overall prognosis, treatment plan, and options moving forward. Vascular surgery has evaluated the patient with no plans for surgical intervention at this time and patient does have noted left lower extremity ischemia with discoloration which is slightly improved. Patient is afebrile with no reported chest pain or shortness of breath. Patient continues to be nothing by mouth with an NG tube. 02/26/2023 Patient is seen and evaluated in follow-up continues to be in the ICU with multiple medical consultations following. Patient with aspiration risk being ev aluated by speech therapy recommending modified. Swallow study which is occurring today. Multiple medical consultations including neurology, pulmonary distribution operation supervisor, cardiology following. Patient's blood pressure remains elevated and uncontrolled with medications being adjusted. Patient being started on Plavix and continued on aspirin. Discussion was had with cardiology patient will eventually need cardiac cath. Vascular following with no plans for surgical intervention at this time the left lower extremity ischemia. Hematology also following and undergoing workup as patient has history of factor 5 L deficiency. Patient's mentation is somewhat improved today and able to converse more and is responding appropriately to questions and commands. Reports of chest pain or palpitations. Patient denies nausea or vomiting and continues with NG tube for now. Patient is having bowel movements with no plans for surgical intervention per general surgery as there were concerns for ileus versus possible bowel obstruction. Recommend follow-up labs in a.m. 02/27/2023 Patient is in the MICU. Resting in the bed. Awake alert and oriented x1-2, follows simple commands. Currently on room air. Denies any complaints of chest pain or shortness of breath. Patient has been afebrile. Tolerating oral diet slowly. No complaints of abdominal pain. No nausea or vomiting. NG tube has been discontinued. Patient had modified barium swallow for dysphagia. Patient is able to swallow without aspiration. And was started on dysphagia level 3 diet. Patient is encephalopathic but is improving. Laboratory data showed sodium 132 potassium 3.9 chloride 98 bicarb is 30 BUN 23 and creatinine 0.92 and blood sugar is 104 and calcium 8.3, WBC 7.9 hemoglobin 16.0 and platelets 219. 02/28/2023 Patient is in the MICU. Sitting in the chair. Awake alert and oriented x2. Patient is able to communicate and follow simple commands. Improving mental status. Able to tolerate oral diet. Currently titrated down to room air. Blood pressure is fairly controlled. Cardiology is planning for catheterization tomorrow. Laboratory data showed sodium 132 potassium 3.7 chloride 94 bicarb is 37 BUN 18 and creatinine 0.9 and blood sugar is 105. WBC 5.8 hemoglobin 15.3 and platelets 194. Patient is being transferred to medical floor today. Current medications reviewed. Review of Systems Constitutional: Reports fatigue denied any fever. Cardio vascular: Denies chest pain, no palpitations Gastrointestinal: denied any nausea, vomiting, diarrhea Pulmonary: Denied any shortness of breath cough Neurologic denied any new focal deficits, reports weakness PHYSICAL EXAMINATION: GENERAL: The patient is alert and oriented x2, slurred and delayed speech. More awake today and able to converse more. Ill-appearing, elderly appearing Pale. HEENT: Pupils are round and equally reacting to light. EOMI. No scleral icterus. No conjunctival pallor. Normocephalic, atraumatic. No pharyngeal erythema. No thyromegaly. CARDIOVASCULAR: S1 and S2 muffled PULMONARY: Diminished breath sounds bilaterally with no wheezing or crackles. ABDOMEN: Soft, nontender, nondistended, normoactive bowel sounds. No palpable organomegaly. MUSCULOSKELETAL: No joint swelling or deformity. EXTREMITIES: No cyanosis, clubbing, or pedal edema. Left lower extremity with discoloration NEUROLOGICAL: Unable to complete full exam. Diffuse weakness. SKIN: No rashes. There is discoloration to toes on the left foot extending to the left foot pad, progressing. Assessment: Altered mental status secondary to acute metabolic encephalopathy Acute infarct involving the frontal and parietal cortices, deep white matter regions on both sides, bilateral thalami, and left basal ganglia as noted on MRI of the brain, possible central thromboembolic phenomenon Progressive weakness and frequent falls at home Hypertension with urgency on admission Elevated troponin level Acute kidney injury vs CKD Ischemic change to the left foot. Acute congestive heart failure, systolic dysfunction Severe Cardiomyopathy and LV dysfunction possibly from the hypertension vs hypothyroidism Possible amyloidosis Hypothyroidism Elevated D-Dimer Hypothyroidism Diabetes Mellitus type 2 uncontrolled History of factor V leiden deficiency History of myocardial infarction unknown details Chronic and ongoing nicotine use Medical noncompliance Marijuana use GI prophylaxis DVT prophylaxis; SCDs Do Not Resuscitate/Do Not Intubate Plan: Continue monitoring the patient in the intensive care unit with multiple medical consultations following. Patient is status post barium swallow and was started on dysphagia level 3 diet. Ileus has resolved and general surgery is on board. Patient underwent YANDEL with cardiology showing moderately impaired left ventricular systolic function and global hypokinesis with severe hypertrophy with speckling raising the possibility of infiltrative disease and amyloidosis, no evidence of shunting across the interatrial septum with mild aortic and mitral regurgitation with no pericardial effusion and mild atherosclerotic changes of the descending aorta. Cardiology adjusting medications were tighter blood pressure control and Plan for catheterization tomorrow. Cleviprex has been discontinued and mentation is improving with some waxing and waning Neurology following and underwent brain MRI showing multiple infarcts as noted above Recommend maximizing medical management with cardiology following along with tight blood pressure control Vascular surgery recommending intervention when patient is medically stable for left lower extremity ischemia in the outpatient setting Recommend PT/OT therapy evaluation once more stable as patient will need rehab although patient is reluctant and wants to go home with Lengthy discussion was had with Arjun along with CODE STATUS as patient is no code. reports patient has always made that very clear she does not want CPR or mechanical ventilation. Discussion was had that overall prognosis remains poor and guarded at this time with multiple complex issues ongoing and per his request will discuss later about discharge planning to rehab once more stable as he does not want to upset patient as she wants to go home. Case management/social work is following and will address rehab once cleared by consultations. Follow up labs in AM Again, Overall prognosis is extremely guarded Objective - Vital Signs Vital signs: Vital Signs Temp 97.9 F 02/28/23 08:00 Pulse 61 02/28/23 14:00 Resp 20 02/28/23 14:00 BP 124/89 02/28/23 14:00 Pulse Ox 95 02/28/23 14:00 FiO2 Intake & Output 02/27/23 02/28/23 02/28/23 18:59 06:59 18:59 Intake Total 353 Output Total 655 6836 975 Balance -755 -1895 -622 Weight 65.2 kg Intake: Oral 353 Output: Urine 509 0406 975 Other: Voiding Method Indwelling Catheter Indwelling Catheter Indwelling Catheter # Bowel Movements 1 1 - Labs CBC & Chem 7: 02/28/23 05:27 06/11/23 05:27 Labs: Abnormal Lab Results - Last 24 Hours (Table) 02/28/23 02/28/23 02/28/23 Range/Units 05:27 05:27 06:30 RBC 5.63 H (3.80-5.40) m/uL Hct 48.6 H (34.0-46.0) % Lymphocytes # 0.7 L (1.0-4.8) k/uL Sodium 132 L (137-145) mmol/L Chloride 94 L (98-107) mmol/L Carbon Dioxide 37 H (22-30) mmol/L BUN 18 H (7-17) mg/dL Glucose 105 H (74-99) mg/dL POC Glucose (mg/dL) 112 H (70-110) mg/dL 02/28/23 02/28/23 Range/Units 11:44 16:14 RBC (3.80-5.40) m/uL Hct (34.0-46.0) % Lymphocytes # (1.0-4.8) k/uL Sodium (137-145) mmol/L Chloride (98-107) mmol/L Carbon Dioxide (22-30) mmol/L BUN (7-17) mg/dL Glucose (74-99) mg/dL POC Glucose (mg/dL) 152 H 117 H (70-110) mg/dL
[2023-02-28] MEDS: ATORVASTATIN 80 MG TAB PO SCH (21:12)
[2023-03-01] MEDS: SPIRONOLACTONE 25 MG TAB PO SCH (05:38)
[2023-03-01] MEDS: LEVOTHYROXINE 50 MCG TAB PO SCH (05:38)
[2023-03-01] MEDS: FUROSEMIDE 40 MG TAB PO SCH (05:38)
[2023-03-01] MEDS: THIAMINE 100 MG TAB PO SCH (05:38)
[2023-03-01] MEDS: PANTOPRAZOLE 40 MG/10 ML VIAL IVP SCH ×2 (05:39→19:59)
[2023-03-01] MEDS: CLOPIDOGREL 75 MG TAB PO SCH (05:39)
[2023-03-01] MEDS: lisinopriL 20 MG TAB PO SCH ×2 (05:39→19:59)
[2023-03-01] MEDS: ENOXAPARIN 40 MG/0.4 ML SYRINGE SQ SCH (05:40)
[2023-03-01] MEDS: ASPIRIN 325 MG TAB PO SCH (05:40)
[2023-03-01] MEDS: MAG HYDROX/AL HYDROX/SIMETH 30 ML, diphenhydrAMINE ELIXIR 75 MG, LIDOCAINE VISCOUS 2% 3... PO SCH ×9 (05:41→23:18)
[2023-03-01] MEDS: carvediloL 12.5 MG TAB PO SCH ×2 (05:55→17:21)
[2023-03-01] MEDS ORDERED: ASPIRIN 325 MG TAB PO ONE (06:00)
[2023-03-01] MEDS ORDERED: ATORVASTATIN 80 MG TAB PO ONE (06:00)
[2023-03-01 06:06] LABS: Glucose,Whole Blood 102 mg/dL (70-110)
[2023-03-01] MEDS: NICOTINE 14MG/24HR PATCH TRANSDERM SCH (06:51)
[2023-03-01] MEDS ORDERED: HEPARIN SODIUM,PORCINE 10,000 UNIT in SODIUM CHLORIDE 0.9% 1,000 ML IRRIGATION PRN (07:00)
[2023-03-01] MEDS ORDERED: HEPARIN SODIUM,PORCINE 2,500 UNIT in SODIUM CHLORIDE 0.9% 250 ML IRRIGATION PRN (07:00)
[2023-03-01 08:34] LABS: Basophils % (A) 0 %; Eosinophils # (A) 0.2 k/uL (0-0.7); Eosinophils % (A) 4 %; HGB 15.9 gm/dL (11.4-16.0); Hypochromasia Slight; Lymphocytes # (A) 0.7 k/uL (1.0-4.8); Lymphocytes % (A) 12 %; MCH 26.7 pg (25.0-35.0); MCHC 31.1 g/dL (31.0-37.0); MCV 85.9 fL (80.0-100.0); Mean Platelet Volume 9.1; Monocytes # (A) 0.4 k/uL (0-1.0); Monocytes % (A) 7 %; Neutrophils # (A) 4.2 k/uL (1.3-7.7); Neutrophils % (A) 75 %; Platelet Count 263 k/uL (150-450); RBC 5.94 m/uL (3.80-5.40); RDW 15.6 % (11.5-15.5); WBC 5.6 k/uL (3.8-10.6)
[2023-03-01 08:50] LABS: Partial Thromboplastin Time 27.9 sec (22.0-30.0); Prothrombin Time 10.9 sec (9.0-12.0)
[2023-03-01 09:13] LABS: African American GFR (CKD) 80 (>60 ml/min/1.73 sqM); Anion Gap 5 mmol/L; Blood Urea Nitrogen 17 mg/dL (7-17); Calcium 8.7 mg/dL (8.4-10.2); Carbon Dioxide 33 mmol/L (22-30); Chloride 95 mmol/L (98-107); Glucose 105 mg/dL (74-99); Non-African American GFR(CKD) 69 (>60 ml/min/1.73 sqM); Sodium 133 mmol/L (137-145)
[2023-03-01] MEDS: hydrALAZINE HCL 50 MG TAB PO SCH ×3 (09:17→22:28)
[2023-03-01] MEDS: amLODIPine 5 MG TAB PO SCH ×2 (09:17→19:59)
--- NOTE | 2023-03-01 10:52 | P.PN ---
Subjective Progress Note Date: 03/01/23 Principal diagnosis: Altered mental status changes Patient is seen and examined sitting up in bed. She is more alert oriented today. She has been transferred to the cardiac stepdown unit. She is scheduled to undergo cardiac catheterization today. She denies any focal deficits. Denies any pain in her feet or toes. Objective - Vital Signs Vital signs: Vital Signs Temp 97.7 F 03/01/23 07:51 Pulse 58 L 03/01/23 07:51 Resp 16 03/01/23 07:51 BP 158/94 03/01/23 07:51 Pulse Ox 93 L 03/01/23 07:51 FiO2 Intake & Output 02/28/23 03/01/23 03/01/23 18:59 06:59 18:59 Intake Total 353 Output Total 975 1500 Balance -622 -1500 Intake: Oral 353 Output: Urine 975 1500 Other: Voiding Method Indwelling Catheter Indwelling Catheter # Bowel Movements 1 - Exam General appearance: The patient is alert oriented. HET: Head is normocephalic and atraumatic. Neck: Supple. Extremities: Left great toe, third toe and pinky toe with areas of purple discoloration, surrounding skin pink. Bilateral lower extremity and feet warm to the touch. Good capillary refill. Nonpalpable popliteal, DP PT pulses maximus aterally. Sensorimotor intact. Bilateral PT and DP Doppler signal present. Neurological: Patient is alert, oriented, without focal deficits. - Labs CBC & Chem 7: 03/01/23 07:57 03/01/23 07:57 Labs: Abnormal Lab Results - Last 24 Hours (Table) 02/28/23 02/28/23 02/28/23 Range/Units 11:44 16:14 20:01 POC Glucose (mg/dL) 152 H 117 H 138 H (70-110) mg/dL Assessment and Plan Assessment: 1. Bilateral femoral occlusive disease, chronic 2. Left great toe and third, fourth toe ischemic changes, stable 3. Brain MRI showing Multiple bilateral acute infarcts 4. Bilateral ICA stenosis 5. Altered mental status changes 6. Hypertension, uncontrolled, noncompliant with medications 7. Hypothyroid, noncompliant with medications 8. Cardiomegaly 9. Diabetes mellitus, noncompliant with medications 10. Elevated troponins 11. 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 Continue supportive care 2. CTA of lower extremities reviewed with bilateral SFA occlusions with one- vessel runoff. Appears chronic 3. Ischemia to toes improving, no planned vascular surgical intervention during this hospitalization 4. Patient may benefit from endovascular revascularization of the left SFA, this can be done as an outpatient 5. Head and neck CT angiogram images reviewed, carotid stenosis likely closer to 70% bilaterally. 6. No plans on surgical intervention for carotid stenosis, unlikely cause of bilateral infarcts. 7. Hematology on consult for hypercoagulable workup and recommendations 8. Continue with recommendations from neurology 9. Continue aspirin 81 mg daily, statin, Plavix 75 mg daily added per neurology 10. Patient scheduled for cardiac catheterization today 11. Medical management deferred to primary medical team Thank you for this consultation. The impression and plan of care has been dictated as directed. Dr. Sunshine I performed a history and examination of this patient, discussed the same with the dictator. I agree with the dictator's note ,documented as a scribe. Any additional findings or plans will be noted.
[2023-03-01] MEDS ORDERED: IV FLUID CONTINUATION 1,000 ML IV ONE (11:28)
[2023-03-01] MEDS ORDERED: VERAPAMIL 2.5 MG/ML 2 ML AMP ONE (11:40)
--- NOTE | 2023-03-01 11:40 | P.PN ---
Subjective Progress Note Date: 03/01/23 Principal diagnosis: Mental status changes. Reevaluated today on 02/24/2023, patient remains in the ICU, she is less encephalopathic today, she is opening her eyes, following simple instructions like wiggling toes, sticking out tongue, squeezing hands, definitely improved mentally compared to the last couple of days. The neurologist is recommending workup for possible thromboembolic phenomenon/central, and YANDEL was performed today, showed impaired LV function and global hypokinesis, and severe hypertrophy with speckling raising the possibility of infiltrative disease. There was no evidence of shunting. There was evidence of mild aortic and mild mitral regurgitation. Carotid Doppler showed moderate atherosclerotic plaque in bilateral carotid arteries with 50-69% stenosis. Reevaluated today on 02/25/2023, remains about the same. Patient remains encephalopathic, may open eyes at times, otherwise no other responses. Today she seems to be a bit more encephalopathic compared to yesterday. Her echocardiogram yesterday/YANDEL questioned the possibility of amyloidosis. CBC today is unremarkable, lites are basically normal, creatinine is 1.13 a chest x- ray is showing more left lower lobe atelectasis possibly small pleural effusion, we'll recommend ultrasound, and if the effusion isn't large enough to consider thoracentesis that will be done Reevaluated today on 02/26/23, patient has slight improvement encephalopathy today. At least she is waking up, verbalizing, remains confused overall. But slightly improvement today compared to the last few days. Labs were reviewed she had a relatively normal electrolytes normal renal profile sodium is a bit low at 131 ultrasound of the chest showed no evidence of pleural effusion to consider thoracentesis. She continues to have left basilar atelectasis. Slightly improved today compared to previous x-rays. Reevaluated today on , patient remains in the ICU, mentation seems to be slightly improving, at least she is arousable, she follows very simple instructions, she knew her name but she had no idea where she was. Patient does not seem to be in any form of respiratory distress. Her encephalopathy is s lightly improved but not completely resolved. Workup so far has been basically nondiagnostic. Patient is being closely followed by neurology, blood pressure seems to be better controlled is 150/86 today. Her O2 saturation 100% on 2 L CBC is normal index was normal renal profile is normal Reevaluated today on 02/28/2023, patient seems to be doing much better today, remains in the ICU, on 2 L nasal cannula, she is definitely more alert, awake, follows all simple instructions, seems to be oriented to place time and person. Dramatic improvement in her neurological status has been noted over the last 24 hours. Her sodium is 132 potassium 3.7 renal profile is normal CBC is relatively normal-appearing. Her mental status significantly improved over the last 24 hours Progress note dated 03/01/2023. The patient is seen today, and examined, in room 350. The patient is currently on 2 L of oxygen. She's receiving saline at 80 mL an hour. The patient's neurologic status is much improved, she is awake, and alert. Is able to answer questions. Current laboratory data includes a white count 5.6, hemoglobin 15.9, hematocrit 51, and a normal platelet count. Coagulation studies are normal. Sodium 133, potassium 4, chlorides 95, CO2 33, BUN 17, creatinine 0.92. Blood cultures are negative. No chest x-ray today. Objective - Vital Signs Vital signs: Vital Signs Temp 97.7 F 03/01/23 07:51 Pulse 58 L 03/01/23 07:51 Resp 16 03/01/23 07:51 BP 158/94 03/01/23 07:51 Pulse Ox 95 03/01/23 08:34 FiO2 Intake & Output 02/28/23 03/01/23 03/01/23 18:59 06:59 18:59 Intake Total 353 0 Output Total 975 1500 1100 Balance -622 -1500 -1100 Intake: Oral 353 0 Output: Urine 975 1500 1100 Other: Voiding Method Indwelling Catheter Indwelling Catheter Indwelling Catheter # Bowel Movements 1 - Exam No acute distress, still a bit lethargic, but much improved, currently on 2 L of oxygen. HEENT examination is grossly unremarkable. Neck supple. Full range of motion. No adenopathy thyromegaly or neck vein distention. Cardiovascular examination reveals regular rhythm rate. S1-S2 normal. No S3 or S4. No discernible murmur noted. Heart rate 57 bpm. Lungs reveal mild scattered rhonchi. No wheezes or crackles. Saturations are 95% on 2 L. Abdomen soft bowel sounds are heard. No masses or tenderness. Extremities are intact. No cyanosis clubbing or edema. Skin is without rash or lesion. Neurologic examination is thought to be much improved. - Labs CBC & Chem 7: 03/01/23 07:57 03/01/23 07:57 Labs: Abnormal Lab Results - Last 24 Hours (Table) 02/28/23 02/28/23 02/28/23 Range/Units 11:44 16:14 20:01 RBC (3.80-5.40) m/uL Hct (34.0-46.0) % RDW (11.5-15.5) % Lymphocytes # (1.0-4.8) k/uL Sodium (137-145) mmol/L Chloride (98-107) mmol/L Carbon Dioxide (22-30) mmol/L Glucose (74-99) mg/dL POC Glucose (mg/dL) 152 H 117 H 138 H (70-110) mg/dL 03/01/23 03/01/23 Range/Units 07:57 07:57 RBC 5.94 H (3.80-5.40) m/uL Hct 51.0 H (34.0-46.0) % RDW 15.6 H (11.5-15.5) % Lymphocytes # 0.7 L (1.0-4.8) k/uL Sodium 133 L (137-145) mmol/L Chloride 95 L (98-107) mmol/L Carbon Dioxide 33 H (22-30) mmol/L Glucose 105 H (74-99) mg/dL POC Glucose (mg/dL) (70-110) mg/dL Assessment and Plan Assessment: Acute hypertensive emergency, resolved. Acute decompensated CHF, with LV dysfunction, ejection fraction of 30-35%. Acute metabolic encephalopathy. Hypothyroidism. Peripheral vascular occlusive disease. Severe cardiomyopathy. Acute kidney injury. Plan: Plan dated 03/01/2023. Patient appears to be doing much better. The patient's currently on saline at 80 mL an hour, oxygen. Labs, x-rays, medications are reviewed. The patient will likely end up in a retirement rehab facility. She should continue on GI and DVT prophylaxis. Labs, x-rays, medications are reviewed. Prognosis is certainly guarded. We will continue to follow make recommendations along the way. Prognosis is guarded. Time with Patient: Less than 30
[2023-03-01] MEDS ORDERED: fentaNYL (PF) 50 MCG/ML 2 ML AMP ONE (11:56)
[2023-03-01] MEDS ORDERED: LIDOCAINE 1% INJ 10MG/ML (5 ML VIAL-PF) SQ ONE (11:57)
[2023-03-01] MEDS ORDERED: fentaNYL (PF) 50 MCG/1 ML VIAL IV ONE ×2 (11:58)
[2023-03-01] MEDS ORDERED: VERAPAMIL SYRINGE (5 MG/10 ML) INTRAARTER ONE (12:07)
[2023-03-01] MEDS ORDERED: MIDAZOLAM 2 MG/2 ML VIAL IV ONE (12:11)
[2023-03-01] MEDS ORDERED: LIDOCAINE 1% INJ 10MG/ML (20 ML MDV) ONE (12:17)
[2023-03-01] MEDS ORDERED: LIDOCAINE 1% INJ 10MG/ML (20 ML MDV) SQ ONE (12:19)
[2023-03-01] MEDS ORDERED: HEPARIN SODIUM 1,000 UN/ML (10ML VL) IV ONE (12:25)
[2023-03-01] MEDS ORDERED: IOPAMIDOL-370 100ML BTL INJ ONE (12:36)
[2023-03-01] MEDS ORDERED: RX INFO: IV CONTRAST WAS GIVEN 1 EACH MISC MISCELLANE PRN (12:39)
[2023-03-01] MEDS ORDERED: SODIUM CHLORIDE 0.9% 1,000 ML IV SCH (12:45)
--- NOTE | 2023-03-01 12:46 | P.CARDCATH ---
Date of Procedure: 03/01/23 Description of Procedure: Cardiac Catheterization: The patient is a 57-year-old female who was not seen a physician in normal time who presented with mental status changes, severe hypertension, renal failure and was found to have mild troponin elevation as well as evidence of significant cardiomyopathy on her echocardiogram. Her mental status improved and she was evaluated by Dr. Anderson. Recommendations were made regarding cardiac catheterization, the risks and the complications were discussed with the patient who is in full understanding and agreement. Procedure Description: Patient was brought to pathology laboratory director in fasting semi-sedated state after receiving Fentanyl and Benadryl achieiving moderate conscious sedated state. Using Xylocaine Anesthesia and Seldinger technique, a 6-Ivorian sheath was introduced in the right radial artery . The patient had a very tight radial loop that could not be negotiated and because of that using micropuncture needle a 6- Ivorian sheaths was introduced in the right femoral artery. Subsequently, selective coronary angiography was performed using a 6-Ivorian 4 bend Kacy catheter. Multiple views of the coronary artery including hemiaxial views were obtained. The left Kacy catheter was used to cross the aortic valve and LVEDP was calculated. Following that, catheter and sheath were removed. Hemostasis was obtained with deployment of TR band and compression of the right femoral artery. There was no immediate complication. Patient was returned to room in stable condition. Of note, the patient received a total of 3000 units of intravenous heparin as well as intra-arterial verapamil. Findings: Left main: This is a short sized vessel, bifurcating into LAD and left circumflex, left main has no high-grade stenosis. LAD: This is a large size vessel reaching to the apex with an operative packs segment. Giving rise to 2 diagonal branches, the first one is large in caliber, the LAD has mild intimal disease in the midsegment of 10-20% with no evidence of high-grade stenosis Left circumflex: This is a large dominant vessel, giving rise to 2 proximal margin branch and distally bifurcating into PDA and PLV. The distal left circumflex is a 50-60 % plaque without any evidence of high-grade stenosis RCA: This is a nondominant vessel that has no evidence of high-grade stenosis Left Ventriculogram: Not performed Hemodynamics: There was no gradient across the aortic valve , LVEDP was 2-4 mmHg Conclusion: 1. Moderate disease in the distal left circumflex 2. Left dominance 3. Low LVEDP Recommendations: I have recommended to continue medical therapy, the circumflex lesion does not explain her cardiomyopathy, continue blood pressure control and aggressive risks modifications will be performed. The findings and the recommendations were discussed with the patient and the family and they were in full understanding and agreement. Duration of sedation is 35 minutes.
--- NOTE | 2023-03-01 13:55 | P.PN ---
Subjective HISTORY OF PRESENT ILLNESS: The patient is a 57-year-old female who was admitted to the hospital with symptoms of confusion, multiple falls, weakness. The history is obtained from the records. The patient is not answering question quite somnolent after receiving Ativan. According to the records the patient has not been taking her medications are home. She has a history of hypertension, diabetes and hyperlipidemia full detail of her prior history or medication is unclear. She was noted to be severely hypertensive, elevated NT proBNP and TSH on presentation. She was in sinus mechanism on presentation. She had peripheral edema and discoloration of the toes on the left lower extremity. According to the notes she's a daily smoker and she uses marijuana. I am unable to obtain any other history. Her echocardiogram performed this morning showed a severely impaired left ventricle systolic function February 20: The patient remains confused, answering questions inappropriately. Her blood pressure has been elevated off Clevidipine. She is not taking by mouth medication because of a question of the swallowing. She continues to be in sinus mechanism. She has a good urinary output on IV Lasix. She continues to be on IV heparin. Her EKG showed T-wave inversion in the anterolateral lateral leads. Her brain CT showed lacunar infarct but no acute bleeding. Duplex scan of the lower extremities showed no evidence of DVT. She continues to have discoloration of the left foot toes. February 21 : The patient remains confused, opening eyes to verbal stimulation. She failed her swallow evaluation and continues to be nothing by mouth, receiving IV medication. Her blood pressure has been relatively stable. There is no evidence of malignant arrhythmia. Her urine output is stable. She underwent a CT angiogram of the abdomen and chest and was found to have an abdominal aortic aneurysm and severe PAD, bilaterally. Her free T3 was low. 02/22 Patient seen and examined. Patient stating she is hungry. He continues be confused. Left lower extremity somewhat improved color per nurse with continued discoloration with fourth and fifth digit. She admits the pain all over including her lower extremities. Blood pressures remain elevated 145/107. She is not eating much orally. 02/23 Patient seen and examined. Patient had increased blood pressures in the systolics 170s yesterday and therefore clonidine was increased to 0.2 milligrams oral twice a day. Blood pressure did decrease down to 110s. She has been more altered this morning with more lethargy and not answering questions appropriately. 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 Therefore discussed stopping the clonidine and holding lisinopril for now for mild permissive hypertension with mental status changes. Has been receiving Lasix with good urine output. Creatinine stable at 1.2. 02/24 Seen and examined. Patient had altered mental status yesterday however mildly be improved today. MRI showed concern of thromboembolic etiology with bilateral infarcts. Carotid imaging does show bilateral disease. Patient has been in sinus rhythm. Patient is somewhat more alert today and complaining of substernal chest pain without significant shortness breath. Patient still co ntinues and alert and oriented to self. Left lower extremity appears stable without worsened discoloration or ischemia. She has been on Lovenox drip. 02/25 Patient seen and examined. Patient underwent YANDEL yesterday showing speckled appearance of myocardium possibly consistent with amyloidosis. No significant PFO. Factor V Leiden was abnormal however discussed with hematology and should not be causing arterial clots. Has been maintained on aspirin. Troponins minimally elevated 0.1 and patient yesterday was complaining of some chest pain. Currently today denies any chest pain. Blood pressures were elevated in the 150-180 range. We will optimize heart failure regimen and add Aldactone. Creatinine has been fairly stable at 1.1. 02/26 Patient seen and examined. Patient somewhat more alert today. Surgery was consultative for ileus and NG tube hopefully to be discontinued today. Patient undergoing barium swallow today. She still gets intermittent chest pain. Blood pressures remained elevated and therefore amlodipine 5 mg twice a day was added as well as hydralazine added as well as clonidine patch was added. 02/27 Patient seen and examined. Patient had significant drop in blood pressure down in the 120s yesterday however increased back up into the 150s to 170s. Borderline bradycardic with heart rates in the 50s and 60s. No chest pain or pressure. She is more alert today. No lightheadedness or dizziness. 02/28 Patient seen and examined. Lasix was added yesterday more for blood pressure control with improvement in blood pressures in the 130s to 140s range. Creat inine stable at 0.9. She has been tolerating diet. Still with some confusion however predominantly improving. 03/01/2023 Patient is s/p cardiac cath revealing moderate disease in the distal left circumflex with a 50-60% lesion, circumflex lesion does not explain her cardiomyopathy. Medical management was recommended. Vital signs are stable. Telemetry reveals sinus mechanism with a heart rate in the 50s. PHYSICAL EXAM: VITAL SIGNS: Reviewed. GENERAL: Well-developed in no acute distress. NECK: Supple. No JVD or thyromegaly LUNGS: Respirations even and unlabored. Lungs essentially clear to auscultation bilaterally. HEART: Regular rate and rhythm. S1 and S2 heard. +Systolic murmur EXTREMITIES: Normal range of motion. No clubbing or cyanosis. Discoloration noted to left toes. ASSESSMENT: 1. Hypertension 2. Encephalopathy could be related to hypertension, workup in progress 3. Abnormal EKG rule out ischemia, s/p cardiac cath as above 4. Abnormal renal functions, improving 5. Peripheral vascular disease 6. Bilateral acute infarct, per MRI brain 7. Severe cardiomyopathy, nonischemic 8. Worsened altered mental status with MRI showing bilateral infarcts concerning for thromboembolic disease 9. Chest pain 10. Bilateral carotid disease 11. PAD with bilateral SFA disease 12. S/P YANDEL with no source of stroke, but reveals speckled appearance of myocardium possibly can be consistent with amyloidosis 13. Coronary artery disease with 50-60% lesion of circumflex PLAN: Continue current cardiac medications Continue telemetry monitoring Further recommendations pending patient course Nurse practitioner note has been reviewed by physician. Signing provider agrees with the documented findings, assessment, and plan of care. Objective - Vital Signs Vital signs: Vital Signs Temp 97.7 F 03/01/23 07:51 Pulse 58 L 03/01/23 07:51 Resp 16 03/01/23 07:51 BP 158/94 03/01/23 07:51 Pulse Ox 95 03/01/23 08:34 FiO2 Intake & Output 02/28/23 03/01/23 03/01/23 18:59 06:59 18:59 Intake Total 353 300 Output Total 975 1500 1100 Balance -912 1500 -800 Weight 65.2 kg Intake: IV 300 Oral 353 0 Output: Urine 975 1500 1100 Other: Voiding Method Indwelling Catheter Indwelling Catheter Indwelling Catheter # Bowel Movements 1 - Labs CBC & Chem 7: 03/01/23 07:57 03/01/23 07:57 Labs: Abnormal Lab Results - Last 24 Hours (Table) 0602/28/23 03/01/23 Range/Units 16:14 20:01 07:57 RBC 5.94 H (3.80-5.40) m/uL Hct 51.0 H (34.0-46.0) % RDW 15.6 H (11.5-15.5) % Lymphocytes # 0.7 L (1.0-4.8) k/uL Sodium (137-145) mmol/L Chloride (98-107) mmol/L Carbon Dioxide (22-30) mmol/L Glucose (74-99) mg/dL POC Glucose (mg/dL) 117 H 138 H (70-110) mg/dL 03/01/23 Range/Units 07:57 RBC (3.80-5.40) m/uL Hct (34.0-46.0) % RDW (11.5-15.5) % Lymphocytes # (1.0-4.8) k/uL Sodium 133 L (137-145) mmol/L Chloride 95 L (98-107) mmol/L Carbon Dioxide 33 H (22-30) mmol/L Glucose 105 H (74-99) mg/dL POC Glucose (mg/dL) (70-110) mg/dL
[2023-03-01 14:59] LABS: Glucose,Whole Blood 94 mg/dL (70-110)
[2023-03-01 16:34] LABS: Glucose,Whole Blood 136 mg/dL (70-110)
[2023-03-01] MEDS: ATORVASTATIN 80 MG TAB PO SCH (19:59)
[2023-03-01 20:08] LABS: Glucose,Whole Blood 215 mg/dL (70-110)
--- NOTE | 2023-03-01 22:10 | P.PN ---
Subjective Progress Note Date: 03/01/23 This is a 57-year-old female history significant for diabetes mellitus, hypertension, myocardial infarction, thyroid disorder, current smoker. Patient presented to the hospital for altered mental status and was found on the floor by her he was unable to lift her up. Patient was brought in by EMS. Patient is found to have generalized weakness confusion and has been having multiple falls at home with progressive weakness over the last 5 months, patient is a poor historian and currently alert x 0 and obtunded at the time of examination. at the bedside provides the medical history, patient is a daily smoker and occasional alcohol use. Over the last 5 months has been having frequent falls and has been increasingly confused Has not been to a doctor and not taking recommending medications. Additionally he felt patient may have suffered a stroke a few months ago and had noticed a facial droop around that time. Patient in the ER was awake and alert. Blood pressure on admission was in the 220s systolic and difficult to treat with multiple antihypertensive agents given. Patient was also given IV ativan. Chest x-ray on admission shows cardiomegaly with linear atelectasis and/or scarring the left midlung. EKG shows sinus tachycardia with a heart rate of 110 on admission. She has no elevated white blood cell count it is normal at 7.1, sodium of 135, BUN/cr 32 and 1.28, Lacis acid is normal 1.3. She does have troponin elevation of 0.067, 0.074, 0.075.. ProBNP is elevated at 16,200, TSH is also 38.800, free T4 0.84. Urinalysis is negative for infection, urine drug toxicology is negative. Patient is admitted to the hospital for new onset CHF and originially admitted to the stepdown unit. Patient was upgraded to the intensive care unit and placed on nitro gtt and had also become unresponsive only arousing to sternal rub. Patient does not appear to have feeling in the left foot there is mottling and purple discoloration of the great toe and 3/4 toes likely due to ischemia and vascular services has been consulted as well as neurology, cardiology and pulmonary gis geographer. Recommend a brain CT when patient is more stable and also ABGs will be done. An echocardiogram reveals EF of 30-35%, mild MR. 02/20/2023 Patient continues to be monitored closely in the intensive care unit. Currently alert x 2 more awake than yesterday, does have some slurred speech today. Brain CT shows no acute intracranial process with remote lacunar injuries along with nonspecific white matter changes likely secondary to chronic microangiography. EEG is negative. Neurology following and recommending brain MRI. Chest xray today is negative. Continues on IV lasix 40 mg every 12 hours with urine output of over 5L in the last 24 hours. Continues on IV cleviprex/clonidine patch and blood pressure running in the 150s systolic. Labs reveal sodium of 138, potassium 3.8, BUN 23, creatinine of 1.0. 02/21/2023 Patient is evaluated today in the intensive care unit. Patient is slightly more lethargic today was given a dose of IV ativan overnight for increased agitated. Patient had failed swallow evaluation and has been placed NPO at this time. Slightly more lethargic than yesterday. Patient is being followed by neurology and recommended to undergo MRI tomorrow however patient remains on IV cleviprex for blood pressure control as well as clonidine patch and IV hydralazine. Pat ient continues on IV lasix Q12 which has been decreased to 20 mg. CTA thoracic and abdominal aorta with run off reveals long segment occlusion bilateral mid superficial femoral arteries with reconstitution of the distal SFA bilaterally. There is proximal abdominal aortic aneurysm. Multifocal calcific disease estimated 7% stenosis anterior tibial arteries bilaterally. Vascular surgery following with further recommendations forthcoming. Labs today reveal white count of 7.8, hgb 16.5. Potassium 3.1 and magnesium 1.5. Heart rate controlled in the 70s, blood pressure in the 140/80s and currnently requiring 2L of oxygen. Patient does have some tenderness to the LLQ on exam. 02/22/2023 Patient evaluated in the intensive care unit today, more awake and alert sitting up in the chair. Diet has been advanced to pureed diet. Patient also had a bowel movement today. Diminished airway patient needs encouragement to cough and deep breath and will be given incentive spirometer. Was given IV synthroid and transitioned to oral synthroid today. Has been resumed on oral blood pressure medication including clonidine patch and taken off the cleviprex gtt and bp has improved down to 110/90 currently. Vascular surgery following recommending vascular intervention when medically stable. Patient is pending MRI and likely will be done Wednesday. Sodium has dropped to 130 today, BUN 22, creatinine 1.16, total bilirubin 1.4. 02/23/2023 Patient is seen and evaluated and follow-up in the ICU with multiple medical consultations following. Patient was able to undergo MRI of the brain with neurology following undergoing extensive workup including cardiology and vascular surgery along with pulmonary gis geographer. MRI of the brain showed numerous punctate foci of acute infarcts involving the frontal and parietal cortices, deep white matter regions on both sides, bilateral thalami, and left basal ganglia with additional small focus in the left paramedian vita. A couple foci measuring up to 1.0 cm involving the left glenohumeral of the corpus callosum and findings suggest small infarcts greater than 6 hours in duration consider a central thromboembolic phenomenon with background severe burden of small chronic vessel ischemic disease. Per nursing staff patient had a decrease in mentation and blood pressures have been uncontrolled with neurology and cardiology making adjustments. Clonidine discontinued and awaiting possible YANDEL. CTA ordered and pending. Chest x-ray today shows NG tube appearing in good position with stable left lower infiltrate and small effusion and patient is maintained on IV Lasix low dose daily. 02/24/2023 Patient is seen in follow-up this morning continues to be in the ICU with multiple medical consultations following. Neurology recommending YANDEL with card iology following inpatient is reporting some chest pain and currently awaiting troponins and repeat EKG. Possible YANDEL today. Patient's mentation is somewhat improved today although extremely delayed. Patient continues to ask for her on exam. Patient is afebrile and continues with NG tube an abdominal x- ray is ordered and pending. Patient with multiple strokes noted and significant noncompliance with seeking any type of medical attention for many years and left lower limb ischemia, prognosis is extremely poor and guarded. Patient's CODE STATUS is no code and need to discuss further about overall prognosis and treatment plan moving forward as patient will need ECF and unsure if she is going to be agreeable to this. Case management/social work following. 02/25/2023 Patient is seen and evaluated in follow-up this morning lethargic although arousable. Patient condition continues to be extremely guarded and overall poor at this time with multiple medical consultations following. Patient underwent YANDEL yesterday with concerns for possible amyloidosis. Patient noted have factor V deficiency and hematology was consulted for input and recommendations. Patient is maintained on aspirin and will continue for now. Patient has been taken off diuretics and placed on gentle IV hydration and patient continues to be nothing by mouth with an NG tube. Abdominal x-ray suggestive of ileus versus obstruction and will consult general surgery. Discussed briefly with and will discuss further at length about overall prognosis, treatment plan, and options moving forward. Vascular surgery has evaluated the patient with no plans for surgical intervention at this time and patient does have noted left lower extremity ischemia with discoloration which is slightly improved. Patient is afebrile with no reported chest pain or shortness of breath. Patient continues to be nothing by mouth with an NG tube. 02/26/2023 Patient is seen and evaluated in follow-up continues to be in the ICU with multiple medical consultations following. Patient with aspiration risk being evaluated by speech therapy recommending modified. Swallow study which is occurring today. Multiple medical consultations including neurology, pulmonary gis geographer, cardiology following. Patient's blood pressure remains elevated and uncontrolled with medications being adjusted. Patient being started on Plavix and continued on aspirin. Discussion was had with cardiology patient will eventually need cardiac cath. Vascular following with no plans for surgical intervention at this time the left lower extremity ischemia. Hematology also following and undergoing workup as patient has history of factor 5 L deficiency. Patient's mentation is somewhat improved today and able to converse more and is responding appropriately to questions and commands. Reports of chest pain or palpitations. Patient denies nausea or vomiting and continues with NG tube for now. Patient is having bowel movements with no plans for surgical intervention per general surgery as there were concerns for ileus v ersus possible bowel obstruction. Recommend follow-up labs in a.m. 02/27/2023 Patient is in the MICU. Resting in the bed. Awake alert and oriented x1-2, follows simple commands. Currently on room air. Denies any complaints of chest pain or shortness of breath. Patient has been afebrile. Tolerating oral diet slowly. No complaints of abdominal pain. No nausea or vomiting. NG tube has been discontinued. Patient had modified barium swallow for dysphagia. Patient is able to swallow without aspiration. And was started on dysphagia level 3 diet. Patient is encephalopathic but is improving. Laboratory data showed sodium 132 potassium 3.9 chloride 98 bicarb is 30 BUN 23 and creatinine 0.92 and blood sugar is 104 and calcium 8.3, WBC 7.9 hemoglobin 16.0 and platelets 219. 02/28/2023 Patient is in the MICU. Sitting in the chair. Awake alert and oriented x2. Patient is able to communicate and follow simple commands. Improving mental status. Able to tolerate oral diet. Currently titrated down to room air. Blood pressure is fairly controlled. Cardiology is planning for catheterization tomorrow. Laboratory data showed sodium 132 potassium 3.7 chloride 94 bicarb is 37 BUN 18 and creatinine 0.9 and blood sugar is 105. WBC 5.8 hemoglobin 15.3 and platelets 194. Patient is being transferred to medical floor today. 03/01/2023 Patient is seen and evaluated in follow-up currently on a stepdown unit currently awaiting cardiac catheterization. Patient is currently nothing by mouth although has been tolerating oral diet. Patient's mentation is significantly improved her blood pressure better controlled. Multiple medical consultations following including pulmonary gis geographer, neurology, cardiology. Will await cardiac catheterization report and continue current medication regimen. Recommend PT/OT therapy evaluation. Review of Systems Constitutional: No Reports of fatigue denied any fever. Cardio vascular: Denies chest pain, no palpitations Gastrointestinal: denied any nausea, vomiting, diarrhea Pulmonary: Denied any shortness of breath cough Neurologic denied any new focal deficits, reports weakness PHYSICAL EXAMINATION: GENERAL: The patient is alert and oriented x3, mentation much improved and patient appears baseline per at bedside. elderly appearing Pale. Much higher spirits today HEENT: Pupils are round and equally reacting to light. EOMI. No scleral icterus. No conjunctival pallor. Normocephalic, atraumatic. No pharyngeal erythema. No thyromegaly. CARDIOVASCULAR: S1 and S2 muffled PULMONARY: Diminished breath sounds bilaterally with no wheezing or crackles. ABDOMEN: Soft, nontender, nondistended, normoactive bowel sounds. No palpable organomegaly. MUSCULOSKELETAL: No joint swelling or deformity. EXTREMITIES: No cyanosis, clubbing, or pedal edema. Left lower extremity with discoloration NEUROLOGICAL: Alert and oriented 3, Cooperative, following commands, speaking more clearly Diffuse weakness. SKIN: No rashes. There is discoloration to toes on the left foot extending to the left foot pad, progressing. Assessment: Altered mental status secondary to acute metabolic encephalopathy, improving Acute infarct involving the frontal and parietal cortices, deep white matter regions on both sides, bilateral thalami, and left basal ganglia as noted on MRI of the brain, possible central thromboembolic phenomenon Progressive weakness and frequent falls at home Hypertension with urgency on admission Elevated troponin level Acute kidney injury vs CKD Ischemic change to the left foot. Acute congestive heart failure, systolic dysfunction Severe Cardiomyopathy and LV dysfunction possibly from the hypertension vs hypothyroidism Possible amyloidosis Hypothyroidism Elevated D-Dimer Hypothyroidism Diabetes Mellitus type 2 uncontrolled History of factor V leiden deficiency History of myocardial infarction unknown details Chronic and ongoing nicotine use Medical noncompliance Marijuana use GI prophylaxis DVT prophylaxis; SCDs Do Not Resuscitate/Do Not Intubate Plan: Continue monitoring the patient with multiple medical consultations following. Cardiology following and plan is for cardiac catheterization today which is pending at this time Blood pressure being monitored and much improved will continue current regimen with multiple medical consultations following. Will await Report Patient is currently nothing by mouth for the procedure although did pass swallow eval and maintained on dysphagia diet. Recommend aspiration precautions with head of the bed 30-45 at all times and superficial with meals Recommend PT/OT therapy evaluation Follow up labs in AM Again, Overall prognosis is extremely guarded The impression and plan of care has been dictated by Rhonda Hawkins, Nurse Practitioner as directed. Dr. Tej MD I have performed a history and examination and MDM of this patient, discussed the same with the dictator, and agree with the dictator's assessment and plan as written ,documented as a scribe. Based on total visit time, I have performed more than 50% of the visit. Objective - Vital Signs Vital signs: Vital Signs Temp 97.7 F 03/01/23 07:51 Pulse 58 L 03/01/23 07:51 Resp 16 03/01/23 07:51 BP 158/94 03/01/23 07:51 Pulse Ox 95 03/01/23 08:34 FiO2 Intake & Output 02/28/23 03/01/23 03/01/23 18:59 06:59 18:59 Intake Total 353 0 Output Total 975 1500 Balance -622 -1500 0 Intake: Oral 353 0 Output: Urine 975 1500 Other: Voiding Method Indwelling Catheter Indwelling Catheter # Bowel Movements 1 - Labs CBC & Chem 7: 03/01/23 07:57 03/01/23 07:57 Labs: Abnormal Lab Results - Last 24 Hours (Table) 02/28/23 02/28/23 02/28/23 Range/Units 11:44 16:14 20:01 RBC (3.80-5.40) m/uL Hct (34.0-46.0) % RDW (11.5-15.5) % Lymphocytes # (1.0-4.8) k/uL POC Glucose (mg/dL) 152 H 117 H 138 H (70-110) mg/dL 03/01/23 Range/Units 07:57 RBC 5.94 H (3.80-5.40) m/uL Hct 51.0 H (34.0-46.0) % RDW 15.6 H (11.5-15.5) % Lymphocytes # 0.7 L (1.0-4.8) k/uL POC Glucose (mg/dL) (70-110) mg/dL
[2023-03-02] MEDS: carvediloL 12.5 MG TAB PO SCH ×3 (05:57→16:39)
[2023-03-02] MEDS: LEVOTHYROXINE 50 MCG TAB PO SCH ×2 (05:58→06:04)
[2023-03-02 06:09] LABS: Glucose,Whole Blood 122 mg/dL (70-110)
[2023-03-02] MEDS: CLOPIDOGREL 75 MG TAB PO SCH (07:57)
[2023-03-02] MEDS: hydrALAZINE HCL 50 MG TAB PO SCH ×3 (07:57→20:45)
[2023-03-02] MEDS: ENOXAPARIN 40 MG/0.4 ML SYRINGE SQ SCH (07:57)
[2023-03-02] MEDS: SPIRONOLACTONE 25 MG TAB PO SCH (07:57)
[2023-03-02] MEDS: lisinopriL 20 MG TAB PO SCH ×2 (07:57→20:45)
[2023-03-02] MEDS: amLODIPine 5 MG TAB PO SCH (07:57)
[2023-03-02] MEDS: PANTOPRAZOLE 40 MG/10 ML VIAL IVP SCH ×2 (07:57→20:45)
[2023-03-02] MEDS: ASPIRIN 81 MG PO SCH (07:57)
[2023-03-02] MEDS: NICOTINE 14MG/24HR PATCH TRANSDERM SCH (07:57)
[2023-03-02] MEDS: THIAMINE 100 MG TAB PO SCH (07:57)
[2023-03-02] MEDS: MAG HYDROX/AL HYDROX/SIMETH 30 ML, diphenhydrAMINE ELIXIR 75 MG, LIDOCAINE VISCOUS 2% 3... PO SCH ×9 (07:58→20:46)
[2023-03-02 08:19] LABS: African American GFR (CKD) 80 (>60 ml/min/1.73 sqM); Anion Gap 4 mmol/L; Blood Urea Nitrogen 16 mg/dL (7-17); Calcium 8.3 mg/dL (8.4-10.2); Carbon Dioxide 30 mmol/L (22-30); Chloride 98 mmol/L (98-107); Glucose 88 mg/dL (74-99); Non-African American GFR(CKD) 70 (>60 ml/min/1.73 sqM); Potassium 4.2 mmol/L (3.5-5.1); Sodium 132 mmol/L (137-145)
--- NOTE | 2023-03-02 10:32 | P.PN ---
Subjective Progress Note Date: 03/01/23 02/27/2023: Patient was seen for a follow-up. Patient is laying comfortably in the bed. Patient states "I'm doing well". Patient had undergone cardiac catheterization today. Patient has new onset CHF. Patient offers no complaints. 02/26/2023: Patient was seen for a follow-up. Patient is laying comfortably in the bed. Offers no complaints. Denies any headache or dizziness. 02/25/2023: Patient initially seen by Dr. Stanley Thompson. Please refer to his note for details. Patient is a 57-year-old female with bilateral hemispheric strokes. She has bilateral significant carotid stenosis, > 70% stenosis on CTA but seems carotid 50-69%. Bilateral femoral occlusion. The performed 02/24/2023 revealed hypokinesis with severe hypertrophy LV. No PFO. Hypercoagulable workup pending. Patient is on aspirin 325 mg daily. Vascular surgery on board. Patient was not taking any antiplatelet medication at home. Patient was sleeping when I arrived. However she did wake up and was cooperating with examination is per examination section. Patient admits to smoking 2 packs per day for 30 years, drinks couple beers per day. SOME OF THE WORK-UP DURING THIS VISIT: Vitamin B12: 644 Folate: 10.80 Ammonia 19 HbA1c: 6.6 TSH is 38.8, free T4 is 0.84 and the free T3 is 2.4. CT head is reported as no acute intracranial process. remote lacunar injuries along with nonspecific white matter changes likely secondary to chronic microangiopathy. MRI Brain is reported as numerous punctate foci of acute infarct involving the frontal and parietal disease deep white matter region of both sides, bilateral thalamus and left basal ganglia. Additional small focus in the left paramedian vita. A couple foci measuring up to 1.0 cm involving the left splenium of the corpus callosum. Given the corresponding increased T2 flare, findings suggest small infarcts is greater than 6 hours in duration. Consider central thromboembolic phenomena. Background of severe burden of chronic small vessel ischemic disease. I personally reviewed the MRI and agree with the findings with evidence of multiple areas of acute to subacute ischemia involving bilateral hemispheric region including splenium of the left corpus callosum.. EEG is abnormal. The background slowing is suggestive of moderate encephalopathy. Otherwise no focal slowing, epileptiform discharges or seizures. LASHA is negative, ESR is 2, Protein S and antithrombin II Ag is within normal limits. Objective - Vital Signs Vital signs: Vital Signs Temp 98.2 F 03/01/23 20:00 Pulse 63 03/01/23 20:00 Resp 18 03/01/23 20:00 BP 144/83 03/01/23 20:00 Pulse Ox 94 L 03/01/23 20:00 FiO2 Intake & Output 03/01/23 03/01/23 03/02/23 06:59 18:59 06:59 Intake Total 1080 10 Output Total 1500 1650 Balance -1500 -570 10 Weight 65.2 kg Intake: IV 300 10 Invasive Line 6 10 Oral 780 Output: Urine 1500 1650 Other: Voiding Method Indwelling Catheter Indwelling Catheter - Exam Patient is fully alert and awake. Patient states it is February 2023 and that she is in [facility] in [place]. Her speech is mildly dysarthric, but no aphasia. Patient can name and repeat very well. On cranial nerve examination, pupils are equal, round and reacting to light, visual dunbar are full on confrontation, face is symmetric and tongue protrudes the midline. On muscle strength testing, patient has normal strength in the upper limbs. Hip flexion is 4+, ankle dorsiflexion 5 bilaterally. Deep tendon reflexes are 2+ in the upper limbs, 1+ at the knees. Sensory to touch is equal. No ataxia for [id number]-[id number] testing in the upper limbs. - Labs CBC & Chem 7: 03/01/23 07:57 03/02/23 06:10 Labs: Abnormal Lab Results - Last 24 Hours (Table) 02/25/23 02/25/23 02/25/23 Range/Units 10:40 10:40 11:20 RBC (3.80-5.40) m/uL Hct (34.0-46.0) % RDW (11.5-15.5) % Lymphocytes # (1.0-4.8) k/uL Sodium (137-145) mmol/L Chloride (98-107) mmol/L Carbon Dioxide (22-30) mmol/L Glucose (74-99) mg/dL POC Glucose (mg/dL) (70-110) mg/dL U Free [place] Ch 12.02 H (0.00-3.29) mg/dL U Free [place] Ch 1.04 H (0.00-0.38) mg/dL Free [place] LC, Quant 4.01 H (0.33-1.94) mg/dL 03/01/23 03/01/23 03/01/23 Range/Units 07:57 07:57 16:32 RBC 5.94 H (3.80-5.40) m/uL Hct 51.0 H (34.0-46.0) % RDW 15.6 H (11.5-15.5) % Lymphocytes # 0.7 L (1.0-4.8) k/uL Sodium 133 L (137-145) mmol/L Chloride 95 L (98-107) mmol/L Carbon Dioxide 33 H (22-30) mmol/L Glucose 105 H (74-99) mg/dL POC Glucose (mg/dL) 136 H (70-110) mg/dL U Free [place] Ch (0.00-3.29) mg/dL U Free [place] Ch (0.00-0.38) mg/dL Free [place] LC, Quant (0.33-1.94) mg/dL 03/01/23 Range/Units 20:07 RBC (3.80-5.40) m/uL Hct (34.0-46.0) % RDW (11.5-15.5) % Lymphocytes # (1.0-4.8) k/uL Sodium (137-145) mmol/L Chloride (98-107) mmol/L Carbon Dioxide (22-30) mmol/L Glucose (74-99) mg/dL POC Glucose (mg/dL) 215 H (70-110) mg/dL U Free [place] Ch (0.00-3.29) mg/dL U Free [place] Ch (0.00-0.38) mg/dL Free [place] LC, Quant (0.33-1.94) mg/dL Assessment and Plan Assessment: This is a 57-year-old woman with history of hypertension and is not compliant taking medication who presented because of generalized weakness, confusion, falls for the past weeks to months. Altered mental status seems due to multifactorial: acute bilateral hemispheric stroke, Also due to hypertensive encephalopathy with component due to abnormal thyroid and some component of metabolic--significant improvement in mentation Acute ischemic bilateral hemispheric stroke: Unsure exact cause. Appears embolic in nature. Rule out cardioembolic vs underlying hypercoagulable vs due to artery to artery embolic from carotid stenosis. Per CTA has right ICA stenosis 60-70% and left 70-80% Hypercoagulable state with positive/heterozygous for prothrombin gene as well as factor V Leiden mutation. Signficant Bilateral carotid stenosis right ICA stenosis 60-70% and left 70-80% per CTA Acute hypertensive emergency (presented with blood pressure 230's/170's--currently is 130-140's/80's to 90's) she was on nitroglycerin, she received clonidine patch as well as IV hydralazine--resolved Generalized weakness Acute bilateral femoral occlusive disease with ischemic changes over the left toe Falls Possible TIA about 4-5 months ago (had transient right facial weakness per ). Systolic heart failure with ejection fraction of 30-35% Elevated troponin Hypothyroidism Peripheral vascular disease Chronic history of hypertension and noncompliant with medication Tobacco use Alcohol use Noncompliance with medication and does not follow up with physician Plan: Because of result of MRI Brain revealing bilateral hemispheric stroke. No IV tpa since unknown last normal and risk of IV tpa outweigh benefit. Recommend patient to be placed on dual antiplatelet medication because of the extent of vasculopathy noted on the CTA of head and neck as well as peripheral vasculature. Patient to be on Plavix 75 mg and aspirin 325 mg daily. YANDEL performed 02/24/2023 revealed moderately impaired left ventricular systolic function with global hypokinesis and severe hypertrophy with speckling raising the possibility of infiltrative disease. No evidence of shunting across the intra-atrial septum. Mild aortic and mitral regurgitation. Mild atherosclerotic changes of the descending aorta. Cardiac catheterization performed today revealed moderate disease in the left distal circumflex, left dominance and low LVEDP. Suggest 30 day event monitor to rule out paroxysmal atrial fibrillation. LASHA is negative, ESR is 2, Protein S and antithrombin II Ag is within normal limits. DsDNA negative. Factor V Leiden heterozygous, which is associated with activated protein C resistance and increased risk for venous thromboembolism. It increased risk for VTE. Lupus anticoagulant negative. Prothrombin gene mutation also heterozygous for [id number] mutation. Patient's homocysteine is highly elevated 27.9. Hematology to address hypercoagulable state. Discussed with Dr. Sim, recommending dual antiplatelet medications, unless she is positive for antiphospholipid antibodies. Await their final recommendation, if patient a candidate for anticoagulation. B12 is 644, folate 10.8 both normal. TSH is elevated 38.8. IM to address. She is on ASA 325mg daily and recommend if stable to be on Plavix 75mg daily. If does have positive cardiac thrombus vs a-fib/flutter or positive hypercoagulable work-up then recommend to start anticoagulation and no need for dual antiplatelets. Patient on Protonix 40 mg twice a day for gastric ulcer prophylaxis. On Lipitor 80mg qhs for secondary stroke prophylaxis. Continue neuro checks On cardiac monitoring. PT, OT and [employer] FI[employer] MANAGER are consulted. Cardiology is on board. Continue thiamine 100mg daily. Please avoid any sedation if possible to have a better neurological evaluation. Vascular surgery team for bilateral femoral occlusive disease. Also has leg toes ischemia. No intervention recommended by vascular surgery. Will defer rest of management to primary and other specialist. For DVT prophylaxis: On Enoxaparin. Neurologically, no other workup indicated, pending final recommendations from hematology. Cardiology following. Vascular surgery recommending no intervention at this time and suggest follow-up with vascular surgery as an outpatient. Neurologically clear.
--- NOTE | 2023-03-02 10:53 | P.PN ---
Subjective Progress Note Date: 03/02/23 Principal diagnosis: Mental status changes. Reevaluated today on 02/24/2023, patient remains in the ICU, she is less encephalopathic today, she is opening her eyes, following simple instructions like wiggling toes, sticking out tongue, squeezing hands, definitely improved mentally compared to the last couple of days. The neurologist is recommending workup for possible thromboembolic phenomenon/central, and YANDEL was performed today, showed impaired LV function and global hypokinesis, and severe hypertrophy with speckling raising the possibility of infiltrative disease. There was no evidence of shunting. There was evidence of mild aortic and mild mitral regurgitation. Carotid Doppler showed moderate atherosclerotic plaque in bilateral carotid arteries with 50-69% stenosis. Reevaluated today on 02/25/2023, remains about the same. Patient remains encephalopathic, may open eyes at times, otherwise no other responses. Today she seems to be a bit more encephalopathic compared to yesterday. Her echocardiogram yesterday/YANDEL questioned the possibility of amyloidosis. CBC today is unremarkable, lites are basically normal, creatinine is 1.13 a chest x- ray is showing more left lower lobe atelectasis possibly small pleural effusion, we'll recommend ultrasound, and if the effusion isn't large enough to consider thoracentesis that will be done Reevaluated today on 02/26/23, patient has slight improvement encephalopathy today. At least she is waking up, verbalizing, remains confused overall. But slightly improvement today compared to the last few days. Labs were reviewed she had a relatively normal electrolytes normal renal profile sodium is a bit low at 131 ultrasound of the chest showed no evidence of pleural effusion to consider thoracentesis. She continues to have left basilar atelectasis. Slightly improved today compared to previous x-rays. Reevaluated today on , patient remains in the ICU, mentation seems to be slightly improving, at least she is arousable, she follows very simple instructions, she knew her name but she had no idea where she was. Patient does not seem to be in any form of respiratory distress. Her encephalopathy is s lightly improved but not completely resolved. Workup so far has been basically nondiagnostic. Patient is being closely followed by neurology, blood pressure seems to be better controlled is 150/86 today. Her O2 saturation 100% on 2 L CBC is normal index was normal renal profile is normal Reevaluated today on 02/28/2023, patient seems to be doing much better today, remains in the ICU, on 2 L nasal cannula, she is definitely more alert, awake, follows all simple instructions, seems to be oriented to place time and person. Dramatic improvement in her neurological status has been noted over the last 24 hours. Her sodium is 132 potassium 3.7 renal profile is normal CBC is relatively normal-appearing. Her mental status significantly improved over the last 24 hours Progress note dated 03/01/2023. The patient is seen today, and examined, in room 350. The patient is currently on 2 L of oxygen. She's receiving saline at 80 mL an hour. The patient's neurologic status is much improved, she is awake, and alert. Is able to answer questions. Current laboratory data includes a white count 5.6, hemoglobin 15.9, hematocrit 51, and a normal platelet count. Coagulation studies are normal. Sodium 133, potassium 4, chlorides 95, CO2 33, BUN 17, creatinine 0.92. Blood cultures are negative. No chest x-ray today. Progress note dated 03/02/2023. The patient is seen again today in room 350. Currently, the patient's on 2 L of oxygen. She's not receiving any IV fluids. She is laying flat in bed, without any respiratory distress or difficulty. Labs today include a sodium 132, pot assium 4.2, chlorides 98, CO2 30, BUN 16, and creatinine 0.91. Calcium is 8.3. The patient underwent a cardiac catheterization, and was found have moderate disease in the distal left circumflex coronary artery. No stent was placed. Medical management was recommended. Objective - Vital Signs Vital signs: Vital Signs Temp 97.5 F L 03/02/23 07:53 Pulse 62 03/02/23 07:53 Resp 16 03/02/23 07:53 BP 138/78 03/02/23 07:53 Pulse Ox 97 03/02/23 07:53 FiO2 Intake & Output 03/01/23 03/02/23 03/02/23 18:59 06:59 18:59 Intake Total 1080 10 Output Total 1650 300 Balance -570 -290 Weight 65.2 kg 59.5 kg Intake: IV 300 10 Invasive Line 6 10 Oral 780 Output: Urine 1650 300 Other: Voiding Method Indwelling Catheter Indwelling Catheter Indwelling Catheter - Exam No acute distress, still a bit lethargic, but much improved, currently on 2 L of oxygen. HEENT examination is grossly unremarkable. Neck supple. Full range of motion. No adenopathy thyromegaly or neck vein distention. Cardiovascular examination reveals regular rhythm rate. S1-S2 normal. No S3 or S4. No discernible murmur noted. Heart rate 62 bpm. Lungs reveal mild scattered rhonchi. No wheezes or crackles. Saturations are 97 % on 2 L. Abdomen soft bowel sounds are heard. No masses or tenderness. Extremities are intact. No cyanosis clubbing or edema. Skin is without rash or lesion. Neurologic examination is thought to be much improved. - Labs CBC & Chem 7: 03/01/23 07:57 03/02/23 06:10 Labs: Abnormal Lab Results - Last 24 Hours (Table) 02/25/23 02/25/23 02/25/23 Range/Units 10:40 10:40 11:20 Sodium (137-145) mmol/L POC Glucose (mg/dL) (70-110) mg/dL Calcium (8.4-10.2) mg/dL U Free [place] Ch 12.02 H (0.00-3.29) mg/dL U Free [place] Ch 1.04 H (0.00-0.38) mg/dL Free [place] LC, Quant 4.01 H (0.33-1.94) mg/dL 03/01/23 03/01/23 03/02/23 Range/Units 16:32 20:07 06:05 Sodium (137-145) mmol/L POC Glucose (mg/dL) 136 H 215 H 122 H (70-110) mg/dL Calcium (8.4-10.2) mg/dL U Free [place] Ch (0.00-3.29) mg/dL U Free [place] Ch (0.00-0.38) mg/dL Free [place] LC, Quant (0.33-1.94) mg/dL 03/02/23 Range/Units 06:10 Sodium 132 L (137-145) mmol/L POC Glucose (mg/dL) (70-110) mg/dL Calcium 8.3 L (8.4-10.2) mg/dL U Free [place] Ch (0.00-3.29) mg/dL U Free [place] Ch (0.00-0.38) mg/dL Free [place] LC, Quant (0.33-1.94) mg/dL Assessment and Plan Assessment: Acute hypertensive emergency, resolved. Acute decompensated CHF, with LV dysfunction, ejection fraction of 30-35%. Acute metabolic encephalopathy. Hypothyroidism. Peripheral vascular occlusive disease. Severe cardiomyopathy. Acute kidney injury. Plan: Plan dated 03/01/2023. Patient appears to be doing much better. The patient's currently on saline at 80 mL an hour, oxygen. Labs, x-rays, medications are reviewed. The patient will likely end up in a custodial rehab facility. She should continue on GI and DVT prophylaxis. Labs, x-rays, medications are reviewed. Prognosis is certainly guarded. We will continue to follow make recommendations along the way. Prognosis is guarded. Plan dated 03/02/2023. The patient remains on 2 L. She's not receiving any IV fluids. He underwent cardiac catheterization yesterday, which revealed some disease in the distal left circumflex coronary artery. The patient's labs, x-rays, and medications are reviewed. She continues on GI and DVT prophylaxis. Prognosis is guarded. Her mental status is much improved. We will continue to follow. Time with Patient: Less than 30
--- NOTE | 2023-03-02 10:55 | P.PN ---
Subjective Progress Note Date: 03/02/23 HISTORY OF PRESENT ILLNESS: The patient is a 57-year-old female who was admitted to the hospital with symptoms of confusion, multiple falls, weakness. The history is obtained from the records. The patient is not answering question quite somnolent after receiving Ativan. According to the records the patient has not been taking her medications are home. She has a history of hypertension, diabetes and hyperlipidemia full detail of her prior history or medication is unclear. She was noted to be severely hypertensive, elevated NT proBNP and TSH on presentation. She was in sinus mechanism on presentation. She had peripheral edema and discoloration of the toes on the left lower extremity. According to the notes she's a daily smoker and she uses marijuana. I am unable to obtain any other history. Her echocardiogram performed this morning showed a severely impaired left ventricle systolic function February 20: The patient remains confused, answering questions inappropriately. Her blood pressure has been elevated off Clevidipine. She is not taking by mouth medication because of a question of the swallowing. She continues to be in sinus mechanism. She has a good urinary output on IV Lasix. She continues to be on IV heparin. Her EKG showed T-wave inversion in the anterolateral lateral leads. Her brain CT showed lacunar infarct but no acute bleeding. Duplex scan of the lower extremities showed no evidence of DVT. She continues to have discoloration of the left foot toes. February 21 : The patient remains confused, opening eyes to verbal stimulation. She failed her swallow evaluation and continues to be nothing by mouth, receiving IV medication. Her blood pressure has been relatively stable. There is no evidence of malignant arrhythmia. Her urine output is stable. She underwent a CT angiogram of the abdomen and chest and was found to have an abdominal aortic aneurysm and severe PAD, bilaterally. Her free T3 was low. 02/22 Patient seen and examined. Patient stating she is hungry. He continues be confused. Left lower extremity somewhat improved color per nurse with continued discoloration with fourth and fifth digit. She admits the pain all over including her lower extremities. Blood pressures remain elevated 145/107. She is not eating much orally. 02/23 Patient seen and examined. Patient had increased blood pressures in the systolics 170s yesterday and therefore clonidine was increased to 0.2 milligrams oral twice a day. Blood pressure did decrease down to 110s. She has been more altered this morning with more lethargy and not answering questions appropriately. This does appear to be somewhat in the principal associate and may be correlated with drop in blood pressure. Therefore discussed stopping the clonidine and holding lisinopril for now for mild permissive hypertension with mental status changes. Has been receiving Lasix with good urine output. Creatinine stable at 1.2. 02/24 Seen and examined. Patient had altered mental status yesterday however mildly be improved today. MRI showed concern of thromboembolic etiology with bilateral infarcts. Carotid imaging does show bilateral disease. Patient has been in sinus rhythm. Patient is somewhat more alert today and complaining of substernal chest pain without significant shortness breath. Patient still continues and alert and oriented to self. Left lower extremity appears stable without worsened discoloration or ischemia. She has been on Lovenox drip. 02/25 Patient seen and examined. Patient underwent YANDEL yesterday showing speckled appearance of myocardium possibly consistent with amyloidosis. No significant PFO. Factor V Leiden was abnormal however discussed with hematology and should not be causing arterial clots. Has been maintained on aspirin. Troponins minimally elevated 0.1 and patient yesterday was complaining of some chest pain. Currently today denies any chest pain. Blood pressures were elevated in the 150-180 range. We will optimize heart failure regimen and add Aldactone. Creatinine has been fairly stable at 1.1. 02/26 Patient seen and examined. Patient somewhat more alert today. Surgery was consultative for ileus and NG tube hopefully to be discontinued today. Patient undergoing barium swallow today. She still gets intermittent chest pain. Blood pressures remained elevated and therefore amlodipine 5 mg twice a day was added as well as hydralazine added as well as clonidine patch was added. 02/27 Patient seen and examined. Patient had significant drop in blood pressure down in the 120s yesterday however increased back up into the 150s to 170s. Borderline bradycardic with heart rates in the 50s and 60s. No chest pain or pressure. She is more alert today. No lightheadedness or dizziness. 02/28 Patient seen and examined. Lasix was added yesterday more for blood pressure control with improvement in blood pressures in the 130s to 140s range. Creatinine stable at 0.9. She has been tolerating diet. Still with some confusion however predominantly improving. 03/01/2023 Patient is s/p cardiac cath revealing moderate disease in the distal left circumflex with a 50-60% lesion, circumflex lesion does not explain her cardiomyopathy. Medical management was recommended. Vital signs are stable. Telemetry reveals sinus mechanism with a heart rate in the 50s. 03/02/2023 Patient examined this morning at the bedside. Patient remains pleasantly confused. She denies chest pain or pressure. She denies shortness of breath. Vital signs are stable. PHYSICAL EXAM: VITAL SIGNS: Reviewed. GENERAL: Well-developed in no acute distress. NECK: Supple. No JVD or thyromegaly LUNGS: Respirations even and unlabored. Lungs essentially clear to auscultation bilaterally. HEART: Regular rate and rhythm. S1 and S2 heard. +Systolic murmur EXTREMITIES: Normal range of motion. No clubbing or cyanosis. Discoloration noted to left toes. ASSESSMENT: 1. Hypertension 2. Encephalopathy could be related to hypertension, workup in progress 3. Abnormal EKG rule out ischemia, s/p cardiac cath as above 4. Abnormal renal functions, improving 5. Peripheral vascular disease 6. Bilateral acute infarct, per MRI brain 7. Severe cardiomyopathy, nonischemic 8. Worsened altered mental status with MRI showing bilateral infarcts concerning for thromboembolic disease 9. Chest pain 10. Bilateral carotid disease 11. PAD with bilateral SFA disease 12. S/P YANDEL with no source of stroke, but reveals speckled appearance of myocardium possibly can be consistent with amyloidosis 13. Coronary artery disease with 50-60% lesion of circumflex PLAN: Continue current cardiac medications Discontinue Norvasc secondary to cardiomyopathy. If blood pressures elevate may utilize clonidine Continue telemetry monitoring Stable from a cardiac standpoint Further recommendations pending patient course Nurse practitioner note has been reviewed by physician. Signing provider agrees with the documented findings, assessment, and plan of care. Objective - Vital Signs Vital signs: Vital Signs Temp 97.5 F L 03/02/23 07:53 Pulse 62 03/02/23 07:53 Resp 16 03/02/23 07:53 BP 138/78 03/02/23 07:53 Pulse Ox 97 03/02/23 07:53 FiO2 Intake & Output 03/01/23 03/02/23 03/02/23 18:59 06:59 18:59 Intake Total 1080 10 Output Total 1650 300 Balance -570 -290 Weight 65.2 kg 59.5 kg Intake: IV 300 10 Invasive Line 6 10 Oral 780 Output: Urine 1650 300 Other: Voiding Method Indwelling Catheter Indwelling Catheter Indwelling Catheter - Labs CBC & Chem 7: 03/01/23 07:57 03/02/23 06:10 Labs: Abnormal Lab Results - Last 24 Hours (Table) 02/25/23 02/25/23 02/25/23 Range/Units 10:40 10:40 11:20 Sodium (137-145) mmol/L POC Glucose (mg/dL) (70-110) mg/dL Calcium (8.4-10.2) mg/dL U Free [place] Light Ch 12.02 H (0.00-3.29) mg/dL U Free [place] Ch 1.04 H (0.00-0.38) mg/dL Free [place] LC, Quant 4.01 H (0.33-1.94) mg/dL 03/01/23 03/01/23 03/02/23 Range/Units 16:32 20:07 06:05 Sodium (137-145) mmol/L POC Glucose (mg/dL) 136 H 215 H 122 H (70-110) mg/dL Calcium (8.4-10.2) mg/dL U Free [place] Light Ch (0.00-3.29) mg/dL U Free [place] Ch (0.00-0.38) mg/dL Free [place] LC, Quant (0.33-1.94) mg/dL 03/02/23 Range/Units 06:10 Sodium 132 L (137-145) mmol/L POC Glucose (mg/dL) (70-110) mg/dL Calcium 8.3 L (8.4-10.2) mg/dL U Free [place] Light Ch (0.00-3.29) mg/dL U Free [place] Ch (0.00-0.38) mg/dL Free [place] LC, Quant (0.33-1.94) mg/dL
[2023-03-02 11:22] LABS: Glucose,Whole Blood 89 mg/dL (70-110)
--- NOTE | 2023-03-02 11:36 | P.PN ---
Subjective Progress Note Date: 03/02/23 Principal diagnosis: Altered mental status changes Patient was seen and examined as follow-up. No acute changes through the night. Yesterday she underwent cardiac catheterization with findings of moderate disease of the left circumflex and left dominance. Low LVEDP. Cardiology recommends medical management. Blood pressures continue to be well controlled. No new focal deficits. Objective - Vital Signs Vital signs: Vital Signs Temp 97.5 F L 03/02/23 07:53 Pulse 62 03/02/23 07:53 Resp 16 03/02/23 07:53 BP 138/78 03/02/23 07:53 Pulse Ox 97 03/02/23 07:53 FiO2 Intake & Output 03/01/23 03/02/23 03/02/23 18:59 06:59 18:59 Intake Total 1080 10 Output Total 1650 300 Balance -570 -290 Weight 65.2 kg 59.5 kg Intake: IV 300 10 Invasive Line 6 10 Oral 780 Output: Urine 1650 300 Other: Voiding Method Indwelling Catheter Indwelling Catheter Indwelling Catheter - Exam General appearance: The patient is alert oriented. HET: Head is normocephalic and atraumatic. Neck: Supple. Extremities: Left great toe, third toe and pinky toe with areas of purple discoloration, surrounding skin pink. Bilateral lower extremity and feet warm to the touch. Good capillary refill. Nonpalpable popliteal, DP PT pulses bilaterally. Sensorimotor intact. Bilateral PT and DP Doppler signal present. Neurological: Patient is alert, oriented, without focal deficits. - Labs CBC & Chem 7: 03/01/23 07:57 03/02/23 06:10 Labs: Abnormal Lab Results - Last 24 Hours (Table) 02/25/23 02/25/23 02/25/23 Range/Units 10:40 10:40 11:20 Sodium (137-145) mmol/L POC Glucose (mg/dL) (70-110) mg/dL Calcium (8.4-10.2) mg/dL U Free [place] Light Ch 12.02 H (0.00-3.29) mg/dL U Free [place] Ch 1.04 H (0.00-0.38) mg/dL Free [place] LC, Quant 4.01 H (0.33-1.94) mg/dL 03/01/23 03/01/23 03/02/23 Range/Units 16:32 20:07 06:05 Sodium (137-145) mmol/L POC Glucose (mg/dL) 136 H 215 H 122 H (70-110) mg/dL Calcium (8.4-10.2) mg/dL U Free [place] Ch (0.00-3.29) mg/dL U Free [place] Ch (0.00-0.38) mg/dL Free [place] LC, Quant (0.33-1.94) mg/dL 03/02/23 Range/Units 06:10 Sodium 132 L (137-145) mmol/L POC Glucose (mg/dL) (70-110) mg/dL Calcium 8.3 L (8.4-10.2) mg/dL U Free [place] Ch (0.00-3.29) mg/dL U Free [place] Ch (0.00-0.38) mg/dL Free [place] LC, Quant (0.33-1.94) mg/dL Assessment and Plan Assessment: 1. Bilateral femoral occlusive disease, chronic 2. Left great toe and third, fourth toe ischemic changes, stable 3. Brain MRI showing Multiple bilateral acute infarcts 4. Bilateral ICA stenosis 5. Altered mental status changes 6. Hypertension, uncontrolled, noncompliant with medications 7. Hypothyroid, noncompliant with medications 8. Cardiomegaly 9. Diabetes mellitus, noncompliant with medications 10. Elevated troponins 11. 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 Continue supportive care 2. CTA of lower extremities reviewed with bilateral SFA occlusions with one- vessel runoff. Appears chronic 3. Ischemia to toes improving, no planned vascular surgical intervention during this hospitalization 4. Patient may benefit from endovascular revascularization of the left SFA, this can be done as an outpatient 5. Head and neck CT angiogram images reviewed by Dr. Lewis, he feels this stenosis closer to 50-69% 6. No plans on surgical intervention for carotid stenosis, unlikely cause of bilateral infarcts. Recommend outpatient follow-up 7. Hematology on consult for hypercoagulable workup and recommendations 8. Continue with recommendations from neurology 9. Continue aspirin 81 mg daily, statin, Plavix 75 mg daily added per neurology 10. Medical management deferred to primary medical team Thank you for this consultation. We will sign off at this time. Please do not hesitate to call us with any concerns. The impression and plan of care has been dictated as directed. Dr. Lewis I performed a history and examination of this patient, discussed the same with the dictator. I agree with the dictator's note ,documented as a scribe. Any additional findings or plans will be noted.
--- NOTE | 2023-03-02 11:58 | US ---
EXAMINATION TYPE: US arterial LE multi level DATE OF EXAM: 02/19/2023 3:56 PM CLINICAL INDICATION: Female, 57 years old with history of LLE non-palpable PT/DP, ischemic toes; History of: Smoker: Yes Hypertension: Yes Diabetic: No Hyperlipidemia: No TIA/CVA: No Previous Vascular Surgery: No CAD: No ID: No Vascular Ulcers: No Claudication: No Gangrene: No Doppler Waveforms: Right: Multiphasic, biphasic Left: Multiphasic, biphasic Ankle-Brachial Indices: Right: 0.72 Left: 0.59 Toe Brachial Indices: Right: 0.42 Left: 0.43 IMPRESSION: 1. Abnormal NIC and TBI entities suggestive of moderate to severe bilateral atherosclerotic. Findings consistent with CTA of the bilateral mid superficial femoral artery occlusion.
--- NOTE | 2023-03-02 12:39 | P.PN ---
Subjective Progress Note Date: 03/02/23 Principal diagnosis: CVA, left foot ischemia At today's visit patient is somnolent. She arouses to tactile stimulus but easily falls asleep. Patient denies pain and reports she feels well. S/p cardiac cath, no stent placement, medical management at this time per cardiology Objective - Vital Signs Vital signs: Vital Signs Temp 97.5 F L 03/02/23 07:53 Pulse 63 03/02/23 11:21 Resp 16 03/02/23 11:21 BP 146/78 03/02/23 11:21 Pulse Ox 96 03/02/23 11:21 FiO2 Intake & Output 03/01/23 03/02/23 03/02/23 18:59 06:59 18:59 Intake Total 1080 10 Output Total 1650 300 125 Balance -570 -290 -125 Weight 65.2 kg 59.5 kg Intake: IV 300 10 Invasive Line 6 10 Oral 780 Output: Urine 1650 300 125 Other: Voiding Method Indwelling Catheter Indwelling Catheter Indwelling Catheter # Bowel Movements 1 - Constitutional General appearance: Present: average body habitus, no acute distress - EENT Eyes: Present: anicteric sclerae, EOMI ENT: Present: hearing grossly normal - Respiratory Details: breathing is even unlabored - Cardiovascular Details: skin is warm and dry - Neurologic Neurologic Comment(s): somnolent - Musculoskeletal Musculoskeletal: Present: generalized weakness - Labs CBC & Chem 7: 03/01/23 07:57 03/02/23 06:10 Labs: Abnormal Lab Results - Last 24 Hours (Table) 02/25/23 02/25/23 02/25/23 Range/Units 10:40 10:40 11:20 Sodium (137-145) mmol/L POC Glucose (mg/dL) (70-110) mg/dL Calcium (8.4-10.2) mg/dL U Free [place] Light Ch 12.02 H (0.00-3.29) mg/dL U Free [place] Ch 1.04 H (0.00-0.38) mg/dL Free [place] LC, Quant 4.01 H (0.33-1.94) mg/dL 03/01/23 03/01/23 03/02/23 Range/Units 16:32 20:07 06:05 Sodium (137-145) mmol/L POC Glucose (mg/dL) 136 H 215 H 122 H (70-110) mg/dL Calcium (8.4-10.2) mg/dL U Free [place] Light Ch (0.00-3.29) mg/dL U Free [place] Ch (0.00-0.38) mg/dL Free [place] LC, Quant (0.33-1.94) mg/dL 03/02/23 Range/Units 06:10 Sodium 132 L (137-145) mmol/L POC Glucose (mg/dL) (70-110) mg/dL Calcium 8.3 L (8.4-10.2) mg/dL U Free [place] Light Ch (0.00-3.29) mg/dL U Free [place] Ch (0.00-0.38) mg/dL Free [place] LC, Quant (0.33-1.94) mg/dL Assessment and Plan (1) CVA (cerebral vascular accident) Current Visit: Yes Status: Acute Priority: High Code(s): I63.9 - CEREBRAL INFARCTION, UNSPECIFIED SNOMED Code(s): 376785686 (2) Peripheral vascular disease Current Visit: Yes Status: Acute Priority: High Code(s): I73.9 - PERIPHERAL VASCULAR DISEASE, UNSPECIFIED SNOMED Code(s): 893250771 Plan: CVA -Neurology following and cardiology following -Some of the hypercoagulable workup has been ordered. Prothrombin mutation and factor VT positive. These genetic tests are typically more associated with venous thromboses. There is no PFO on workup. Patient does have significant cardiovascular risk factors for stroke including uncontrolled hypertension, diabetes mellitus type 2 and smoking. LVEF is 30-35%. Tray Setter discussed that there was no thrombus seen in ECHO examination. S/p cardiac cath, no stent placement, medical management at this time per cardiology -Hematology and Cardiology agree, at this time, antiplatelet therapy, along with aggressive treatment and mgmt of patient's comorbidities, is reasonable treatment. -Antiphospholipid antibodies negative. Beta 2 glycoprotein pending. If any APL antibody is positive then, would recommend anticoagulation therapy with Coumadin. -We will follow-up on testing results and give final recommendations.
--- NOTE | 2023-03-02 12:56 | P.PN ---
Subjective Progress Note Date: 03/02/23 This is a 57-year-old female history significant for diabetes mellitus, hypertension, myocardial infarction, thyroid disorder, current smoker. Patient presented to the hospital for altered mental status and was found on the floor by her he was unable to lift her up. Patient was brought in by EMS. Patient is found to have generalized weakness confusion and has been having multiple falls at home with progressive weakness over the last 5 months, patient is a poor historian and currently alert x 0 and obtunded at the time of examination. at the bedside provides the medical history, patient is a daily smoker and occasional alcohol use. Over the last 5 months has been having frequent falls and has been increasingly confused Has not been to a doctor and not taking recommending medications. Additionally he felt patient may have suffered a stroke a few months ago and had noticed a facial droop around that time. Patient in the ER was awake and alert. Blood pressure on admission was in the 220s systolic and difficult to treat with multiple antihypertensive agents given. Patient was also given IV ativan. Chest x-ray on admission shows cardiomegaly with linear atelectasis and/or scarring the left midlung. EKG shows sinus tachycardia with a heart rate of 110 on admission. She has no elevated white blood cell count it is normal at 7.1, sodium of 135, BUN/cr 32 and 1.28, Lacis acid is normal 1.3. She does have troponin elevation of 0.067, 0.074, 0.075.. ProBNP is elevated at 16,200, TSH is also 38.800, free T4 0.84. Urinalysis is negative for infection, urine drug toxicology is negative. Patient is admitted to the hospital for new onset CHF and originially admitted to the stepdown unit. Patient was upgraded to the intensive care unit and placed on nitro gtt and had also become unresponsive only arousing to sternal rub. Patient does not appear to have feeling in the left foot there is mottling and purple discoloration of the great toe and 3/4 toes likely due to ischemia and vascular services has been consulted as well as neurology, cardiology and pulmonary mental health assistant. Recommend a brain CT when patient is more stable and also ABGs will be done. An echocardiogram reveals EF of 30-35%, mild MR. 02/20/2023 Patient continues to be monitored closely in the intensive care unit. Currently alert x 2 more awake than yesterday, does have some slurred speech today. Brain CT shows no acute intracranial process with remote lacunar injuries along with nonspecific white matter changes likely secondary to chronic microangiography. EEG is negative. Neurology following and recommending brain MRI. Chest xray today is negative. Continues on IV lasix 40 mg every 12 hours with urine output of over 5L in the last 24 hours. Continues on IV cleviprex/clonidine patch and blood pressure running in the 150s systolic. Labs reveal sodium of 138, potassium 3.8, BUN 23, creatinine of 1.0. 02/21/2023 Patient is evaluated today in the intensive care unit. Patient is slightly more lethargic today was given a dose of IV ativan overnight for increased agitated. Patient had failed swallow evaluation and has been placed NPO at this time. Slightly more lethargic than yesterday. Patient is being followed by neurology and recommended to undergo MRI tomorrow however patient remains on IV cleviprex for blood pressure control as well as clonidine patch and IV hydralazine. Pat ient continues on IV lasix Q12 which has been decreased to 20 mg. CTA thoracic and abdominal aorta with run off reveals long segment occlusion bilateral mid superficial femoral arteries with reconstitution of the distal SFA bilaterally. There is proximal abdominal aortic aneurysm. Multifocal calcific disease estimated 7% stenosis anterior tibial arteries bilaterally. Vascular surgery following with further recommendations forthcoming. Labs today reveal white count of 7.8, hgb 16.5. Potassium 3.1 and magnesium 1.5. Heart rate controlled in the 70s, blood pressure in the 140/80s and currnently requiring 2L of oxygen. Patient does have some tenderness to the LLQ on exam. 02/22/2023 Patient evaluated in the intensive care unit today, more awake and alert sitting up in the chair. Diet has been advanced to pureed diet. Patient also had a bowel movement today. Diminished airway patient needs encouragement to cough and deep breath and will be given incentive spirometer. Was given IV synthroid and transitioned to oral synthroid today. Has been resumed on oral blood pressure medication including clonidine patch and taken off the cleviprex gtt and bp has improved down to 110/90 currently. Vascular surgery following recommending vascular intervention when medically stable. Patient is pending MRI and likely will be done Wednesday. Sodium has dropped to 130 today, BUN 22, creatinine 1.16, total bilirubin 1.4. 02/23/2023 Patient is seen and evaluated and follow-up in the ICU with multiple medical consultations following. Patient was able to undergo MRI of the brain with neurology following undergoing extensive workup including cardiology and vascular surgery along with pulmonary mental health assistant. MRI of the brain showed numerous punctate foci of acute infarcts involving the frontal and parietal cortices, deep white matter regions on both sides, bilateral thalami, and left basal ganglia with additional small focus in the left paramedian vita. A couple foci measuring up to 1.0 cm involving the left glenohumeral of the corpus callosum and findings suggest small infarcts greater than 6 hours in duration consider a central thromboembolic phenomenon with background severe burden of small chronic vessel ischemic disease. Per nursing staff patient had a decrease in mentation and blood pressures have been uncontrolled with neurology and cardiology making adjustments. Clonidine discontinued and awaiting possible YANDEL. CTA ordered and pending. Chest x-ray today shows NG tube appearing in good position with stable left lower infiltrate and small effusion and patient is maintained on IV Lasix low dose daily. 02/24/2023 Patient is seen in follow-up this morning continues to be in the ICU with multiple medical consultations following. Neurology recommending YANDEL with card iology following inpatient is reporting some chest pain and currently awaiting troponins and repeat EKG. Possible YANDEL today. Patient's mentation is somewhat improved today although extremely delayed. Patient continues to ask for her on exam. Patient is afebrile and continues with NG tube an abdominal x- ray is ordered and pending. Patient with multiple strokes noted and significant noncompliance with seeking any type of medical attention for many years and left lower limb ischemia, prognosis is extremely poor and guarded. Patient's CODE STATUS is no code and need to discuss further about overall prognosis and treatment plan moving forward as patient will need ECF and unsure if she is going to be agreeable to this. Case management/social work following. 02/25/2023 Patient is seen and evaluated in follow-up this morning lethargic although arousable. Patient condition continues to be extremely guarded and overall poor at this time with multiple medical consultations following. Patient underwent YANDEL yesterday with concerns for possible amyloidosis. Patient noted have factor V deficiency and hematology was consulted for input and recommendations. Patient is maintained on aspirin and will continue for now. Patient has been taken off diuretics and placed on gentle IV hydration and patient continues to be nothing by mouth with an NG tube. Abdominal x-ray suggestive of ileus versus obstruction and will consult general surgery. Discussed briefly with and will discuss further at length about overall prognosis, treatment plan, and options moving forward. Vascular surgery has evaluated the patient with no plans for surgical intervention at this time and patient does have noted left lower extremity ischemia with discoloration which is slightly improved. Patient is afebrile with no reported chest pain or shortness of breath. Patient continues to be nothing by mouth with an NG tube. 02/26/2023 Patient is seen and evaluated in follow-up continues to be in the ICU with multiple medical consultations following. Patient with aspiration risk being evaluated by speech therapy recommending modified. Swallow study which is occurring today. Multiple medical consultations including neurology, pulmonary mental health assistant, cardiology following. Patient's blood pressure remains elevated and uncontrolled with medications being adjusted. Patient being started on Plavix and continued on aspirin. Discussion was had with cardiology patient will eventually need cardiac cath. Vascular following with no plans for surgical intervention at this time the left lower extremity ischemia. Hematology also following and undergoing workup as patient has history of factor 5 L deficiency. Patient's mentation is somewhat improved today and able to converse more and is responding appropriately to questions and commands. Reports of chest pain or palpitations. Patient denies nausea or vomiting and continues with NG tube for now. Patient is having bowel movements with no plans for surgical intervention per general surgery as there were concerns for ileus v ersus possible bowel obstruction. Recommend follow-up labs in a.m. 02/27/2023 Patient is in the MICU. Resting in the bed. Awake alert and oriented x1-2, follows simple commands. Currently on room air. Denies any complaints of chest pain or shortness of breath. Patient has been afebrile. Tolerating oral diet slowly. No complaints of abdominal pain. No nausea or vomiting. NG tube has been discontinued. Patient had modified barium swallow for dysphagia. Patient is able to swallow without aspiration. And was started on dysphagia level 3 diet. Patient is encephalopathic but is improving. Laboratory data showed sodium 132 potassium 3.9 chloride 98 bicarb is 30 BUN 23 and creatinine 0.92 and blood sugar is 104 and calcium 8.3, WBC 7.9 hemoglobin 16.0 and platelets 219. 02/28/2023 Patient is in the MICU. Sitting in the chair. Awake alert and oriented x2. Patient is able to communicate and follow simple commands. Improving mental status. Able to tolerate oral diet. Currently titrated down to room air. Blood pressure is fairly controlled. Cardiology is planning for catheterization tomorrow. Laboratory data showed sodium 132 potassium 3.7 chloride 94 bicarb is 37 BUN 18 and creatinine 0.9 and blood sugar is 105. WBC 5.8 hemoglobin 15.3 and platelets 194. Patient is being transferred to medical floor today. 03/01/2023 Patient is seen and evaluated in follow-up currently on a stepdown unit currently awaiting cardiac catheterization. Patient is currently nothing by mouth although has been tolerating oral diet. Patient's mentation is significantly improved her blood pressure better controlled. Multiple medical consultations following including pulmonary mental health assistant, neurology, cardiology. Will await cardiac catheterization report and continue current medication regimen. Recommend PT/OT therapy evaluation. 03/02/2023 Patient seen and evaluated in follow-up today currently resting although easily arousable continues with significant weakness with multiple medical consultations following. PT/OT to evaluate the patient and family would like [facility] as a choice for rehab with case management following. Hematology is also following this patient does have significant medical history of factor 5 L deficiency and awaiting further testing to determine anticoagulation for the patient. Patient is continued on aspirin and Plavix along with subcutaneous Lovenox while awaiting for recommendations per hematology. Blood pressure better controlled and will continue current regimen. Patient is afebrile with no reports of chest pain or worsening shortness of breath. Review of Systems Constitutional: Reports of fatigue, denied any fever. Cardio vascular: Denies chest pain, no palpitations Gastrointestinal: denied any nausea, vomiting, diarrhea, reports tolerating oral intake Pulmonary: Denied any shortness of breath cough Neurologic: denied any new focal deficits, reports weakness PHYSICAL EXAMINATION: GENERAL: The patient is alert and oriented x2-3, mentation much improved and patient appears baseline per at bedside. elderly appearing Pale. HEENT: Pupils are round and equally reacting to light. EOMI. No scleral icterus. No conjunctival pallor. Normocephalic, atraumatic. No pharyngeal erythema. No thyromegaly. CARDIOVASCULAR: S1 and S2 muffled PULMONARY: Diminished breath sounds bilaterally with no wheezing or crackles. ABDOMEN: Soft, nontender, nondistended, normoactive bowel sounds. No palpable organomegaly. MUSCULOSKELETAL: No joint swelling or deformity. EXTREMITIES: No cyanosis, clubbing, or pedal edema. Left lower extremity with discoloration NEUROLOGICAL: Alert and oriented 3, Cooperative, following commands, speaking more clearly, Diffuse weakness. SKIN: No rashes. There is discoloration to toes on the left foot extending to the left foot pad, progressing. Assessment: Altered mental status secondary to acute metabolic encephalopathy, improving Acute infarct involving the frontal and parietal cortices, deep white matter regions on both sides, bilateral thalami, and left basal ganglia as noted on MRI of the brain, possible central thromboembolic phenomenon Progressive weakness and frequent falls at home Hypertension with urgency on admission, improving Elevated troponin level Acute kidney injury vs CKD, improved Ischemic changes to the left foot. Acute congestive heart failure, systolic dysfunction Severe Cardiomyopathy and LV dysfunction possibly from the hypertension vs hypothyroidism Possible amyloidosis Hypothyroidism Elevated D-Dimer Hypothyroidism Diabetes Mellitus type 2 uncontrolled History of factor V leiden deficiency History of myocardial infarction unknown details Chronic and ongoing nicotine use Medical noncompliance Marijuana use GI prophylaxis DVT prophylaxis; SCDs Do Not Resuscitate/Do Not Intubate Plan: Continue monitoring the patient with multiple medical consultations following. Cardiology following and underwent cardiac catheterization yesterday showing moderate disease at the distal left circumflex with 50-60% lesion circumflex lesion not explaining her cardiomyopathy per cardiology and recommending medical management. Hematology following awaiting labs to determine if patient is a candidate for anticoagulation. Recommend continue with aspirin, Plavix, subcutaneous Lovenox for now Blood pressure being monitored and much improved will continue current regimen with multiple medical consultations following. Patient is tolerating oral intake encouraged increase in diet and also recommend aspiration precautions with head of the bed elevated 30-45 at all times and supervision with meals Recommend PT/OT therapy evaluation, case management consulted and following and patient would like possibly [facility] Follow up labs in AM Again, Overall prognosis is extremely guarded The impression and plan of care has been dictated by Rhonda Hawkins, Nurse Practitioner as directed. Dr. Tej MD I have performed a history and examination and MDM of this patient, discussed the same with the dictator, and agree with the dictator's assessment and plan as written ,documented as a scribe. Based on total visit time, I have performed more than 50% of the visit. Objective - Vital Signs Vital signs: Vital Signs Temp 97.5 F L 03/02/23 07:53 Pulse 63 03/02/23 11:21 Resp 16 03/02/23 11:21 BP 146/78 03/02/23 11:21 Pulse Ox 96 03/02/23 11:21 FiO2 Intake & Output 03/01/23 03/02/23 03/02/23 18:59 06:59 18:59 Intake Total 1080 10 Output Total 1650 300 125 Balance -570 -290 -125 Weight 65.2 kg 59.5 kg Intake: IV 300 10 Invasive Line 6 10 Oral 780 Output: Urine 1650 300 125 Other: Voiding Method Indwelling Catheter Indwelling Catheter Indwelling Catheter # Bowel Movements 1 - Labs CBC & Chem 7: 03/01/23 07:57 03/02/23 06:10 Labs: Abnormal Lab Results - Last 24 Hours (Table) 02/25/23 02/25/23 02/25/23 Range/Units 10:40 10:40 11:20 Sodium (137-145) mmol/L POC Glucose (mg/dL) (70-110) mg/dL Calcium (8.4-10.2) mg/dL U Free [place] Light Ch 12.02 H (0.00-3.29) mg/dL U Free [place] Light Ch 1.04 H (0.00-0.38) mg/dL Free [place] LC, Quant 4.01 H (0.33-1.94) mg/dL 03/01/23 03/01/23 03/02/23 Range/Units 16:32 20:07 06:05 Sodium (137-145) mmol/L POC Glucose (mg/dL) 136 H 215 H 122 H (70-110) mg/dL Calcium (8.4-10.2) mg/dL U Free [place] Light Ch (0.00-3.29) mg/dL U Free [place] Light Ch (0.00-0.38) mg/dL Free [place] LC, Quant (0.33-1.94) mg/dL 03/02/23 Range/Units 06:10 Sodium 132 L (137-145) mmol/L POC Glucose (mg/dL) (70-110) mg/dL Calcium 8.3 L (8.4-10.2) mg/dL U Free [place] Light Ch (0.00-3.29) mg/dL U Free [place] Ch (0.00-0.38) mg/dL Free [place] LC, Quant (0.33-1.94) mg/dL
[2023-03-02 16:25] LABS: Glucose,Whole Blood 180 mg/dL (70-110)
[2023-03-02 20:13] LABS: Glucose,Whole Blood 114 mg/dL (70-110)
[2023-03-02] MEDS: ATORVASTATIN 80 MG TAB PO SCH (20:45)
[2023-03-03 06:08] LABS: Glucose,Whole Blood 128 mg/dL (70-110)
[2023-03-03] MEDS: LEVOTHYROXINE 50 MCG TAB PO SCH (06:16)
[2023-03-03] MEDS: carvediloL 12.5 MG TAB PO SCH ×2 (06:16→17:03)
[2023-03-03] MEDS: PANTOPRAZOLE 40 MG/10 ML VIAL IVP SCH ×2 (07:58→20:47)
[2023-03-03] MEDS: SPIRONOLACTONE 25 MG TAB PO SCH (07:58)
[2023-03-03] MEDS: CLOPIDOGREL 75 MG TAB PO SCH (07:58)
[2023-03-03] MEDS: hydrALAZINE HCL 50 MG TAB PO SCH ×3 (07:58→23:43)
[2023-03-03] MEDS: lisinopriL 20 MG TAB PO SCH ×2 (07:58→20:47)
[2023-03-03] MEDS: THIAMINE 100 MG TAB PO SCH (07:58)
[2023-03-03] MEDS: ASPIRIN 81 MG PO SCH (07:58)
[2023-03-03] MEDS: ENOXAPARIN 40 MG/0.4 ML SYRINGE SQ SCH (07:59)
[2023-03-03] MEDS: NICOTINE 14MG/24HR PATCH TRANSDERM SCH (07:59)
[2023-03-03 08:48] LABS: Appearance,Urine Cloudy (Clear); Bacteria,Urine Moderate /hpf; Bilirubin,Urine Negative (Negative); Blood,Urine Large (Negative); Color,Urine Yellow; Glucose,Urine (UA) Negative (Negative); Ketones,Urine Negative (Negative); Leukocyte Esterase,Urine Large (Negative); Nitrite,Urine Negative (Negative); Protein,Urine 1+ (Negative); RBC,Urine 141 /hpf (0-5); Specific Gravity,Urine 1.011 (1.001-1.035); Squamous Epithelial Cell,Urine 1 /hpf (0-4); Urobilinogen,Urine <2.0 mg/dL (<2.0); WBC,Urine 47 /hpf (0-5)
[2023-03-03 08:56] LABS: HCT 46.5 % (34.0-46.0); HGB 14.8 gm/dL (11.4-16.0); MCH 27.6 pg (25.0-35.0); MCHC 31.9 g/dL (31.0-37.0); MCV 86.3 fL (80.0-100.0); Mean Platelet Volume 8.8; Platelet Count 275 k/uL (150-450); RBC 5.39 m/uL (3.80-5.40); RDW 15.5 % (11.5-15.5); WBC 7.9 k/uL (3.8-10.6)
[2023-03-03 09:10] LABS: ALT 30 U/L (4-34); AST 31 U/L (14-36); African American GFR (CKD) 80 (>60 ml/min/1.73 sqM); Albumin 2.8 g/dL (3.5-5.0); Alkaline Phosphatase 103 U/L (38-126); Anion Gap 1 mmol/L; Blood Urea Nitrogen 17 mg/dL (7-17); Calcium 8.5 mg/dL (8.4-10.2); Carbon Dioxide 35 mmol/L (22-30); Chloride 95 mmol/L (98-107); Glucose 121 mg/dL (74-99); Magnesium 1.8 mg/dL (1.6-2.3); Non-African American GFR(CKD) 69 (>60 ml/min/1.73 sqM); Potassium 3.9 mmol/L (3.5-5.1); Sodium 131 mmol/L (137-145); Total Bilirubin 0.7 mg/dL (0.2-1.3); Total Protein 5.2 g/dL (6.3-8.2)
[2023-03-03] MEDS: MAG HYDROX/AL HYDROX/SIMETH 30 ML, diphenhydrAMINE ELIXIR 75 MG, LIDOCAINE VISCOUS 2% 3... PO SCH ×9 (09:45→23:43)
--- NOTE | 2023-03-03 09:49 | CT ---
EXAMINATION TYPE: CT brain wo con DATE OF EXAM: 03/03/2023 COMPARISON: 02/19/2023 HISTORY: Decreased orientation and lethargy CT DLP: 1099.[address] of the brain was performed. The ventricles, basal cisterns and sulci overlying the cerebral convexities demonstrate mild enlargem ent. There is no evidence for intracranial hemorrhage or sulcal effacement. There is decreased attenuation about the periventricular white matter and deep white matter of both c erebral hemispheres, compatible with chronic small vessel ischemia. Differential diagnosis does inclu de demyelination. No mass effects are seen.No midline shift. Osseous calvarium is intact. If symptoms persist consider MRI. IMPRESSION: 1. Age related atrophic and chronic small vessel ischemic change without acute intracranial process s een at this time.
--- NOTE | 2023-03-03 11:10 | P.PN ---
Subjective Progress Note Date: 03/03/23 Principal diagnosis: Mental status changes. Reevaluated today on 02/24/2023, patient remains in the ICU, she is less encephalopathic today, she is opening her eyes, following simple instructions like wiggling toes, sticking out tongue, squeezing hands, definitely improved mentally compared to the last couple of days. The neurologist is recommending workup for possible thromboembolic phenomenon/central, and YANDEL was performed today, showed impaired LV function and global hypokinesis, and severe hypertrophy with speckling raising the possibility of infiltrative disease. There was no evidence of shunting. There was evidence of mild aortic and mild mitral regurgitation. Carotid Doppler showed moderate atherosclerotic plaque in bilateral carotid arteries with 50-69% stenosis. Reevaluated today on 02/25/2023, remains about the same. Patient remains encephalopathic, may open eyes at times, otherwise no other responses. Today she seems to be a bit more encephalopathic compared to yesterday. Her echocardiogram yesterday/YANDEL questioned the possibility of amyloidosis. CBC today is unremarkable, lites are basically normal, creatinine is 1.13 a chest x- ray is showing more left lower lobe atelectasis possibly small pleural effusion, we'll recommend ultrasound, and if the effusion isn't large enough to consider thoracentesis that will be done Reevaluated today on 02/26/23, patient has slight improvement encephalopathy today. At least she is waking up, verbalizing, remains confused overall. But slightly improvement today compared to the last few days. Labs were reviewed she had a relatively normal electrolytes normal renal profile sodium is a bit low at 131 ultrasound of the chest showed no evidence of pleural effusion to consider thoracentesis. She continues to have left basilar atelectasis. Slightly improved today compared to previous x-rays. Reevaluated today on , patient remains in the ICU, mentation seems to be slightly improving, at least she is arousable, she follows very simple instructions, she knew her name but she had no idea where she was. Patient does not seem to be in any form of respiratory distress. Her encephalopathy is s lightly improved but not completely resolved. Workup so far has been basically nondiagnostic. Patient is being closely followed by neurology, blood pressure seems to be better controlled is 150/86 today. Her O2 saturation 100% on 2 L CBC is normal index was normal renal profile is normal Reevaluated today on 02/28/2023, patient seems to be doing much better today, remains in the ICU, on 2 L nasal cannula, she is definitely more alert, awake, follows all simple instructions, seems to be oriented to place time and person. Dramatic improvement in her neurological status has been noted over the last 24 hours. Her sodium is 132 potassium 3.7 renal profile is normal CBC is relatively normal-appearing. Her mental status significantly improved over the last 24 hours Progress note dated 03/01/2023. The patient is seen today, and examined, in room 350. The patient is currently on 2 L of oxygen. She's receiving saline at 80 mL an hour. The patient's neurologic status is much improved, she is awake, and alert. Is able to answer questions. Current laboratory data includes a white count 5.6, hemoglobin 15.9, hematocrit 51, and a normal platelet count. Coagulation studies are normal. Sodium 133, potassium 4, chlorides 95, CO2 33, BUN 17, creatinine 0.92. Blood cultures are negative. No chest x-ray today. Progress note dated 03/02/2023. The patient is seen again today in room 350. Currently, the patient's on 2 L of oxygen. She's not receiving any IV fluids. She is laying flat in bed, without any respiratory distress or difficulty. Labs today include a sodium 132, pot assium 4.2, chlorides 98, CO2 30, BUN 16, and creatinine 0.91. Calcium is 8.3. The patient underwent a cardiac catheterization, and was found have moderate disease in the distal left circumflex coronary artery. No stent was placed. Medical management was recommended. Progress note dated 03/03/2023. The patient is again seen today in room 350. The patient's currently on room air. She is not receiving any IV fluids. Clinically, the patient is very stable. She denies any chest pain or chest discomfort. She also denies any shortness of breath, cough, wheezing, or chest tightness. She is a bit more awake, she does have a very flat affect. White count 7.9, hemoglobin 14.8, hematocrit 46.5, and platelet count was normal. Sodium 131, potassium 3.9, chlorides 95, CO2 35, BUN 17, and creatinine 0.92. Blood cultures are negative. Brain CT showed nothing acute. Objective - Vital Signs Vital signs: Vital Signs Temp 98.4 F 03/03/23 07:46 Pulse 77 03/03/23 07:46 Resp 18 03/03/23 07:46 BP 172/90 03/03/23 07:46 Pulse Ox 91 L 03/03/23 07:46 FiO2 Intake & Output 03/02/23 03/03/23 03/03/23 18:59 06:59 18:59 Intake Total 360 10 110 Output Total 275 800 Balance 85 -790 110 Weight 56.1 kg Intake: IV 10 Invasive Line 6 10 Oral 360 110 Output: Urine 275 800 Other: Voiding Method Bedside Commode Bedside Commode Bedside Commode External Catheter External Catheter # Voids 1 # Bowel Movements 1 - Exam No acute distress, still a bit lethargic, but much improved, currently on room air. HEENT examination is grossly unremarkable. Neck supple. Full range of motion. No adenopathy thyromegaly or neck vein distention. Cardiovascular examination reveals regular rhythm rate. S1-S2 normal. No S3 or S4. No discernible murmur noted. Heart rate 77 bpm. Lungs reveal mild scattered rhonchi. No wheezes or crackles. Saturations are 94% on room air. Abdomen soft bowel sounds are heard. No masses or tenderness. Extremities are intact. No cyanosis clubbing or edema. Skin is without rash or lesion. Neurologic examination is thought to be much improved. - Labs CBC & Chem 7: 03/03/23 08:18 03/03/23 08:18 Labs: Abnormal Lab Results - Last 24 Hours (Table) 03/02/23 03/02/23 03/03/23 Range/Units 16:23 20:11 06:05 Hct (34.0-46.0) % Sodium (137-145) mmol/L Chloride (98-107) mmol/L Carbon Dioxide (22-30) mmol/L Glucose (74-99) mg/dL POC Glucose (mg/dL) 180 H 114 H 128 H (70-110) mg/dL Total Protein (6.3-8.2) g/dL Albumin (3.5-5.0) g/dL Urine Appearance (Clear) Urine Protein (Negative) Urine Blood (Negative) Ur Leukocyte Esterase (Negative) Urine RBC (0-5) /hpf Urine WBC (0-5) /hpf Urine Bacteria (None) /hpf 03/03/23 03/03/23 03/03/23 Range/Units 08:13 08:18 08:18 Hct 46.5 H (34.0-46.0) % Sodium 131 L (137-145) mmol/L Chloride 95 L (98-107) mmol/L Carbon Dioxide 35 H (22-30) mmol/L Glucose 121 H (74-99) mg/dL POC Glucose (mg/dL) (70-110) mg/dL Total Protein 5.2 L (6.3-8.2) g/dL Albumin 2.8 L (3.5-5.0) g/dL Urine Appearance Cloudy H (Clear) Urine Protein 1+ H (Negative) Urine Blood Large H (Negative) Ur Leukocyte Esterase Large H (Negative) Urine RBC 141 H (0-5) /hpf Urine WBC 47 H (0-5) /hpf Urine Bacteria Moderate H (None) /hpf Assessment and Plan Assessment: Acute hypertensive emergency, resolved. Acute decompensated CHF, with LV dysfunction, ejection fraction of 30-35%. Heart catheterization with no significant coronary disease. Acute metabolic encephalopathy, improved. Hypothyroidism. Peripheral vascular occlusive disease. Severe cardiomyopathy. Acute kidney injury. Plan: Plan dated 03/01/2023. Patient appears to be doing much better. The patient's currently on saline at 80 mL an hour, oxygen. Labs, x-rays, medications are reviewed. The patient will likely end up in a long term rehab facility. She should continue on GI and DVT prophylaxis. Labs, x-rays, medications are reviewed. Prognosis is certainly guarded. We will continue to follow make recommendations along the way. Prognosis is guarded. Plan dated 03/02/2023. The patient remains on 2 L. She's not receiving any IV fluids. He underwent cardiac catheterization yesterday, which revealed some disease in the distal left circumflex coronary artery. The patient's labs, x-rays, and medications are reviewed. She continues on GI and DVT prophylaxis. Prognosis is guarded. Her mental status is much improved. We will continue to follow. Plan dated 03/03/2023. The patient's very stable from the pulmonary standpoint. She's not having any respiratory issues whatsoever. She is on room air. She's not receiving any IV fluids. Brain CT showed nothing acute. Coronary arteriography was not too remarkable. From the pulmonary standpoint, the patient could be discharged. Prognosis is guarded. Mental status is a bit improved. Moving forward, we will see the patient only as needed. Time with Patient: Less than 30
[2023-03-03 11:23] LABS: Glucose,Whole Blood 143 mg/dL (70-110)
[2023-03-03 16:18] LABS: Glucose,Whole Blood 149 mg/dL (70-110)
[2023-03-03 20:22] LABS: Glucose,Whole Blood 144 mg/dL (70-110)
[2023-03-03] MEDS: ATORVASTATIN 80 MG TAB PO SCH (20:47)
--- NOTE | 2023-03-03 21:37 | P.PN ---
Subjective Progress Note Date: 03/03/23 This is a 57-year-old female history significant for diabetes mellitus, hypertension, myocardial infarction, thyroid disorder, current smoker. Patient presented to the hospital for altered mental status and was found on the floor by her he was unable to lift her up. Patient was brought in by EMS. Patient is found to have generalized weakness confusion and has been having multiple falls at home with progressive weakness over the last 5 months, patient is a poor historian and currently alert x 0 and obtunded at the time of examination. at the bedside provides the medical history, patient is a daily smoker and occasional alcohol use. Over the last 5 months has been having frequent falls and has been increasingly confused Has not been to a doctor and not taking recommending medications. Additionally he felt patient may have suffered a stroke a few months ago and had noticed a facial droop around that time. Patient in the ER was awake and alert. Blood pressure on admission was in the 220s systolic and difficult to treat with multiple antihypertensive agents given. Patient was also given IV ativan. Chest x-ray on admission shows cardiomegaly with linear atelectasis and/or scarring the left midlung. EKG shows sinus tachycardia with a heart rate of 110 on admission. She has no elevated white blood cell count it is normal at 7.1, sodium of 135, BUN/cr 32 and 1.28, Lacis acid is normal 1.3. She does have troponin elevation of 0.067, 0.074, 0.075.. ProBNP is elevated at 16,200, TSH is also 38.800, free T4 0.84. Urinalysis is negative for infection, urine drug toxicology is negative. Patient is admitted to the hospital for new onset CHF and originially admitted to the stepdown unit. Patient was upgraded to the intensive care unit and placed on nitro gtt and had also become unresponsive only arousing to sternal rub. Patient does not appear to have feeling in the left foot there is mottling and purple discoloration of the great toe and 3/4 toes likely due to ischemia and vascular services has been consulted as well as neurology, cardiology and pulmonary electrical helper. Recommend a brain CT when patient is more stable and also ABGs will be done. An echocardiogram reveals EF of 30-35%, mild MR. 02/20/2023 Patient continues to be monitored closely in the intensive care unit. Currently alert x 2 more awake than yesterday, does have some slurred speech today. Brain CT shows no acute intracranial process with remote lacunar injuries along with nonspecific white matter changes likely secondary to chronic microangiography. EEG is negative. Neurology following and recommending brain MRI. Chest xray today is negative. Continues on IV lasix 40 mg every 12 hours with urine output of over 5L in the last 24 hours. Continues on IV cleviprex/clonidine patch and blood pressure running in the 150s systolic. Labs reveal sodium of 138, potassium 3.8, BUN 23, creatinine of 1.0. 02/21/2023 Patient is evaluated today in the intensive care unit. Patient is slightly more lethargic today was given a dose of IV ativan overnight for increased agitated. Patient had failed swallow evaluation and has been placed NPO at this time. Slightly more lethargic than yesterday. Patient is being followed by neurology and recommended to undergo MRI tomorrow however patient remains on IV cleviprex for blood pressure control as well as clonidine patch and IV hydralazine. Pat ient continues on IV lasix Q12 which has been decreased to 20 mg. CTA thoracic and abdominal aorta with run off reveals long segment occlusion bilateral mid superficial femoral arteries with reconstitution of the distal SFA bilaterally. There is proximal abdominal aortic aneurysm. Multifocal calcific disease estimated 7% stenosis anterior tibial arteries bilaterally. Vascular surgery following with further recommendations forthcoming. Labs today reveal white count of 7.8, hgb 16.5. Potassium 3.1 and magnesium 1.5. Heart rate controlled in the 70s, blood pressure in the 140/80s and currnently requiring 2L of oxygen. Patient does have some tenderness to the LLQ on exam. 02/22/2023 Patient evaluated in the intensive care unit today, more awake and alert sitting up in the chair. Diet has been advanced to pureed diet. Patient also had a bowel movement today. Diminished airway patient needs encouragement to cough and deep breath and will be given incentive spirometer. Was given IV synthroid and transitioned to oral synthroid today. Has been resumed on oral blood pressure medication including clonidine patch and taken off the cleviprex gtt and bp has improved down to 110/90 currently. Vascular surgery following recommending vascular intervention when medically stable. Patient is pending MRI and likely will be done Wednesday. Sodium has dropped to 130 today, BUN 22, creatinine 1.16, total bilirubin 1.4. 02/23/2023 Patient is seen and evaluated and follow-up in the ICU with multiple medical consultations following. Patient was able to undergo MRI of the brain with neurology following undergoing extensive workup including cardiology and vascular surgery along with pulmonary electrical helper. MRI of the brain showed numerous punctate foci of acute infarcts involving the frontal and parietal cortices, deep white matter regions on both sides, bilateral thalami, and left basal ganglia with additional small focus in the left paramedian vita. A couple foci measuring up to 1.0 cm involving the left glenohumeral of the corpus callosum and findings suggest small infarcts greater than 6 hours in duration consider a central thromboembolic phenomenon with background severe burden of small chronic vessel ischemic disease. Per nursing staff patient had a decrease in mentation and blood pressures have been uncontrolled with neurology and cardiology making adjustments. Clonidine discontinued and awaiting possible YANDEL. CTA ordered and pending. Chest x-ray today shows NG tube appearing in good position with stable left lower infiltrate and small effusion and patient is maintained on IV Lasix low dose daily. 02/24/2023 Patient is seen in follow-up this morning continues to be in the ICU with multiple medical consultations following. Neurology recommending YANDEL with card iology following inpatient is reporting some chest pain and currently awaiting troponins and repeat EKG. Possible YANDEL today. Patient's mentation is somewhat improved today although extremely delayed. Patient continues to ask for her on exam. Patient is afebrile and continues with NG tube an abdominal x- ray is ordered and pending. Patient with multiple strokes noted and significant noncompliance with seeking any type of medical attention for many years and left lower limb ischemia, prognosis is extremely poor and guarded. Patient's CODE STATUS is no code and need to discuss further about overall prognosis and treatment plan moving forward as patient will need ECF and unsure if she is going to be agreeable to this. Case management/social work following. 02/25/2023 Patient is seen and evaluated in follow-up this morning lethargic although arousable. Patient condition continues to be extremely guarded and overall poor at this time with multiple medical consultations following. Patient underwent YANDEL yesterday with concerns for possible amyloidosis. Patient noted have factor V deficiency and hematology was consulted for input and recommendations. Patient is maintained on aspirin and will continue for now. Patient has been taken off diuretics and placed on gentle IV hydration and patient continues to be nothing by mouth with an NG tube. Abdominal x-ray suggestive of ileus versus obstruction and will consult general surgery. Discussed briefly with and will discuss further at length about overall prognosis, treatment plan, and options moving forward. Vascular surgery has evaluated the patient with no plans for surgical intervention at this time and patient does have noted left lower extremity ischemia with discoloration which is slightly improved. Patient is afebrile with no reported chest pain or shortness of breath. Patient continues to be nothing by mouth with an NG tube. 02/26/2023 Patient is seen and evaluated in follow-up continues to be in the ICU with multiple medical consultations following. Patient with aspiration risk being evaluated by speech therapy recommending modified. Swallow study which is occurring today. Multiple medical consultations including neurology, pulmonary electrical helper, cardiology following. Patient's blood pressure remains elevated and uncontrolled with medications being adjusted. Patient being started on Plavix and continued on aspirin. Discussion was had with cardiology patient will eventually need cardiac cath. Vascular following with no plans for surgical intervention at this time the left lower extremity ischemia. Hematology also following and undergoing workup as patient has history of factor 5 L deficiency. Patient's mentation is somewhat improved today and able to converse more and is responding appropriately to questions and commands. Reports of chest pain or palpitations. Patient denies nausea or vomiting and continues with NG tube for now. Patient is having bowel movements with no plans for surgical intervention per general surgery as there were concerns for ileus v ersus possible bowel obstruction. Recommend follow-up labs in a.m. 02/27/2023 Patient is in the MICU. Resting in the bed. Awake alert and oriented x1-2, follows simple commands. Currently on room air. Denies any complaints of chest pain or shortness of breath. Patient has been afebrile. Tolerating oral diet slowly. No complaints of abdominal pain. No nausea or vomiting. NG tube has been discontinued. Patient had modified barium swallow for dysphagia. Patient is able to swallow without aspiration. And was started on dysphagia level 3 diet. Patient is encephalopathic but is improving. Laboratory data showed sodium 132 potassium 3.9 chloride 98 bicarb is 30 BUN 23 and creatinine 0.92 and blood sugar is 104 and calcium 8.3, WBC 7.9 hemoglobin 16.0 and platelets 219. 02/28/2023 Patient is in the MICU. Sitting in the chair. Awake alert and oriented x2. Patient is able to communicate and follow simple commands. Improving mental status. Able to tolerate oral diet. Currently titrated down to room air. Blood pressure is fairly controlled. Cardiology is planning for catheterization tomorrow. Laboratory data showed sodium 132 potassium 3.7 chloride 94 bicarb is 37 BUN 18 and creatinine 0.9 and blood sugar is 105. WBC 5.8 hemoglobin 15.3 and platelets 194. Patient is being transferred to medical floor today. 03/01/2023 Patient is seen and evaluated in follow-up currently on a stepdown unit currently awaiting cardiac catheterization. Patient is currently nothing by mouth although has been tolerating oral diet. Patient's mentation is significantly improved her blood pressure better controlled. Multiple medical consultations following including pulmonary electrical helper, neurology, cardiology. Will await cardiac catheterization report and continue current medication regimen. Recommend PT/OT therapy evaluation. 03/02/2023 Patient seen and evaluated in follow-up today currently resting although easily arousable continues with significant weakness with multiple medical consultations following. PT/OT to evaluate the patient and family would like [facility] as a choice for rehab with case management following. Hematology is also following this patient does have significant medical history of factor 5 L deficiency and awaiting further testing to determine anticoagulation for the patient. Patient is continued on aspirin and Plavix along with subcutaneous Lovenox while awaiting for recommendations per hematology. Blood pressure better controlled and will continue current regimen. Patient is afebrile with no reports of chest pain or worsening shortness of breath. 03/03/2023 Patient is seen and evaluated in follow-up in per nursing staff patient is lethargic and alert and oriented 1 today with concerns of increased confusion patient appears to be baseline although was fatigued this morning but is answering questions and commands appropriately. Repeat CT brain showed no acute process and neurology is following. Urinalysis was also obtained showing some leukocyte esterase, possibly asymptomatic bacteriuria as patient is not reporting any pain or burning with urination. Will start empiric ceftriaxone and monitor closely. Patient with significant weakness agreeable to rehab and case management is following patient will require an insurance authorization and will submit. Review of Systems Constitutional: Reports of fatigue, denied any fever. Cardio vascular: Denies chest pain, no palpitations Gastrointestinal: denied any nausea, vomiting, diarrhea, reports tolerating oral intake Pulmonary: Denied any shortness of breath cough Neurologic: denied any new focal deficits, reports weakness PHYSICAL EXAMINATION: GENERAL: The patient is alert and oriented x2-3, mentation much improved and geovanna avelar appears baseline per at bedside. elderly appearing Pale. HEENT: Pupils are round and equally reacting to light. EOMI. No scleral icterus. No conjunctival pallor. Normocephalic, atraumatic. No pharyngeal erythema. No thyromegaly. CARDIOVASCULAR: S1 and S2 muffled PULMONARY: Diminished breath sounds bilaterally with no wheezing or crackles. ABDOMEN: Soft, nontender, nondistended, normoactive bowel sounds. No palpable organomegaly. MUSCULOSKELETAL: No joint swelling or deformity. EXTREMITIES: No cyanosis, clubbing, or pedal edema. Left lower extremity with discoloration NEUROLOGICAL: Alert and oriented 3, Cooperative, following commands, speaking more clearly, Diffuse weakness. SKIN: No rashes. There is discoloration to toes on the left foot extending to the left foot pad, progressing. Assessment: Altered mental status secondary to acute metabolic encephalopathy, improving Acute infarct involving the frontal and parietal cortices, deep white matter regions on both sides, bilateral thalami, and left basal ganglia as noted on MRI of the brain, possible central thromboembolic phenomenon Progressive weakness and frequent falls at home Possible acute urinary tract infection, although suspicion is low most likely asymptomatic bacteriuria as patient is not having any pain or burning with urination and is afebrile Hypertension with urgency on admission, improving Elevated troponin level Acute kidney injury vs CKD, improved Ischemic changes to the left foot. Acute congestive heart failure, systolic dysfunction Severe Cardiomyopathy and LV dysfunction possibly from the hypertension vs hypothyroidism Possible amyloidosis Hypothyroidism Elevated D-Dimer Hypothyroidism Diabetes Mellitus type 2 uncontrolled History of factor V leiden deficiency History of myocardial infarction unknown details Chronic and ongoing nicotine use Medical noncompliance Marijuana use GI prophylaxis DVT prophylaxis; SCDs subcutaneous Lovenox Do Not Resuscitate/Do Not Intubate Plan: Continue monitoring the patient with multiple medical consultations following. Cardiology following and underwent cardiac catheterization showing moderate disease at the distal left circumflex with 50-60% lesion circumflex lesion not explaining her cardiomyopathy per cardiology and recommending medical management. They have signed off Urinalysis was obtained with some leukocyte esterase although possibly secondary to immobility and recent catheterization as patient is not complaining of burning or pain with urination, possibly asymptomatic bacteriuria. Will give empiric ceftriaxone and monitor closely Hematology following awaiting labs to determine if patient is a candidate for anticoagulation. Recommend continue with aspirin, Plavix, subcutaneous Lovenox for now and will discuss further with hematology about anticoagulant Blood pressure being monitored and much improved will continue current regimen with multiple medical consultations following. Patient is tolerating oral intake encouraged increase in diet and also recommend aspiration precautions with head of the bed elevated 30-45 at all times and supervision with meals Recommend PT/OT therapy evaluation, case management following and patient would like possibly [facility], needs insurance authorization Follow up labs in AM Again, Overall prognosis is extremely guarded The impression and plan of care has been dictated by Rhonda Hawkins, Nurse Practitioner as directed. Dr. Tej MD I have performed a history and examination and MDM of this patient, discussed the same with the dictator, and agree with the dictator's assessment and plan as written ,documented as a scribe. Based on total visit time, I have performed more than 50% of the visit. Objective - Vital Signs Vital signs: Vital Signs Temp 98.4 F 03/03/23 07:46 Pulse 77 03/03/23 07:46 Resp 18 03/03/23 07:46 BP 172/90 03/03/23 07:46 Pulse Ox 91 L 03/03/23 07:46 FiO2 Intake & Output 03/02/23 03/03/23 03/03/23 18:59 06:59 18:59 Intake Total 360 10 110 Output Total 275 800 Balance 85 -790 110 Weight 56.1 kg Intake: IV 10 Invasive Line 6 10 Oral 360 110 Output: Urine 275 800 Other: Voiding Method Bedside Commode Bedside Commode External Catheter # Voids 1 # Bowel Movements 1 - Labs CBC & Chem 7: 03/03/23 08:18 03/03/23 08:18 Labs: Abnormal Lab Results - Last 24 Hours (Table) 03/02/23 03/02/23 03/03/23 Range/Units 16:23 20:11 06:05 Hct (34.0-46.0) % Sodium (137-145) mmol/L Chloride (98-107) mmol/L Carbon Dioxide (22-30) mmol/L Glucose (74-99) mg/dL POC Glucose (mg/dL) 180 H 114 H 128 H (70-110) mg/dL Total Protein (6.3-8.2) g/dL Albumin (3.5-5.0) g/dL Urine Appearance (Clear) Urine Protein (Negative) Urine Blood (Negative) Ur Leukocyte Esterase (Negative) Urine RBC (0-5) /hpf Urine WBC (0-5) /hpf Urine Bacteria (None) /hpf 03/03/23 03/03/23 03/03/23 Range/Units 08:13 08:18 08:18 Hct 46.5 H (34.0-46.0) % Sodium 131 L (137-145) mmol/L Chloride 95 L (98-107) mmol/L Carbon Dioxide 35 H (22-30) mmol/L Glucose 121 H (74-99) mg/dL POC Glucose (mg/dL) (70-110) mg/dL Total Protein 5.2 L (6.3-8.2) g/dL Albumin 2.8 L (3.5-5.0) g/dL Urine Appearance Cloudy H (Clear) Urine Protein 1+ H (Negative) Urine Blood Large H (Negative) Ur Leukocyte Esterase Large H (Negative) Urine RBC 141 H (0-5) /hpf Urine WBC 47 H (0-5) /hpf Urine Bacteria Moderate H (None) /hpf
[2023-03-04 06:06] LABS: Glucose,Whole Blood 108 mg/dL (70-110)
[2023-03-04] MEDS: LEVOTHYROXINE 50 MCG TAB PO SCH ×2 (06:22→09:14)
[2023-03-04] MEDS: carvediloL 12.5 MG TAB PO SCH ×3 (06:22→16:56)
[2023-03-04 07:52] LABS: African American GFR (CKD) 83 (>60 ml/min/1.73 sqM); Anion Gap 0 mmol/L; Blood Urea Nitrogen 17 mg/dL (7-17); Calcium 8.3 mg/dL (8.4-10.2); Carbon Dioxide 35 mmol/L (22-30); Chloride 97 mmol/L (98-107); Glucose 110 mg/dL (74-99); Non-African American GFR(CKD) 72 (>60 ml/min/1.73 sqM); Potassium 3.8 mmol/L (3.5-5.1); Sodium 132 mmol/L (137-145)
[2023-03-04] MEDS: CLOPIDOGREL 75 MG TAB PO SCH (09:14)
[2023-03-04] MEDS: hydrALAZINE HCL 50 MG TAB PO SCH ×3 (09:14→20:20)
[2023-03-04] MEDS: ASPIRIN 81 MG PO SCH (09:14)
[2023-03-04] MEDS: THIAMINE 100 MG TAB PO SCH (09:14)
[2023-03-04] MEDS: lisinopriL 20 MG TAB PO SCH ×2 (09:14→20:20)
[2023-03-04] MEDS: PANTOPRAZOLE 40 MG/10 ML VIAL IVP SCH ×2 (09:14→20:20)
[2023-03-04] MEDS: SPIRONOLACTONE 25 MG TAB PO SCH (09:14)
[2023-03-04] MEDS: ENOXAPARIN 40 MG/0.4 ML SYRINGE SQ SCH (09:15)
[2023-03-04] MEDS: NICOTINE 14MG/24HR PATCH TRANSDERM SCH (09:15)
[2023-03-04] MEDS: MAG HYDROX/AL HYDROX/SIMETH 30 ML, diphenhydrAMINE ELIXIR 75 MG, LIDOCAINE VISCOUS 2% 3... PO SCH ×9 (09:22→20:21)
--- NOTE | 2023-03-04 09:42 | P.PN ---
Subjective Progress Note Date: 03/03/23 03/03/2023: Patient was seen for a follow-up. Patient apparently had acute mental status change earlier this morning today. She was very lethargic, more disoriented. Repeat CT head performed, which did not reveal any acute process. At present patient is slightly somnolent, but does wake up and answers appropriately. Patient states that she was sleeping before I woke her up. 03/01/2023: Patient was seen for a follow-up. Patient is laying comfortably in the bed. Patient states "I'm doing well". Patient had undergone cardiac catheterization today. Patient has new onset CHF. Patient offers no complaints. 02/26/2023: Patient was seen for a follow-up. Patient is laying comfortably in the bed. Offers no complaints. Denies any headache or dizziness. 02/25/2023: Patient initially seen by Dr. Stanley Thompson. Please refer to his note for details. Patient is a 57-year-old female with bilateral hemispheric strokes. She has bilateral significant carotid stenosis, > 70% stenosis on CTA but seems carotid 50-69%. Bilateral femoral occlusion. The performed 02/24/2023 revealed hypokinesis with severe hypertrophy LV. No PFO. Hypercoagulable workup pending. Patient is on aspirin 325 mg daily. Vascular surgery on board. Patient was not taking any antiplatelet medication at home. Patient was sleeping when I arrived. However she did wake up and was cooperating with examination is per examination section. Patient admits to smoking 2 packs per day for 30 years, drinks couple beers per day. SOME OF THE WORK-UP DURING THIS VISIT: Vitamin B12: 644 Folate: 10.80 Ammonia 19 HbA1c: 6.6 TSH is 38.8, free T4 is 0.84 and the free T3 is 2.4. CT head is reported as no acute intracranial process. remote lacunar injuries along with nonspecific white matter changes likely secondary to chronic microangiopathy. MRI Brain is reported as numerous punctate foci of acute infarct involving the frontal and parietal disease deep white matter region of both sides, bilateral thalamus and left basal ganglia. Additional small focus in the left paramedian vita. A couple foci measuring up to 1.0 cm involving the left splenium of the corpus callosum. Given the corresponding increased T2 flare, findings suggest small infarcts is greater than 6 hours in duration. Consider central thromboembolic phenomena. Background of severe burden of chronic small vessel ischemic disease. I personally reviewed the MRI and agree with the findings with evidence of multiple areas of acute to subacute ischemia involving bilater al hemispheric region including splenium of the left corpus callosum.. EEG is abnormal. The background slowing is suggestive of moderate encephalopathy. Otherwise no focal slowing, epileptiform discharges or seizures. LASHA is negative, ESR is 2, Protein S and antithrombin II Ag is within normal rivera its. Objective - Vital Signs Vital signs: Vital Signs Temp 98.4 F 03/03/23 07:46 Pulse 63 03/03/23 13:16 Resp 18 03/03/23 11:29 BP 161/82 03/03/23 11:29 Pulse Ox 92 L 03/03/23 11:29 FiO2 Intake & Output 03/02/23 03/03/23 03/03/23 18:59 06:59 18:59 Intake Total 360 10 110 Output Total 275 800 300 Balance 85 -790 -190 Weight 56.1 kg Intake: IV 10 Invasive Line 6 10 Oral 360 110 Output: Urine 275 800 300 Other: Voiding Method Bedside Commode Bedside Commode Bedside Commode External Catheter External Catheter # Voids 1 # Bowel Movements 1 - Exam Patient was sleeping when I arrived. I woke her up, therefore she was still somnolent. Patient states it is February and the year is 2022. She knows that she is in [facility]. She states that it is "" something" [facility]. Her speech is slurred as usual. She knows her birthday. No aphasia. Patient can name and repeat very well. On cranial nerve examination, pupils are equal, round and reacting to light, visual dunbar are full on confrontation, face is symmetric and tongue protrudes the midline. Patient's concentration was decreased therefore visual dunbar were difficult to assess. On muscle strength testing, patient has normal strength in the upper limbs. Hip flexion is 4+, ankle dorsiflexion 5 bilaterally. Deep tendon reflexes are 2+ in the upper limbs, 1+ at the knees. Sensory to touch is equal. Patient appeared slightly ataxic for [id number] testing, but was very groggy and was not cooperating well. - Labs CBC & Chem 7: 03/03/23 08:18 03/04/23 07:11 Labs: Abnormal Lab Results - Last 24 Hours (Table) 03/02/23 03/02/23 03/03/23 Range/Units 16:23 20:11 06:05 Hct (34.0-46.0) % Sodium (137-145) mmol/L Chloride (98-107) mmol/L Carbon Dioxide (22-30) mmol/L Glucose (74-99) mg/dL POC Glucose (mg/dL) 180 H 114 H 128 H (70-110) mg/dL Total Protein (6.3-8.2) g/dL Albumin (3.5-5.0) g/dL Urine Appearance (Clear) Urine Protein (Negative) Urine Blood (Negative) Ur Leukocyte Esterase (Negative) Urine RBC (0-5) /hpf Urine WBC (0-5) /hpf Urine Bacteria (None) /hpf 03/03/23 03/03/23 03/03/23 Range/Units 08:13 08:18 08:18 Hct 46.5 H (34.0-46.0) % Sodium 131 L (137-145) mmol/L Chloride 95 L (98-107) mmol/L Carbon Dioxide 35 H (22-30) mmol/L Glucose 121 H (74-99) mg/dL POC Glucose (mg/dL) (70-110) mg/dL Total Protein 5.2 L (6.3-8.2) g/dL Albumin 2.8 L (3.5-5.0) g/dL Urine Appearance Cloudy H (Clear) Urine Protein 1+ H (Negative) Urine Blood Large H (Negative) Ur Leukocyte Esterase Large H (Negative) Urine RBC 141 H (0-5) /hpf Urine WBC 47 H (0-5) /hpf Urine Bacteria Moderate H (None) /hpf 03/03/23 Range/Units 11:22 Hct (34.0-46.0) % Sodium (137-145) mmol/L Chloride (98-107) mmol/L Carbon Dioxide (22-30) mmol/L Glucose (74-99) mg/dL POC Glucose (mg/dL) 143 H (70-110) mg/dL Total Protein (6.3-8.2) g/dL Albumin (3.5-5.0) g/dL Urine Appearance (Clear) Urine Protein (Negative) Urine Blood (Negative) Ur Leukocyte Esterase (Negative) Urine RBC (0-5) /hpf Urine WBC (0-5) /hpf Urine Bacteria (None) /hpf Assessment and Plan Assessment: This is a 57-year-old woman with history of hypertension and is not compliant taking medication who presented because of generalized weakness, confusion, falls for the past weeks to months. New onset altered mental status, likely due to UTI. UA abnormal. Altered mental status seems due to multifactorial: acute bilateral hemispheric stroke, Also due to hypertensive encephalopathy with component due to abnormal thyroid and some component of metabolic--significant improvement in mentation Acute ischemic bilateral hemispheric stroke: Unsure exact cause. Appears embolic in nature. Rule out cardioembolic vs underlying hypercoagulable vs due to artery to artery embolic from carotid stenosis. Per CTA has right ICA stenosis 60-70% and left 70-80% Hypercoagulable state with positive/heterozygous for prothrombin gene as well as factor V Leiden mutation. Signficant Bilateral carotid stenosis right ICA stenosis 60-70% and left 70-80% per CTA Acute hypertensive emergency (presented with blood pressure 230's/170's--currently is 130-140's/80's to 90's) she was on nitroglycerin, she received clonidine patch as well as IV hydralazine--resolved Generalized weakness Acute bilateral femoral occlusive disease with ischemic changes over the left toe Falls Possible TIA about 4-5 months ago (had transient right facial weakness per ). Systolic heart failure with ejection fraction of 30-35% Elevated troponin Hypothyroidism Peripheral vascular disease Chronic history of hypertension and noncompliant with medication Tobacco use Alcohol use Noncompliance with medication and does not follow up with physician Plan: Patient has new altered mental status, likely due to acute hospital-acquired UTI. Patient on ceftriaxone. Repeat CT head performed today was negative for any acute process. Age-related atrophic and chronic small vessel ischemic disease noted. I personally reviewed CT head, agree with the findings. Recommend patient to be placed on dual antiplatelet medication because of the extent of vasculopathy noted on the CTA of head and neck as well as peripheral vasculature. Patient to be on continued on Plavix 75 mg and aspirin 325 mg daily. YANDEL performed 02/24/2023 revealed moderately impaired left ventricular systolic function with global hypokinesis and severe hypertrophy with speckling raising the possibility of infiltrative disease. No evidence of shunting across the intra-atrial septum. Mild aortic and mitral regurgitation. Mild atherosclerotic changes of the descending aorta. Cardiac catheterization 03/01/2023 revealed moderate disease in the left distal circumflex, left dominance and low LVEDP. Suggest 30 day event monitor to rule out paroxysmal atrial fibrillation. LASHA is negative, ESR is 2, Protein S and antithrombin II Ag is within normal limits. DsDNA negative. Factor V Leiden heterozygous, which is associated with activated protein C resistance and increased risk for venous thromboembolism. It increased risk for VTE. Lupus anticoagulant negative. Prothrombin gene mutation also heterozygous for [id number] mutation. Patient's homocysteine is highly elevated 27.9. Hematology to address hypercoagulable state. Discussed with Dr. Sim, recommending dual antiplatelet medications, unless she is positive for antiphospholipid antibodies. Appreciate hematology recommendations. Patient to be on DAPT with aggressive vascular risk factor modification. Await beta-2 glycoprotein. B12 is 644, folate 10.8 both normal. TSH is elevated 38.8. IM to address. Patient on Protonix 40 mg twice a day for gastric ulcer prophylaxis. On Lipitor 80mg qhs for secondary stroke prophylaxis. Continue neuro checks On cardiac monitoring. Telemetry monitoring showing sinus rhythm, with some couplets, PVCs and PACs PT, OT and MATERIALS SUPERVISOR are consulted. Cardiology is on board. Continue thiamine 100mg daily. Please avoid any sedation if possible to have a better neurological evaluation. Vascular surgery team for bilateral femoral occlusive disease. Also has leg toes ischemia. No intervention recommended by vascular surgery. Will defer rest of management to primary and other specialist. For DVT prophylaxis: On Enoxaparin. Neurologically, no other workup indicated. Cardiology following. Vascular surgery recommending no intervention at this time and suggest follow-up with vascular surgery as an outpatient. Appreciate hematology input. Neurologically clear.
[2023-03-04 11:48] LABS: Glucose,Whole Blood 144 mg/dL (70-110)
[2023-03-04 12:58] VITALS: BMI 23.9
[2023-03-04 16:53] LABS: Glucose,Whole Blood 132 mg/dL (70-110)
[2023-03-04] MEDS: ATORVASTATIN 80 MG TAB PO SCH (20:20)
[2023-03-04 20:25] LABS: Glucose,Whole Blood 102 mg/dL (70-110)
--- NOTE | 2023-03-05 04:43 | P.PN ---
Subjective Progress Note Date: 03/04/23 This is a 57-year-old female history significant for diabetes mellitus, hypertension, myocardial infarction, thyroid disorder, current smoker. Patient presented to the hospital for altered mental status and was found on the floor by her he was unable to lift her up. Patient was brought in by EMS. Patient is found to have generalized weakness confusion and has been having multiple falls at home with progressive weakness over the last 5 months, patient is a poor historian and currently alert x 0 and obtunded at the time of examination. at the bedside provides the medical history, patient is a daily smoker and occasional alcohol use. Over the last 5 months has been having frequent falls and has been increasingly confused Has not been to a doctor and not taking recommending medications. Additionally he felt patient may have suffered a stroke a few months ago and had noticed a facial droop around that time. Patient in the ER was awake and alert. Blood pressure on admission was in the 220s systolic and difficult to treat with multiple antihypertensive agents given. Patient was also given IV ativan. Chest x-ray on admission shows cardiomegaly with linear atelectasis and/or scarring the left midlung. EKG shows sinus tachycardia with a heart rate of 110 on admission. She has no elevated white blood cell count it is normal at 7.1, sodium of 135, BUN/cr 32 and 1.28, Lacis acid is normal 1.3. She does have troponin elevation of 0.067, 0.074, 0.075.. ProBNP is elevated at 16,200, TSH is also 38.800, free T4 0.84. Urinalysis is negative for infection, urine drug toxicology is negative. Patient is admitted to the hospital for new onset CHF and originially admitted to the stepdown unit. Patient was upgraded to the intensive care unit and placed on nitro gtt and had also become unresponsive only arousing to sternal rub. Patient does not appear to have feeling in the left foot there is mottling and purple discoloration of the great toe and 3/4 toes likely due to ischemia and vascular services has been consulted as well as neurology, cardiology and pulmonary gun number. Recommend a brain CT when patient is more stable and also ABGs will be done. An echocardiogram reveals EF of 30-35%, mild MR. 02/20/2023 Patient continues to be monitored closely in the intensive care unit. Currently alert x 2 more awake than yesterday, does have some slurred speech today. Brain CT shows no acute intracranial process with remote lacunar injuries along with nonspecific white matter changes likely secondary to chronic microangiography. EEG is negative. Neurology following and recommending brain MRI. Chest xray today is negative. Continues on IV lasix 40 mg every 12 hours with urine output of over 5L in the last 24 hours. Continues on IV cleviprex/clonidine patch and blood pressure running in the 150s systolic. Labs reveal sodium of 138, potassium 3.8, BUN 23, creatinine of 1.0. 02/21/2023 Patient is evaluated today in the intensive care unit. Patient is slightly more lethargic today was given a dose of IV ativan overnight for increased agitated. Patient had failed swallow evaluation and has been placed NPO at this time. Slightly more lethargic than yesterday. Patient is being followed by neurology and recommended to undergo MRI tomorrow however patient remains on IV cleviprex for blood pressure control as well as clonidine patch and IV hydralazine. Pat ient continues on IV lasix Q12 which has been decreased to 20 mg. CTA thoracic and abdominal aorta with run off reveals long segment occlusion bilateral mid superficial femoral arteries with reconstitution of the distal SFA bilaterally. There is proximal abdominal aortic aneurysm. Multifocal calcific disease estimated 7% stenosis anterior tibial arteries bilaterally. Vascular surgery following with further recommendations forthcoming. Labs today reveal white count of 7.8, hgb 16.5. Potassium 3.1 and magnesium 1.5. Heart rate controlled in the 70s, blood pressure in the 140/80s and currnently requiring 2L of oxygen. Patient does have some tenderness to the LLQ on exam. 02/22/2023 Patient evaluated in the intensive care unit today, more awake and alert sitting up in the chair. Diet has been advanced to pureed diet. Patient also had a bowel movement today. Diminished airway patient needs encouragement to cough and deep breath and will be given incentive spirometer. Was given IV synthroid and transitioned to oral synthroid today. Has been resumed on oral blood pressure medication including clonidine patch and taken off the cleviprex gtt and bp has improved down to 110/90 currently. Vascular surgery following recommending vascular intervention when medically stable. Patient is pending MRI and likely will be done Wednesday. Sodium has dropped to 130 today, BUN 22, creatinine 1.16, total bilirubin 1.4. 02/23/2023 Patient is seen and evaluated and follow-up in the ICU with multiple medical consultations following. Patient was able to undergo MRI of the brain with neurology following undergoing extensive workup including cardiology and vascular surgery along with pulmonary gun number. MRI of the brain showed numerous punctate foci of acute infarcts involving the frontal and parietal cortices, deep white matter regions on both sides, bilateral thalami, and left basal ganglia with additional small focus in the left paramedian vita. A couple foci measuring up to 1.0 cm involving the left glenohumeral of the corpus callosum and findings suggest small infarcts greater than 6 hours in duration consider a central thromboembolic phenomenon with background severe burden of small chronic vessel ischemic disease. Per nursing staff patient had a decrease in mentation and blood pressures have been uncontrolled with neurology and cardiology making adjustments. Clonidine discontinued and awaiting possible YNADEL. CTA ordered and pending. Chest x-ray today shows NG tube appearing in good position with stable left lower infiltrate and small effusion and patient is maintained on IV Lasix low dose daily. 02/24/2023 Patient is seen in follow-up this morning continues to be in the ICU with multiple medical consultations following. Neurology recommending YANDEL with card iology following inpatient is reporting some chest pain and currently awaiting troponins and repeat EKG. Possible YANDEL today. Patient's mentation is somewhat improved today although extremely delayed. Patient continues to ask for her on exam. Patient is afebrile and continues with NG tube an abdominal x- ray is ordered and pending. Patient with multiple strokes noted and significant noncompliance with seeking any type of medical attention for many years and left lower limb ischemia, prognosis is extremely poor and guarded. Patient's CODE STATUS is no code and need to discuss further about overall prognosis and treatment plan moving forward as patient will need ECF and unsure if she is going to be agreeable to this. Case management/social work following. 02/25/2023 Patient is seen and evaluated in follow-up this morning lethargic although arousable. Patient condition continues to be extremely guarded and overall poor at this time with multiple medical consultations following. Patient underwent YANDEL yesterday with concerns for possible amyloidosis. Patient noted have factor V deficiency and hematology was consulted for input and recommendations. Patient is maintained on aspirin and will continue for now. Patient has been taken off diuretics and placed on gentle IV hydration and patient continues to be nothing by mouth with an NG tube. Abdominal x-ray suggestive of ileus versus obstruction and will consult general surgery. Discussed briefly with and will discuss further at length about overall prognosis, treatment plan, and options moving forward. Vascular surgery has evaluated the patient with no plans for surgical intervention at this time and patient does have noted left lower extremity ischemia with discoloration which is slightly improved. Patient is afebrile with no reported chest pain or shortness of breath. Patient continues to be nothing by mouth with an NG tube. 02/26/2023 Patient is seen and evaluated in follow-up continues to be in the ICU with multiple medical consultations following. Patient with aspiration risk being evaluated by speech therapy recommending modified. Swallow study which is occurring today. Multiple medical consultations including neurology, pulmonary gun number, cardiology following. Patient's blood pressure remains elevated and uncontrolled with medications being adjusted. Patient being started on Plavix and continued on aspirin. Discussion was had with cardiology patient will eventually need cardiac cath. Vascular following with no plans for surgical intervention at this time the left lower extremity ischemia. Hematology also following and undergoing workup as patient has history of factor 5 L deficiency. Patient's mentation is somewhat improved today and able to converse more and is responding appropriately to questions and commands. Reports of chest pain or palpitations. Patient denies nausea or vomiting and continues with NG tube for now. Patient is having bowel movements with no plans for surgical intervention per general surgery as there were concerns for ileus v ersus possible bowel obstruction. Recommend follow-up labs in a.m. 02/27/2023 Patient is in the MICU. Resting in the bed. Awake alert and oriented x1-2, follows simple commands. Currently on room air. Denies any complaints of chest pain or shortness of breath. Patient has been afebrile. Tolerating oral diet slowly. No complaints of abdominal pain. No nausea or vomiting. NG tube has been discontinued. Patient had modified barium swallow for dysphagia. Patient is able to swallow without aspiration. And was started on dysphagia level 3 diet. Patient is encephalopathic but is improving. Laboratory data showed sodium 132 potassium 3.9 chloride 98 bicarb is 30 BUN 23 and creatinine 0.92 and blood sugar is 104 and calcium 8.3, WBC 7.9 hemoglobin 16.0 and platelets 219. 02/28/2023 Patient is in the MICU. Sitting in the chair. Awake alert and oriented x2. Patient is able to communicate and follow simple commands. Improving mental status. Able to tolerate oral diet. Currently titrated down to room air. Blood pressure is fairly controlled. Cardiology is planning for catheterization tomorrow. Laboratory data showed sodium 132 potassium 3.7 chloride 94 bicarb is 37 BUN 18 and creatinine 0.9 and blood sugar is 105. WBC 5.8 hemoglobin 15.3 and platelets 194. Patient is being transferred to medical floor today. 03/01/2023 Patient is seen and evaluated in follow-up currently on a stepdown unit currently awaiting cardiac catheterization. Patient is currently nothing by mouth although has been tolerating oral diet. Patient's mentation is significantly improved her blood pressure better controlled. Multiple medical consultations following including pulmonary gun number, neurology, cardiology. Will await cardiac catheterization report and continue current medication regimen. Recommend PT/OT therapy evaluation. 03/02/2023 Patient seen and evaluated in follow-up today currently resting although easily arousable continues with significant weakness with multiple medical consultations following. PT/OT to evaluate the patient and family would like [facility] as a choice for rehab with case management following. Hematology is also following this patient does have significant medical history of factor 5 L deficiency and awaiting further testing to determine anticoagulation for the patient. Patient is continued on aspirin and Plavix along with subcutaneous Lovenox while awaiting for recommendations per hematology. Blood pressure better controlled and will continue current regimen. Patient is afebrile with no reports of chest pain or worsening shortness of breath. 03/03/2023 Patient is seen and evaluated in follow-up in per nursing staff patient is lethargic and alert and oriented 1 today with concerns of increased confusion patient appears to be baseline although was fatigued this morning but is answering questions and commands appropriately. Repeat CT brain showed no acute process and neurology is following. Urinalysis was also obtained showing some leukocyte esterase, possibly asymptomatic bacteriuria as patient is not reporting any pain or burning with urination. Will start empiric ceftriaxone and monitor closely. Patient with significant weakness agreeable to rehab and case management is following patient will require an insurance authorization and will submit. 03/04/2023 Patient is seen and evaluated this morning currently sitting up in the chair alert and oriented with no acute overnight issues reported. Patient is afebrile with reports of chest pain or shortness of breath noted. Labs reviewed within normal limits. Case management following this patient is agreeable and will be going to [facility] once insurance authorization is obtained. Recommend physical therapy daily. Patient denies any pain or burning with urination and will continue ceftriaxone for 1 more day to complete the course Review of Systems Constitutional: Reports of fatigue, denied any fever. Cardio vascular: Denies chest pain, no palpitations Gastrointestinal: denied any nausea, vomiting, diarrhea, reports tolerating oral intake Pulmonary: Denied any shortness of breath cough Neurologic: denied any new focal deficits, reports weakness PHYSICAL EXAMINATION: GENERAL: The patient is alert and oriented x2-3, mentation much improved and patient appears baseline per at bedside. elderly appearing Pale. HEENT: Pupils are round and equally reacting to light. EOMI. No scleral icterus. No conjunctival pallor. Normocephalic, atraumatic. No pharyngeal erythema. No thyromegaly. CARDIOVASCULAR: S1 and S2 muffled PULMONARY: Diminished breath sounds bilaterally with no wheezing or crackles. ABDOMEN: Soft, nontender, nondistended, normoactive bowel sounds. No palpable organomegaly. MUSCULOSKELETAL: No joint swelling or deformity. EXTREMITIES: No cyanosis, clubbing, or pedal edema. Left lower extremity with discoloration NEUROLOGICAL: Alert and oriented 3, Cooperative, following commands, speaking more clearly, Diffuse weakness. SKIN: No rashes. There is discoloration to toes on the left foot extending to the left foot pad, progressing. Assessment: Altered mental status secondary to acute metabolic encephalopathy, improving Acute infarct involving the frontal and parietal cortices, deep white matter regions on both sides, bilateral thalami, and left basal ganglia as noted on MRI of the brain Progressive weakness and frequent falls at home Possible acute urinary tract infection, although suspicion is low most likely asymptomatic bacteriuria as patient is not having any pain or burning with urination and is afebrile Hypertension with urgency on admission, improving Elevated troponin level, ACS ruled out per cardiology Acute kidney injury vs CKD, improved Ischemic changes to the left foot. Will need outpatient follow-up with vascular surgery Acute congestive heart failure, systolic dysfunction Severe Cardiomyopathy and LV dysfunction possibly from the hypertension vs hypothyroidism Possible amyloidosis Hypothyroidism Elevated D-Dimer Hypothyroidism Diabetes Mellitus type 2 uncontrolled History of factor V leiden deficiency History of myocardial infarction unknown details Chronic and ongoing nicotine use Medical noncompliance Marijuana use GI prophylaxis DVT prophylaxis; SCDs subcutaneous Lovenox Do Not Resuscitate/Do Not Intubate Plan: Continue monitoring the patient with multiple medical consultations following. Cardiology following and underwent cardiac catheterization showing moderate disease at the distal left circumflex with 50-60% lesion circumflex lesion not explaining her cardiomyopathy per cardiology and recommending medical management. They have signed off Urinalysis was obtained with some leukocyte esterase although possibly secondary to immobility and recent catheterization as patient is not complaining of burning or pain with urination, possibly asymptomatic bacteriuria. Will continue empiric ceftriaxone for 1 more dose Hematology following and Recommend continue with aspirin, Plavix, we'll continue subcutaneous Lovenox for DVT prophylaxis. Hematology reports will not require anticoagulation and dual antiplatelet therapy to continue Blood pressure being monitored and much improved will continue current regimen with multiple medical consultations following. Patient is tolerating oral intake encouraged increase in diet and also recommend aspiration precautions with head of the bed elevated 30-45 at all times and supervision with meals Recommend PT/OT therapy daily, case management following and patient accepted at [facility], insurance authorization submitted and pending Again, Overall prognosis is extremely guarded Possible discharge in the next 24-48 hours The impression and plan of care has been dictated by Rhonda Hawkins, Nurse Practitioner as directed. Dr. Tej MD I have performed a history and examination and MDM of this patient, discussed the same with the dictator, and agree with the dictator's assessment and plan as written ,documented as a scribe. Based on total visit time, I have performed more than 50% of the visit. Objective - Vital Signs Vital signs: Vital Signs Temp 98.4 F 03/04/23 09:01 Pulse 64 03/04/23 09:01 Resp 18 03/04/23 09:01 BP 158/96 03/04/23 09:01 Pulse Ox 93 L 03/04/23 09:01 FiO2 Intake & Output 03/03/23 03/04/23 03/04/23 18:59 06:59 18:59 Intake Total 110 200 Output Total 800 250 Balance -690 -250 200 Weight 57.5 kg Intake: Oral 110 200 Output: Urine 800 250 Other: Voiding Method Bedside Commode Bedside Commode External Catheter External Catheter - Labs CBC & Chem 7: 03/03/23 08:18 03/04/23 07:11 Labs: Abnormal Lab Results - Last 24 Hours (Table) 03/03/23 03/03/23 03/03/23 Range/Units 11:22 16:15 20:19 Sodium (137-145) mmol/L Chloride (98-107) mmol/L Carbon Dioxide (22-30) mmol/L Glucose (74-99) mg/dL POC Glucose (mg/dL) 143 H 149 H 144 H (70-110) mg/dL Calcium (8.4-10.2) mg/dL 03/04/23 Range/Units 07:11 Sodium 132 L (137-145) mmol/L Chloride 97 L (98-107) mmol/L Carbon Dioxide 35 H (22-30) mmol/L Glucose 110 H (74-99) mg/dL POC Glucose (mg/dL) (70-110) mg/dL Calcium 8.3 L (8.4-10.2) mg/dL
[2023-03-05] MEDS: hydrALAZINE HCL 50 MG TAB PO SCH (05:08)
[2023-03-05] MEDS: lisinopriL 20 MG TAB PO SCH (05:08)
[2023-03-05] MEDS: LEVOTHYROXINE 50 MCG TAB PO SCH (05:08)
[2023-03-05] MEDS: carvediloL 12.5 MG TAB PO SCH (05:08)
[2023-03-05 06:07] LABS: Glucose,Whole Blood 106 mg/dL (70-110)
[2023-03-05] MEDS: CLOPIDOGREL 75 MG TAB PO SCH (09:41)
[2023-03-05] MEDS: NICOTINE 14MG/24HR PATCH TRANSDERM SCH (09:41)
[2023-03-05] MEDS: THIAMINE 100 MG TAB PO SCH (09:41)
[2023-03-05] MEDS: ENOXAPARIN 40 MG/0.4 ML SYRINGE SQ SCH (09:41)
[2023-03-05] MEDS: SPIRONOLACTONE 25 MG TAB PO SCH (09:41)
[2023-03-05] MEDS: ASPIRIN 81 MG PO SCH (09:41)
[2023-03-05] MEDS: PANTOPRAZOLE 40 MG/10 ML VIAL IVP SCH (09:41)
[2023-03-05] MEDS: MAG HYDROX/AL HYDROX/SIMETH 30 ML, diphenhydrAMINE ELIXIR 75 MG, LIDOCAINE VISCOUS 2% 3... PO SCH ×3 (09:42)
--- NOTE | 2023-03-05 10:22 | P.PN ---
Subjective Progress Note Date: 03/04/23 03/04/2023: Patient was seen for a follow-up. Patient is sitting in the recliner. Patient offers no complaints. Patient continues to be slightly groggy, mildly encephalopathic. 03/03/2023: Patient was seen for a follow-up. Patient apparently had acute mental status change earlier this morning today. She was very lethargic, more disoriented. Repeat CT head performed, which did not reveal any acute process. At present patient is slightly somnolent, but does wake up and answers appropriately. Patient states that she was sleeping before I woke her up. 03/01/2023: Patient was seen for a follow-up. Patient is laying comfortably in the bed. Patient states "I'm doing well". Patient had undergone cardiac catheterization today. Patient has new onset CHF. Patient offers no complaints. 02/26/2023: Patient was seen for a follow-up. Patient is laying comfortably in the bed. Offers no complaints. Denies any headache or dizziness. 02/25/2023: Patient initially seen by Dr. Stanley Thompson. Please refer to his note for details. Patient is a 57-year-old female with bilateral hemispheric strokes. She has bilateral significant carotid stenosis, > 70% stenosis on CTA but seems carotid 50-69%. Bilateral femoral occlusion. The performed 02/24/2023 revealed hypokinesis with severe hypertrophy LV. No PFO. Hypercoagulable workup pending. Patient is on aspirin 325 mg daily. Vascular surgery on board. Patient was not taking any antiplatelet medication at home. Patient was sleeping when I arrived. However she did wake up and was cooperating with examination is per examination section. Patient admits to smoking 2 packs per day for 30 years, drinks couple beers per day. SOME OF THE WORK-UP DURING THIS VISIT: Vitamin B12: 644 Folate: 10.80 Ammonia 19 HbA1c: 6.6 TSH is 38.8, free T4 is 0.84 and the free T3 is 2.4. CT head is reported as no acute intracranial process. remote lacunar injuries along with nonspecific white matter changes likely secondary to chronic microangiopathy. MRI Brain is reported as numerous punctate foci of acute infarct involving the frontal and parietal disease deep white matter region of both sides, bilateral thalamus and left basal ganglia. Additional small focus in the left paramedian vita. A couple foci measuring up to 1.0 cm involving the left splenium of the corpus callosum. Given the corresponding increased T2 flare, findings suggest small infarcts is greater than 6 hours in duration. Consider central thromboembolic phenomena. Background of severe burden of chronic small vessel ischemic disease. I personally reviewed the MRI and agree with the findings with evidence of multiple areas of acute to subacute ischemia involving b ilateral hemispheric region including splenium of the left corpus callosum.. EEG is abnormal. The background slowing is suggestive of moderate encephalopathy. Otherwise no focal slowing, epileptiform discharges or seizures. LASHA is negative, ESR is 2, Protein S and antithrombin II Ag is within normal limits. Objective - Vital Signs Vital signs: Vital Signs Temp 98.4 F 03/04/23 09:01 Pulse 60 03/05/23 04:00 Resp 20 03/05/23 04:00 BP 132/78 03/05/23 06:11 Pulse Ox 92 L 03/05/23 09:20 FiO2 21 03/05/23 09:20 Intake & Output 03/04/23 03/05/23 03/05/23 18:59 06:59 18:59 Intake Total 518 118 Output Total 300 300 550 Balance 218 -300 -432 Weight 57.5 kg Intake: Oral 518 118 Output: Urine 300 300 550 Other: Voiding Method Bedside Commode Bedside Commode External Catheter External Catheter # Bowel Movements 1 1 - Exam Patient is more alert and awake as compared to yesterday. She is sitting in the recliner. Patient states it is February and the year is 2022. She knows that she is in [facility]. She states that it is [facility]. Her speech is slurred as usual. She knows her birthday. No aphasia. Patient can name and repeat very well. On cranial nerve examination, pupils are equal, round and reacting to light, visual dunbar are full on confrontation, face is symmetric and tongue protrudes the midline. Patient's concentration was decreased therefore visual dunbar were difficult to assess. On muscle strength testing, patient has normal strength in the upper limbs. Hip flexion is 4+, ankle dorsiflexion 5 bilaterally. Deep tendon reflexes are 2+ in the upper limbs, 1+ at the knees. Sensory to touch is equal. Patient appeared slightly ataxic for [id number] testing, but was very groggy and was not cooperating well. Her tone is decreased. - Labs CBC & Chem 7: 03/03/23 08:18 03/04/23 07:11 Labs: Abnormal Lab Results - Last 24 Hours (Table) 03/04/23 03/04/23 Range/Units 11:46 16:38 POC Glucose (mg/dL) 144 H 132 H (70-110) mg/dL Assessment and Plan Assessment: This is a 57-year-old woman with history of hypertension and is not compliant taking medication who presented because of generalized weakness, confusion, falls for the past weeks to months. New onset altered mental status, likely due to UTI. UA abnormal. Altered mental status seems due to multifactorial: acute bilateral hemispheric stroke, Also due to hypertensive encephalopathy with component due to abnormal thyroid and some component of metabolic--significant improvement in mentation Acute ischemic bilateral hemispheric stroke: Unsure exact cause. Appears embolic in nature. Rule out cardioembolic vs underlying hypercoagulable vs due to artery to artery embolic from carotid stenosis. Per CTA has right ICA stenosis 60-70% and left 70-80% Hypercoagulable state with positive/heterozygous for prothrombin gene as well as factor V Leiden mutation. Signficant Bilateral carotid stenosis right ICA stenosis 60-70% and left 70-80% per CTA Acute hypertensive emergency (presented with blood pressure 230's/170's--curr ently is 130-140's/80's to 90's) she was on nitroglycerin, she received clonidine patch as well as IV hydralazine--resolved Generalized weakness Acute bilateral femoral occlusive disease with ischemic changes over the left toe Falls Possible TIA about 4-5 months ago (had transient right facial weakness per ). Systolic heart failure with ejection fraction of 30-35% Elevated troponin Hypothyroidism Peripheral vascular disease Chronic history of hypertension and noncompliant with medication Tobacco use Alcohol use Noncompliance with medication and does not follow up with physician Plan: Patient is being treated for acute UTI, on ceftriaxone. Repeat CT head 03/03/2023 was negative for any acute process. Age-related atrophic and chronic small vessel ischemic disease noted. I personally reviewed CT head, agree with the findings. Recommend patient to be placed on dual antiplatelet medication because of the extent of vasculopathy noted on the CTA of head and neck as well as peripheral vasculature. Patient to be on continued on Plavix 75 mg and aspirin 325 mg daily. YANDEL performed 02/24/2023 revealed moderately impaired left ventricular systolic function with global hypokinesis and severe hypertrophy with speckling raising the possibility of infiltrative disease. No evidence of shunting across the intra-atrial septum. Mild aortic and mitral regurgitation. Mild atherosclerotic changes of the descending aorta. Cardiac catheterization 03/01/2023 revealed moderate disease in the left distal circumflex, left dominance and low LVEDP. Suggest 30 day event monitor to rule out paroxysmal atrial fibrillation. LASHA is negative, ESR is 2, Protein S and antithrombin II Ag is within normal limits. DsDNA negative. Factor V Leiden heterozygous, which is associated with activated protein C resistance and increased risk for venous thromboembolism. It increased risk for VTE. Lupus anticoagulant negative. Prothrombin gene mutation also heterozygous for [id number] mutation. Patient's homocysteine is highly elevated 27.9. Hematology to address hypercoagulable state. Discussed with Dr. Sim, recommending dual antiplatelet medications, unless she is positive for antiphospholipid antibodies. Appreciate hematology recommendations. Patient to be on DAPT with aggressive vascular risk factor modification. Await beta-2 glycoprotein. B12 is 644, folate 10.8 both normal. TSH is elevated 38.8. IM to address. Patient on Protonix 40 mg twice a day for gastric ulcer prophylaxis. On Lipitor 80mg qhs for secondary stroke prophylaxis. Continue neuro checks On cardiac monitoring. Telemetry monitoring showing sinus rhythm, with some couplets, PVCs and PACs PT, OT and [employer] are consulted. Cardiology is on board. Continue thiamine 100mg daily. Please avoid any sedation if possible to have a better neurological evaluation. Vascular surgery team for bilateral femoral occlusive disease. Also has leg toes ischemia. No intervention recommended by vascular surgery. Will defer rest of management to primary and other specialist. For DVT prophylaxis: On Enoxaparin. Neurologically, no other workup indicated. Cardiology following. Vascular surgery recommending no intervention at this time and suggest follow-up with vascular surgery as an outpatient. Appreciate hematology input. Neurologically clear.
[2023-03-05 10:29] VITALS: RESP 18; TEMP 97.6
[2023-03-05 11:34] LABS: Glucose,Whole Blood 110 mg/dL (70-110)
[2023-03-05] MEDS ORDERED: hydrALAZINE HCL 20 MG/ML 1 ML VIAL IVP STA (12:47)
[2023-03-05 12:50] VITALS: PULSE 61
[2023-03-05 12:51] VITALS: BP 190/110
--- NOTE | 2023-03-05 14:37 | P.DS ---
Providers Date of admission: 02/19/23 00:16 Expected date of discharge: 03/05/23 Attending physician: Brock Escamilla Consults: 02/19/23 09:12 Consult Physician Stat Consulting Provider: Terri Valdez Consult Reason/Comments: ICU management Do you want consulting provider notified?: Already Contacted 02/19/23 10:58 Consult Physician Routine Consulting Provider: Stanley Thompson Consult Reason/Comments: AMS Do you want consulting provider notified?: Yes 02/24/23 12:11 Consult Physician Routine Consulting Provider: Heriberto Sim Consult Reason/Comments: bilateral hemispheric stroke with b/l femoral occlusion. R/o hypercoagulab Do you want consulting provider notified?: Yes 02/25/23 11:33 Consult Physician Routine Consulting Provider: You Marley Consult Reason/Comments: ileus/vs bowel obstruction Do you want consulting provider notified?: Yes Primary care physician: Stated None Hospital Course: Final diagnosis Altered mental status secondary to acute metabolic encephalopathy, improving Acute infarct involving the frontal and parietal cortices, deep white matter regions on both sides, bilateral thalami, and left basal ganglia as noted on MRI of the brain Progressive weakness and frequent falls at home Possible acute urinary tract infection, although suspicion is low most likely asymptomatic bacteriuria as patient is not having any pain or burning with urination and is afebrile Hypertension with urgency on admission, improving Elevated troponin level, ACS ruled out per cardiology Acute kidney injury vs CKD, improved Ischemic changes to the left foot. Will need outpatient follow-up with vascular surgery Acute congestive heart failure, systolic dysfunction Severe Cardiomyopathy and LV dysfunction possibly from the hypertension vs hypothyroidism Possible amyloidosis Hypothyroidism Elevated D-Dimer Hypothyroidism Diabetes Mellitus type 2 uncontrolled History of factor V leiden deficiency History of myocardial infarction unknown details Chronic and ongoing nicotine use Medical noncompliance Marijuana use GI prophylaxis DVT prophylaxis; SCDs subcutaneous Lovenox Do Not Resuscitate/Do Not Intubate Discharge disposition Patient is being discharged in a stable condition with guarded prognosis to [facility]. Patient will follow-up with Dr. Quesada in the outpatient setting upon discharge. Patient is to follow-up with cardiology along with neurology in the outpatient setting as scheduled. Total time taken is greater than 35 minutes. Hospital course This is a 57-year-old female who was recently admitted with altered mental status was severely uncontrolled blood pressure and found to have acute infarcts involving the frontal and parietal cortices, deep white matter regions on both sides, bilateral thalami and left basal ganglia and was being closely monitored. Patient required ICU admission for quite some time due to continued mentation and uncontrolled blood pressure requiring multiple medical consultations to follow. Patient underwent extensive neurological workup was slow to improve although did improve after blood pressure was better controlled and also noted to have ischemic changes to the left foot and was evaluated by vascular surgery. Patient may eventually need intervention. Per patient had not been to a doctor in over 10 years she did not trust them and had not been taking any medications. Patient does have a significant past medical history of uncontrolled diabetes, factor V deficiency, myocardial infarction in the past, continued marijuana use and nicotine. Patient was evaluated and closely monitored with cardiology underwent YANDEL with concerns of streaking noted in the heart muscles concerning for possible amyloidosis also underwent cardiac catheterization recommending maximizing medical management and tight blood pressure control. Patient had difficulty with talking as well as eating and was nothing by mouth for some time requiring tube feedings although after patient improved patient has been followed closely by speech therapy and has been advanced to regular diet. Would recommend heart healthy diabetic diet and a spiration precautions with head of the bed elevated 30-45 along with supervision with meals. Patient noted to have severe cardiomyopathy and LV dysfunction possibly secondary to hypothyroidism and hypertension along with acute congestive heart failure with systolic dysfunction and cardiology needs close outpatient follow-up. Lengthy discussion was had with family along with patient and patient is now agreeable and willing to follow-up and take medications as prescribed. Patient's blood pressures are elevated and would recommend continuing current medication regimen as well as using hydralazine 50 mg twice daily as needed for a blood pressure over 170 in between her already scheduled doses. Patient was seen and evaluated by hematology and recommending anti-dual platelet therapy indefinitely and okay for no anticoagulation. Patient is significantly weak and would like to build up strength and mobility to return home and would recommend continuing with Lovenox subcu injections daily for DVT prophylaxis. Recommend follow-up labs in the next few days to monitor CBC, BMP, magnesium. Patient has been cleared by consultations. Please refer to other consultation notes for further HPI. Currently no reports of chest pain, shortness of breath, or palpitations. Patient is afebrile. No reports of nausea or vomiting and patient is tolerating diet. Patient will be going to [facility] today. Extremely guarded prognosis given his significant comorbidities and previous noncompliance with all medications and extremely high risk lifestyle choices. Physical exam: Gen: This is a 57-year-old female who is awake, alert and oriented 3, elderly- appearing, thin built, well-nourished HEENT: Head is atraumatic, normocephalic. Pupils equal, round. Sclerae is anicteric. NECK: Supple. No JVD. No lymphadenopathy. No thyromegaly. LUNGS: Clear to auscultation. No wheezes or rhonchi. No intercostal retractions. HEART: Regular rate and rhythm. No murmur. ABDOMEN: Soft. Bowel sounds are present. No masses. No tenderness. EXTREMITIES: No pedal edema. No calf tenderness. NEUROLOGICAL: Patient is awake, alert and oriented x3. Cranial nerves 2 through 12 are grossly intact. Diffusely weak Please refer to medication reconciliation sheet for a list of medications. The impression and plan of care has been dictated by Rhonda Hawkins, Nurse Practitioner as directed. Dr. Tej MD I have performed a history and examination and MDM of this patient, discussed the same with the dictator, and agree with the dictator's assessment and plan as written ,documented as a scribe. Based on total visit time, I have performed more than 50% of the visit. Patient Condition at Discharge: Poor Plan - Discharge Summary New Discharge Prescriptions: New Spironolactone [Aldactone] 100 mg PO DAILY tab Aspirin 81 mg PO DAILY tab Nicotine 14Mg/24Hr Patch [Habitrol] 1 patch TRANSDERM DAILY patch Mag Hydrox/Al Hydrox/Simeth [Maalox] 30 ml PO TID ml Nitroglycerin Sl Tabs [Nitrostat] 0.4 mg SUBLINGUAL Q5M PRN tab PRN Reason: Chest Pain Clopidogrel [Plavix] 75 mg PO DAILY tab Pantoprazole Sodium [Protonix] 40 mg PO DAILY #30 tab Levothyroxine Sodium [Synthroid] 50 mcg PO DAILY@0630 tab lisinopriL [Zestril] 20 mg PO BID tab hydrALAZINE HCL [Apresoline] 100 mg PO TID #90 tablet hydrALAZINE HCL 50 mg PO BID PRN #60 tablet PRN Reason: Hypertension carvediloL [Coreg*] 25 mg PO BID-W/MEALS tab Atorvastatin [Lipitor] 80 mg PO HS tab Enoxaparin [Lovenox] 40 mg SQ DAILY each Acetaminophen Tab [Tylenol] 650 mg PO Q6HR PRN tab PRN Reason: Fever And/ Or Pain Thiamine [Vitamin B-1] 100 mg PO DAILY tab Discharge Medication List Acetaminophen Tab [Tylenol] 650 mg PO Q6HR PRN tab 03/05/23 [Rx] Aspirin 81 mg PO DAILY tab 03/05/23 [Rx] Atorvastatin [Lipitor] 80 mg PO HS tab 03/05/23 [Rx] Clopidogrel [Plavix] 75 mg PO DAILY tab 03/05/23 [Rx] Enoxaparin [Lovenox] 40 mg SQ DAILY each 03/05/23 [Rx] Levothyroxine Sodium [Synthroid] 50 mcg PO DAILY@0630 tab 03/05/23 [Rx] Mag Hydrox/Al Hydrox/Simeth [Maalox] 30 ml PO TID ml 03/05/23 [Rx] Nicotine 14Mg/24Hr Patch [Habitrol] 1 patch TRANSDERM DAILY patch 03/05/23 [Rx] Nitroglycerin Sl Tabs [Nitrostat] 0.4 mg SUBLINGUAL Q5M PRN tab 03/05/23 [Rx] Pantoprazole Sodium [Protonix] 40 mg PO DAILY #30 tab 03/05/23 [Rx] Spironolactone [Aldactone] 100 mg PO DAILY tab 03/05/23 [Rx] Thiamine [Vitamin B-1] 100 mg PO DAILY tab 03/05/23 [Rx] carvediloL [Coreg*] 25 mg PO BID-W/MEALS tab 03/05/23 [Rx] hydrALAZINE HCL 50 mg PO BID PRN #60 tablet 03/05/23 [Rx] hydrALAZINE HCL [Apresoline] 100 mg PO TID #90 tablet 03/05/23 [Rx] lisinopriL [Zestril] 20 mg PO BID tab 03/05/23 [Rx] Follow up Appointment(s)/Referral(s): Ryan Quesada MD [STAFF PHYSICIAN] - 1 Week Dez Anderson DO [STAFF PHYSICIAN] - 1 Week Nichelle King DO [STAFF PHYSICIAN] - 2 Weeks Priti Gibbs MD [Medical Doctor] - 1 Week Activity/Diet/Wound Care/Special Instructions: Patient is going to [place] Activity as tolerated Continue current medications as prescribed Follow-up with neurology, cardiology, primary to establish on discharge from ECF Patient to continue with regular diet and would recommend head of the bed elevated 30-45 and supervision with meals with aspiration cautions Discharge Disposition: TRANSFER TO SNF/ECF
--- NOTE | 2023-03-05 15:47 | P.PN ---
Subjective Progress Note Date: 03/05/23 Principal diagnosis: CVA, cardiovascular disease, needing anticoagulation, concerns for hypocoagulable state In follow-up today patient is in a very pleasant mood, she denies any bleeding, she is not in any pain. Objective - Vital Signs Vital signs: Vital Signs Temp 97.6 F 03/05/23 12:49 Pulse 61 03/05/23 12:49 Resp 18 03/05/23 12:49 BP 190/110 03/05/23 12:50 Pulse Ox 92 L 03/05/23 12:49 FiO2 21 03/05/23 09:20 Intake & Output 03/04/23 03/05/23 03/05/23 18:59 06:59 18:59 Intake Total 518 118 Output Total 300 300 550 Balance 218 -300 -432 Weight 57.5 kg Intake: Oral 518 118 Output: Urine 300 300 550 Other: Voiding Method Bedside Commode Bedside Commode Indwelling Catheter External Catheter External Catheter # Bowel Movements 1 1 - Constitutional General appearance: Present: average body habitus, cooperative, no acute distress - EENT Eyes: Present: anicteric sclerae, EOMI ENT: Present: hearing grossly normal - Respiratory Details: Respirations even and unlabored at rest - Cardiovascular Details: Skin warm and dry to the touch - Psychiatric Psychiatric: Present: A&O x's 3 - Labs CBC & Chem 7: 03/03/23 08:18 03/04/23 07:11 Labs: Abnormal Lab Results - Last 24 Hours (Table) 03/04/23 Range/Units 16:38 POC Glucose (mg/dL) 132 H (70-110) mg/dL Assessment and Plan (1) CVA (cerebral vascular accident) Current Visit: Yes Status: Acute Priority: High Code(s): I63.9 - CEREBRAL INFARCTION, UNSPECIFIED SNOMED Code(s): 911305877 (2) Peripheral vascular disease Current Visit: Yes Status: Acute Priority: High Code(s): I73.9 - PERIPHERAL VASCULAR DISEASE, UNSPECIFIED SNOMED Code(s): 978852140 Plan: CVA -Patient has been assessed and is being treated by Neurology. She is doing much better since admission -Patient has significant cardiovascular risk factors including uncontrolled hypertension, diabetes mellitus type 2 and smoking. LVEF 30-35%. -Hematology and Cardiology agree with antiplatelet therapy, along with aggressive treatment and mgmt of patient's comorbidities. -Antiphospholipid antibody testing negative, DOAC anticoagulation therapy is reasonable anticoagulant choice
== END 2023-03-05 15:49 | DRG 64 ==
LOC: EC 20:46 → 3SCARD 02-19 00:16 → 2SICU 02-19 09:16 → 3SCARD 02-28 15:16 → UNDODISIN 03-04 16:15
PROVIDERS: ADMIT Hospitalist; ATTEND Hospitalist
PROC: B24BZZ4 Ultrasonography of Heart with Aorta, Transesophageal (ICD-10-PCS; principal; 2023-02-24 07:30)
PROC: 4A023N7 Measurement of Cardiac Sampling and Pressure, Left Heart, Percutaneous Approach (ICD-10-PCS; 2023-03-01)
PROC: B2111ZZ Fluoroscopy of Multiple Coronary Arteries using Low Osmolar Contrast (ICD-10-PCS; 2023-03-01)
DX: I63.81 Other cerebral infarction due to occlusion or stenosis of small artery (principal); G93.41 Metabolic encephalopathy; I50.21 Acute systolic (congestive) heart failure; N17.9 Acute kidney failure, unspecified; I42.8 Other cardiomyopathies; E85.9 Amyloidosis, unspecified; D68.52 Prothrombin gene mutation; I5A Non-ischemic myocardial injury (non-traumatic); I67.4 Hypertensive encephalopathy; I16.1 Hypertensive emergency; D68.51 Activated protein C resistance; I11.0 Hypertensive heart disease with heart failure; E11.51 Type 2 diabetes mellitus with diabetic peripheral angiopathy without gangrene; I70.228 Atherosclerosis of native arteries of extremities with rest pain, other extremity; E03.9 Hypothyroidism, unspecified; J44.9 Chronic obstructive pulmonary disease, unspecified; I08.0 Rheumatic disorders of both mitral and aortic valves; I70.0 Atherosclerosis of aorta; I71.40 Abdominal aortic aneurysm, without rupture, unspecified; I65.23 Occlusion and stenosis of bilateral carotid arteries; Z66 Do not resuscitate; T50.916A Underdosing of multiple unspecified drugs, medicaments and biological substances, initial encounter; F17.210 Nicotine dependence, cigarettes, uncomplicated; I25.10 Atherosclerotic heart disease of native coronary artery without angina pectoris; R13.10 Dysphagia, unspecified; R29.6 Repeated falls; R47.81 Slurred speech; I99.8 Other disorder of circulatory system; R53.1 Weakness; F10.90 Alcohol use, unspecified, uncomplicated; R29.810 Facial weakness; E87.6 Hypokalemia; E78.5 Hyperlipidemia, unspecified; K80.20 Calculus of gallbladder without cholecystitis without obstruction; R82.71 Bacteriuria; R79.89 Other specified abnormal findings of blood chemistry; Y90.0 Blood alcohol level of less than 20 mg/100 ml; R00.1 Bradycardia, unspecified; E11.65 Type 2 diabetes mellitus with hyperglycemia; Z91.148 Patient's other noncompliance with medication regimen for other reason; Z28.310 Unvaccinated for COVID-19; Z91.81 History of falling; Z91.199 Patient's noncompliance with other medical treatment and regimen due to unspecified reason; I25.2 Old myocardial infarction; Z91.013 Allergy to seafood; Z86.73 Personal history of transient ischemic attack (TIA), and cerebral infarction without residual deficits
CPT/HCPCS: 36415; 36600; 70450; 70496; 70498; 70551; 71045; 74018; 74177; 74230; 75635; 76604; 80048; 80053; 80061; 80074; 80306; 80320; 81001; 81240; 81241; 82140; 82607; 82746; 82803; 82805; 83036; 83090; 83605; 83735; 83880; 83883; 84132; 84145; 84165; 84439; 84443; 84481; 84484; 85025; 85027; 85246; 85300; 85301; 85302; 85303; 85305; 85306; 85379; 85610; 85613; 85652; 85730; 85732; 86038; 86146; 86147; 86225; 86255; 86431; 87040; 93005; 93306; 93312; 93320; 93325; 93458; 93880; 93923; 94760; 95819; 96365; 96366; 96368; 96375; 99291